=== PATIENT | female | born 1970 | race Caucasian/White ===

== ENCOUNTER 2016-06-21 23:50 | Emergency (ER) | payer OTHER ==
[2016-06-22 00:06] VITALS: O2SAT 100
--- NOTE | 2016-06-22 00:20 | ERPHSYRPT ---
- History of Present Illness Time Seen by Provider: 06/22/16 00:06 Historian: patient Exam Limitations: clinical condition Patient Subjective Stated Complaint: Pt sts abd pain with constipation and nasuea for several days. Sts has seen Dr. Mehta for this of which he ordered a CT scan. Pt sts CT scan showed constipation. Sts has tried prescribed medications for this without success. Pt sts last solid BM last . Sts 1 liquidy BM today. Sts still feels as if she is full. Sts pain is crampy. Denies vomiting. Sts still able to eat. Triage Nursing Assessment: Pt alert, oriented, answers all questions appropriately. Skin p/w/d, resps non-labored. ABD soft, tender diffusely. + bowel sounds. Lung sounds CTA bilat. Physician History: PATIENT WITH HISTORY OF TYPE 2 DIABETES, AND CHRONIC CONSTIPATION FOR 5 YEARS, INTERMITTENT LEFT SIDED ABDOMINAL PAIN FOR 1 WEEK. HAS NO RELIEF AFTER STOOL SOFTNERS AND LAXATIVES. DENIES URINARY SYMPTOMS, NAUSEA, EMESIS OR FEVER OR CHILLS. Timing/Duration: week(s) Activities at Onset: none Quality: cramping Abdominal Pain Onset Location: LUQ, LLQ Pain Radiation: no radiation Severity of Pain-Max: moderate Severity of Pain-Current: moderate Modifying Factors: Improves With: antacids Previous symptoms: same symptoms as today Allergies/Adverse Reactions: diphenhydramine HCl [From Benadryl] Allergy (Verified 06/22/16 00:14) guaifenesin [From CodiCLEAR DH] Allergy (Verified 06/22/16 00:14) hydrocodone bitartrate [From CodiCLEAR DH] Allergy (Verified 06/22/16 00:14) hydromorphone HCl [From Dilaudid] Allergy (Verified 06/22/16 00:14) Penicillins Allergy (Verified 06/22/16 00:14) potassium guaiacolsulfonate [From CodiCLEAR DH] Allergy (Verified 06/22/16 00:14 ) Home Medications: Amitriptyline HCl 150 mg PO HS 06/22/16 [History] Atorvastatin Calcium [Lipitor 40Mg] 40 mg PO DAILY 06/22/16 [History] Glycerin 1 each RC DAILY 06/22/16 [History] Hyoscyamine Sulfate 0.125 mg [Anaspaz 0.125 mg] 0.125 mg PO 06/22/16 [ History] Insulin Glargine,Hum.rec.anlog [Basaglar Kwikpen U-100] 65 unit SQ DAILY [History] Insulin Glulisine [Apidra Solostar] 25 unit SQ TID 06/22/16 [History] Lisinopril/Hydrochlorothiazide [Lisinopril-Hctz 10-12.5 mg Tab] 1 each PO [History] Loratadine 10 mg [Claritin 10 mg] 10 mg PO DAILY 06/22/16 [History] Ropinirole HCl [Requip] 0.25 mg PO TID 06/22/16 [History] Senexon 8.6 - 50 mg PO DAILY 06/22/16 [History] Hx Tetanus, Diphtheria Vaccination/Date Given: Yes Hx Influenza Vaccination/Date Given: Yes Hx Pneumococcal Vaccination/Date Given: (N/A) Immunizations Up to Date: Yes - Review of Systems Constitutional: No Fever, No Chills Eyes: No Symptoms Ears, Nose, & Throat: No Symptoms Respiratory: No Symptoms, No Cough, No Dyspnea Cardiac: No Symptoms, No Chest Pain, No Edema, No Syncope Abdominal/Gastrointestinal: Constipation, No Abdominal Pain, No Nausea, No Vomiting, No Diarrhea Genitourinary Symptoms: No Symptoms, No Dysuria Musculoskeletal: No Symptoms, No Back Pain, No Neck Pain Skin: No Symptoms, No Rash Neurological: No Symptoms, No Dizziness, No Focal Weakness, No Sensory Changes Psychological: No Symptoms Endocrine: No Symptoms All Other Systems: Reviewed and Negative - Past Medical History Pertinent Past Medical History: Yes Neurological History: No Pertinent History ENT History: No Pertinent History Cardiac History: No Pertinent History Respiratory History: Sleep Apnea, Asthma Endocrine Medical History: Diabetes Type II Musculoskeletal History: Other, Osteoarthritis, Degenerative Disk Disease GI Medical History: Irritable Bowel, Other History: No Pertinent History Psycho-Social History: Anxiety Female Reproductive Disorders: No Pertinent History Other Medical History: CHRONIC CONSTIPATION - Past Surgical History Past Surgical History: Yes Gastrointestinal: Exploratory Laparoscopy, Cholecystectomy Other Surgical History: TONSILLECTOMY - Social History Smoking Status: Former smoker Exposure to second hand smoke: No Drug Use: none Patient Lives Alone: No - Female History Hx Last Menstrual Period: post menopausal - Nursing Vital Signs Nursing Vital Signs: Initial Vital Signs Temperature 98.3 F Temperature Source Oral Pulse Rate 92 Respiratory Rate 16 Blood Pressure [Right Arm] 128/62 Pain Intensity 10 - Physical Exam General Appearance: no apparent distress, alert Eye Exam: PERRL/EOMI, eyes nml inspection Ears, Nose, Throat Exam: normal ENT inspection, pharynx normal, moist mucous membranes Neck Exam: normal inspection, non-tender, supple, full range of motion Respiratory Exam: normal breath sounds, lungs clear, No respiratory distress Cardiovascular Exam: regular rate/rhythm, normal heart sounds Gastrointestinal/Abdomen Exam: soft, tenderness (LEFT LATERAL TENDERNESS), No mass Back Exam: normal inspection, normal range of motion, No CVA tenderness, No vertebral tenderness Extremity Exam: normal inspection, normal range of motion, pelvis stable Neurologic Exam: alert, oriented x 3, cooperative, normal mood/affect, nml cerebellar function, sensation nml, No motor deficits Skin Exam: normal color, warm, dry SpO2: 100 Oxygen Delivery: Room Air Ordered Tests: Active Orders 24 hr Category Date Time Status Enema STAT Care 06/22/16 00:15 Active - Progress Progress: improved Progress Note: 06/22/16 01:33- THE ABDOMINAL PELVIC CT W/O CONTRAST C/W MODERATE SCATTERED COLONIC FECAL DEBRIS THROUGHOUT, WITHOUT OBSTRUCTION. PATIENT GIVEN SOAP SUDS ENEMA WITH GOOD RESULTS Counseled pt/family regarding: diagnosis, need for follow-up - Departure Time of Disposition: 01:37 Departure Disposition: Home Clinical Impression: OBSTIPATION Condition: Stable Critical Care Time: No Additional Instructions: CONSULT YOUR PRIMARY CARE PHYSICIAN FOR EVALUATION AND TREATMENT. CONTINUE ALL CURRENT MEDICATIONS.
[2016-06-22 01:28] VITALS: BP 128/62; PULSE 92
== END 2016-06-22 01:53 | disposition home or self-care (01) ==
LOC: ED 23:50
DX: K59.00 Constipation, unspecified (principal); R11.0 Nausea; E11.9 Type 2 diabetes mellitus without complications; R10.32 Left lower quadrant pain; R10.12 Left upper quadrant pain; Z79.4 Long term (current) use of insulin
CPT/HCPCS: 99284

== ENCOUNTER 2016-08-25 00:36 | Observation (INO) | payer OTHER ==
[2016-08-25] MEDS ORDERED: Pepcid 20 MG VIAL IV ONE ×2 (00:54→01:01)
[2016-08-25] MEDS ORDERED: SUBLIMAZE 100 MCG/2 ML IV ONE (00:54)
[2016-08-25] MEDS ORDERED: BABY ASPIRIN 81 MG CHEW PO ONE (00:55)
[2016-08-25] MEDS ORDERED: NITRO-BID 2% UD PACKETS TOP ONE (00:55)
[2016-08-25 00:56] LABS: Lactic Acid 2.3 (0.4-2.0)
[2016-08-25] MEDS ORDERED: NITRO-BID 2% UD PACKETS ONE ×3 (01:01→06:42)
[2016-08-25] MEDS ORDERED: BABY ASPIRIN 81 MG CHEW ONE (01:01)
[2016-08-25] MEDS ORDERED: PROVENTIL 2.5 MG/3 ML NEB IH ONE ×2 (01:02→01:07)
[2016-08-25] MEDS ORDERED: SUBLIMAZE 100 MCG/2 ML ONE (01:02)
--- NOTE | 2016-08-25 01:03 | ERPHSYRPT ---
- History of Present Illness Time Seen by Provider: 08/25/16 00:40 Source: patient Patient Subjective Stated Complaint: sick to stomach, abdominal pain, chest pain Triage Nursing Assessment: patient states has hx of asthma cannot nebulizer machine at home, no cardiac hx , abdominal pain and nausea currently does have cyst on left ovary so it could be that. lung sounds clear diminished , edema lower extremities. Physician History: CC: chest pain Hx: 46 y/o patient of Dr Adhikari with DM and HTN. She has hx of ovary problem. Still has menses. She came to ER tonite with left sided chest pain. Not short of breath. No cough. She uses nebs at home. She has increased chronic abd pain. Last BM 2 hours ago and normal. No fever or chills. Pain moderate but worse than usual. No hx of heart disease. Has not taken ASA. Timing/Duration: today Severity: moderate Allergies/Adverse Reactions: diphenhydramine HCl [From Benadryl] Allergy (Verified 06/22/16 00:14) guaifenesin [From CodiCLEAR DH] Allergy (Verified 06/22/16 00:14) hydrocodone bitartrate [From CodiCLEAR DH] Allergy (Verified 06/22/16 00:14) hydromorphone HCl [From Dilaudid] Allergy (Verified 06/22/16 00:14) Penicillins Allergy (Verified 06/22/16 00:14) potassium guaiacolsulfonate [From CodiCLEAR DH] Allergy (Verified 06/22/16 00:14 ) Home Medications: Atorvastatin Calcium [Lipitor 40Mg] 40 mg PO DAILY 06/22/16 [History] Insulin Glargine,Hum.rec.anlog [Basaglar Kwikpen U-100] 70 unit SQ DAILY [History] Insulin Glulisine [Apidra Solostar] 30 unit SQ TID 06/22/16 [History] Lisinopril/Hydrochlorothiazide [Lisinopril-Hctz 10-12.5 mg Tab] 1 each PO [History] Loratadine 10 mg [Claritin 10 mg] 10 mg PO DAILY 06/22/16 [History] Ropinirole HCl [Requip] 0.25 mg PO TID 06/22/16 [History] Methylphenidate HCl [Ritalin] 10 mg PO BID 08/25/16 [History] PANTOPRAZOLE 40 mg Tablet [Protonix 40MG Tablet] 40 mg PO DAILY 08/25/16 [ History] Topiramate 50 mg PO HS 08/25/16 [History] Hx Tetanus, Diphtheria Vaccination/Date Given: Yes Hx Influenza Vaccination/Date Given: Yes Hx Pneumococcal Vaccination/Date Given: No Immunizations Up to Date: Yes - Review of Systems Constitutional: No Fever, No Chills Eyes: No Symptoms Ears, Nose, & Throat: No Symptoms Respiratory: No Cough Cardiac: Chest Pain, Edema, No Syncope Abdominal/Gastrointestinal: Abdominal Pain, Nausea Genitourinary Symptoms: No Dysuria, No Musculoskeletal: Back Pain Skin: No Rash Neurological: No Headache All Other Systems: Reviewed and Negative - Past Medical History Pertinent Past Medical History: Yes Neurological History: No Pertinent History ENT History: No Pertinent History Cardiac History: No Pertinent History Respiratory History: Sleep Apnea, Asthma Endocrine Medical History: Diabetes Type II Musculoskeletal History: Other, Osteoarthritis, Degenerative Disk Disease GI Medical History: Irritable Bowel, Other History: No Pertinent History Psycho-Social History: Anxiety Female Reproductive Disorders: No Pertinent History Other Medical History: CHRONIC CONSTIPATION - Past Surgical History Past Surgical History: Yes Gastrointestinal: Exploratory Laparoscopy, Cholecystectomy Other Surgical History: TONSILLECTOMY - Social History Smoking Status: Never smoker Exposure to second hand smoke: No Drug Use: none Patient Lives Alone: No - Nursing Vital Signs Nursing Vital Signs: Initial Vital Signs Temperature 97.4 F Temperature Source Oral Pulse Rate 100 Respiratory Rate 18 Blood Pressure [] 110/58 Pain Intensity 10 - Physical Exam General Appearance: alert, obese Eye Exam: PERRL/EOMI Ears, Nose, Throat Exam: normal ENT inspection, moist mucous membranes Neck Exam: normal inspection, non-tender, supple Respiratory Exam: normal breath sounds, diminished breath sounds Cardiovascular Exam: regular rate/rhythm Gastrointestinal/Abdomen Exam: soft, other (protruberant abdomen, with diffuse discomfort) Extremity Exam: normal inspection, normal range of motion Neurologic Exam: alert, oriented x 3, cooperative, sensation nml, No motor deficits Skin Exam: warm, dry SpO2 Interpretation: normal SpO2: 98 Oxygen Delivery: Room Air - Course Nursing assessment & vital signs reviewed: Yes EKG Interpreted by Me: RATE (115), Sinus Tach, NORMAL AXIS, NORMAL INTERVALS ( QTc 422), Non-specific ST Changes - Radiology Exams AAS X-ray Interpretation: Reviewed by me, Negative Ordered Tests: Active Orders 24 hr Category Date Time Status ACCUCHECK [Accucheck] STAT Care 08/25/16 00:56 Active Email Marketing Executive STAT Care 08/25/16 00:55 Active EKG-ER Only STAT Care 08/25/16 00:45 Active IV Insertion STAT Care 08/25/16 00:45 Active Pulse Oximetry (ED) STAT Care 08/25/16 00:55 Active OBSTR/ACUTE ABDOMEN SERIES Stat Exams 08/25/16 00:54 Taken CBC W DIFF Stat Lab 08/25/16 00:54 Completed CMP Stat Lab 08/25/16 00:54 Completed HCG QUALITATIVE,SERUM Stat Lab 08/25/16 01:19 Completed LIPASE Stat Lab 08/25/16 00:54 Completed Lactic Acid Stat Lab 08/25/16 00:45 Results MAGNESIUM Stat Lab 08/25/16 00:54 Completed TROPONIN Stat Lab 08/25/16 00:54 Completed UA W/ MICROSCOPIC Stat Lab 08/25/16 02:01 Completed Respiratory Nebulizer STAT RT 08/25/16 01:03 Completed Medication Summary Generic Name Dose Route Start Last Admin Trade Name Freq PRN Reason Stop Dose Admin Magnesium Sulfate/Dextrose 100 mls @ 100 mls/hr 08/25/16 02:15 Magnesium 1 Gm / 100 Ml D5w IV 08/25/16 04:14 Q1H NIRAV Discontinued Medications Generic Name Dose Route Start Last Admin Trade Name Freq PRN Reason Stop Dose Admin Albuterol Sulfate 2.5 mg 08/25/16 01:02 08/25/16 01:52 Proventil 2.5 Mg/3 Ml Neb IH 08/25/16 01:03 2.5 mg STAT ONE Administration Albuterol Sulfate Confirm 08/25/16 01:07 Proventil 2.5 Mg/3 Ml Neb Administered 08/25/16 01:08 Dose 2.5 mg IH .STK-MED ONE Aspirin 81 mg 08/25/16 00:55 08/25/16 01:05 Baby Aspirin 81 Mg Chew PO 08/25/16 00:56 81 mg STAT ONE Administration Aspirin Confirm 08/25/16 01:01 Baby Aspirin 81 Mg Chew Administered 08/25/16 01:02 Dose 81 mg .ROUTE .STK-MED ONE Famotidine 20 mg 08/25/16 00:54 08/25/16 01:05 Pepcid 20 Mg Vial IV 08/25/16 00:55 20 mg STAT ONE Administration Famotidine Confirm 08/25/16 01:01 Pepcid 20 Mg Vial Administered 08/25/16 01:02 Dose 20 mg IV .STK-MED ONE Fentanyl Citrate 50 mcg 08/25/16 00:54 08/25/16 01:05 Sublimaze 100 Mcg/2 Ml IV 08/25/16 00:55 50 mcg STAT ONE Administration Fentanyl Citrate Confirm 08/25/16 01:02 Sublimaze 100 Mcg/2 Ml Administered 08/25/16 01:03 Dose 100 mcg .ROUTE .STK-MED ONE Nitroglycerin 1 gm 08/25/16 00:55 08/25/16 01:05 Nitro-Bid 2% Ud Packets TOP 08/25/16 00:56 1 gm STAT ONE Administration Nitroglycerin Confirm 08/25/16 01:01 Nitro-Bid 2% Ud Packets Administered 08/25/16 01:02 Dose 1 gm .ROUTE .STK-MED ONE Nitroglycerin Confirm 08/25/16 01:03 Nitro-Bid 2% Ud Packets Administered 08/25/16 01:04 Dose 1 gm .ROUTE .STK-MED ONE Lab/Rad Data: Laboratory Result Diagrams 08/25/16 00:54 08/25/16 00:54 Laboratory Results 08/25/16 08/25/16 08/25/16 Range/Units 02:01 01:19 00:54 WBC (4.0-10.5) K/mm3 RBC (4.1-5.4) M/mm3 Hgb (12.0-16.0) gm/dl Hct (35-47) % MCV (78-100) fl MCH (26-32) pg MCHC (32-36) g/dl RDW (11.5-14.0) % Plt Count (150-450) K/mm3 MPV (6-9.5) fl Gran % (36.0-66.0) % Lymphocytes % (24.0-44.0) % Monocytes % (0.0-12.0) % Eosinophils % (0.00-5.0) % Basophils % (0.0-0.4) % Basophils # (0-0.4) Sodium (136-145) mEq/L Potassium (3.5-5.1) mEq/L Chloride (98-107) mEq/L Carbon Dioxide (21-32) mEq/L Anion Gap (5-15) MEQ/L BUN (9-20) mg/dL Creatinine (0.55-1.30) mg/dl Estimated GFR ML/MIN Glucose (70-110) MG/DL Lactic Acid (0.4-2.0) Calcium (8.5-10.1) mg/dL Magnesium (1.8-2.4) mg/dL Total Bilirubin (0.2-1.0) mg/dL AST (15-37) U/L ALT (12-78) U/L Alkaline Phosphatase (46-116) U/L Troponin I < 0.017 (0.000-0.056) ng/ml Serum Total Protein (6.4-8.2) gm/dL Albumin (3.4-5.0) g/dL Lipase (73-393) U/L Serum , Qual NEGATIVE (Negative) Ur Collection Type CATH Urine Color YELLOW (YELLOW) Urine Appearance CLEAR (CLEAR) Urine pH 6.0 (5-6) Ur Specific [place] 1.015 (1.005-1.025) Urine Protein NEGATIVE (Negative) Urine Glucose (UA) NEGATIVE (NEGATIVE) mg/dL Urine Ketones NEGATIVE (NEGATIVE) Urine Nitrite NEGATIVE (NEGATIVE) Urine Bilirubin NEGATIVE (NEGATIVE) Urine Urobilinogen 0.2 (0-1) mg/dL Urine WBC (Auto) NEGATIVE (NEGATIVE) Urine RBC (Auto) SMALL (0-5) Best/ul Urine Microscopic RBC 0-2 (0-2) /HPF Ur Epithelial Cells FEW (FEW) /HPF Urine Bacteria RARE (NEGATIVE) /HPF Specimen Received 08/25/16 0200 08/25/16 08/25/16 08/25/16 Range/Units 00:54 00:54 00:45 WBC 11.2 H (4.0-10.5) K/mm3 RBC 4.61 (4.1-5.4) M/mm3 Hgb 13.5 (12.0-16.0) gm/dl Hct 42.3 (35-47) % MCV 91.8 (78-100) fl MCH 29.3 (26-32) pg MCHC 31.9 L (32-36) g/dl RDW 13.7 (11.5-14.0) % Plt Count 282 (150-450) K/mm3 MPV 11.3 H (6-9.5) fl Gran % 55.1 (36.0-66.0) % Lymphocytes % 34.2 (24.0-44.0) % Monocytes % 8.7 (0.0-12.0) % Eosinophils % 1.6 (0.00-5.0) % Basophils % 0.4 (0.0-0.4) % Basophils # 0.05 (0-0.4) Sodium 142 (136-145) mEq/L Potassium 3.1 L (3.5-5.1) mEq/L Chloride 103 (98-107) mEq/L Carbon Dioxide 29.2 (21-32) mEq/L Anion Gap 13.1 (5-15) MEQ/L BUN 21 H (9-20) mg/dL Creatinine 0.98 (0.55-1.30) mg/dl Estimated GFR > 60 ML/MIN Glucose 134 H (70-110) MG/DL Lactic Acid 2.3 H (0.4-2.0) Calcium 9.0 (8.5-10.1) mg/dL Magnesium 1.7 L (1.8-2.4) mg/dL Total Bilirubin 0.30 (0.2-1.0) mg/dL AST 15 (15-37) U/L ALT 37 (12-78) U/L Alkaline Phosphatase 139 H (46-116) U/L Troponin I (0.000-0.056) ng/ml Serum Total Protein 7.1 (6.4-8.2) gm/dL Albumin 3.5 (3.4-5.0) g/dL Lipase 133 (73-393) U/L Serum , Qual (Negative) Ur Collection Type Urine Color (YELLOW) Urine Appearance (CLEAR) Urine pH (5-6) Ur Specific [place] (1.005-1.025) Urine Protein (Negative) Urine Glucose (UA) (NEGATIVE) mg/dL Urine Ketones (NEGATIVE) Urine Nitrite (NEGATIVE) Urine Bilirubin (NEGATIVE) Urine Urobilinogen (0-1) mg/dL Urine WBC (Auto) (NEGATIVE) Urine RBC (Auto) (0-5) Best/ul Urine Microscopic RBC (0-2) /HPF Ur Epithelial Cells (FEW) /HPF Urine Bacteria (NEGATIVE) /HPF Specimen Received - Progress Progress Note: 08/25/16 01:[address] abdomen recently which showed normal aorta and constipation. 08/25/16 02:18 Pt was given fentanyl and NTG paste. Some improvement but still has left chest pain. No shortness of breath. Labs reassuring. Pt told [facility] about social problems at home with housekeeping, family. She has cardiac risk factors. Will place in chest pain observation. Counseled pt/family regarding: lab results, diagnosis, need for follow-up, rad results - Departure Time of Disposition: 02:20 Departure Disposition: Observation (Tele) Clinical Impression: Chest pain, rule out acute myocardial infarction, Hypomagnesemia, Type 2 diabetes mellitus Condition: Stable Critical Care Time: No Referrals: NICK ADHIKARI MD [Primary Care Provider] -
[2016-08-25 01:08] LABS: BASOPHIL % 0.4 % (0.0-0.4); Eosinophil % 1.6 % (0.00-5.0); Granulocytes % 55.1 % (36.0-66.0); Lymphocytes % 34.2 % (24.0-44.0); Mean Cell Volume 91.8 fl (78-100); Mean Corpuscular Hemoglobin 29.3 pg (26-32); Mean Platelet Volume 11.3 fl (6-9.5); Monocytes % 8.7 % (0.0-12.0); Platelet Count 282 K/mm3 (150-450); Red Blood Count 4.61 M/mm3 (4.1-5.4); Red Cell Distribution Width 13.7 % (11.5-14.0); White Blood Count 11.2 K/mm3 (4.0-10.5)
[2016-08-25 01:24] LABS: ALBUMIN 3.5 g/dL (3.4-5.0); ALKALINE PHOSPHATASE 139 U/L (46-116); ANION GAP 13.1 MEQ/L (5-15); BLOOD UREA NITROGEN 21 mg/dL (9-20); CHLORIDE 103 mEq/L (98-107); Carbon Dioxide 29.2 mEq/L (21-32); Glucose 134 MG/DL (70-110); LIPASE 133 U/L (73-393); MAGNESIUM 1.7 mg/dL (1.8-2.4); Potassium 3.1 mEq/L (3.5-5.1); SGOT/AST 15 U/L (15-37); SGPT/ALT 37 U/L (12-78); SODIUM 142 mEq/L (136-145); Total Protein 7.1 gm/dL (6.4-8.2)
[2016-08-25 02:13] LABS: ADD URINE CULTURE? NO (NO); Bacteria RARE /HPF (NEGATIVE); COMPLETE URINE MICROSCOPIC? YES; Collection Type CATH; Epithelial Cells FEW /HPF (FEW)
[2016-08-25] MEDS ORDERED: K-LYTE 25 MEQ PO ONE (02:20)
[2016-08-25] MEDS ORDERED: Magnesium 1 Gm / 100 Ml D5W*** 100 ML IV ONE (02:23)
[2016-08-25] MEDS ORDERED: K-LYTE 25 MEQ ONE (02:26)
[2016-08-25] MEDS: Magnesium 1 Gm / 100 Ml D5W*** 100 ML IV SCH ×2 (02:27→06:53)
[2016-08-25] MEDS ORDERED: MILK OF MAGNESIA 30 ML PO PRN (02:47)
[2016-08-25] MEDS ORDERED: Senokot-S Tablet PO PRN (02:47)
[2016-08-25] MEDS ORDERED: MAALOX ES 30 ML UNIT DOSE PO PRN (02:47)
[2016-08-25] MEDS ORDERED: Zofran 4 MG/2 ML VIAL IV PRN (02:47)
[2016-08-25] MEDS ORDERED: Sodium Chloride 0.9% 500 ML 500 ML IV SCH (02:47)
[2016-08-25] MEDS: TYLENOL 325 MG PO PRN ×2 (03:33→09:43)
[2016-08-25] MEDS ORDERED: PROVENTIL COMMON CANISTER IH PRN (04:13)
[2016-08-25] MEDS ORDERED: PROVENTIL 2.5 MG/3 ML NEB IH PRN (04:14)
[2016-08-25] MEDS ORDERED: PROVENTIL COMMON CANISTER IH SCH (07:00)
[2016-08-25] MEDS: NITRO-BID 2% UD PACKETS TOP SCH ×2 (07:00→14:32)
[2016-08-25] MEDS: NovoLOG Insulin SQ PRN ×3 (08:03→16:55)
--- NOTE | 2016-08-25 08:48 | PCM.HP ---
History of Present Illness - Chief Complaint Chief Complaint: Shortness of Breath History of Present Illness: is a 46 year old female who presented with chest pain that began last night at rest. She reports difficulty with her marriage and is calling her names. She also c/o nausea and pain in epigastrium. - Review of Systems Constitutional: No Fever, No Chills Respiratory: No Cough, No Short Of Breath Cardiac: Chest Pain, No Edema, No Syncope Abdominal/Gastrointestinal: Abdominal Pain, Nausea Genitourinary Symptoms: No Dysuria Skin: No Rash All Other Systems: Reviewed and Negative Medications & Allergies Home Medications: Home Medication List Atorvastatin Calcium [Lipitor 40Mg] 40 mg PO HS 06/22/16 [History Confirmed 10/04] Insulin Glargine,Hum.rec.anlog [Basaglar Kwikpen U-100] 70 unit SQ HS 06/22/16 [ History Confirmed 08/25/16] Insulin Glulisine [Apidra Solostar] 30 unit SQ TIDWMEALS 06/22/16 [History Confirmed 08/25/16] Lisinopril/Hydrochlorothiazide [Lisinopril-Hctz 10-12.5 mg Tab] 1 each PO DAILY 06/22/16 [History Confirmed 08/25/16] Loratadine 10 mg [Claritin 10 mg] 10 mg PO HS 06/22/16 [History Confirmed 08/25/16] Ropinirole HCl [Requip] 0.25 mg PO TID 06/22/16 [History Confirmed 08/25/16] Methylphenidate HCl [Ritalin] 10 mg PO BID 08/25/16 [History Confirmed 08/25/16] PANTOPRAZOLE 40 mg Tablet [Protonix 40MG Tablet] 40 mg PO DAILY 08/25/16 [ History Confirmed 08/25/16] Topiramate 50 mg PO HS 08/25/16 [History Confirmed 08/25/16] Allergies/Adverse Reactions: Allergies Allergy/AdvReac Type Severity Reaction Status Date / Time diphenhydramine HCl Allergy Verified 06/22/16 00:14 [From Benadryl] guaifenesin Allergy Verified 06/22/16 00:14 [From Anne[facility] ] hydrocodone bitartrate Allergy Verified 06/22/16 00:14 [From [facility]] hydromorphone HCl Allergy Verified 06/22/16 00:14 [From Dilaudid] Penicillins Allergy Verified 06/22/16 00:14 potassium guaiacolsulfonate Allergy Verified 06/22/16 00:14 [From [facility]] - Past Medical History Past Medical History: Yes Neurological History: No Pertinent History ENT History: No Pertinent History Cardiac History: No Pertinent History Respiratory History: Sleep Apnea, Asthma Endocrine Medical History: Diabetes Type II Musculoskelatal History: Other, Osteoarthritis, Degenerative Disk Disease GI Medical History: Irritable Bowel, Other History: No Pertinent History Pyscho-Social History: Anxiety, Depression Reproductive Disorders: No Pertinent History Comment: CHRONIC CONSTIPATION - Female History Hx Last Menstrual Period: 08/02/16 Are you now?: No - Past Surgical History Past Surgical History: Yes GI Surgical History: Exploratory Laparoscopy, Cholecystectomy Other Surgical History: TONSILLECTOMY - Social History Smoking Status: Former smoker Exposure to second hand smoke: No Alcohol: None Drug Use: none - Physical Exam Vital Signs: Vital Signs - 24 hr Temp Pulse Resp BP Pulse Ox 08/25/16 08:00 97.7 F 104 H 16 109/56 95 08/25/16 07:57 95 08/25/16 06:58 98 H 16 95 08/25/16 03:33 107 H 16 96 08/25/16 02:48 98.5 F 106 H 14 134/67 96 08/25/16 02:20 98 08/25/16 01:56 100 H 18 110/58 100 08/25/16 01:52 106 H 19 97 08/25/16 00:58 96 08/25/16 00:39 97.4 F 110 H 20 170/96 98 General Appearance: no apparent distress, alert, obese Neurologic Exam: alert, oriented x 3, cooperative, normal mood/affect, nml cerebellar function, nml station & gait, sensation nml, No motor deficits Eye Exam: PERRL/EOMI, eyes nml inspection Respiratory Exam: normal breath sounds, lungs clear, No respiratory distress Cardiovascular Exam: regular rate/rhythm, normal heart sounds, normal peripheral pulses Gastrointestinal/Abdomen Exam: soft, normal bowel sounds, No tenderness, No mass Results - Labs Lab/Micro Results: Accuchecks Date 08/25/16 Time 07:30 Accucheck Value: 205 Lab Results-Last 24 Hours 08/25/16 08/25/16 08/25/16 Range/Units 03:45 03:45 07:00 Lactic Acid 2.2 H (0.4-2.0) Magnesium (1.8-2.4) mg/dL Troponin I < 0.017 < 0.017 (0.000-0.056) ng/ml 08/25/16 Range/Units 08:05 Lactic Acid (0.4-2.0) Magnesium 2.2 (1.8-2.4) mg/dL Troponin I (0.000-0.056) ng/ml Accuchecks Date 08/25/16 Time 07:30 Accucheck Value: 205 - Other Procedures and Tests Respiratory Therapy 08/25/16 04:13 Respiratory MDI PRN 08/25/16 04:14 BiPap/CPAP Assessment ROUTINE Respiratory Nebulizer PRN 08/25/16 07:00 Respiratory MDI BID 08/26/16 05:00 EKG DAILY 08/27/16 05:00 EKG DAILY 08/28/16 05:00 EKG DAILY Assessment/Plan (1) Chest pain, rule out acute myocardial infarction Current Visit: Yes Status: Acute Assessment & Plan: will r/o MS, likely related to anxiety/stress reaction. discharge planning will assess home situation and provide resources for support. initial troponin negative x 2, ekg with no acute changes Code(s): R07.9 - CHEST PAIN, UNSPECIFIED (2) Hypomagnesemia Current Visit: Yes Status: Acute Code(s): E83.42 - HYPOMAGNESEMIA (3) Type 2 diabetes mellitus Current Visit: Yes Status: Acute
--- NOTE | 2016-08-25 09:19 | XRAY ---
Indication: Chest pain and short of breath. Left lower quadrant pain and nausea. Comparison: Chest exam May 01, 2015. 2 views of the abdomen nonacute and nonobstructed. There is mild diffuse scattered colonic fecal debris and cholecystectomy clips. Remaining solid organs and osseous structures unremarkable. Single AP chest demonstrates normal heart, lungs, and bony thorax. Impression: 1. Mild fecal stasis without obstruction. 2. Normal 1 view chest.
[2016-08-25] MEDS: Requip 0.5 MG PO SCH ×2 (09:42→14:32)
[2016-08-25] MEDS ORDERED: MEDICATION INTERVENTION MC SCH (09:45)
[2016-08-25] MEDS ORDERED: NON-FORMULARY ITEM (Ropinirole Hcl [Requip] 0.25 MG) PO SCH (10:00)
[2016-08-25] MEDS ORDERED: NON-FORMULARY ITEM (Lisinopril/Hydrochlorothiazide [Lisinopril-Hctz 10-12.5 Mg Tab] 1 EACH PO SCH (10:00)
[2016-08-25] MEDS ORDERED: hydroDIURIL 25 MG PO SCH (10:00)
[2016-08-25] MEDS ORDERED: Pepcid 20 MG PO SCH (10:00)
[2016-08-25] MEDS ORDERED: Ecotrin 325 MG PO SCH (10:00)
[2016-08-25] MEDS ORDERED: Zestril 10 MG PO SCH (10:00)
[2016-08-25] MEDS ORDERED: Protonix 40MG Tablet PO SCH (10:00)
[2016-08-25] MEDS ORDERED: INSULIN GLULISINE SQ SCH (12:00)
[2016-08-25 16:47] VITALS: BP 123/55; PULSE 83; O2SAT 93
--- NOTE | 2016-08-25 17:42 | PCM.DCORD ---
- Discharge Disposition: Home, Self-Care Condition: Stable Prescriptions: No Action Insulin Glargine,Hum.rec.anlog [Basaglar Kwikpen U-100] 70 unit SQ HS Loratadine 10 mg [Claritin 10 mg] 10 mg PO HS Insulin Glulisine [Apidra Solostar] 30 unit SQ TIDWMEALS Ropinirole HCl [Requip] 0.25 mg PO TID Atorvastatin Calcium [Lipitor 40Mg] 40 mg PO HS Lisinopril/Hydrochlorothiazide [Lisinopril-Hctz 10-12.5 mg Tab] 1 each PO DAILY Topiramate 50 mg PO HS Methylphenidate HCl [Ritalin] 10 mg PO BID PANTOPRAZOLE 40 mg Tablet [Protonix 40MG Tablet] 40 mg PO DAILY Follow up with: NICK ADHIKARI MD [Primary Care Provider] - Forms: Patient Portal Information
[2016-08-25] MEDS ORDERED: CLARITIN 10 MG PO SCH (22:00)
[2016-08-25] MEDS ORDERED: Topamax 100 MG PO SCH (22:00)
[2016-08-25] MEDS ORDERED: TOPIRAMATE 50 MG PO SCH (22:00)
[2016-08-25] MEDS ORDERED: ZOCOR 20MG PO SCH (22:00)
[2016-08-25] MEDS ORDERED: INSULIN GLARGINE HUM REC ANLOG 70 UNIT SQ SCH (22:00)
[2016-08-25] MEDS ORDERED: Lantus Insulin SQ SCH (22:00)
[2016-08-25] MEDS ORDERED: LIPITOR 40MG PO SCH (22:00)
[2016-08-26] MEDS ORDERED: PNEUMOVAX 23 IM ONE (10:00)
== END 2016-08-25 18:25 | disposition home or self-care (01) ==
LOC: ED 00:36 → MED SURG 02:41
PROVIDERS: ADMIT Family Medicine; ATTEND Family Medicine
DX: R07.9 Chest pain, unspecified (principal); E83.42 Hypomagnesemia; E11.9 Type 2 diabetes mellitus without complications; Z79.4 Long term (current) use of insulin; Z79.899 Other long term (current) drug therapy; I10 Essential (primary) hypertension; J45.909 Unspecified asthma, uncomplicated
CPT/HCPCS: 36000; 36415; 74022; 80053; 80061; 81000; 82962; 83036; 83605; 83690; 83721; 83735; 84484; 84703; 85025; 90732; 93005; 93041; 94640; 94660; 94760; 96374; 96375; 99285; G0378; J3010; J3475; A9270-GY

== ENCOUNTER 2017-10-06 22:14 | Emergency (ER) | payer OTHER ==
[2017-10-06] MEDS ORDERED: Carafate 1 GM PO ONE ×2 (22:59→23:07)
[2017-10-06] MEDS ORDERED: ZOFRAN ODT 4 MG PO ONE (22:59)
[2017-10-06] MEDS ORDERED: ZOFRAN ODT 4 MG ONE (23:07)
[2017-10-06 23:13] VITALS: O2SAT 98
[2017-10-06 23:50] LABS: BASOPHIL % 0.2 % (0.0-0.4); Basophil (Absolute #) 0.02 (0-0.4); Eosinophil % 0.8 % (0.00-5.0); Eosinophil (Absolute #) 0.08 (0-0.5); Granulocyte Absolute (ANC) 6.26 (1.4-6.9); Granulocytes % 63.1 % (36.0-66.0); Hematocrit 45.7 % (35-47); Hemoglobin 14.4 gm/dl (12.0-16.0); Lymphocyte (Absolute #) 2.74 (1.0-4.6); Lymphocytes % 27.6 % (24.0-44.0); Mean Cell Volume 91.4 fl (78-100); Mean Corpuscular Hemoglobin 28.8 pg (26-32); Mean Corpuscular Hgb Concent. 31.5 g/dl (32-36); Mean Platelet Volume 10.7 fl (6-9.5); Monocyte (Absolute #) 0.82 (0.0-1.3); Monocytes % 8.3 % (0.0-12.0); Platelet Count 257 K/mm3 (150-450); Red Cell Distribution Width 14.2 % (11.5-14.0); White Blood Count 9.9 K/mm3 (4.0-10.5)
[2017-10-07 00:02] LABS: Appearance CLEAR (CLEAR); Bilirubin NEGATIVE (NEGATIVE); Blood TRACE NON-HEM Ery/ul (0-5); Glucose 1000 mg/dL (NEGATIVE); Ketones NEGATIVE (NEGATIVE); Leukocyte Esterase NEGATIVE (NEGATIVE); Nitrite NEGATIVE (NEGATIVE); Protein,Urine Dip NEGATIVE (Negative); Specific Gravity 1.025 (1.005-1.025); Urobilinogen NORMAL mg/dL (0-1)
[2017-10-07 00:03] LABS: Epithelial Cells RARE /HPF (FEW); RBC 0-2 /HPF (0-2)
[2017-10-07 00:12] LABS: ALBUMIN 4.1 g/dL (3.5-5.0); ALKALINE PHOSPHATASE 108 U/L (38-126); AMYLASE 57 U/L (30-110); ANION GAP 12.6 MEQ/L (5-15); BLOOD UREA NITROGEN 15 mg/dL (7-17); CHLORIDE 104 mmol/L (98-107); Carbon Dioxide 29 mmol/L (22-30); Creatinine 1 0.87 mg/dL (0.52-1.04); Glucose 77 mg/dL (74-106); LIPASE 95 U/L (23-300); SGOT/AST 15 U/L (14-36); SGPT/ALT 19 U/L (0-35); SODIUM 142 mmol/L (137-145); Total Protein 6.8 g/dL (6.3-8.2)
--- NOTE | 2017-10-07 00:22 | ERPHSYRPT ---
- History of Present Illness Time Seen by Provider: 10/06/17 22:35 Historian: patient Exam Limitations: no limitations Patient Subjective Stated Complaint: pt is alert and oriented. pt is ambulatory. pt states that she found out she has thyroid cancer on the 06 of September since then she stated that she has been having nausea and vomiting. she states that tonight she "just couldn't take the pain anymore". abd soft and tender to touch in the upper left quadrant. bowel sounds present x4. pt blood sugar is 77. pt states that she took Tylenol, Ibuprofen, and Zofran at 1400. Triage Nursing Assessment: see above Physician History: 47 Y/O MORBIDLY OBESE IDDM WHITE FEMALE PRESENTS WITH A ONE MONTH H/O N/V AND ABD PAIN. PT SAW HER PCP TODAY AND SPOKE TO THE PCP ABOUT HER SX BUT NOTHING DONE FOR IT. PT STATES NAUSEA/VOMITING NOT BEING HELPED WITH ZOFRAN AND PT IS ALLERGIC TO PHENERGAN. Timing/Duration: week(s) (OVER 4 WEEKS), intermittent Activities at Onset: none Quality: pressure Abdominal Pain Onset Location: RUQ, LUQ Pain Radiation: no radiation Severity of Pain-Max: mild Severity of Pain-Current: mild Modifying Factors: Improves With: nothing, vomiting Associated Symptoms: loss of appetite, nausea, vomiting, No back, No chest pain , No diaphoresis, No diarrhea, No shortness of breath Previous symptoms: same symptoms as today Allergies/Adverse Reactions: diphenhydramine HCl [From Benadryl] Allergy (Verified 06/22/16 00:14) guaifenesin [From CodiCLEAR DH] Allergy (Verified 06/22/16 00:14) hydrocodone bitartrate [From CodiCLEAR DH] Allergy (Verified 06/22/16 00:14) hydromorphone HCl [From Dilaudid] Allergy (Verified 06/22/16 00:14) Penicillins Allergy (Verified 06/22/16 00:14) potassium guaiacolsulfonate [From CodiCLEAR DH] Allergy (Verified 06/22/16 00:14 ) Home Medications: Atorvastatin Calcium [Lipitor 40Mg] 40 mg PO HS 06/22/16 [History] Insulin Glargine,Hum.rec.anlog [Narcisoaglnoah Coker U-100] 70 unit SQ HS 06/22/16 [ History] Insulin Glulisine [Apidra Solostar] 30 unit SQ TIDWMEALS 06/22/16 [History] Lisinopril/Hydrochlorothiazide [Lisinopril-Hctz 10-12.5 mg Tab] 1 each PO DAILY 06/22/16 [History] Loratadine 10 mg [Claritin 10 mg] 10 mg PO HS 06/22/16 [History] Ropinirole HCl [Requip] 0.25 mg PO TID 06/22/16 [History] Methylphenidate HCl [Ritalin] 10 mg PO BID 08/25/16 [History] PANTOPRAZOLE 40 mg Tablet [Protonix 40MG Tablet] 40 mg PO DAILY 08/25/16 [ History] Topiramate 50 mg PO HS 08/25/16 [History] Hx Tetanus, Diphtheria Vaccination/Date Given: Yes Hx Influenza Vaccination/Date Given: Yes Hx Pneumococcal Vaccination/Date Given: No Immunizations Up to Date: Yes - Review of Systems Constitutional: No Symptoms Eyes: No Symptoms Ears, Nose, & Throat: No Symptoms Respiratory: No Symptoms Cardiac: No Symptoms Abdominal/Gastrointestinal: Abdominal Pain, Nausea, Vomiting, Appetite Changes, No Diarrhea, No Constipation Genitourinary Symptoms: No Symptoms Musculoskeletal: No Symptoms Skin: No Symptoms Neurological: No Symptoms Psychological: No Symptoms Endocrine: No Symptoms Hematologic/Lymphatic: No Symptoms Immunological/Allergic: No Symptoms All Other Systems: Reviewed and Negative - Past Medical History Pertinent Past Medical History: Yes Neurological History: Migraines, Peripheral Neuropathy ENT History: No Pertinent History Cardiac History: Angina, High Cholesterol, Hypertension Respiratory History: Asthma Endocrine Medical History: Diabetes Type II Musculoskeletal History: Arthritis GI Medical History: Irritable Bowel, Other History: No Pertinent History Psycho-Social History: Anxiety, Depression Female Reproductive Disorders: No Pertinent History Other Medical History: CHRONIC CONSTIPATION - Past Surgical History Past Surgical History: Yes Neuro Surgical History: No Pertinent History Cardiac: No Pertinent History Respiratory: No Pertinent History Gastrointestinal: Exploratory Laparoscopy, Cholecystectomy Other Surgical History: TONSILLECTOMY - Social History Smoking Status: Former smoker Exposure to second hand smoke: No Drug Use: none Patient Lives Alone: No - Female History Hx Now: No - Nursing Vital Signs Nursing Vital Signs: Initial Vital Signs Temperature 98.0 F 10/06/17 22:15 Pulse Rate 88 10/06/17 22:15 Respiratory Rate 16 10/06/17 22:15 Blood Pressure 138/104 10/06/17 22:15 O2 Sat by Pulse Oximetry 97 10/06/17 22:15 Pain Scale Pain Intensity 10 - Physical Exam General Appearance: mild distress, alert, anxiety, obese, No lethargy Eye Exam: PERRL/EOMI, eyes nml inspection, No scleral icterus Ears, Nose, Throat Exam: normal ENT inspection Neck Exam: normal inspection, non-tender, supple, full range of motion Respiratory Exam: normal breath sounds, lungs clear, airway intact, No chest tenderness, No respiratory distress Cardiovascular Exam: regular rate/rhythm, normal heart sounds, normal peripheral pulses Gastrointestinal/Abdomen Exam: soft, tenderness (MILD BILAT UPPER QUADRANTS), No guarding, No rebound Pelvic Exam: not done Rectal Exam: deferred Back Exam: normal inspection Extremity Exam: normal inspection, normal range of motion Neurologic Exam: alert, oriented x 3, cooperative, dental officer II-XII nml as tested, normal mood/affect, nml cerebellar function, nml station & gait Skin Exam: normal color, warm, dry Lymphatic Exam: No adenopathy SpO2 Interpretation: normal SpO2: 98 Oxygen Delivery: Room Air - Course Nursing assessment & vital signs reviewed: Yes Ordered Tests: Active Orders 24 hr Category Date Time Status AMYLASE Stat Lab 10/06/17 23:40 Completed CBC W DIFF Stat Lab 10/06/17 23:40 Completed CMP Stat Lab 10/06/17 23:40 Completed LIPASE Stat Lab 10/06/17 23:40 Completed UA W/ MICROSCOPIC Stat Lab 10/06/17 23:40 Completed Medication Summary Discontinued Medications Generic Name Dose Route Start Last Admin Trade Name Fabby PRN Reason Stop Dose Admin Ondansetron HCl 4 mg 10/06/17 22:59 10/06/17 23:08 Zofran Odt 4 Mg PO 10/06/17 23:00 4 mg STAT ONE Administration Ondansetron HCl Confirm 10/06/17 23:07 Zofran Odt 4 Mg Administered 10/06/17 23:08 Dose 4 mg .ROUTE .STK-MED ONE Sucralfate 1 g 10/06/17 22:59 10/06/17 23:08 Carafate 1 Gm PO 07/19/18 23:00 1 g STAT ONE Administration Sucralfate Confirm 10/06/17 23:07 Carafate 1 Gm Administered 10/06/17 23:08 Dose 1 g PO .STK-MED ONE Lab/Rad Data: Laboratory Result Diagrams 10/06/17 23:40 10/06/17 23:40 Laboratory Results 10/06/17 10/06/17 10/06/17 Range/Units 23:40 23:40 23:40 WBC 9.9 (4.0-10.5) K/mm3 RBC 5.00 (4.1-5.4) M/mm3 Hgb 14.4 (12.0-16.0) gm/dl Hct 45.7 (35-47) % MCV 91.4 (78-100) fl MCH 28.8 (26-32) pg MCHC 31.5 L (32-36) g/dl RDW 14.2 H (11.5-14.0) % Plt Count 257 (150-450) K/mm3 MPV 10.7 H (6-9.5) fl Gran % 63.1 (36.0-66.0) % Eos # (Auto) 0.08 (0-0.5) Absolute Lymphs (auto) 2.74 (1.0-4.6) Absolute Monos (auto) 0.82 (0.0-1.3) Lymphocytes % 27.6 (24.0-44.0) % Monocytes % 8.3 (0.0-12.0) % Eosinophils % 0.8 (0.00-5.0) % Basophils % 0.2 (0.0-0.4) % Absolute Granulocytes 6.26 (1.4-6.9) Basophils # 0.02 (0-0.4) Sodium 142 (137-145) mmol/L Potassium 4.0 (3.5-5.1) mmol/L Chloride 104 (98-107) mmol/L Carbon Dioxide 29 (22-30) mmol/L Anion Gap 12.6 (5-15) MEQ/L BUN 15 (7-17) mg/dL Creatinine 0.87 (0.52-1.04) mg/dL Estimated GFR > 60.0 ML/MIN Glucose 77 (74-106) mg/dL Calcium 9.0 (8.4-10.2) mg/dL Total Bilirubin 0.30 (0.2-1.3) mg/dL AST 15 (14-36) U/L ALT 19 (0-35) U/L Alkaline Phosphatase 108 (38-126) U/L Serum Total Protein 6.8 (6.3-8.2) g/dL Albumin 4.1 (3.5-5.0) g/dL Amylase 57 (30-110) U/L Lipase 95 (23-300) U/L Ur Collection Type VOID Urine Color YELLOW (YELLOW) Urine Appearance CLEAR (CLEAR) Urine pH 5.0 (5-6) Ur Specific [place] 1.025 (1.005-1.025) Urine Protein NEGATIVE (Negative) Urine Ketones NEGATIVE (NEGATIVE) Urine Blood TRACE NON-HEM (0-5) Best/ul Urine Nitrite NEGATIVE (NEGATIVE) Urine Bilirubin NEGATIVE (NEGATIVE) Urine Urobilinogen NORMAL (0-1) mg/dL Ur Leukocyte Esterase NEGATIVE (NEGATIVE) Urine Microscopic RBC 0-2 (0-2) /HPF Ur Epithelial Cells RARE (FEW) /HPF Urine Culture Reflexed NO (NO) Urine Glucose 1000 (NEGATIVE) mg/dL Specimen Received 10/06/17 5379 - Progress Progress: improved Progress Note: 10/07/17 01:25 PT STATES HER PAIN IMPROVED WITH CARAFATE Counseled pt/family regarding: lab results, diagnosis, need for follow-up - Departure Time of Disposition: 01:26 Departure Disposition: Home Clinical Impression: Gastritis, Nausea & vomiting, Abdominal pain Condition: Stable Critical Care Time: No Referrals: NICK ADHIKARI MD [Primary Care Provider] - Additional Instructions: AVOID FATTY, GREASY AND SPICY FOODS. FOLLOW UP WITH PRIMARY DOCTOR TODAY FOR ARRANGEMENT OF FOLLOW UP APPOINTMENT AND POSSIBLE REFERRAL TO [facility] IF INDICATED. MAY INCREASE ZOFRAN TO 8MG ORALLY EVERY 8 HOURS NEEDED TO TREAT NAUSEA AND VOMITING Prescriptions: Sucralfate 1 gm [Carafate 1 GM] 1 g PO ACHS #30 tablet
[2017-10-07 01:42] VITALS: BP 112/79; PULSE 79
== END 2017-10-07 01:39 | disposition home or self-care (01) ==
LOC: ED 22:14
DX: K29.70 Gastritis, unspecified, without bleeding (principal); R10.12 Left upper quadrant pain; R10.11 Right upper quadrant pain; R11.2 Nausea with vomiting, unspecified; E11.9 Type 2 diabetes mellitus without complications; Z79.4 Long term (current) use of insulin; Z79.899 Other long term (current) drug therapy
CPT/HCPCS: 36415; 80053; 81000; 81002; 82150; 83690; 85025; 99284; Q0162; A9270-GY

== ENCOUNTER 2017-10-07 21:13 | Emergency (ER) | payer OTHER ==
[2017-10-07 22:07] VITALS: PULSE 95
[2017-10-07 22:11] VITALS: O2SAT 100
--- NOTE | 2017-10-07 22:12 | ERPHSYRPT ---
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 pt denies vomiting reports nausea present. and BM x4 today. Physician History: 47-year-old female came to the emergency room again with same complaint of abdominal pain. Patient was seen in ER yesterday all the labs were negative. Patient was told that if her pain continues, she can come back to the emergency room. She tried to call her primary care physician office, but she could not get in today. Timing/Duration: day(s) Quality: cramping Abdominal Pain Onset Location: generalized abdomen Pain Radiation: no radiation Allergies/Adverse Reactions: diphenhydramine HCl [From Benadryl] Allergy (Verified 06/22/16 00:14) guaifenesin [From CodiCLEAR DH] Allergy (Verified 06/22/16 00:14) hydrocodone bitartrate [From CodiCLEAR DH] Allergy (Verified 06/22/16 00:14) hydromorphone HCl [From Dilaudid] Allergy (Verified 06/22/16 00:14) Penicillins Allergy (Verified 06/22/16 00:14) potassium guaiacolsulfonate [From CodiCLEAR DH] Allergy (Verified 06/22/16 00:14 ) Home Medications: Atorvastatin Calcium [Lipitor 40Mg] 40 mg PO HS 06/22/16 [History] Insulin Glargine,Hum.rec.anlog [Basaglar Kwikpen U-100] 70 unit SQ HS 06/22/16 [ History] Insulin Glulisine [Apidra Solostar] 30 unit SQ TIDWMEALS 06/22/16 [History] Lisinopril/Hydrochlorothiazide [Lisinopril-Hctz 10-12.5 mg Tab] 1 each PO DAILY 06/22/16 [History] Loratadine 10 mg [Claritin 10 mg] 10 mg PO HS 06/22/16 [History] Ropinirole HCl [Requip] 0.25 mg PO TID 06/22/16 [History] Methylphenidate HCl [Ritalin] 10 mg PO BID 08/25/16 [History] PANTOPRAZOLE 40 mg Tablet [Protonix 40MG Tablet] 40 mg PO DAILY 08/25/16 [ History] Topiramate 50 mg PO HS 08/25/16 [History] Hx Tetanus, Diphtheria Vaccination/Date Given: Yes Hx Influenza Vaccination/Date Given: Yes Hx Pneumococcal Vaccination/Date Given: No - Review of Systems Constitutional: No Fever, No Chills Eyes: No Symptoms Ears, Nose, & Throat: No Symptoms Respiratory: No Cough, No Dyspnea Cardiac: No Chest Pain, No Edema, No Syncope Abdominal/Gastrointestinal: Abdominal Pain, No Nausea, No Vomiting, No Diarrhea Genitourinary Symptoms: No Dysuria Musculoskeletal: No Back Pain, No Neck Pain Skin: No Rash Neurological: No Dizziness, No Focal Weakness, No Sensory Changes Psychological: No Symptoms Endocrine: No Symptoms All Other Systems: Reviewed and Negative - Past Medical History Pertinent Past Medical History: Yes Neurological History: Migraines, Peripheral Neuropathy ENT History: No Pertinent History Cardiac History: Angina, High Cholesterol, Hypertension Respiratory History: Asthma Endocrine Medical History: Diabetes Type II Musculoskeletal History: Arthritis GI Medical History: Irritable Bowel, Other History: No Pertinent History Psycho-Social History: Anxiety, Depression Female Reproductive Disorders: No Pertinent History Other Medical History: CHRONIC CONSTIPATION - Past Surgical History Past Surgical History: Yes Neuro Surgical History: No Pertinent History Cardiac: No Pertinent History Respiratory: No Pertinent History Gastrointestinal: Exploratory Laparoscopy, Cholecystectomy Other Surgical History: TONSILLECTOMY - Social History Smoking Status: Former smoker Exposure to second hand smoke: No Drug Use: none Patient Lives Alone: No - Female History Hx Last Menstrual Period: 10/2016 Hx Now: No - Nursing Vital Signs Nursing Vital Signs: Initial Vital Signs Temperature 98.7 F 10/07/17 21:33 Pulse Rate 105 H 10/07/17 21:33 Respiratory Rate 18 10/07/17 21:33 Blood Pressure 125/97 10/07/17 21:33 O2 Sat by Pulse Oximetry 100 10/07/17 21:33 Pain Scale Pain Intensity 10 - Physical Exam General Appearance: no apparent distress, alert Eye Exam: PERRL/EOMI, eyes nml inspection Ears, Nose, Throat Exam: normal ENT inspection, pharynx normal, moist mucous membranes Neck Exam: normal inspection, non-tender, supple, full range of motion Respiratory Exam: normal breath sounds, lungs clear, No respiratory distress Cardiovascular Exam: regular rate/rhythm, normal heart sounds Gastrointestinal/Abdomen Exam: soft, No tenderness, No mass Back Exam: normal inspection, normal range of motion, No CVA tenderness, No vertebral tenderness Extremity Exam: normal inspection, normal range of motion, pelvis stable Neurologic Exam: alert, oriented x 3, cooperative, normal mood/affect, nml cerebellar function, sensation nml, No motor deficits Skin Exam: normal color, warm, dry SpO2: 100 Oxygen Delivery: Room Air - Course Nursing assessment & vital signs reviewed: Yes Ordered Tests: Medication Summary Discontinued Medications Generic Name Dose Route Start Last Admin Trade Name Freq PRN Reason Stop Dose Admin Al Hydrox/Mg Hydrox/Simethicone Confirm 10/07/17 22:30 Maalox Es 30 Ml Unit Dose Administered 10/07/17 22:31 Dose 30 ml .ROUTE .STK-MED ONE Lidocaine HCl Confirm 10/07/17 22:30 Xylocaine Hcl Viscous * Administered 10/07/17 22:31 Dose 15 ml .ROUTE .STK-MED ONE Magnesium Hydroxide 45 ml 10/07/17 22:22 10/07/17 22:33 Gi Cocktail 45 Ml (Maalox/Lidocaine) PO 10/07/17 22:23 45 ml STAT ONE Administration Prochlorperazine Edisylate 5 mg 10/07/17 22:25 10/07/17 22:36 Compazine 10 Mg/2 Ml IM 10/07/17 22:26 5 mg STAT ONE Administration Prochlorperazine Edisylate Confirm 10/07/17 22:30 Compazine 10 Mg/2 Ml Administered 10/07/17 22:31 Dose 10 mg .ROUTE .STK-MED ONE Promethazine HCl 25 mg 10/07/17 22:22 10/07/17 22:40 Phenergan 25 Mg Inj IM 10/07/17 22:23 Not Given STAT ONE - Progress Progress: improved, pain not gone completely Counseled pt/family regarding: diagnosis, need for follow-up - Departure Time of Disposition: 22:43 Departure Disposition: Home Clinical Impression: Abdominal pain Qualifiers: Abdominal location: generalized Qualified Code(s): R10.84 - Generalized abdominal pain Nausea & vomiting Qualifiers: Vomiting type: unspecified Vomiting Intractability: non-intractable Qualified Code(s): R11.2 - Nausea with vomiting, unspecified Condition: Stable Critical Care Time: No Referrals: NICK ADHIKARI MD [Primary Care Provider] - Instructions: Acute Abdomen (Belly Pain), Adult (DC), Nausea and Vomiting, Adult Additional Instructions: ABDOMINAL PAIN 1. There are several different causes for abdominal pain, some of which may not be able to be identified on initial examination. 2. The important thing to remember is that bodily functions can change in a short period of time. If you notice any of the following symptoms, return to the emergency department or consult your doctor immediately: A. Worsening pain or no improvement in the next 12 hours. B. Increasing, severe abdominal pain C. Blood in stool D. Black stools E. Persistent vomiting F. Fever or chills or other symptoms VOMITING AND DIARRHEA 1. Take only small amounts of clear, cool liquids at frequent intervals as tolerated for the next 24-48 hours. Avoid milk products and orange juice. Clear liquids are those liquids which you can see through. 2. Pedialyte and popsicles are recommended clear liquids. 3. If the condition worsens you should contact your family physician or return to the emergency department for re-evaluation. Follow-up with your primary care doctor on Tuesday. Please follow the instructions given to you. Please take your medication as prescribed if given. If symptoms recur or get worse, come back to the emergency room if you cannot reach your primary care physician, or call your primary care physician for an appointment. Again if your symptoms get worse, come back to the emergency room. Thanks for visiting emergency room, and let us take care of you. MERARI WOOTEN was seen on 10/07/17 n the Emergency Room. At that time you were treated for an emergent condition, during your visit Laboratory, Radiology and/or other procedures may have been ordered. It is very important that you follow-up with your Primary Care Physician NICK ADHIKARI within the next 24-48 hours to review your Emergency Room visit and the final results of testing that was ordered. Some test results such as Urine Cultures, Blood Cultures, and other cultures if ordered will not be finalized for 24-48 hours. If you do not have a Primary Care Provider please call the medical records department at [phone] to obtain a copy of your results or you may sign into our patient portal to obtain these results by visiting us @ [email or web address] and completing the following steps: 1. Click on the Patient Portal link 2. Click the Patient Self Enrollment Link to complete the enrollment form and entering your 3. Once the enrollment form is completed you will receive an email with a temporary ID and password at the email address you provided. 4. Next choose a user name and password. Your user name must be at least 4 characters long and your password must be at least 4 characters long. 5. Choose a security question from the list and provide your answer to the question. If you already have signed into the Health Portal you may access your Health Care Information 11/10 by the following steps: 1. Login to our website @ [email or web address] 2. Enter your original user name and password. FAQS The [facility] Health Portal is an online tool that contains your Lab Results, Radiology Reports, Visit History, Discharge Instructions and Health Summary Lab and Radiology Results will not be available for 72 hours on the portal. The Portal is a secure site, passwords are encryted and URLs are re-written so they cannot be copied and pasted. You and authorized family members are the only ones who can access your Portal. Also there is a timeout feature that protects your information if you leave the Portal page open. If you have technical difficulty please use the Contact Us link on the page this will allow you to submit any questions you have regarding the Portal or you may contact the Medical Record Department at [phone]. Prescriptions: Dicyclomine HCl 20 mg [Bentyl 20 mg] 20 mg PO TID #15 tablet
[2017-10-07] MEDS ORDERED: Phenergan 25 MG INJ IM ONE (22:22)
[2017-10-07] MEDS ORDERED: GI COCKTAIL 45 ML (Maalox/Lidocaine) PO ONE (22:22)
[2017-10-07] MEDS ORDERED: Compazine 10 MG/2 ML IM ONE (22:25)
[2017-10-07] MEDS ORDERED: MAALOX ES 30 ML UNIT DOSE ONE (22:30)
[2017-10-07] MEDS ORDERED: XYLOCAINE HCl Viscous ONE (22:30)
[2017-10-07] MEDS ORDERED: Compazine 10 MG/2 ML ONE (22:30)
[2017-10-07 22:59] VITALS: BP 114/78
== END 2017-10-07 23:05 | disposition home or self-care (01) ==
LOC: ED 21:13
DX: R10.84 Generalized abdominal pain (principal); R11.2 Nausea with vomiting, unspecified; Z79.899 Other long term (current) drug therapy
CPT/HCPCS: 96372; 99283; A9270-GY

== ENCOUNTER 2017-12-01 22:53 | Observation (INO) | payer OTHER ==
[2017-12-01 23:25] LABS: BASOPHIL % 0.1 % (0.0-0.4); Basophil (Absolute #) 0.02 (0-0.4); Eosinophil % 0.1 % (0.00-5.0); Eosinophil (Absolute #) 0.01 (0-0.5); Granulocyte Absolute (ANC) 12.42 (1.4-6.9); Granulocytes % 85.1 % (36.0-66.0); Hematocrit 45.3 % (35-47); Hemoglobin 14.9 gm/dl (12.0-16.0); Mean Cell Volume 87.8 fl (78-100); Mean Corpuscular Hemoglobin 28.9 pg (26-32); Mean Corpuscular Hgb Concent. 32.9 g/dl (32-36); Mean Platelet Volume 11.4 fl (6-9.5); Monocyte (Absolute #) 0.54 (0.0-1.3); Monocytes % 3.7 % (0.0-12.0); Platelet Count 321 K/mm3 (150-450); Red Blood Count 5.16 M/mm3 (4.1-5.4); Red Cell Distribution Width 14.5 % (11.5-14.0); White Blood Count 14.6 K/mm3 (4.0-10.5)
[2017-12-01] MEDS ORDERED: BABY ASPIRIN 81 MG CHEW PO ONE (23:26)
[2017-12-01] MEDS ORDERED: BABY ASPIRIN 81 MG CHEW ONE (23:29)
--- NOTE | 2017-12-01 23:31 | ERPHSYRPT ---
- History of Present Illness Time Seen by Provider: 12/01/17 23:22 Historian: patient Physician History: 47-year-old morbidly obese white female with history of migraines, peripheral neuropathy, angina, hypercholesterolemia, high blood pressure, anxiety, diabetes , arthritis, is irritable bowel, asthma, depression she arrives with complaint of pain in the anterior chest feels like something is heavy in her chest associated with shortness of breath nausea symptoms for one week. Patient states she was supposed to have a cardiac catheterization today but didn 't because of some type of reaction to a medication. Past medical history includes migraines, peripheral neuropathy, angina, hypercholesterolemia, high blood pressure, asthma, diabetes type 2, arthritis, irritable bowel, anxiety, depression, chronic constipation. Patient also states she has a history of thyroid cancer. Past surgical history includes cholecystectomy tonsillectomy and adenoidectomy Timing/Duration: week(s) (one week), constant Activities at Onset: none Quality: pressure Location: substernal Chest Pain Radiation: no radiation Severity of Pain-Max: moderate Severity of Pain-Current: moderate Modifying Factors: Improves With: nothing Associated Symptoms: nausea, shortness of breath, No vomiting, No palpitations, No heartburn, No abdominal pain, No cough, No hurts to breathe, No diaphoresis, No chills, No fever, No fatigue, No weakness, No swelling/lump in chest, No syncope, No rash, No dizziness, No edema, No back pain Prior Chest Pain/Cardiac Workup: recently seen/treated (patient states she was supposed to have a cardiac catheeterization today but didn's secondary to a reaction to unknown drug) Nitro Today/Relief: no nitro taken today Aspirin Treatment Today: 81 mg x 4, provided by ED Allergies/Adverse Reactions: buspirone [From BuSpar] Allergy (Verified 12/01/17 23:15) diphenhydramine HCl [From Benadryl] Allergy (Verified 06/22/16 00:14) guaifenesin [From CodiCLEAR DH] Allergy (Verified 06/22/16 00:14) hydrocodone bitartrate [From CodiCLEAR DH] Allergy (Verified 06/22/16 00:14) hydromorphone HCl [From Dilaudid] Allergy (Verified 06/22/16 00:14) Penicillins Allergy (Verified 06/22/16 00:14) potassium guaiacolsulfonate [From [facility]] Allergy (Verified 06/22/16 00:14 ) prednisone Allergy (Verified 12/01/17 23:15) Home Medications: Insulin Glulisine [Apidra Solostar] 1 unit SQ UD 06/22/16 [History] Ropinirole HCl [Requip] 0.25 mg PO TID 06/22/16 [History] PANTOPRAZOLE 40 mg Tablet [Protonix 40MG Tablet] 40 mg PO DAILY 08/25/16 [ History] Atorvastatin Calcium 20 mg PO QHS 12/01/17 [History] Carvedilol 3.125 mg PO BID 12/01/17 [History] Cetirizine HCl 10 mg PO DAILY 12/01/17 [History] Cholecalciferol (Vitamin D3) [Vitamin D] 2,000 unit PO WEEKLY 12/01/17 [ History] Empagliflozin [Jardiance] 25 mg PO DAILY 12/01/17 [History] Insulin Glulisine [Apidra] 12/01/17 [History] Levothyroxine Sodium [Synthroid] 50 mcg PO DAILY 12/01/17 [History] Lisinopril 5 mg PO DAILY 12/01/17 [History] Methylprednisolone Packet [Medrol Dosepack] 1 mg PO UD 12/01/17 [History] Nitroglycerin 0.4 mg (Ed) [Nitrostat 0.4 MG (ED)] 0.4 mg SL UD 12/01/17 [ History] Pramipexole Di-HCl [Pramipexole Dihydrochloride] 0.5 mg PO QHS 12/01/17 [History ] Hx Tetanus, Diphtheria Vaccination/Date Given: Yes Hx Influenza Vaccination/Date Given: Yes Hx Pneumococcal Vaccination/Date Given: No - Review of Systems Constitutional: No Fever, No Chills Eyes: No Symptoms Ears, Nose, & Throat: No Symptoms Respiratory: Dyspnea, No Cough, No Cyanosis, No Dyspnea on Exertion (MILLER), No Wheezing Cardiac: Chest Pain Abdominal/Gastrointestinal: No Abdominal Pain, No Nausea, No Vomiting, No Diarrhea Genitourinary Symptoms: No Dysuria Musculoskeletal: No Back Pain, No Neck Pain Skin: No Rash Neurological: No Dizziness, No Focal Weakness, No Sensory Changes Psychological: No Symptoms Endocrine: No Symptoms All Other Systems: Reviewed and Negative - Past Medical History Pertinent Past Medical History: Yes Neurological History: Migraines, Peripheral Neuropathy ENT History: No Pertinent History Cardiac History: Angina, High Cholesterol, Hypertension Respiratory History: Asthma Endocrine Medical History: Diabetes Type II Musculoskeletal History: Arthritis GI Medical History: Irritable Bowel, Other History: No Pertinent History Psycho-Social History: Anxiety, Depression Female Reproductive Disorders: No Pertinent History Other Medical History: CHRONIC CONSTIPATION - Past Surgical History Past Surgical History: Yes Neuro Surgical History: No Pertinent History Cardiac: No Pertinent History Respiratory: No Pertinent History Gastrointestinal: Exploratory Laparoscopy, Cholecystectomy Other Surgical History: TONSILLECTOMY - Social History Smoking Status: Former smoker Exposure to second hand smoke: No Drug Use: none Patient Lives Alone: No - Nursing Vital Signs Nursing Vital Signs: Initial Vital Signs Pulse Rate 92 H 12/01/17 22:54 Respiratory Rate 19 12/01/17 22:54 Blood Pressure 129/90 12/01/17 22:54 Pain Scale Pain Intensity 10 - Physical Exam General Appearance: no apparent distress, alert, obese Eye Exam: PERRL/EOMI, eyes nml inspection Ears, Nose, Throat Exam: normal ENT inspection, moist mucous membranes Neck Exam: normal inspection, non-tender, supple, full range of motion Respiratory Exam: normal breath sounds, lungs clear, No respiratory distress Cardiovascular Exam: regular rate/rhythm, normal heart sounds Gastrointestinal/Abdomen Exam: soft, No tenderness, No mass Back Exam: normal inspection, No CVA tenderness, No vertebral tenderness Extremity Exam: normal inspection, normal range of motion Neurologic Exam: alert, oriented x 3, cooperative, 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 nml as tested, normal mood/affect, sensation nml, No motor deficits Skin Exam: normal color, warm, dry SpO2 Interpretation: normal (97%), borderline oxygenation SpO2: 97 Oxygen Delivery: Room Air - Course Nursing assessment & vital signs reviewed: Yes EKG Interpreted by Me: RATE (99 bpm), Sinus Rhythm, NORMAL AXIS, Other (EKG: Sinus rhythm, 99 bpm, normal axis, no acute ST or T wave changes) Ordered Tests: Active Orders 24 hr Category Date Time Status Baby Formula Mixer STAT Care 12/01/17 23:05 Active EKG-ER Only STAT Care 12/01/17 23:04 Active IV Insertion STAT Care 12/01/17 23:04 Active Pulse Oximetry (ED) STAT Care 12/01/17 23:04 Active CHEST 1 VIEW (PORTABLE) Stat Exams 12/01/17 00:01 Taken CBC W DIFF Stat Lab 12/01/17 23:20 Completed CMP Stat Lab 12/01/17 23:20 Completed D-DIMER QUANTITATION Stat Lab 12/01/17 23:20 Completed HCG QUALITATIVE,SERUM Stat Lab 12/01/17 23:20 Completed PROTIME WITH INR Stat Lab 12/01/17 23:20 Completed PTT Stat Lab 12/01/17 23:20 Completed TROPONIN Q3H Lab 12/01/17 23:20 Completed TROPONIN Q3H Lab 12/02/17 02:15 Ordered TROPONIN Q3H Lab 12/02/17 05:15 Ordered TROPONIN Q3H Lab 12/02/17 08:15 Ordered TROPONIN Q3H Lab 12/02/17 11:15 Ordered Medication Summary Discontinued Medications Generic Name Dose Route Start Last Admin Trade Name Freq PRN Reason Stop Dose Admin Aspirin 324 mg 12/01/17 23:26 12/01/17 23:30 Baby Aspirin 81 Mg Chew PO 12/01/17 23:27 324 mg STAT ONE Administration Aspirin Confirm 12/01/17 23:29 Baby Aspirin 81 Mg Chew Administered 12/01/17 23:30 Dose 243 mg .ROUTE .[facility] Lab/Rad Data: Laboratory Result Diagrams 12/01/17 23:20 12/01/17 23:20 Laboratory Results 12/01/17 12/01/17 12/01/17 Range/Units 23:20 23:20 23:20 WBC (4.0-10.5) K/mm3 RBC (4.1-5.4) M/mm3 Hgb (12.0-16.0) gm/dl Hct (35-47) % MCV (78-100) fl MCH (26-32) pg MCHC (32-36) g/dl RDW (11.5-14.0) % Plt Count (150-450) K/mm3 MPV (6-9.5) fl Gran % (36.0-66.0) % Eos # (Auto) (0-0.5) Absolute Lymphs (auto) (1.0-4.6) Absolute Monos (auto) (0.0-1.3) Lymphocytes % (24.0-44.0) % Monocytes % (0.0-12.0) % Eosinophils % (0.00-5.0) % Basophils % (0.0-0.4) % Absolute Granulocytes (1.4-6.9) Basophils # (0-0.4) PT 10.6 (9.95-12.35) SECONDS INR 0.91 (0.8-3.0) APTT 24.2 L (25.3-37.0) SECONDS D-Dimer 274 (215-500) ng/mL Sodium (137-145) mmol/L Potassium (3.5-5.1) mmol/L Chloride (98-107) mmol/L Carbon Dioxide (22-30) mmol/L Anion Gap (5-15) MEQ/L BUN (7-17) mg/dL Creatinine (0.52-1.04) mg/dL Estimated GFR ML/MIN Glucose (74-106) mg/dL Calcium (8.4-10.2) mg/dL Total Bilirubin (0.2-1.3) mg/dL AST (14-36) U/L ALT (0-35) U/L Alkaline Phosphatase (38-126) U/L Troponin I < 0.012 (0.000-0.034) ng/mL Serum Total Protein (6.3-8.2) g/dL Albumin (3.5-5.0) g/dL Serum , Qual NEGATIVE (Negative) 12/01/17 12/01/17 Range/Units 23:20 23:20 WBC 14.6 H (4.0-10.5) K/mm3 RBC 5.16 (4.1-5.4) M/mm3 Hgb 14.9 (12.0-16.0) gm/dl Hct 45.3 (35-47) % MCV 87.8 (78-100) fl MCH 28.9 (26-32) pg MCHC 32.9 (32-36) g/dl RDW 14.5 H (11.5-14.0) % Plt Count 321 (150-450) K/mm3 MPV 11.4 H (6-9.5) fl Gran % 85.1 H (36.0-66.0) % Eos # (Auto) 0.01 (0-0.5) Absolute Lymphs (auto) 1.60 (1.0-4.6) Absolute Monos (auto) 0.54 (0.0-1.3) Lymphocytes % 11.0 L (24.0-44.0) % Monocytes % 3.7 (0.0-12.0) % Eosinophils % 0.1 (0.00-5.0) % Basophils % 0.1 (0.0-0.4) % Absolute Granulocytes 12.42 H (1.4-6.9) Basophils # 0.02 (0-0.4) PT (9.95-12.35) SECONDS INR (0.8-3.0) APTT (25.3-37.0) SECONDS D-Dimer (215-500) ng/mL Sodium 137 (137-145) mmol/L Potassium 4.5 (3.5-5.1) mmol/L Chloride 100 (98-107) mmol/L Carbon Dioxide 27 (22-30) mmol/L Anion Gap 15.1 H (5-15) MEQ/L BUN 30 H (7-17) mg/dL Creatinine 0.81 (0.52-1.04) mg/dL Estimated GFR > 60.0 ML/MIN Glucose 269 H (74-106) mg/dL Calcium 9.0 (8.4-10.2) mg/dL Total Bilirubin 0.20 (0.2-1.3) mg/dL AST 13 L (14-36) U/L ALT 18 (0-35) U/L Alkaline Phosphatase 124 (38-126) U/L Troponin I (0.000-0.034) ng/mL Serum Total Protein 6.5 (6.3-8.2) g/dL Albumin 3.9 (3.5-5.0) g/dL Serum , Qual (Negative) - Progress Progress: improved Air Movement: fair Progress Note: 12/02/17 00:34 47-year-old white female morbidly obese with a history of migraines peripheral neuropathy, angina, hypercholesterolemia, high blood pressure, asthma, diabetes , arthritis, irritable bowel, anxiety, depression. Patient states she has been having anterior chest pain described as a pressure symptoms going on for a week states she's been short of breath states she's been nauseous. Patient tells me that she was scheduled for a cardiac catheterization with Dr. Harris to 4 today however was canceled secondary to some medication that she was on she's not sure which. Patient on physical exam does not appear to be in acute distress vitals are stable, patient is afebrile. Patient has an EKG was remarkable for sinus rhythm 99 bpm normal axis no acute ST or T wave changes are noted patient with a mild elevated white count of 14.6 hemoglobin is 14 9 hematocrit 45.3 platelets 321 d-dimer is within normal limits troponin is within normal limits Chemistry is essentially normal with the exception of that the patient has a mildly increased glucose. Patient does use an insulin pump I've discussed the patient's case with Dr. Santos , who is fire prevention officer for Dr. Reyes he requests that we keep the patient here in the hospital obtain serial enzymes. I've discussed the case with Dr. Mehta patient's primary care physician he is agreeable to this will place patient on observation continue aspirin daily.. Have patient continue her insulin pump. Plan continue troponins as well as telemetry. - Departure Time of Disposition: 00:37 Departure Disposition: Observation Clinical Impression: Chest pain Qualifiers: Chest pain type: unspecified Qualified Code(s): R07.9 - Chest pain, unspecified Condition: Fair Critical Care Time: No Referrals: NICK MEHTA MD [Primary Care Provider] -
[2017-12-01 23:38] LABS: INR 0.91 (0.8-3.0)
[2017-12-01 23:41] LABS: ALBUMIN 3.9 g/dL (3.5-5.0); ALKALINE PHOSPHATASE 124 U/L (38-126); ANION GAP 15.1 MEQ/L (5-15); BLOOD UREA NITROGEN 30 mg/dL (7-17); CHLORIDE 100 mmol/L (98-107); Carbon Dioxide 27 mmol/L (22-30); Creatinine 1 0.81 mg/dL (0.52-1.04); Glucose 269 mg/dL (74-106); PTT 24.2 SECONDS (25.3-37.0); Potassium 4.5 mmol/L (3.5-5.1); SGOT/AST 13 U/L (14-36); SGPT/ALT 18 U/L (0-35); SODIUM 137 mmol/L (137-145); Total Protein 6.5 g/dL (6.3-8.2)
[2017-12-02] MEDS ORDERED: PROVENTIL 2.5 MG/3 ML NEB IH PRN (01:18)
[2017-12-02] MEDS: MORPHINE SULFATE 4 MG INJ IV PRN ×2 (01:42→09:26)
[2017-12-02] MEDS ORDERED: PROVENTIL COMMON CANISTER IH PRN (01:58)
[2017-12-02 05:37] LABS: BASOPHIL % 0.3 % (0.0-0.4); Basophil (Absolute #) 0.04 (0-0.4); Eosinophil % 0.1 % (0.00-5.0); Eosinophil (Absolute #) 0.02 (0-0.5); Granulocyte Absolute (ANC) 10.64 (1.4-6.9); Granulocytes % 74.8 % (36.0-66.0); Hematocrit 43.5 % (35-47); Hemoglobin 14.4 gm/dl (12.0-16.0); Lymphocyte (Absolute #) 2.54 (1.0-4.6); Lymphocytes % 17.9 % (24.0-44.0); Mean Cell Volume 88.1 fl (78-100); Mean Corpuscular Hemoglobin 29.1 pg (26-32); Mean Corpuscular Hgb Concent. 33.1 g/dl (32-36); Mean Platelet Volume 11.4 fl (6-9.5); Monocyte (Absolute #) 0.98 (0.0-1.3); Monocytes % 6.9 % (0.0-12.0); Platelet Count 282 K/mm3 (150-450); Red Blood Count 4.94 M/mm3 (4.1-5.4); Red Cell Distribution Width 14.5 % (11.5-14.0); White Blood Count 14.2 K/mm3 (4.0-10.5)
[2017-12-02 05:48] LABS: ALBUMIN 3.6 g/dL (3.5-5.0); ALKALINE PHOSPHATASE 114 U/L (38-126); ANION GAP 12.8 MEQ/L (5-15); BLOOD UREA NITROGEN 27 mg/dL (7-17); CHLORIDE 101 mmol/L (98-107); Calcium 8.8 mg/dL (8.4-10.2); Carbon Dioxide 27 mmol/L (22-30); Creatinine 1 0.78 mg/dL (0.52-1.04); Glucose 138 mg/dL (74-106); Potassium 4.3 mmol/L (3.5-5.1); SGOT/AST 10 U/L (14-36); SGPT/ALT 16 U/L (0-35); SODIUM 137 mmol/L (137-145); Total Protein 6.1 g/dL (6.3-8.2)
--- NOTE | 2017-12-02 09:04 | XRAY ---
Indication: Chest pain. Comparison: November 24, 2017. Portable chest again demonstrates normal heart and lungs. Bony thorax intact again with mild degenerative changes and left proximal humerus bone island. No new/acute findings.
--- NOTE | 2017-12-02 09:21 | PCM.SSS ---
History of Present Illness - Chief Complaint Chief Complaint: CP History of Present Illness: is a 47 year old female who is scheduled have a cardiac cath next week , came to ER with chest pain. sharp and stabbing, feels short of breath and nauseated with it. radiates with numbness in her left hand. claims peristent , troponins have been negative thus far. - Review of Systems Constitutional: No Symptoms Respiratory: Short Of Breath, No Cough Cardiac: Chest Pain Abdominal/Gastrointestinal: No Abdominal Pain, No Nausea, No Vomiting, No Diarrhea Genitourinary Symptoms: No Dysuria Skin: No Rash Neurological: No Dizziness, No Focal Weakness, No Sensory Changes All Other Systems: Reviewed and Negative Medications & Allergies Home Medications: Home Medication List Insulin Glulisine [Apidra Solostar] 1 unit SQ UD 06/22/16 [History Confirmed ] Ropinirole HCl [Requip] 0.25 mg PO TID 06/22/16 [History Confirmed 12/01/17] PANTOPRAZOLE 40 mg Tablet [Protonix 40MG Tablet] 40 mg PO DAILY 08/25/16 [ History Confirmed 12/01/17] Atorvastatin Calcium 20 mg PO QHS 12/01/17 [History Confirmed 12/01/17] Carvedilol 3.125 mg PO BID 12/01/17 [History Confirmed 12/01/17] Cetirizine HCl 10 mg PO DAILY 12/01/17 [History Confirmed 12/01/17] Cholecalciferol (Vitamin D3) [Vitamin D] 2,000 unit PO WEEKLY 12/01/17 [ History Confirmed 12/01/17] Empagliflozin [Jardiance] 25 mg PO DAILY 12/01/17 [History Confirmed 12/01/17] Insulin Glulisine [Apidra] 200 units UD 12/01/17 [History Confirmed 12/02/17] Levothyroxine Sodium [Synthroid] 50 mcg PO DAILY 12/01/17 [History Confirmed ] Lisinopril 5 mg PO DAILY 12/01/17 [History Confirmed 12/01/17] Methylprednisolone Packet [Medrol Dosepack] 1 mg PO UD 12/01/17 [History Confirmed 12/01/17] Nitroglycerin 0.4 mg (Ed) [Nitrostat 0.4 MG (ED)] 0.4 mg SL UD 12/01/17 [ History Confirmed 12/01/17] Pramipexole Di-HCl [Pramipexole Dihydrochloride] 0.5 mg PO QHS 12/01/17 [ History Confirmed 12/01/17] Allergies/Adverse Reactions: Allergies Allergy/AdvReac Type Severity Reaction Status Date / Time buspirone [From BuSpar] Allergy Verified 12/01/17 23:15 diphenhydramine HCl Allergy Verified 06/22/16 00:14 [From Benadryl] guaifenesin Allergy Verified 06/22/16 00:14 [From CodiCLEAR DH] hydrocodone bitartrate Allergy Verified 06/22/16 00:14 [From CodiCLEAR DH] hydromorphone HCl Allergy Verified 06/22/16 00:14 [From Dilaudid] Penicillins Allergy Verified 06/22/16 00:14 potassium guaiacolsulfonate Allergy Verified 06/22/16 00:14 [From CodiCLEAR ] prednisone Allergy Verified 12/01/17 23:15 - Past Medical History Past Medical History: Yes Neurological History: Migraines, Peripheral Neuropathy ENT History: No Pertinent History Cardiac History: Angina, High Cholesterol, Hypertension Respiratory History: Asthma Endocrine Medical History: Diabetes Type II Musculoskelatal History: Arthritis GI Medical History: Irritable Bowel, Other History: No Pertinent History Pyscho-Social History: Anxiety, Depression Reproductive Disorders: No Pertinent History Comment: CHRONIC CONSTIPATION - Female History Hx Last Menstrual Period: 11/24/17 Are you now?: No - Past Surgical History Past Surgical History: Yes Neuro Surgical History: No Pertinent History Cardiac History: No Pertinent History Respiratory Surgery: No Pertinent History GI Surgical History: Exploratory Laparoscopy, Cholecystectomy Genitourinary Surgical Hx: No Pertinent History Musculskeletal Surgical Hx: No Pertinent History Female Surgical History: No Pertinent History Other Surgical History: TONSILLECTOMY - Social History Smoking Status: Former smoker Exposure to second hand smoke: Yes Alcohol: None Drug Use: none - Physical Exam Vital Signs: Vital Signs - 24 hr Temp Pulse Resp BP Pulse Ox 12/02/17 07:45 98 F 76 18 110/62 96 12/02/17 03:53 98.1 F 75 19 96/55 94 L 09/14/18 01:45 97.8 F 80 18 107/72 99 12/02/17 01:18 79 16 96 12/02/17 00:50 87 16 12/02/17 00:37 97 12/02/17 00:35 97.7 F 12/01/17 23:44 86 20 123/90 98 12/01/17 23:04 97 12/01/17 22:54 92 H 19 129/90 Oxygen-Last 24 hours O2 Percentage 2 Liters = 28% General Appearance: no apparent distress, alert, obese Neurologic Exam: alert, oriented x 3, cooperative, normal mood/affect, nml cerebellar function, nml station & gait, sensation nml, No motor deficits Eye Exam: PERRL/EOMI, eyes nml inspection Neck Exam: normal inspection, non-tender, supple, full range of motion Respiratory Exam: normal breath sounds, lungs clear, No respiratory distress Cardiovascular Exam: regular rate/rhythm, normal heart sounds, normal peripheral pulses Gastrointestinal/Abdomen Exam: soft, normal bowel sounds, No tenderness, No mass Extremity Exam: normal inspection, normal range of motion, pelvis stable Skin Exam: normal color, warm, dry, No rash Results - Labs Lab/Micro Results: Accuchecks Date 12/02/17 Time 07:16 Accucheck Value: 138 Lab Results-Last 24 Hours 12/01/17 12/01/17 12/01/17 Range/Units 23:20 23:20 23:20 WBC 14.6 H (4.0-10.5) K/mm3 RBC 5.16 (4.1-5.4) M/mm3 Hgb 14.9 (12.0-16.0) gm/dl Hct 45.3 (35-47) % MCV 87.8 (78-100) fl MCH 28.9 (26-32) pg MCHC 32.9 (32-36) g/dl RDW 14.5 H (11.5-14.0) % Plt Count 321 (150-450) K/mm3 MPV 11.4 H (6-9.5) fl Gran % 85.1 H (36.0-66.0) % Eos # (Auto) 0.01 (0-0.5) Absolute Lymphs (auto) 1.60 (1.0-4.6) Absolute Monos (auto) 0.54 (0.0-1.3) Lymphocytes % 11.0 L (24.0-44.0) % Monocytes % 3.7 (0.0-12.0) % Eosinophils % 0.1 (0.00-5.0) % Basophils % 0.1 (0.0-0.4) % Absolute Granulocytes 12.42 H (1.4-6.9) Basophils # 0.02 (0-0.4) PT 10.6 (9.95-12.35) SECONDS INR 0.91 (0.8-3.0) APTT 24.2 L (25.3-37.0) SECONDS D-Dimer 274 (215-500) ng/mL Sodium 137 (137-145) mmol/L Potassium 4.5 (3.5-5.1) mmol/L Chloride 100 (98-107) mmol/L Carbon Dioxide 27 (22-30) mmol/L Anion Gap 15.1 H (5-15) MEQ/L BUN 30 H (7-17) mg/dL Creatinine 0.81 (0.52-1.04) mg/dL Estimated GFR > 60.0 ML/MIN Glucose 269 H (74-106) mg/dL Calcium 9.0 (8.4-10.2) mg/dL Total Bilirubin 0.20 (0.2-1.3) mg/dL AST 13 L (14-36) U/L ALT 18 (0-35) U/L Alkaline Phosphatase 124 (38-126) U/L Troponin I (0.000-0.034) ng/mL Serum Total Protein 6.5 (6.3-8.2) g/dL Albumin 3.9 (3.5-5.0) g/dL Serum , Qual (Negative) 12/01/17 12/01/17 12/02/17 Range/Units 23:20 23:20 02:48 WBC (4.0-10.5) K/mm3 RBC (4.1-5.4) M/mm3 Hgb (12.0-16.0) gm/dl Hct (35-47) % MCV (78-100) fl MCH (26-32) pg MCHC (32-36) g/dl RDW (11.5-14.0) % Plt Count (150-450) K/mm3 MPV (6-9.5) fl Gran % (36.0-66.0) % Eos # (Auto) (0-0.5) Absolute Lymphs (auto) (1.0-4.6) Absolute Monos (auto) (0.0-1.3) Lymphocytes % (24.0-44.0) % Monocytes % (0.0-12.0) % Eosinophils % (0.00-5.0) % Basophils % (0.0-0.4) % Absolute Granulocytes (1.4-6.9) Basophils # (0-0.4) PT (9.95-12.35) SECONDS INR (0.8-3.0) APTT (25.3-37.0) SECONDS D-Dimer (215-500) ng/mL Sodium (137-145) mmol/L Potassium (3.5-5.1) mmol/L Chloride (98-107) mmol/L Carbon Dioxide (22-30) mmol/L Anion Gap (5-15) MEQ/L BUN (7-17) mg/dL Creatinine (0.52-1.04) mg/dL Estimated GFR ML/MIN Glucose (74-106) mg/dL Calcium (8.4-10.2) mg/dL Total Bilirubin (0.2-1.3) mg/dL AST (14-36) U/L ALT (0-35) U/L Alkaline Phosphatase (38-126) U/L Troponin I < 0.012 < 0.012 (0.000-0.034) ng/mL Serum Total Protein (6.3-8.2) g/dL Albumin (3.5-5.0) g/dL Serum , Qual NEGATIVE (Negative) 12/02/17 12/02/17 12/02/17 Range/Units 05:12 05:12 05:12 WBC 14.2 H (4.0-10.5) K/mm3 RBC 4.94 (4.1-5.4) M/mm3 Hgb 14.4 (12.0-16.0) gm/dl Hct 43.5 (35-47) % MCV 88.1 (78-100) fl MCH 29.1 (26-32) pg MCHC 33.1 (32-36) g/dl RDW 14.5 H (11.5-14.0) % Plt Count 282 (150-450) K/mm3 MPV 11.4 H (6-9.5) fl Gran % 74.8 H (36.0-66.0) % Eos # (Auto) 0.02 (0-0.5) Absolute Lymphs (auto) 2.54 (1.0-4.6) Absolute Monos (auto) 0.98 (0.0-1.3) Lymphocytes % 17.9 L (24.0-44.0) % Monocytes % 6.9 (0.0-12.0) % Eosinophils % 0.1 (0.00-5.0) % Basophils % 0.3 (0.0-0.4) % Absolute Granulocytes 10.64 H (1.4-6.9) Basophils # 0.04 (0-0.4) PT (9.95-12.35) SECONDS INR (0.8-3.0) APTT (25.3-37.0) SECONDS D-Dimer (215-500) ng/mL Sodium 137 (137-145) mmol/L Potassium 4.3 (3.5-5.1) mmol/L Chloride 101 (98-107) mmol/L Carbon Dioxide 27 (22-30) mmol/L Anion Gap 12.8 (5-15) MEQ/L BUN 27 H (7-17) mg/dL Creatinine 0.78 (0.52-1.04) mg/dL Estimated GFR > 60.0 ML/MIN Glucose 138 H (74-106) mg/dL Calcium 8.8 (8.4-10.2) mg/dL Total Bilirubin 0.20 (0.2-1.3) mg/dL AST 10 L (14-36) U/L ALT 16 (0-35) U/L Alkaline Phosphatase 114 (38-126) U/L Troponin I < 0.012 (0.000-0.034) ng/mL Serum Total Protein 6.1 L (6.3-8.2) g/dL Albumin 3.6 (3.5-5.0) g/dL Serum , Qual (Negative) 12/02/17 Range/Units 08:07 WBC (4.0-10.5) K/mm3 RBC (4.1-5.4) M/mm3 Hgb (12.0-16.0) gm/dl Hct (35-47) % MCV (78-100) fl MCH (26-32) pg MCHC (32-36) g/dl RDW (11.5-14.0) % Plt Count (150-450) K/mm3 MPV (6-9.5) fl Gran % (36.0-66.0) % Eos # (Auto) (0-0.5) Absolute Lymphs (auto) (1.0-4.6) Absolute Monos (auto) (0.0-1.3) Lymphocytes % (24.0-44.0) % Monocytes % (0.0-12.0) % Eosinophils % (0.00-5.0) % Basophils % (0.0-0.4) % Absolute Granulocytes (1.4-6.9) Basophils # (0-0.4) PT (9.95-12.35) SECONDS INR (0.8-3.0) APTT (25.3-37.0) SECONDS D-Dimer (215-500) ng/mL Sodium (137-145) mmol/L Potassium (3.5-5.1) mmol/L Chloride (98-107) mmol/L Carbon Dioxide (22-30) mmol/L Anion Gap (5-15) MEQ/L BUN (7-17) mg/dL Creatinine (0.52-1.04) mg/dL Estimated GFR ML/MIN Glucose (74-106) mg/dL Calcium (8.4-10.2) mg/dL Total Bilirubin (0.2-1.3) mg/dL AST (14-36) U/L ALT (0-35) U/L Alkaline Phosphatase (38-126) U/L Troponin I < 0.012 (0.000-0.034) ng/mL Serum Total Protein (6.3-8.2) g/dL Albumin (3.5-5.0) g/dL Serum , Qual (Negative) Accuchecks Date 12/02/17 Time 07:16 Accucheck Value: 138 - Radiology Impressions Radiology Exams & Impressions: Radiology Procedures Category Date Time Status CHEST 1 VIEW (PORTABLE) Stat Exams 12/01/17 00:01 Completed - Other Procedures and Tests Respiratory Therapy 12/02/17 02:01 Respiratory Therapy Assessment DAILY 12/02/17 02:02 Oxygen NASAL CANNULA 2 lpm Assessment/Plan (1) Chest pain Current Visit: Yes Status: Acute Onset Date: ~12/02/17 Qualifiers: Chest pain type: unspecified Qualified Code(s): R07.9 - Chest pain, unspecified Assessment & Plan: will add d-dimer, needs CTA to r/o PE if elevated. will consult [facility] and consider addition of long acting nitrate if pain persists and workup is negative Code(s): R07.9 - CHEST PAIN, UNSPECIFIED (2) Type 2 diabetes mellitus Current Visit: No Status: Chronic Assessment & Plan: on pump therapy per endocrinology Hospital Summary - Vitals & Intake/Output Vital Signs: Vital Signs Temperature 98 F 12/02/17 07:45 Pulse Rate 76 12/02/17 07:45 Respiratory Rate 18 12/02/17 07:45 Blood Pressure 110/62 12/02/17 07:45 O2 Sat by Pulse Oximetry 96 12/02/17 07:45 Oxygen-Last Documented O2 Percentage 2 Liters = 28% Intake & Output: Intake & Output 11/29/17 11/30/17 12/01/17 12/02/17 11:59 11:59 11:59 11:59 Intake Total 580 Balance 580 Weight 120.6 kg - Lab Result Diagrams: 12/02/17 05:12 12/02/17 05:12 Lab Results-Last 24 Hrs: Accuchecks Date 12/02/17 Time 07:16 Accucheck Value: 138 Lab Results-Last 24 Hours 12/01/17 12/01/17 12/01/17 Range/Units 23:20 23:20 23:20 WBC 14.6 H (4.0-10.5) K/mm3 RBC 5.16 (4.1-5.4) M/mm3 Hgb 14.9 (12.0-16.0) gm/dl Hct 45.3 (35-47) % MCV 87.8 (78-100) fl MCH 28.9 (26-32) pg MCHC 32.9 (32-36) g/dl RDW 14.5 H (11.5-14.0) % Plt Count 321 (150-450) K/mm3 MPV 11.4 H (6-9.5) fl Gran % 85.1 H (36.0-66.0) % Eos # (Auto) 0.01 (0-0.5) Absolute Lymphs (auto) 1.60 (1.0-4.6) Absolute Monos (auto) 0.54 (0.0-1.3) Lymphocytes % 11.0 L (24.0-44.0) % Monocytes % 3.7 (0.0-12.0) % Eosinophils % 0.1 (0.00-5.0) % Basophils % 0.1 (0.0-0.4) % Absolute Granulocytes 12.42 H (1.4-6.9) Basophils # 0.02 (0-0.4) PT 10.6 (9.95-12.35) SECONDS INR 0.91 (0.8-3.0) APTT 24.2 L (25.3-37.0) SECONDS D-Dimer 274 (215-500) ng/mL Sodium 137 (137-145) mmol/L Potassium 4.5 (3.5-5.1) mmol/L Chloride 100 (98-107) mmol/L Carbon Dioxide 27 (22-30) mmol/L Anion Gap 15.1 H (5-15) MEQ/L BUN 30 H (7-17) mg/dL Creatinine 0.81 (0.52-1.04) mg/dL Estimated GFR > 60.0 ML/MIN Glucose 269 H (74-106) mg/dL Calcium 9.0 (8.4-10.2) mg/dL Total Bilirubin 0.20 (0.2-1.3) mg/dL AST 13 L (14-36) U/L ALT 18 (0-35) U/L Alkaline Phosphatase 124 (38-126) U/L Troponin I (0.000-0.034) ng/mL Serum Total Protein 6.5 (6.3-8.2) g/dL Albumin 3.9 (3.5-5.0) g/dL Serum , Qual (Negative) 12/01/17 12/01/17 12/02/17 Range/Units 23:20 23:20 02:48 WBC (4.0-10.5) K/mm3 RBC (4.1-5.4) M/mm3 Hgb (12.0-16.0) gm/dl Hct (35-47) % MCV (78-100) fl MCH (26-32) pg MCHC (32-36) g/dl RDW (11.5-14.0) % Plt Count (150-450) K/mm3 MPV (6-9.5) fl Gran % (36.0-66.0) % Eos # (Auto) (0-0.5) Absolute Lymphs (auto) (1.0-4.6) Absolute Monos (auto) (0.0-1.3) Lymphocytes % (24.0-44.0) % Monocytes % (0.0-12.0) % Eosinophils % (0.00-5.0) % Basophils % (0.0-0.4) % Absolute Granulocytes (1.4-6.9) Basophils # (0-0.4) PT (9.95-12.35) SECONDS INR (0.8-3.0) APTT (25.3-37.0) SECONDS D-Dimer (215-500) ng/mL Sodium (137-145) mmol/L Potassium (3.5-5.1) mmol/L Chloride (98-107) mmol/L Carbon Dioxide (22-30) mmol/L Anion Gap (5-15) MEQ/L BUN (7-17) mg/dL Creatinine (0.52-1.04) mg/dL Estimated GFR ML/MIN Glucose (74-106) mg/dL Calcium (8.4-10.2) mg/dL Total Bilirubin (0.2-1.3) mg/dL AST (14-36) U/L ALT (0-35) U/L Alkaline Phosphatase (38-126) U/L Troponin I < 0.012 < 0.012 (0.000-0.034) ng/mL Serum Total Protein (6.3-8.2) g/dL Albumin (3.5-5.0) g/dL Serum , Qual NEGATIVE (Negative) 12/02/17 12/02/17 12/02/17 Range/Units 05:12 05:12 05:12 WBC 14.2 H (4.0-10.5) K/mm3 RBC 4.94 (4.1-5.4) M/mm3 Hgb 14.4 (12.0-16.0) gm/dl Hct 43.5 (35-47) % MCV 88.1 (78-100) fl MCH 29.1 (26-32) pg MCHC 33.1 (32-36) g/dl RDW 14.5 H (11.5-14.0) % Plt Count 282 (150-450) K/mm3 MPV 11.4 H (6-9.5) fl Gran % 74.8 H (36.0-66.0) % Eos # (Auto) 0.02 (0-0.5) Absolute Lymphs (auto) 2.54 (1.0-4.6) Absolute Monos (auto) 0.98 (0.0-1.3) Lymphocytes % 17.9 L (24.0-44.0) % Monocytes % 6.9 (0.0-12.0) % Eosinophils % 0.1 (0.00-5.0) % Basophils % 0.3 (0.0-0.4) % Absolute Granulocytes 10.64 H (1.4-6.9) Basophils # 0.04 (0-0.4) PT (9.95-12.35) SECONDS INR (0.8-3.0) APTT (25.3-37.0) SECONDS D-Dimer (215-500) ng/mL Sodium 137 (137-145) mmol/L Potassium 4.3 (3.5-5.1) mmol/L Chloride 101 (98-107) mmol/L Carbon Dioxide 27 (22-30) mmol/L Anion Gap 12.8 (5-15) MEQ/L BUN 27 H (7-17) mg/dL Creatinine 0.78 (0.52-1.04) mg/dL Estimated GFR > 60.0 ML/MIN Glucose 138 H (74-106) mg/dL Calcium 8.8 (8.4-10.2) mg/dL Total Bilirubin 0.20 (0.2-1.3) mg/dL AST 10 L (14-36) U/L ALT 16 (0-35) U/L Alkaline Phosphatase 114 (38-126) U/L Troponin I < 0.012 (0.000-0.034) ng/mL Serum Total Protein 6.1 L (6.3-8.2) g/dL Albumin 3.6 (3.5-5.0) g/dL Serum , Qual (Negative) 12/02/17 Range/Units 08:07 WBC (4.0-10.5) K/mm3 RBC (4.1-5.4) M/mm3 Hgb (12.0-16.0) gm/dl Hct (35-47) % MCV (78-100) fl MCH (26-32) pg MCHC (32-36) g/dl RDW (11.5-14.0) % Plt Count (150-450) K/mm3 MPV (6-9.5) fl Gran % (36.0-66.0) % Eos # (Auto) (0-0.5) Absolute Lymphs (auto) (1.0-4.6) Absolute Monos (auto) (0.0-1.3) Lymphocytes % (24.0-44.0) % Monocytes % (0.0-12.0) % Eosinophils % (0.00-5.0) % Basophils % (0.0-0.4) % Absolute Granulocytes (1.4-6.9) Basophils # (0-0.4) PT (9.95-12.35) SECONDS INR (0.8-3.0) APTT (25.3-37.0) SECONDS D-Dimer (215-500) ng/mL Sodium (137-145) mmol/L Potassium (3.5-5.1) mmol/L Chloride (98-107) mmol/L Carbon Dioxide (22-30) mmol/L Anion Gap (5-15) MEQ/L BUN (7-17) mg/dL Creatinine (0.52-1.04) mg/dL Estimated GFR ML/MIN Glucose (74-106) mg/dL Calcium (8.4-10.2) mg/dL Total Bilirubin (0.2-1.3) mg/dL AST (14-36) U/L ALT (0-35) U/L Alkaline Phosphatase (38-126) U/L Troponin I < 0.012 (0.000-0.034) ng/mL Serum Total Protein (6.3-8.2) g/dL Albumin (3.5-5.0) g/dL Serum , Qual (Negative) Micro Results-Entire Visit: Accuchecks Date 12/02/17 Time 07:16 Accucheck Value: 138 - Radiology Exams Ordered Rad Exams-Entire Visit: Radiology Procedures Category Date Time Status CHEST 1 VIEW (PORTABLE) Stat Exams 12/01/17 00:01 Completed - Procedures and Test Procedures and Tests throughout Hospitalization: Therapy Orders & Screens 12/02/17 01:18 Respiratory Therapy Consult ROUTINE Comment: Reason For Exam: 12/02/17 02:01 Respiratory Therapy Assessment DAILY Comment: 12/02/17 02:02 Oxygen NASAL CANNULA 2 lpm Comment: 12/02/17 02:49 RT Screen per Nursing Assess ONCE Comment: Protocol Order Physician Instructions: Greater than 3 points order RT Admission Screen Reason For Exam: Triggered on Admission Diagnosis: CP Diagnosis: CP Pneumonia: No Home O2: No Asthma: Yes CHF: No Home CPAP/BIPAP: No Home Nebs/MDI: Yes Total Points: 9 - Discharge Disposition: Home, Self-Care Condition: Good Prescriptions: No Action Insulin Glulisine [Apidra Solostar] 1 unit SQ UD Ropinirole HCl [Requip] 0.25 mg PO TID PANTOPRAZOLE 40 mg Tablet [Protonix 40MG Tablet] 40 mg PO DAILY Cholecalciferol (Vitamin D3) [Vitamin D] 2,000 unit PO WEEKLY Atorvastatin Calcium 20 mg PO QHS Empagliflozin [Jardiance] 25 mg PO DAILY Lisinopril 5 mg PO DAILY Carvedilol 3.125 mg PO BID Nitroglycerin 0.4 mg (Ed) [Nitrostat 0.4 MG (ED)] 0.4 mg SL UD Cetirizine HCl 10 mg PO DAILY Levothyroxine Sodium [Synthroid] 50 mcg PO DAILY Methylprednisolone Packet [Medrol Dosepack] 1 mg PO UD Pramipexole Di-HCl [Pramipexole Dihydrochloride] 0.5 mg PO QHS Insulin Glulisine [Apidra] 200 units UD Follow up with: NICK ADHIKARI MD [Primary Care Provider] - 1 Week
[2017-12-02] MEDS ORDERED: ENOXAPARIN SODIUM SQ SCH (10:00)
[2017-12-02] MEDS ORDERED: Imdur 30 MG PO SCH (10:00)
[2017-12-02] MEDS ORDERED: FLUZONE QUAD (36mo-64yo) 2018-2019 SYRINGE IM ONE (10:00)
[2017-12-02] MEDS ORDERED: SYNTHROID 50 MCG PO SCH (11:00)
[2017-12-02] MEDS ORDERED: Medrol Dosepack PO SCH (11:00)
[2017-12-02] MEDS ORDERED: INSULIN GLULISINE 1 UNIT SQ SCH (11:00)
[2017-12-02] MEDS ORDERED: Zestril 5 MG PO SCH (11:00)
[2017-12-02] MEDS ORDERED: Coreg 3.125 MG PO SCH (11:00)
[2017-12-02] MEDS ORDERED: Requip 0.5 MG PO SCH (11:00)
[2017-12-02] MEDS ORDERED: INSULIN GLULISINE SQ SCH (11:00)
[2017-12-02] MEDS ORDERED: Nitrostat 0.4 MG (ED) SL SCH (11:00)
[2017-12-02] MEDS ORDERED: Protonix 40MG Tablet PO SCH (11:00)
[2017-12-02] MEDS ORDERED: Nitrostat 0.4 MG Tablet SL PRN (11:01)
[2017-12-02 12:28] VITALS: BP 116/75; PULSE 74; O2SAT 99
[2017-12-02] MEDS ORDERED: NON-FORMULARY ITEM (Ropinirole Hcl [Requip] 0.25 MG) PO SCH (15:00)
[2017-12-02] MEDS ORDERED: Mirapex 0.5 MG Tablet PO SCH (22:00)
[2017-12-02] MEDS ORDERED: ZOCOR 20MG PO SCH (22:00)
[2017-12-02] MEDS ORDERED: Ecotrin 325 MG PO SCH (22:00)
[2017-12-03] MEDS ORDERED: NON-FORMULARY ITEM (Empagliflozin [Jardiance] 25 MG) PO SCH (10:00)
== END 2017-12-02 15:07 | disposition home or self-care (01) ==
LOC: ED 22:53 → MED SURG 12-02 01:05
PROVIDERS: ADMIT Family Medicine; ATTEND Family Medicine
DX: R07.9 Chest pain, unspecified (principal); E11.9 Type 2 diabetes mellitus without complications; Z79.899 Other long term (current) drug therapy; I10 Essential (primary) hypertension; E78.00 Pure hypercholesterolemia, unspecified; G62.9 Polyneuropathy, unspecified; M19.90 Unspecified osteoarthritis, unspecified site; F41.8 Other specified anxiety disorders; K59.09 Other constipation
CPT/HCPCS: 36000; 36415; 71045; 80053; 82962; 84484; 84703; 85025; 85379; 85610; 85730; 90686; 93005; 93041; 93268; 94762; 99285; J1650; J2270; A9270-GY; G0378

== ENCOUNTER 2018-02-01 15:50 | Emergency (ER) | payer OTHER ==
--- NOTE | 2018-02-01 16:09 | ERPHSYRPT ---
- History of Present Illness Source: patient Hx Tetanus, Diphtheria Vaccination/Date Given: Yes Hx Influenza Vaccination/Date Given: Yes Hx Pneumococcal Vaccination/Date Given: No <LOC FORTUNE - Last Filed: 02/01/18 18:39> <CITLALLI COTTRELL - Last Filed: 02/02/18 06:22> - History of Present Illness Time Seen by Provider: 02/01/18 16:05 Physician History: pt hx noncompliance presents for evaluation of low serum calcium today, hx cancer and thyroidectomy, feels mod fatigue and general weakness, no fever, no NV, does not drink alcohol, denies injury, denies spasms, hx dm, pt of [employer] [place] [phone] (LOC FORTUNE) Allergies/Adverse Reactions: buspirone [From BuSpar] Allergy (Verified 02/01/18 16:28) diphenhydramine HCl [From Benadryl] Allergy (Verified 02/01/18 16:28) guaifenesin [From CodiCLEAR DH] Allergy (Verified 02/01/18 16:28) hydrocodone bitartrate [From CodiCLEAR DH] Allergy (Verified 02/01/18 16:28) hydromorphone HCl [From Dilaudid] Allergy (Verified 02/01/18 16:28) Penicillins Allergy (Verified 02/01/18 16:28) potassium guaiacolsulfonate [From CodiCLEAR DH] Allergy (Verified 02/01/18 16:28 ) prednisone Allergy (Verified 02/01/18 16:28) Home Medications: Insulin Glulisine [Apidra Solostar] 1 unit SQ UD 06/22/16 [History] Ropinirole HCl [Requip] 0.25 mg PO TID 06/22/16 [History] PANTOPRAZOLE 40 mg Tablet [Protonix 40MG Tablet] 40 mg PO DAILY 08/25/16 [ History] Atorvastatin Calcium 20 mg PO QHS 12/01/17 [History] Carvedilol 3.125 mg PO BID 12/01/17 [History] Cetirizine HCl 10 mg PO DAILY 12/01/17 [History] Cholecalciferol (Vitamin D3) [Vitamin D] 2,000 unit PO WEEKLY 12/01/17 [ History] Empagliflozin [Jardiance] 25 mg PO DAILY 12/01/17 [History] Insulin Glulisine [Apidra] 200 units UD 12/01/17 [History] Levothyroxine Sodium [Synthroid] 175 mcg PO DAILY 12/01/17 [History] Lisinopril 5 mg PO DAILY 12/01/17 [History] Nitroglycerin 0.4 mg (Ed) [Nitrostat 0.4 MG (ED)] 0.4 mg SL UD 12/01/17 [ History] Pramipexole Di-HCl [Pramipexole Dihydrochloride] 0.5 mg PO QHS 12/01/17 [History ] - Review of Systems Constitutional: Weakness, No Fever Eyes: No Eye Redness Ears, Nose, & Throat: No Nose Congestion Respiratory: No Cough, No Cyanosis Cardiac: No Chest Pain, No Palpitations Abdominal/Gastrointestinal: No Abdominal Pain, No Vomiting Genitourinary Symptoms: No Dysuria Musculoskeletal: No Back Pain, No Neck Pain Skin: No Rash Neurological: No Dizziness, No Focal Weakness, No Headache <LOC FORTUNE - Last Filed: 02/01/18 18:39> - Past Medical History Pertinent Past Medical History: Yes Neurological History: Migraines, Peripheral Neuropathy ENT History: No Pertinent History Cardiac History: Angina, High Cholesterol, Hypertension Respiratory History: Asthma Endocrine Medical History: Diabetes Type II Musculoskeletal History: Arthritis GI Medical History: Irritable Bowel, Other History: No Pertinent History Psycho-Social History: Anxiety, Depression Female Reproductive Disorders: No Pertinent History Other Medical History: CHRONIC CONSTIPATION - Past Surgical History Past Surgical History: Yes Neuro Surgical History: No Pertinent History Cardiac: No Pertinent History Respiratory: No Pertinent History Gastrointestinal: Exploratory Laparoscopy, Cholecystectomy Genitourinary: No Pertinent History Musculoskeletal: No Pertinent History Female Surgical History: No Pertinent History Other Surgical History: TONSILLECTOMY - Social History Smoking Status: Former smoker Exposure to second hand smoke: Yes Drug Use: none Patient Lives Alone: No <LOC FORTUNE - Last Filed: 02/01/18 18:39> - Physical Exam General Appearance: no apparent distress Eye Exam: PERRL/EOMI, eyes nml inspection Ears, Nose, Throat Exam: moist mucous membranes Neck Exam: normal inspection Respiratory Exam: normal breath sounds Cardiovascular Exam: regular rate/rhythm Gastrointestinal/Abdomen Exam: soft, No tenderness Extremity Exam: normal range of motion Neurologic Exam: alert, oriented x 3, cooperative Skin Exam: warm, dry <LOC FORTUNE - Last Filed: 02/01/18 18:39> - Nursing Vital Signs Nursing Vital Signs: Initial Vital Signs Temperature 97.6 F 02/01/18 15:55 Pulse Rate 109 H 02/01/18 15:55 Blood Pressure 127/96 02/01/18 15:55 O2 Sat by Pulse Oximetry 99 02/01/18 15:55 Pain Scale Pain Intensity 0 Ordered Tests: Active Orders 24 hr Category Date Time Status Lead Furnace Operator STAT Care 02/01/18 16:03 Active EKG-ER Only STAT Care 02/01/18 16:02 Active IV Insertion STAT Care 02/01/18 16:02 Active BMP Stat Lab 02/02/18 05:00 Completed CBC W DIFF Stat Lab 02/01/18 16:38 Completed CMP Stat Lab 02/01/18 16:38 Completed Calcium Stat Lab 02/01/18 18:05 Completed Calcium Stat Lab 02/01/18 22:35 Completed HCG QUALITATIVE,SERUM Stat Lab 02/01/18 16:38 Completed MG [MAGNESIUM] Stat Lab 02/01/18 16:38 Completed Medication Summary Discontinued Medications Generic Name Dose Route Start Last Admin Trade Name Freq PRN Reason Stop Dose Admin Calcium Carbonate/Glycine 1,500 mg 02/02/18 02:15 02/02/18 02:29 Tums Ex 750 Mg PO 02/02/18 02:16 1,500 mg ONCE ONE Administration Calcium Gluconate 1,000 mg 02/01/18 17:08 02/01/18 17:28 Calcium Gluconate 10% 1000 Mg IV 02/01/18 17:09 1,000 mg STAT ONE Administration Calcium Gluconate Confirm 02/01/18 17:24 Calcium Gluconate 10% 1000 Mg Administered 02/01/18 17:25 Dose 1,000 mg IV .STK-MED ONE Calcium Gluconate 1,000 mg 02/01/18 18:51 02/01/18 20:24 Calcium Gluconate 10% 1000 Mg IV 02/01/18 18:52 Not Given STAT ONE Calcium Gluconate Confirm 02/01/18 19:05 Calcium Gluconate 10% 1000 Mg Administered 02/01/18 19:06 Dose 1,000 mg IV .STK-MED ONE Calcium Gluconate 3,000 mg 02/01/18 19:31 02/01/18 20:04 Calcium Gluconate 10% 1000 Mg IV 02/01/18 19:32 3,000 mg STAT ONE Administration Calcium Gluconate 4,000 mg 02/02/18 02:01 02/02/18 02:25 Calcium Gluconate 10% 1000 Mg IV 02/02/18 02:02 4,000 mg STAT ONE Administration Sodium Chloride Confirm 02/01/18 19:05 Sodium Chloride 0.9% 100 Ml Ivpb Administered 02/01/18 19:06 Dose 100 mls @ ud IV .STK-MED ONE Sodium Chloride 1,000 mls @ 100 mls/hr 02/01/18 22:15 02/01/18 22:25 Sodium Chloride 0.9% 1000 Ml IV 03/03/18 22:14 Not Given .Q10H NIRAV Sodium Chloride Confirm 02/02/18 02:17 Sodium Chloride 0.9% 100 Ml Ivpb Administered 02/02/18 02:18 Dose 100 mls @ ud IV .STK-MED ONE Morphine Sulfate 2 mg 02/01/18 22:13 02/01/18 22:25 Morphine Sulfate 2 Mg Inj IV 02/01/18 22:14 Not Given STAT ONE Ondansetron HCl 4 mg 02/01/18 22:13 02/01/18 22:25 Zofran 4 Mg/2 Ml Vial IV 02/01/18 22:14 Not Given STAT ONE Potassium Chloride 20 meq 02/02/18 05:53 02/02/18 06:05 Klor Con 10 Meq PO 02/02/18 05:54 20 meq STAT ONE Administration Potassium Chloride Confirm 02/02/18 06:04 Klor Con 10 Meq Administered 02/02/18 06:05 Dose 20 meq PO .STK-MED ONE Lab/Rad Data: Laboratory Result Diagrams 02/01/18 16:38 02/02/18 05:00 Laboratory Results 02/02/18 02/01/18 02/01/18 Range/Units 05:00 22:35 18:05 WBC (4.0-10.5) K/mm3 RBC (4.1-5.4) M/mm3 Hgb (12.0-16.0) gm/dl Hct (35-47) % MCV (78-100) fl MCH (26-32) pg MCHC (32-36) g/dl RDW (11.5-14.0) % Plt Count (150-450) K/mm3 MPV (6-9.5) fl Gran % (36.0-66.0) % Eos # (Auto) (0-0.5) Absolute Lymphs (auto) (1.0-4.6) Absolute Monos (auto) (0.0-1.3) Lymphocytes % (24.0-44.0) % Monocytes % (0.0-12.0) % Eosinophils % (0.00-5.0) % Basophils % (0.0-0.4) % Absolute Granulocytes (1.4-6.9) Basophils # (0-0.4) Sodium 138 (137-145) mmol/L Potassium 3.5 (3.5-5.1) mmol/L Chloride 102 (98-107) mmol/L Carbon Dioxide 27 (22-30) mmol/L Anion Gap 12.2 (5-15) MEQ/L BUN 7 (7-17) mg/dL Creatinine 0.70 (0.52-1.04) mg/dL Estimated GFR > 60.0 ML/MIN Glucose 95 (74-106) mg/dL Calcium 7.7 L 6.8 L 5.9 L* (8.4-10.2) mg/dL Magnesium (1.6-2.3) mg/dL Total Bilirubin (0.2-1.3) mg/dL AST (14-36) U/L ALT (0-35) U/L Alkaline Phosphatase (38-126) U/L Serum Total Protein (6.3-8.2) g/dL Albumin (3.5-5.0) g/dL Serum , Qual (Negative) 02/01/18 02/01/18 02/01/18 Range/Units 16:38 16:38 16:38 WBC 11.4 H (4.0-10.5) K/mm3 RBC 5.11 (4.1-5.4) M/mm3 Hgb 14.4 (12.0-16.0) gm/dl Hct 45.6 (35-47) % MCV 89.2 (78-100) fl MCH 28.2 (26-32) pg MCHC 31.6 L (32-36) g/dl RDW 15.0 H (11.5-14.0) % Plt Count 262 (150-450) K/mm3 MPV 10.7 H (6-9.5) fl Gran % 79.3 H (36.0-66.0) % Eos # (Auto) 0.03 (0-0.5) Absolute Lymphs (auto) 1.65 (1.0-4.6) Absolute Monos (auto) 0.66 (0.0-1.3) Lymphocytes % 14.4 L (24.0-44.0) % Monocytes % 5.8 (0.0-12.0) % Eosinophils % 0.3 (0.00-5.0) % Basophils % 0.2 (0.0-0.4) % Absolute Granulocytes 9.08 H (1.4-6.9) Basophils # 0.02 (0-0.4) Sodium (137-145) mmol/L Potassium (3.5-5.1) mmol/L Chloride (98-107) mmol/L Carbon Dioxide (22-30) mmol/L Anion Gap (5-15) MEQ/L BUN (7-17) mg/dL Creatinine (0.52-1.04) mg/dL Estimated GFR ML/MIN Glucose (74-106) mg/dL Calcium (8.4-10.2) mg/dL Magnesium 1.5 L (1.6-2.3) mg/dL Total Bilirubin (0.2-1.3) mg/dL AST (14-36) U/L ALT (0-35) U/L Alkaline Phosphatase (38-126) U/L Serum Total Protein (6.3-8.2) g/dL Albumin (3.5-5.0) g/dL Serum , Qual NEGATIVE (Negative) 02/01/18 Range/Units 16:38 WBC (4.0-10.5) K/mm3 RBC (4.1-5.4) M/mm3 Hgb (12.0-16.0) gm/dl Hct (35-47) % MCV (78-100) fl MCH (26-32) pg MCHC (32-36) g/dl RDW (11.5-14.0) % Plt Count (150-450) K/mm3 MPV (6-9.5) fl Gran % (36.0-66.0) % Eos # (Auto) (0-0.5) Absolute Lymphs (auto) (1.0-4.6) Absolute Monos (auto) (0.0-1.3) Lymphocytes % (24.0-44.0) % Monocytes % (0.0-12.0) % Eosinophils % (0.00-5.0) % Basophils % (0.0-0.4) % Absolute Granulocytes (1.4-6.9) Basophils # (0-0.4) Sodium 139 (137-145) mmol/L Potassium 4.0 (3.5-5.1) mmol/L Chloride 98 (98-107) mmol/L Carbon Dioxide 28 (22-30) mmol/L Anion Gap 16.7 H (5-15) MEQ/L BUN 9 (7-17) mg/dL Creatinine 0.64 (0.52-1.04) mg/dL Estimated GFR > 60.0 ML/MIN Glucose 101 (74-106) mg/dL Calcium 5.8 L* (8.4-10.2) mg/dL Magnesium (1.6-2.3) mg/dL Total Bilirubin 1.10 (0.2-1.3) mg/dL AST 27 (14-36) U/L ALT 19 (0-35) U/L Alkaline Phosphatase 147 H (38-126) U/L Serum Total Protein 7.5 (6.3-8.2) g/dL Albumin 4.4 (3.5-5.0) g/dL Serum , Qual (Negative) <LOC FORTUNE - Last Filed: 02/01/18 18:39> - Progress Progress: improved <CITLALLI COTTRELL - Last Filed: 02/02/18 06:22> - Progress Progress Note: 02/01/18 18:[address] Cottrell at 19:00 (LOC FORTUNE) 02/01/18 20:33 47-year-old white female with history of thyroid cancer and thyroidectomy who was noted to have a low calcium arrives in the emergency room with complaint of generalized weakness and fatigue Initially seen by Dr. Fortune patient with initial calcium of 5.8 He had contacted patient's nurse practitioner in [place] out of [facility] and was asked to give the patient 4 g of calcium gluconate Patient is receiving this at this time Patient in no acute distress Past medical history includes peripheral neuropathy, migraines, angina, hyperlipidemia, high blood pressure, asthma, diabetes type 2, arthritis, irritable bowel, anxiety, depression, chronic constipation Past surgical history includes exploratory laparoscopy, cholecystectomy, tonsillectomy, thyroidectomy, Physical examination Well-developed obese white female she does not appear to be in acute distress. Head is atraumatic normocephalic. Eyes PERRLA EOMI fundi are unremarkable. Ears TMs lima intact bilaterally. Nose is clear. Throat is clear. Neck is supple. Lungs are clear. Heart regular rate and rhythm without murmur. Abdomen soft nontender nondistended positive bowel sounds. Extremities full range of motion pulse equal symmetrical 2 over 4. Neuro cranial nerves II through XII are intact DTRs symmetrical equal 204 Namita Coma Scale is 15.; Labs EKG sinus rhythm with 1 PVC 96 beats for minute normal axis no acute ST or T wave changes are noted. CBC White blood cell 11.4 hemoglobin 14.4 hematocrit 45.6 platelets 262 chemistry sodium 139 potassium 4.0 chloride 98 bicarbonate 28 BUN 9 creatinine 0.64 glucose 101 hCG is negative initial calcium 5.8 Patient had received 1000 mg of calcium gluconate and had a calcium of 5.9 shortly thereafter. Pharmacy is consult that she is receiving additional 3 g of calcium gluconate. Will recheck calcium after infusion. Note is made of magnesium of 1.5. Patient has received 4 g of calcium gluconate. Repeat calcium was 6.8. Call has been placed to the patient's surgeon/nurse practitioner through [facility] one call. Awaiting call back. Patient appears stable at this time. 02/02/18 00:[address] Luis Enrique Stovall through [facility] one call I relayed to her the patient's calcium level of 6.8. Dr. Stovall requested that patient receive another 4 g of calcium gluconate and 1500 mg of oral calcium. She would like a repeat calcium level one hour after calcium gluconate has infused. She did state the patient needs to crab picker her prescription for oral Calcitrol and calcium and she needs to take this she states her calcium levels will not stay up without this. Orders have been placed for 4 mg of calcium gluconate and 1500 mg of oral calcium. 02/02/18 02:01 Patient's calcium is now 7.7. Patient was noted to have a potassium of 3.5. Patient will be given 20 mEq of potassium. Patient will be discharged. It is emphasized that patient needs to fill her medications for her calcium in her calcitriol and she needs to start this today. She will need to contact her family doctor or her surgeon or her nurse practitioner Jaron. She is advised to do that this morning. She is to return for acute distress or for severe symptoms. Patient is in no distress vitals are stable . 02/02/18 05:56 (CITLALLI COTTRELL) <LOC FORTUNE - Last Filed: 02/01/18 18:39> - Departure Time of Disposition: 06:22 Departure Disposition: Home Critical Care Time: No <CITLALLI COTTRELL - Last Filed: 02/02/18 06:22> - Departure Clinical Impression: Hypocalcemia, history of recent thyroidectomy Condition: Fair Referrals: NICK ADHIKARI MD [Primary Care Provider] - Instructions: Hypocalcemia (DC) Additional Instructions: Return home. Please fill your medications and take them as prescribed by your surgeon/family doctor/nurse practitioner. Return for acute distress or for severe symptoms. Follow-up with your surgeon, family doctor, nurse practitioner.
[2018-02-01 16:41] LABS: BASOPHIL % 0.2 % (0.0-0.4); Basophil (Absolute #) 0.02 (0-0.4); Eosinophil % 0.3 % (0.00-5.0); Eosinophil (Absolute #) 0.03 (0-0.5); Granulocyte Absolute (ANC) 9.08 (1.4-6.9); Granulocytes % 79.3 % (36.0-66.0); Hematocrit 45.6 % (35-47); Hemoglobin 14.4 gm/dl (12.0-16.0); Lymphocyte (Absolute #) 1.65 (1.0-4.6); Lymphocytes % 14.4 % (24.0-44.0); Mean Cell Volume 89.2 fl (78-100); Mean Corpuscular Hemoglobin 28.2 pg (26-32); Mean Corpuscular Hgb Concent. 31.6 g/dl (32-36); Mean Platelet Volume 10.7 fl (6-9.5); Monocyte (Absolute #) 0.66 (0.0-1.3); Monocytes % 5.8 % (0.0-12.0); Platelet Count 262 K/mm3 (150-450); Red Blood Count 5.11 M/mm3 (4.1-5.4); White Blood Count 11.4 K/mm3 (4.0-10.5)
[2018-02-01 16:58] LABS: ALBUMIN 4.4 g/dL (3.5-5.0); ALKALINE PHOSPHATASE 147 U/L (38-126); ANION GAP 16.7 MEQ/L (5-15); BLOOD UREA NITROGEN 9 mg/dL (7-17); CHLORIDE 98 mmol/L (98-107); Carbon Dioxide 28 mmol/L (22-30); Creatinine 1 0.64 mg/dL (0.52-1.04); Glucose 101 mg/dL (74-106); SGOT/AST 27 U/L (14-36); SGPT/ALT 19 U/L (0-35); SODIUM 139 mmol/L (137-145); Total Protein 7.5 g/dL (6.3-8.2)
[2018-02-01 17:08] LABS: Calcium 5.8 mg/dL (8.4-10.2)
[2018-02-01] MEDS ORDERED: Calcium Gluconate 10% 1000 MG IV ONE ×5 (17:08→19:31)
[2018-02-01] MEDS ORDERED: Sodium Chloride 0.9% 100 ML IVPB 100 ML IV ONE (19:05)
[2018-02-01] MEDS ORDERED: MORPHINE SULFATE 2 MG INJ IV ONE (22:13)
[2018-02-01] MEDS ORDERED: Zofran 4 MG/2 ML VIAL IV ONE (22:13)
[2018-02-01] MEDS ORDERED: Sodium Chloride 0.9% 1000 ML 1,000 ML IV SCH (22:15)
[2018-02-02] MEDS ORDERED: Calcium Gluconate 10% 1000 MG IV ONE (02:01)
[2018-02-02] MEDS ORDERED: Tums EX 750 MG PO ONE (02:15)
[2018-02-02] MEDS ORDERED: Sodium Chloride 0.9% 100 ML IVPB 100 ML IV ONE (02:17)
[2018-02-02 03:44] VITALS: O2SAT 97
[2018-02-02 05:50] LABS: ANION GAP 12.2 MEQ/L (5-15); BLOOD UREA NITROGEN 7 mg/dL (7-17); CHLORIDE 102 mmol/L (98-107); Calcium 7.7 mg/dL (8.4-10.2); Carbon Dioxide 27 mmol/L (22-30); Glucose 95 mg/dL (74-106); Potassium 3.5 mmol/L (3.5-5.1); SODIUM 138 mmol/L (137-145)
[2018-02-02] MEDS ORDERED: Klor Con 10 MEQ PO ONE ×2 (05:53→06:04)
[2018-02-02 06:33] VITALS: BP 103/65; PULSE 102
== END 2018-02-02 06:35 | disposition home or self-care (01) ==
LOC: ED 15:50
DX: E83.51 Hypocalcemia (principal); Z79.899 Other long term (current) drug therapy; E11.9 Type 2 diabetes mellitus without complications; Z79.4 Long term (current) use of insulin; Z85.850 Personal history of malignant neoplasm of thyroid
CPT/HCPCS: 36000; 36415; 80048; 80053; 81025; 82310; 82330; 83735; 83970; 85025; 93005; 93041; 96374; 96376; 99285; J0610; A9270-GY

== ENCOUNTER 2018-04-22 13:19 | Emergency (ER) | payer OTHER ==
[2018-04-22] MEDS ORDERED: Nitrostat 0.4 MG (ED) SL ONE ×2 (13:41→14:50)
[2018-04-22] MEDS ORDERED: BABY ASPIRIN 81 MG CHEW PO ONE (13:41)
[2018-04-22] MEDS ORDERED: PROTONIX 40 MG IV IV ONE ×2 (13:56→14:50)
[2018-04-22 15:37] LABS: BASOPHIL % 0.3 % (0.0-0.4); Basophil (Absolute #) 0.02 (0-0.4); Eosinophil (Absolute #) 0.07 (0-0.5); Granulocyte Absolute (ANC) 4.65 (1.4-6.9); Granulocytes % 63.8 % (36.0-66.0); Hematocrit 43.8 % (35-47); Hemoglobin 13.7 gm/dl (12.0-16.0); Lymphocyte (Absolute #) 1.98 (1.0-4.6); Lymphocytes % 27.2 % (24.0-44.0); Mean Cell Volume 86.9 fl (78-100); Mean Corpuscular Hemoglobin 27.2 pg (26-32); Mean Corpuscular Hgb Concent. 31.3 g/dl (32-36); Mean Platelet Volume 11.5 fl (6-9.5); Monocyte (Absolute #) 0.56 (0.0-1.3); Monocytes % 7.7 % (0.0-12.0); Platelet Count 243 K/mm3 (150-450); Red Blood Count 5.04 M/mm3 (4.1-5.4); White Blood Count 7.3 K/mm3 (4.0-10.5)
[2018-04-22 15:49] LABS: ALBUMIN 3.8 g/dL (3.5-5.0); ALKALINE PHOSPHATASE 131 U/L (38-126); ANION GAP 13.5 MEQ/L (5-15); BLOOD UREA NITROGEN 10 mg/dL (7-17); CHLORIDE 106 mmol/L (98-107); Calcium 8.9 mg/dL (8.4-10.2); Carbon Dioxide 27 mmol/L (22-30); Creatinine 1 0.89 mg/dL (0.52-1.04); Glucose 129 mg/dL (74-106); NT PRO BNP 30.2 pg/mL (0-450); Potassium 3.7 mmol/L (3.5-5.1); SGOT/AST 25 U/L (14-36); SGPT/ALT 14 U/L (0-35); SODIUM 143 mmol/L (137-145); Total Protein 6.5 g/dL (6.3-8.2)
--- NOTE | 2018-04-22 15:53 | ERPHSYRPT ---
- History of Present Illness Historian: patient Exam Limitations: no limitations Patient Subjective Stated Complaint: having black tarry stools for three days. brought specimen to lab. also having chest pain for two days. also having abd pain today. Triage Nursing Assessment: ambulated to room per self. skin w/d, color normal, resp nonlabored. holding lower abd. abd soft, tender. Physician History: Pt is a 48 y/o female that presented to the ER complaining of melanotic stools for several days. Pt states, that had chest pain that radiates to her L arm, and having paresthesias. No F/C/S. Pt had no hematochezia or hematemesis. No coffee ground emesis. Timing/Duration: day(s) Activities at Onset: none Quality: pressure, sharpness, tightness Location: substernal Chest Pain Radiation: arm (on L) Severity of Pain-Max: mild Severity of Pain-Current: mild Modifying Factors: Improves With: nothing Associated Symptoms: nausea, vomiting Nitro Today/Relief: 0.4 mg x 2, no relief Aspirin Treatment Today: no aspirin today (Per pt, can't take ASA.) Allergies/Adverse Reactions: buspirone [From BuSpar] Allergy (Verified 04/22/18 13:42) diphenhydramine HCl [From Benadryl] Allergy (Verified 04/22/18 13:42) guaifenesin [From CodiCLEAR DH] Allergy (Verified 04/22/18 13:42) hydrocodone bitartrate [From CodiCLEAR DH] Allergy (Verified 04/22/18 13:42) hydromorphone HCl [From Dilaudid] Allergy (Verified 04/22/18 13:42) Penicillins Allergy (Verified 04/22/18 13:42) potassium guaiacolsulfonate [From CodiCLEAR DH] Allergy (Verified 04/22/18 13:42 ) prednisone Allergy (Verified 04/22/18 13:42) Home Medications: Ropinirole HCl [Requip] 0.25 mg PO TID 06/22/16 [History] PANTOPRAZOLE 40 mg Tablet [Protonix 40MG Tablet] 40 mg PO DAILY 08/25/16 [ History] Atorvastatin Calcium 40 mg PO QHS 12/01/17 [History] Carvedilol 3.125 mg PO BID 12/01/17 [History] Empagliflozin [Jardiance] 25 mg PO DAILY 12/01/17 [History] Levothyroxine Sodium [Synthroid] 175 mcg PO DAILY 12/01/17 [History] Lisinopril 10 mg PO BID 12/01/17 [History] Nitroglycerin 0.4 mg (Ed) [Nitrostat 0.4 MG (ED)] 0.4 mg SL UD 12/01/17 [ History] Insulin Regular, Human [Humulin R] 100 unit IJ UD 04/22/18 [History] Paroxetine HCl 20 mg [Paxil 20 MG] 20 mg PO DAILY 04/22/18 [History] Hx Tetanus, Diphtheria Vaccination/Date Given: No Hx Influenza Vaccination/Date Given: Yes Hx Pneumococcal Vaccination/Date Given: No - Review of Systems Constitutional: No Symptoms Eyes: No Symptoms Ears, Nose, & Throat: No Symptoms Respiratory: No Cough, No Dyspnea Cardiac: Chest Pain Abdominal/Gastrointestinal: Nausea, Vomiting, Melena (Several days) Genitourinary Symptoms: No Dysuria Musculoskeletal: No Back Pain, No Neck Pain Neurological: No Dizziness, No Focal Weakness, No Sensory Changes - Past Medical History Pertinent Past Medical History: Yes Neurological History: Migraines, Peripheral Neuropathy ENT History: No Pertinent History Cardiac History: Angina, High Cholesterol, Hypertension Respiratory History: Asthma Endocrine Medical History: Diabetes Type II Musculoskeletal History: Arthritis GI Medical History: Irritable Bowel, Other History: No Pertinent History Psycho-Social History: Anxiety, Depression Female Reproductive Disorders: No Pertinent History Other Medical History: CHRONIC CONSTIPATION - Past Surgical History Past Surgical History: Yes Neuro Surgical History: No Pertinent History Cardiac: No Pertinent History Respiratory: No Pertinent History Gastrointestinal: Exploratory Laparoscopy, Cholecystectomy Genitourinary: No Pertinent History Musculoskeletal: No Pertinent History Female Surgical History: No Pertinent History Other Surgical History: TONSILLECTOMY - Social History Smoking Status: Never smoker Exposure to second hand smoke: Yes Drug Use: none Patient Lives Alone: No - Female History Hx Last Menstrual Period: two days ago Hx Now: No - Nursing Vital Signs Nursing Vital Signs: Initial Vital Signs Temperature 97.7 F 04/22/18 13:33 Pulse Rate 78 04/22/18 13:33 Respiratory Rate 16 04/22/18 13:33 Blood Pressure 120/93 04/22/18 13:33 O2 Sat by Pulse Oximetry 98 04/22/18 13:33 Pain Scale Pain Intensity 4 - Physical Exam General Appearance: mild distress Eye Exam: PERRL/EOMI, eyes nml inspection Ears, Nose, Throat Exam: normal ENT inspection, moist mucous membranes Respiratory Exam: normal breath sounds, lungs clear, No respiratory distress Cardiovascular Exam: regular rate/rhythm, normal heart sounds Gastrointestinal/Abdomen Exam: soft, tenderness, No mass Neurologic Exam: alert, oriented x 3, cooperative, normal mood/affect, sensation nml, No motor deficits SpO2: 98 - Course Nursing assessment & vital signs reviewed: Yes EKG Interpreted by Me: RATE (71), Sinus Rhythm, Other (low voltage criteria) - Radiology Exams Chest X-ray Interpretation: Interpreted by me (Normal Chest XR), Negative Ordered Tests: Active Orders 24 hr Category Date Time Status EKG-ER Only STAT Care 04/22/18 13:41 Active Oxygen-ED Only Nasal Cannula 2 lpm Care 04/22/18 13:41 Active CHEST 2 VIEWS (PA AND LAT) Stat Exams 04/22/18 13:42 Taken CBC W DIFF Stat Lab 04/22/18 15:10 Completed CMP Stat Lab 04/22/18 15:10 Completed D-DIMER QUANTITATION Stat Lab 04/22/18 15:10 Received HCG,QUALITATIVE URINE Stat Lab 04/22/18 15:37 Ordered LIPASE Stat Lab 04/22/18 15:10 Completed NT PRO BNP Stat Lab 04/22/18 15:10 Completed Occult Blood,Stool Other Stat Lab 04/22/18 14:20 Ordered PROTIME WITH INR Stat Lab 04/22/18 15:10 Received TROPONIN Q3H Lab 04/22/18 15:10 Completed TROPONIN Q3H Lab 04/22/18 16:45 Ordered TROPONIN Q3H Lab 04/22/18 19:45 Ordered TROPONIN Q3H Lab 04/22/18 22:45 Ordered TROPONIN Q3H Lab 04/23/18 01:45 Ordered Urinalysis with Microscopy Stat Lab 04/22/18 15:37 Ordered Medication Summary Discontinued Medications Generic Name Dose Route Start Last Admin Trade Name Freq PRN Reason Stop Dose Admin Aspirin 324 mg 04/22/18 13:41 04/22/18 14:23 Baby Aspirin 81 Mg Chew PO 04/22/18 13:42 Not Given STAT ONE Nitroglycerin 0.4 mg 04/22/18 13:41 04/22/18 15:03 Nitrostat 0.4 Mg (Ed) SL 04/22/18 13:42 0.4 mg STAT ONE Administration Nitroglycerin Confirm 04/22/18 14:50 Nitrostat 0.4 Mg (Ed) Administered 04/22/18 14:51 Dose 0.4 mg SL .STK-MED ONE Pantoprazole Sodium 40 mg 04/22/18 13:56 04/22/18 15:03 Protonix 40 Mg Iv IV 04/22/18 13:57 40 mg STAT ONE Administration Pantoprazole Sodium Confirm 04/22/18 14:50 Protonix 40 Mg Iv Administered 04/22/18 14:51 Dose 40 mg IV .STK-MED ONE Lab/Rad Data: Laboratory Result Diagrams 04/22/18 15:10 04/22/18 15:10 Laboratory Results 04/22/18 04/22/18 04/22/18 Range/Units 15:10 15:10 15:10 WBC (4.0-10.5) K/mm3 RBC (4.1-5.4) M/mm3 Hgb (12.0-16.0) gm/dl Hct (35-47) % MCV (78-100) fl MCH (26-32) pg MCHC (32-36) g/dl RDW (11.5-14.0) % Plt Count (150-450) K/mm3 MPV (6-9.5) fl Gran % (36.0-66.0) % Eos # (Auto) (0-0.5) Absolute Lymphs (auto) (1.0-4.6) Absolute Monos (auto) (0.0-1.3) Lymphocytes % (24.0-44.0) % Monocytes % (0.0-12.0) % Eosinophils % (0.00-5.0) % Basophils % (0.0-0.4) % Absolute Granulocytes (1.4-6.9) Basophils # (0-0.4) Sodium 143 (137-145) mmol/L Potassium 3.7 (3.5-5.1) mmol/L Chloride 106 (98-107) mmol/L Carbon Dioxide 27 (22-30) mmol/L Anion Gap 13.5 (5-15) MEQ/L BUN 10 (7-17) mg/dL Creatinine 0.89 (0.52-1.04) mg/dL Estimated GFR > 60.0 ML/MIN Glucose 129 H (74-106) mg/dL Calcium 8.9 (8.4-10.2) mg/dL Total Bilirubin 0.70 (0.2-1.3) mg/dL AST 25 (14-36) U/L ALT 14 (0-35) U/L Alkaline Phosphatase 131 H (38-126) U/L Troponin I < 0.012 (0.000-0.034) ng/mL NT-Pro-B Natriuret Pep 30.2 (0-450) pg/mL Serum Total Protein 6.5 (6.3-8.2) g/dL Albumin 3.8 (3.5-5.0) g/dL Lipase 48 (23-300) U/L 04/22/18 Range/Units 15:10 WBC 7.3 (4.0-10.5) K/mm3 RBC 5.04 (4.1-5.4) M/mm3 Hgb 13.7 (12.0-16.0) gm/dl Hct 43.8 (35-47) % MCV 86.9 (78-100) fl MCH 27.2 (26-32) pg MCHC 31.3 L (32-36) g/dl RDW 15.0 H (11.5-14.0) % Plt Count 243 (150-450) K/mm3 MPV 11.5 H (6-9.5) fl Gran % 63.8 (36.0-66.0) % Eos # (Auto) 0.07 (0-0.5) Absolute Lymphs (auto) 1.98 (1.0-4.6) Absolute Monos (auto) 0.56 (0.0-1.3) Lymphocytes % 27.2 (24.0-44.0) % Monocytes % 7.7 (0.0-12.0) % Eosinophils % 1.0 (0.00-5.0) % Basophils % 0.3 (0.0-0.4) % Absolute Granulocytes 4.65 (1.4-6.9) Basophils # 0.02 (0-0.4) Sodium (137-145) mmol/L Potassium (3.5-5.1) mmol/L Chloride (98-107) mmol/L Carbon Dioxide (22-30) mmol/L Anion Gap (5-15) MEQ/L BUN (7-17) mg/dL Creatinine (0.52-1.04) mg/dL Estimated GFR ML/MIN Glucose (74-106) mg/dL Calcium (8.4-10.2) mg/dL Total Bilirubin (0.2-1.3) mg/dL AST (14-36) U/L ALT (0-35) U/L Alkaline Phosphatase (38-126) U/L Troponin I (0.000-0.034) ng/mL NT-Pro-B Natriuret Pep (0-450) pg/mL Serum Total Protein (6.3-8.2) g/dL Albumin (3.5-5.0) g/dL Lipase (23-300) U/L - Progress Air Movement: good Progress Note: 04/22/18 16:14 Pt was worked up in the ED. Her labs were normal, including lipase. Her Trop I was normal, and EKG was normal. Three times that her stool was checked for blood recently and today, was negative for blood. XR was normal, with no infiltrate. Pt is safe for d/c to home. Blood Culture(s) Obtained: No Antibiotics given: No Will see patient in: office (Pt should f/u with PCP in office.) Counseled pt/family regarding: need for follow-up - Departure Time of Disposition: 16:16 Departure Disposition: Home Clinical Impression: Chest pain in adult Condition: Stable Critical Care Time: No Referrals: NICK ADHIKARI MD [Primary Care Provider] - Additional Instructions: F/U with PCP in the begining of the week, for referal to GI or any specialist if the physician sees fit.
[2018-04-22 16:10] LABS: INR 0.97 (0.8-3.0); PROTIME 11.3 SECONDS (9.95-12.35)
[2018-04-22 16:40] LABS: Appearance CLEAR (CLEAR); Bilirubin NEGATIVE (NEGATIVE); Blood NEGATIVE Ery/ul (0-5); Glucose >=500 mg/dL (NEGATIVE); Ketones NEGATIVE (NEGATIVE); Leukocyte Esterase NEGATIVE (NEGATIVE); Nitrite NEGATIVE (NEGATIVE); Protein,Urine Dip NEGATIVE (Negative); Specific Gravity 1.012 (1.005-1.025); Urobilinogen NEGATIVE mg/dL (0-1)
[2018-04-22] MEDS ORDERED: ENOXAPARIN SODIUM SQ ONE ×2 (18:28→18:31)
[2018-04-22 19:21] VITALS: BP 127/77
--- NOTE | 2018-04-22 19:22 | XRAY ---
Indication: Chest pain. Comparison: December 01, 2017. PA/lateral chest again demonstrates normal heart and lungs. Bony thorax intact again with mild degenerative changes and proximal left humerus bone island. No new/acute findings.
[2018-04-22 21:36] VITALS: PULSE 68; O2SAT 98
== END 2018-04-22 21:15 | disposition short-term general hospital (02) ==
LOC: ED 13:19
DX: R07.9 Chest pain, unspecified (principal); E78.00 Pure hypercholesterolemia, unspecified; I10 Essential (primary) hypertension; R10.9 Unspecified abdominal pain; E11.9 Type 2 diabetes mellitus without complications; R07.89 Other chest pain; M19.90 Unspecified osteoarthritis, unspecified site; F41.8 Other specified anxiety disorders; G62.9 Polyneuropathy, unspecified; Z79.899 Other long term (current) drug therapy
CPT/HCPCS: 36000; 36415; 71046; 80053; 81001; 83690; 83880; 84484; 84703; 85025; 85379; 85610; 93005; 96372; 96374; 99285; J1650; A9270-GY

== ENCOUNTER 2018-05-20 13:06 | Emergency (ER) | payer OTHER ==
[2018-05-20] MEDS ORDERED: Sodium Chloride 0.9% 1000 ML 1,000 ML IV STA (13:38)
[2018-05-20] MEDS ORDERED: Sodium Chloride 0.9% 1000 ML 1,000 ML ONE (13:46)
[2018-05-20 13:57] LABS: BASOPHIL % 0.1 % (0.0-0.4); Basophil (Absolute #) 0.01 (0-0.4); Eosinophil % 0.4 % (0.00-5.0); Eosinophil (Absolute #) 0.04 (0-0.5); Granulocytes % 88.6 % (36.0-66.0); Hematocrit 47.7 % (35-47); Hemoglobin 15.3 gm/dl (12.0-16.0); Lymphocyte (Absolute #) 0.65 (1.0-4.6); Lymphocytes % 6.8 % (24.0-44.0); Mean Cell Volume 86.1 fl (78-100); Mean Corpuscular Hemoglobin 27.6 pg (26-32); Mean Corpuscular Hgb Concent. 32.1 g/dl (32-36); Mean Platelet Volume 11.5 fl (6-9.5); Monocyte (Absolute #) 0.39 (0.0-1.3); Monocytes % 4.1 % (0.0-12.0); Platelet Count 212 K/mm3 (150-450); Red Blood Count 5.54 M/mm3 (4.1-5.4); Red Cell Distribution Width 15.9 % (11.5-14.0); White Blood Count 9.6 K/mm3 (4.0-10.5)
[2018-05-20 14:05] LABS: ALBUMIN 4.2 g/dL (3.5-5.0); ALKALINE PHOSPHATASE 142 U/L (38-126); AMYLASE 58 U/L (30-110); ANION GAP 15.9 MEQ/L (5-15); BLOOD UREA NITROGEN 15 mg/dL (7-17); CHLORIDE 107 mmol/L (98-107); Calcium 8.8 mg/dL (8.4-10.2); Carbon Dioxide 19 mmol/L (22-30); Creatinine 1 0.79 mg/dL (0.52-1.04); Glucose 178 mg/dL (74-106); LIPASE 39 U/L (23-300); Potassium 4.1 mmol/L (3.5-5.1); SGOT/AST 23 U/L (14-36); SGPT/ALT 24 U/L (0-35); SODIUM 138 mmol/L (137-145)
--- NOTE | 2018-05-20 14:22 | ERPHSYRPT ---
- History of Present Illness Time Seen by Provider: 05/20/18 13:30 Historian: patient Exam Limitations: no limitations Patient Subjective Stated Complaint: pain in LUQ, LLQ, and epigastric area, N&V , diarrhea Triage Nursing Assessment: Pt c/o of pain in the LUQ, LLQ, and epigastric area with N&V and diarrhea, this has been ongoing for over 5 years, scheduled for a capsule endoscopy on 06/27 with [facility], pain with palpatation, bowel sounds heard in 3 quadrants but was unable to hear in the upper quadrant, rates pain Physician History: 48 y/o morbidly obese white female with h/o chronic constipation, htn and DM II , presents with recurrent abd pain and recurrent vomiting x3, after taking stool softener last pm. she was fine prior to this. pt has had the same left upper quad abd pain in past. pt has had a cholecystectomy in the past Timing/Duration: day(s) (1) Activities at Onset: none Quality: sharpness Abdominal Pain Onset Location: LUQ Pain Radiation: no radiation Modifying Factors: Improves With: nothing, vomiting (x3) Associated Symptoms: nausea, vomiting Previous symptoms: same symptoms as today Allergies/Adverse Reactions: buspirone [From BuSpar] Allergy (Verified 05/20/18 13:27) diphenhydramine HCl [From Benadryl] Allergy (Verified 05/20/18 13:27) guaifenesin [From CodiCLEAR DH] Allergy (Verified 05/20/18 13:27) hydrocodone bitartrate [From CodiCLEAR DH] Allergy (Verified 05/20/18 13:27) hydromorphone HCl [From Dilaudid] Allergy (Verified 05/20/18 13:27) Iodinated Contrast- Oral and IV Dye Allergy (Verified 05/20/18 13:27) Penicillins Allergy (Verified 05/20/18 13:27) potassium guaiacolsulfonate [From CodiCLEAR DH] Allergy (Verified 05/20/18 13:27 ) prednisone Allergy (Verified 05/20/18 13:27) Home Medications: Ropinirole HCl [Requip] 0.25 mg PO TID 06/22/16 [History] PANTOPRAZOLE 40 mg Tablet [Protonix 40MG Tablet] 40 mg PO DAILY 08/25/16 [ History] Atorvastatin Calcium 40 mg PO QHS 12/01/17 [History] Carvedilol 3.125 mg PO BID 12/01/17 [History] Empagliflozin [Jardiance] 25 mg PO DAILY 12/01/17 [History] Levothyroxine Sodium [Synthroid] 175 mcg PO DAILY 12/01/17 [History] Lisinopril 10 mg PO BID 12/01/17 [History] Nitroglycerin 0.4 mg (Ed) [Nitrostat 0.4 MG (ED)] 0.4 mg SL UD 12/01/17 [ History] Insulin Regular, Human [Humulin R] 100 unit IJ UD 04/22/18 [History] Paroxetine HCl 20 mg [Paxil 20 MG] 20 mg PO DAILY 04/22/18 [History] Hx Tetanus, Diphtheria Vaccination/Date Given: Yes Hx Influenza Vaccination/Date Given: Yes Hx Pneumococcal Vaccination/Date Given: No - Review of Systems Constitutional: No Symptoms Eyes: No Symptoms Ears, Nose, & Throat: No Symptoms Respiratory: No Symptoms Cardiac: No Symptoms Abdominal/Gastrointestinal: Abdominal Pain (left upper quad), Nausea, Vomiting, No Diarrhea Genitourinary Symptoms: No Symptoms, No Dysuria, No Frequency, No Hematuria Musculoskeletal: No Symptoms, No Back Pain, No Neck Pain, No Deformity Skin: No Symptoms Neurological: No Symptoms Psychological: No Symptoms Endocrine: No Symptoms Hematologic/Lymphatic: No Symptoms Immunological/Allergic: No Symptoms All Other Systems: Reviewed and Negative - Past Medical History Pertinent Past Medical History: Yes Neurological History: Migraines, Peripheral Neuropathy ENT History: No Pertinent History Cardiac History: Angina, High Cholesterol, Hypertension Respiratory History: Asthma Endocrine Medical History: Diabetes Type II Musculoskeletal History: Arthritis GI Medical History: Irritable Bowel, Other History: No Pertinent History Psycho-Social History: Anxiety, Depression Female Reproductive Disorders: No Pertinent History Other Medical History: CHRONIC CONSTIPATION - Past Surgical History Past Surgical History: Yes Neuro Surgical History: No Pertinent History Cardiac: No Pertinent History Respiratory: No Pertinent History Gastrointestinal: Exploratory Laparoscopy, Cholecystectomy Genitourinary: No Pertinent History Musculoskeletal: No Pertinent History Female Surgical History: No Pertinent History Other Surgical History: TONSILLECTOMY - Social History Smoking Status: Former smoker Exposure to second hand smoke: Yes Drug Use: none Patient Lives Alone: No - Female History Hx Now: No (depo) - Nursing Vital Signs Nursing Vital Signs: Initial Vital Signs Temperature 97.9 F 05/20/18 13:12 Pulse Rate 114 H 05/20/18 13:12 Blood Pressure 116/90 05/20/18 13:12 O2 Sat by Pulse Oximetry 94 L 05/20/18 13:12 Pain Scale Pain Intensity 10 - Physical Exam General Appearance: no apparent distress, alert, anxiety Eye Exam: PERRL/EOMI Ears, Nose, Throat Exam: normal ENT inspection, moist mucous membranes Neck Exam: normal inspection, non-tender, supple, full range of motion Respiratory Exam: normal breath sounds, lungs clear, airway intact, No chest tenderness, No respiratory distress Cardiovascular Exam: regular rate/rhythm, normal heart sounds, normal peripheral pulses Gastrointestinal/Abdomen Exam: soft, normal bowel sounds, tenderness (let upper quad), No guarding, No rebound Pelvic Exam: not done Rectal Exam: not done Back Exam: normal inspection, normal range of motion, No CVA tenderness, No vertebral tenderness Extremity Exam: normal inspection, normal range of motion, pelvis stable Neurologic Exam: alert, oriented x 3, cooperative, 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 Skin Exam: normal color, warm, dry Lymphatic Exam: No adenopathy SpO2 Interpretation: borderline oxygenation SpO2: 94 O2 Delivery: Room Air Ordered Tests: Active Orders 24 hr Category Date Time Status IV Insertion STAT Care 05/20/18 13:38 Active AMYLASE Stat Lab 05/20/18 13:35 Completed CBC W DIFF Stat Lab 05/20/18 13:35 Completed CMP Stat Lab 05/20/18 13:35 Completed LIPASE Stat Lab 05/20/18 13:35 Completed Lactic Acid Stat Lab 05/20/18 13:38 Ordered UA W/RFX UR CULTURE Stat Lab 05/20/18 14:40 Completed Medication Summary Generic Name Dose Route Start Last Admin Trade Name Freq PRN Reason Stop Dose Admin Sodium Chloride 500 mls @ 500 mls/hr 05/20/18 15:27 Sodium Chloride 0.9% 500 Ml IV 05/20/18 16:26 .Q1H ONE Discontinued Medications Generic Name Dose Route Start Last Admin Trade Name Freq PRN Reason Stop Dose Admin Sodium Chloride 1,000 mls @ 999 mls/hr 05/20/18 13:38 05/20/18 13:47 Sodium Chloride 0.9% 1000 Ml IV 05/20/18 14:38 999 mls/hr .Q1H1M STA Administration Sodium Chloride Confirm 05/20/18 13:46 Sodium Chloride 0.9% 1000 Ml Administered 05/20/18 13:47 Dose 1,000 mls @ ud .ROUTE .STK-MED ONE Ondansetron HCl 4 mg 05/20/18 14:30 05/20/18 14:46 Zofran 4 Mg/2 Ml Vial IV 05/20/18 14:31 4 mg STAT ONE Administration Ondansetron HCl Confirm 05/20/18 14:45 Zofran 4 Mg/2 Ml Vial Administered 05/20/18 14:46 Dose 4 mg .ROUTE .STK-MED ONE Lab/Rad Data: Laboratory Result Diagrams 05/20/18 13:35 05/20/18 13:35 Laboratory Results 05/20/18 05/20/18 05/20/18 Range/Units 14:40 13:35 13:35 WBC 9.6 (4.0-10.5) K/mm3 RBC 5.54 H (4.1-5.4) M/mm3 Hgb 15.3 (12.0-16.0) gm/dl Hct 47.7 H (35-47) % MCV 86.1 (78-100) fl MCH 27.6 (26-32) pg MCHC 32.1 (32-36) g/dl RDW 15.9 H (11.5-14.0) % Plt Count 212 (150-450) K/mm3 MPV 11.5 H (6-9.5) fl Gran % 88.6 H (36.0-66.0) % Eos # (Auto) 0.04 (0-0.5) Absolute Lymphs (auto) 0.65 L (1.0-4.6) Absolute Monos (auto) 0.39 (0.0-1.3) Lymphocytes % 6.8 L (24.0-44.0) % Monocytes % 4.1 (0.0-12.0) % Eosinophils % 0.4 (0.00-5.0) % Basophils % 0.1 (0.0-0.4) % Absolute Granulocytes 8.50 H (1.4-6.9) Basophils # 0.01 (0-0.4) Sodium 138 (137-145) mmol/L Potassium 4.1 (3.5-5.1) mmol/L Chloride 107 (98-107) mmol/L Carbon Dioxide 19 L (22-30) mmol/L Anion Gap 15.9 H (5-15) MEQ/L BUN 15 (7-17) mg/dL Creatinine 0.79 (0.52-1.04) mg/dL Estimated GFR > 60.0 ML/MIN Glucose 178 H (74-106) mg/dL Calcium 8.8 (8.4-10.2) mg/dL Total Bilirubin 1.10 (0.2-1.3) mg/dL AST 23 (14-36) U/L ALT 24 (0-35) U/L Alkaline Phosphatase 142 H (38-126) U/L Serum Total Protein 7.0 (6.3-8.2) g/dL Albumin 4.2 (3.5-5.0) g/dL Amylase 58 (30-110) U/L Lipase 39 (23-300) U/L Urine Color YELLOW (YELLOW) Urine Appearance SLIGHTLY CLOUDY (CLEAR) Urine pH 5.0 (5-6) Ur Specific [place] 1.039 (1.005-1.025) Urine Protein NEGATIVE (Negative) Urine Ketones SMALL (NEGATIVE) Urine Blood MODERATE (0-5) Best/ul Urine Nitrite NEGATIVE (NEGATIVE) Urine Bilirubin NEGATIVE (NEGATIVE) Urine Urobilinogen NEGATIVE (0-1) mg/dL Ur Leukocyte Esterase NEGATIVE (NEGATIVE) Urine WBC (Auto) 3-5 (0-5) /HPF Urine RBC (Auto) 0-2 (0-2) /HPF U Epithel Cells (Auto) RARE (FEW) /HPF Urine Bacteria (Auto) RARE (NEGATIVE) /HPF Urine Mucus (Auto) SLIGHT (NEGATIVE) /HPF Urine Culture Reflexed NO (NO) Urine Glucose >=500 (NEGATIVE) mg/dL - Progress Progress: improved, pain not gone completely, re-examined Progress Note: 05/20/18 15:45 pt states her nausea is gone. she wants tramadol for pain. i reviewed pts last work ups for abd pain. her lab work is unchanged. Counseled pt/family regarding: lab results, diagnosis, need for follow-up - Departure Time of Disposition: 15:47 Departure Disposition: Home Clinical Impression: Vomiting, Recurrent abdominal pain Condition: Stable Critical Care Time: No Referrals: CARLTON ENRIQUEZ [Primary Care Provider] - Additional Instructions: drink plenty of fluids. follow up with primary doctor on TuesdayMay 22. use your home antinausea meds as prescribed. Prescriptions: Tramadol HCl 50 mg [Ultram 50 mg] 50 mg PO TID PRN #9 tablet PRN Reason: Mild To Moderate Pain
[2018-05-20] MEDS ORDERED: Zofran 4 MG/2 ML VIAL IV ONE (14:30)
[2018-05-20] MEDS ORDERED: Zofran 4 MG/2 ML VIAL ONE (14:45)
[2018-05-20 14:56] LABS: Appearance SLIGHTLY CLOUDY (CLEAR); Bacteria RARE /HPF (NEGATIVE); Bilirubin NEGATIVE (NEGATIVE); Blood MODERATE Ery/ul (0-5); Epithelial Cells RARE /HPF (FEW); Glucose >=500 mg/dL (NEGATIVE); Ketones SMALL (NEGATIVE); Leukocyte Esterase NEGATIVE (NEGATIVE); Mucus SLIGHT /HPF (NEGATIVE); Nitrite NEGATIVE (NEGATIVE); Protein,Urine Dip NEGATIVE (Negative); RBC 0-2 /HPF (0-2); Specific Gravity 1.039 (1.005-1.025); Urobilinogen NEGATIVE mg/dL (0-1)
[2018-05-20] MEDS ORDERED: Sodium Chloride 0.9% 500 ML 500 ML IV ONE ×2 (15:27→15:55)
[2018-05-20] MEDS ORDERED: ULTRAM 50 MG PO ONE (15:55)
[2018-05-20] MEDS ORDERED: ULTRAM 50 MG ONE (17:08)
[2018-05-20 17:14] VITALS: BP 142/85; PULSE 108; O2SAT 99
== END 2018-05-20 17:16 | disposition home or self-care (01) ==
LOC: ED 13:06
DX: R11.2 Nausea with vomiting, unspecified (principal); R10.12 Left upper quadrant pain; R10.32 Left lower quadrant pain; R10.13 Epigastric pain; I10 Essential (primary) hypertension; E11.9 Type 2 diabetes mellitus without complications; E66.01 Morbid (severe) obesity due to excess calories; Z79.899 Other long term (current) drug therapy; G62.9 Polyneuropathy, unspecified; J45.909 Unspecified asthma, uncomplicated; F41.8 Other specified anxiety disorders; K59.09 Other constipation
CPT/HCPCS: 80053; 81001; 82150; 83690; 85025; 96360; 96374; 99284; J2405; A9270-GY

== ENCOUNTER 2019-02-12 21:21 | Emergency (ER) | payer OTHER ==
[2019-02-12] MEDS ORDERED: Sodium Chloride 0.9% 1000 ML 1,000 ML IV STA (21:42)
[2019-02-12] MEDS ORDERED: SUBLIMAZE 100 MCG/2 ML IV ONE (21:44)
[2019-02-12] MEDS ORDERED: Compazine 10 MG/2 ML IV ONE (21:45)
--- NOTE | 2019-02-12 21:46 | ERPHSYRPT ---
- History of Present Illness Time Seen by Provider: 02/12/19 21:32 Source: patient Exam Limitations: no limitations Physician History: [id number] female history of chronic pancreatitis, inflammatory bowel disorder , followed by gastroenterology presenting with abdominal pain no nausea vomiting and constipation. Abdominal pain is fairly diffuse radiating from left to right and about the entire abdomen is daily constant and moderately severe. Nothing seems to make better or worse. She states she has been throwing up all her medicine for the last 3 days with perpetual nonbloody, nonbilious nausea and vomiting.. Home Zofran is not helping. She states she has not had a bowel movement in 3-4 days either which is not uncommon for her. No bloody stools prior to that. No fevers over the last several days. No dysuria or frequency changes. No unexpected vaginal bleeding or discharge or pain or pelvic pain. PMH: IBS, pancreatitis Social: The patient denies alcohol, tobacco, illicits Allergies/Adverse Reactions: buspirone [From BuSpar] Allergy (Verified 02/12/19 21:41) diphenhydramine HCl [From Benadryl] Allergy (Verified 02/12/19 21:41) guaifenesin [From CodiCLEAR DH] Allergy (Verified 02/12/19 21:41) hydrocodone bitartrate [From CodiCLEAR DH] Allergy (Verified 02/12/19 21:41) hydromorphone HCl [From Dilaudid] Allergy (Verified 02/12/19 21:41) Iodinated Contrast Media [Iodinated Contrast- Oral and IV Dye] Allergy ( Verified 02/12/19 21:41) Penicillins Allergy (Verified 02/12/19 21:41) potassium guaiacolsulfonate [From CodiCLEAR DH] Allergy (Verified 02/12/19 21:41 ) prednisone Allergy (Verified 02/12/19 21:41) melatonin Adverse Reaction (Verified 02/12/19 21:42) Home Medications: Ropinirole HCl [Requip] 0.25 mg PO TID 06/22/16 [History] PANTOPRAZOLE 40 mg Tablet [Protonix 40MG Tablet] 40 mg PO DAILY 08/25/16 [ History] Atorvastatin Calcium 40 mg PO QHS 12/01/17 [History] Carvedilol 3.125 mg PO BID 12/01/17 [History] Empagliflozin [Jardiance] 25 mg PO DAILY 12/01/17 [History] Levothyroxine Sodium [Synthroid] 175 mcg PO DAILY 12/01/17 [History] Lisinopril 10 mg PO BID 12/01/17 [History] Nitroglycerin 0.4 mg (Ed) [Nitrostat 0.4 MG (ED)] 0.4 mg SL UD 12/01/17 [ History] Insulin Regular, Human [Humulin R] 100 unit IJ UD 04/22/18 [History] Paroxetine HCl 20 mg [Paxil 20 MG] 20 mg PO DAILY 04/22/18 [History] Hx Tetanus, Diphtheria Vaccination/Date Given: Yes Hx Influenza Vaccination/Date Given: Yes Hx Pneumococcal Vaccination/Date Given: No - Review of Systems Constitutional: No Fever, No Chills Eyes: No Symptoms Ears, Nose, & Throat: No Symptoms Respiratory: No Cough, No Dyspnea Cardiac: No Chest Pain, No Edema, No Syncope Abdominal/Gastrointestinal: Abdominal Pain, Nausea, Vomiting, Constipation, No Diarrhea Genitourinary Symptoms: No Dysuria Musculoskeletal: No Back Pain, No Neck Pain Skin: No Rash Neurological: No Dizziness, No Focal Weakness, No Sensory Changes Psychological: No Symptoms Endocrine: No Symptoms All Other Systems: Reviewed and Negative - Past Medical History Pertinent Past Medical History: Yes Neurological History: Migraines, Peripheral Neuropathy ENT History: No Pertinent History Cardiac History: Angina, High Cholesterol, Hypertension Respiratory History: Asthma Endocrine Medical History: Diabetes Type II Musculoskeletal History: Arthritis GI Medical History: Irritable Bowel, Other History: No Pertinent History Psycho-Social History: Anxiety, Depression Female Reproductive Disorders: No Pertinent History Other Medical History: CHRONIC CONSTIPATION - Past Surgical History Past Surgical History: Yes Neuro Surgical History: No Pertinent History Cardiac: No Pertinent History Respiratory: No Pertinent History Gastrointestinal: Exploratory Laparoscopy, Cholecystectomy Genitourinary: No Pertinent History Musculoskeletal: No Pertinent History Female Surgical History: No Pertinent History Other Surgical History: TONSILLECTOMY - Social History Smoking Status: Former smoker Exposure to second hand smoke: Yes Drug Use: none Patient Lives Alone: No - Nursing Vital Signs Nursing Vital Signs: Initial Vital Signs Temperature 97.8 F 02/12/19 21:26 Pulse Rate 83 02/12/19 21:26 Respiratory Rate 18 02/12/19 21:26 O2 Sat by Pulse Oximetry 97 02/12/19 21:26 Pain Scale Pain Intensity 10 - Physical Exam General Appearance: no apparent distress, alert Eye Exam: PERRL/EOMI, eyes nml inspection Ears, Nose, Throat Exam: normal ENT inspection, TMs normal, pharynx normal, moist mucous membranes Neck Exam: normal inspection, non-tender, supple, full range of motion Respiratory Exam: normal breath sounds, lungs clear, No respiratory distress Cardiovascular Exam: regular rate/rhythm, normal heart sounds, normal peripheral pulses Gastrointestinal/Abdomen Exam: soft, normal bowel sounds, mass, No tenderness, No distention, No guarding, No rebound Back Exam: normal inspection, normal range of motion, No CVA tenderness, No vertebral tenderness Extremity Exam: normal inspection, normal range of motion, pelvis stable Neurologic Exam: alert, oriented x 3, cooperative, normal mood/affect, nml cerebellar function, nml station & gait, sensation nml, No motor deficits Skin Exam: normal color, warm, dry, No rash Lymphatic Exam: No adenopathy SpO2 Interpretation: normal O2 Delivery: Room Air Ordered Tests: Active Orders 24 hr Category Date Time Status BMP Stat Lab 02/12/19 22:00 Completed CBC W DIFF Stat Lab 02/12/19 22:00 Completed HCG,QUALITATIVE URINE Stat Lab 02/12/19 22:20 Completed Hepatic Function Panel Stat Lab 02/12/19 22:00 Completed LIPASE Stat Lab 02/12/19 22:00 Completed UA W/RFX UR CULTURE Stat Lab 02/12/19 22:20 Ordered Medication Summary Generic Name Dose Route Start Last Admin Trade Name Freq PRN Reason Stop Dose Admin Sodium Chloride 1,000 mls @ 999 mls/hr 02/12/19 21:42 02/12/19 22:03 Sodium Chloride 0.9% 1000 Ml IV 02/12/19 22:42 999 mls/hr .Q1H1M STA Administration Discontinued Medications Generic Name Dose Route Start Last Admin Trade Name Freq PRN Reason Stop Dose Admin Fentanyl Citrate 100 mcg 02/12/19 21:44 02/12/19 22:08 Sublimaze 100 Mcg/2 Ml IV 02/12/19 21:45 100 mcg STAT ONE Administration Fentanyl Citrate Confirm 02/12/19 21:55 Sublimaze 100 Mcg/2 Ml Administered 02/12/19 21:56 Dose 100 mcg .ROUTE .STK-MED ONE Sodium Chloride Confirm 02/12/19 21:55 Sodium Chloride 0.9% 1000 Ml Administered 02/12/19 21:56 Dose 1,000 mls @ ud .ROUTE .STK-MED ONE Prochlorperazine Edisylate 10 mg 02/12/19 21:45 02/12/19 22:04 Compazine 10 Mg/2 Ml IV 02/12/19 21:46 10 mg STAT ONE Administration Prochlorperazine Edisylate Confirm 02/12/19 21:55 Compazine 10 Mg/2 Ml Administered 02/12/19 21:56 Dose 10 mg .ROUTE .STK-MED ONE Lab/Rad Data: Laboratory Result Diagrams 02/12/19 22:00 02/12/19 22:00 Laboratory Results 02/12/19 02/12/19 02/12/19 Range/Units 22:20 22:00 22:00 WBC 6.6 (4.0-10.5) K/mm3 RBC 4.67 (4.1-5.4) M/mm3 Hgb 13.7 (12.0-16.0) gm/dl Hct 42.6 (35-47) % MCV 91.2 (78-100) fl MCH 29.3 (26-32) pg MCHC 32.2 (32-36) g/dl RDW 14.5 H (11.5-14.0) % Plt Count 181 (150-450) K/mm3 MPV 10.7 H (6-9.5) fl Gran % 73.4 H (36.0-66.0) % Eos # (Auto) 0 (0-0.5) Absolute Lymphs (auto) 1.33 (1.0-4.6) Absolute Monos (auto) 0.41 (0.0-1.3) Lymphocytes % 20.3 L (24.0-44.0) % Monocytes % 6.3 (0.0-12.0) % Eosinophils % 0.0 (0.00-5.0) % Basophils % 0.0 (0.0-0.4) % Absolute Granulocytes 4.82 (1.4-6.9) Basophils # 0 (0-0.4) Sodium 139 (137-145) mmol/L Potassium 3.6 (3.5-5.1) mmol/L Chloride 103 (98-107) mmol/L Carbon Dioxide 27 (22-30) mmol/L Anion Gap 12.2 (5-15) MEQ/L BUN 9 (7-17) mg/dL Creatinine 1.00 (0.52-1.04) mg/dL Estimated GFR > 60.0 ML/MIN Glucose 84 (74-106) mg/dL Calcium 8.3 L (8.4-10.2) mg/dL Total Bilirubin 0.80 (0.2-1.3) mg/dL Direct Bilirubin 0.1 (0.0-0.4) mg/dL AST 14 (14-36) U/L ALT 11 (0-35) U/L Alkaline Phosphatase 84 (38-126) U/L Serum Total Protein 6.5 (6.3-8.2) g/dL Albumin 3.7 (3.5-5.0) g/dL Lipase 58 (23-300) U/L Urine HCG, Qual NEGATIVE (Negative) - Progress Progress: improved Progress Note: patient is feeling better at this time.. No significant acidosis or electrolyte derangement. Elevation or depression white count consistent with acute inflammatory change. The patient has a very benign abdominal exam and had a doubt an acute inflammatory process especially given that she is afebrile. no evidence of UTI. Negative test narrowing the differential. Likely this is acute or chronic abdominal pain and gastritis. She is to follow up with gastroenterology and advised her to call tomorrow after getting some rest. We will try new antiemetics as her home Zofran does not seem to be helping. Again, based on exam and labs epigastric bacterial infection, inflammatory rises, or surgical pathology the abdomen and the patient is in good condition for discharge at this time. 02/12/19 22:34 02/12/19 22:35 - Departure Departure Disposition: Home Clinical Impression: Hypocalcemia, Recurrent abdominal pain Vomiting Qualifiers: Vomiting type: unspecified Vomiting Intractability: unspecified Nausea presence : with nausea Qualified Code(s): R11.2 - Nausea with vomiting, unspecified Condition: Good Critical Care Time: No Referrals: CARLTON ENRIQUEZ [Primary Care Provider] - Instructions: Nausea -- Adult, Vomiting -- Adult Additional Instructions: Please call your gastroenterology provider and advised them you were in the emergency department. Please return here for new or concerning symptoms. Prescriptions: Prochlorperazine Maleate 10 mg [Compazine 10 mg] 10 mg PO Q8H 10 Days #10 tablet Promethazine HCl 25 mg Supp [Phenergan 25 mg Supp] 25 mg [place] Q8H 10 Days # 10 supp.rect
[2019-02-12] MEDS ORDERED: Compazine 10 MG/2 ML ONE (21:55)
[2019-02-12] MEDS ORDERED: Sodium Chloride 0.9% 1000 ML 1,000 ML ONE (21:55)
[2019-02-12] MEDS ORDERED: SUBLIMAZE 100 MCG/2 ML ONE (21:55)
[2019-02-12 22:06] LABS: Absolute Neutrophil Ct (ANC) 4.82 (1.4-6.9); Basophil (Absolute #) 0 (0-0.4); Eosinophil (Absolute #) 0 (0-0.5); Hematocrit 42.6 % (35-47); Hemoglobin 13.7 gm/dl (12.0-16.0); Lymphocyte (Absolute #) 1.33 (1.0-4.6); Lymphocytes % 20.3 % (24.0-44.0); Mean Cell Volume 91.2 fl (78-100); Mean Corpuscular Hemoglobin 29.3 pg (26-32); Mean Corpuscular Hgb Concent. 32.2 g/dl (32-36); Mean Platelet Volume 10.7 fl (6-9.5); Monocyte (Absolute #) 0.41 (0.0-1.3); Monocytes % 6.3 % (0.0-12.0); Neutrophil % 73.4 % (36.0-66.0); Platelet Count 181 K/mm3 (150-450); Red Blood Count 4.67 M/mm3 (4.1-5.4); Red Cell Distribution Width 14.5 % (11.5-14.0); White Blood Count 6.6 K/mm3 (4.0-10.5)
[2019-02-12 22:16] VITALS: O2SAT 98
[2019-02-12 22:18] LABS: ALBUMIN 3.7 g/dL (3.5-5.0); ALKALINE PHOSPHATASE 84 U/L (38-126); ANION GAP 12.2 MEQ/L (5-15); BLOOD UREA NITROGEN 9 mg/dL (7-17); CHLORIDE 103 mmol/L (98-107); Calcium 8.3 mg/dL (8.4-10.2); Carbon Dioxide 27 mmol/L (22-30); Direct Bilirubin 0.1 mg/dL (0.0-0.4); Glucose 84 mg/dL (74-106); LIPASE 58 U/L (23-300); Potassium 3.6 mmol/L (3.5-5.1); SGOT/AST 14 U/L (14-36); SGPT/ALT 11 U/L (0-35); SODIUM 139 mmol/L (137-145); Total Protein 6.5 g/dL (6.3-8.2)
[2019-02-12 22:53] LABS: Appearance CLOUDY (CLEAR); Bacteria MODERATE /HPF (NEGATIVE); Bilirubin NEGATIVE (NEGATIVE); Blood NEGATIVE Ery/ul (0-5); Epithelial Cells RARE /HPF (FEW); Glucose NEGATIVE (NEGATIVE); Ketones NEGATIVE (NEGATIVE); Leukocyte Esterase LARGE (NEGATIVE); Mucus SLIGHT /HPF (NEGATIVE); Nitrite NEGATIVE (NEGATIVE); Protein,Urine Dip NEGATIVE (Negative); Specific Gravity 1.016 (1.005-1.025); Urobilinogen 4 mg/dL (0-1); WBC >100 /HPF (0-5)
[2019-02-12 23:34] VITALS: BP 96/57; PULSE 68
== END 2019-02-12 23:32 | disposition home or self-care (01) ==
LOC: ED 21:21
DX: R10.9 Unspecified abdominal pain (principal); R11.2 Nausea with vomiting, unspecified
CPT/HCPCS: 36415; 80048; 80076; 81001; 83690; 84703; 85025; 87077; 87086; 87186; 96374; 96375; 99284; J3010

== ENCOUNTER 2019-08-31 20:26 | Emergency (ER) | payer OTHER ==
[2019-08-31] MEDS ORDERED: Sodium Chloride 0.9% 1000 ML 1,000 ML IV STA (20:38)
[2019-08-31] MEDS ORDERED: BABY ASPIRIN 81 MG CHEW PO ONE (20:38)
[2019-08-31] MEDS ORDERED: Inapsine 5 MG/2 ML IV ONE (20:38)
[2019-08-31 20:59] LABS: Absolute Neutrophil Ct (ANC) 10.42 (1.4-6.9); BASOPHIL % 0.1 % (0.0-0.4); Basophil (Absolute #) 0.01 (0-0.4); Eosinophil % 0.1 % (0.00-5.0); Eosinophil (Absolute #) 0.01 (0-0.5); Hematocrit 43.5 % (35-47); Hemoglobin 14.2 gm/dl (12.0-16.0); Lymphocyte (Absolute #) 1.96 (1.0-4.6); Lymphocytes % 14.8 % (24.0-44.0); Mean Cell Volume 89.9 fl (78-100); Mean Corpuscular Hemoglobin 29.3 pg (26-32); Mean Corpuscular Hgb Concent. 32.6 g/dl (32-36); Mean Platelet Volume 10.5 fl (7.5-11.0); Monocyte (Absolute #) 0.82 (0.0-1.3); Monocytes % 6.2 % (0.0-12.0); Neutrophil % 78.8 % (36.0-66.0); Platelet Count 284 K/mm3 (150-450); Red Blood Count 4.84 M/mm3 (4.1-5.4); Red Cell Distribution Width 14.3 % (11.5-14.0); White Blood Count 13.2 K/mm3 (4.0-10.5)
[2019-08-31] MEDS ORDERED: BABY ASPIRIN 81 MG CHEW ONE (21:14)
[2019-08-31] MEDS ORDERED: Sodium Chloride 0.9% 1000 ML 1,000 ML ONE (21:14)
[2019-08-31] MEDS ORDERED: Inapsine 5 MG/2 ML ONE (21:14)
--- NOTE | 2019-08-31 21:14 | ERPHSYRPT ---
- History of Present Illness Time Seen by Provider: 08/31/19 20:27 Source: patient, family Patient Subjective Stated Complaint: pt states that she was outside when she began to have blurred vision, pt states that she went to her apartment to check her blood sugar and blood pressure, pt states that the blood pressure would not read, pt states that she is having severe abdomen pain, pt states that she has history of diverticulitis, pt states that feels like she is having a flare up, pt states she is SOB, pt took tylenol at 1600 Triage Nursing Assessment: pt came into the er via wheelchair, pt is axo x3, pt c/o 9/10 abdomen pain, c/o dizziness, headache, nausea, misha ear clear no drainage present, lung sounds clear, hypoactive bowel sounds in all quads, tenderness to midline abdomen, strong pulses, strengths good, pupils 4 mm and PERRL, vitals wnl Physician History: Patient is here with dizziness and abdominal pain. She states that prior to arrival she felt sudden onset of dizziness. Some nausea. Feels like her typical diverticulitis. Patient is also diabetic. Took her blood sugar. She had no low blood sugars. Currently no headache, signs or symptoms of infection , no signs COVID-19 Timing/Duration: today Activites at Onset: none Quality: aching Onset Location: LLQ Pain Radiation: none Severity of Pain-Max: mild Severity of Pain-Current: mild Modifying Factors: Improves With: nothing Associated Symptoms: nausea Prior abdominal problems: similar symptoms Sexual intercourse history: non-contributory Allergies/Adverse Reactions: buspirone [From BuSpar] Allergy (Verified 08/31/19 20:52) diphenhydramine HCl [From Benadryl] Allergy (Verified 08/31/19 20:52) guaifenesin [From CodiCLEAR DH] Allergy (Verified 08/31/19 20:52) hydrocodone bitartrate [From CodiCLEAR DH] Allergy (Verified 08/31/19 20:52) hydromorphone HCl [From Dilaudid] Allergy (Verified 08/31/19 20:52) Iodinated Contrast Media [Iodinated Contrast- Oral and IV Dye] Allergy ( Verified 08/31/19 20:52) Penicillins Allergy (Verified 08/31/19 20:52) potassium guaiacolsulfonate [From CodiCLEAR ] Allergy (Verified 08/31/19 20:52 ) prednisone Allergy (Verified 08/31/19 20:52) melatonin Adverse Reaction (Verified 08/31/19 20:52) Home Medications: PANTOPRAZOLE 40 mg Tablet [Protonix 40MG Tablet] 40 mg PO DAILY 08/25/16 [ History] Atorvastatin Calcium 40 mg PO QHS 12/01/17 [History] Levothyroxine Sodium [Synthroid] 175 mcg PO DAILY 12/01/17 [History] Nitroglycerin 0.4 mg (Ed) [Nitrostat 0.4 MG (ED)] 0.4 mg SL UD 12/01/17 [ History] carvediloL [Carvedilol] 6.25 mg PO BID 12/01/17 [History] lisinopriL [Lisinopril] 20 mg PO BID 12/01/17 [History] Insulin Regular, Human [Humulin R] 100 unit [facility] 04/22/18 [History] Alprazolam 0.5 mg [xanAX 0.5 MG] 0.5 mg PO BID 08/31/19 [History] Amlodipine Besylate [Norvasc] 2.5 mg PO 08/31/19 [History] Furosemide [Lasix] 40 mg PO 08/31/19 [History] Metronidazole 250 mg PO BID 08/31/19 [History] Mirtazapine [Remeron] 0.5 tab PO HS 08/31/19 [History] Potassium Chloride 10 Meq Tab* [Klor Con 10 MEQ] 10 meq PO 08/31/19 [History] Quetiapine Fumarate [Seroquel] 200 mg PO 08/31/19 [History] Hx Tetanus, Diphtheria Vaccination/Date Given: Yes Hx Influenza Vaccination/Date Given: No Hx Pneumococcal Vaccination/Date Given: No Travel Risk - International Travel Have you traveled outside of the country in past 3 weeks: No - Coronavirus Screening Are you exhibiting any of the following symptoms?: No Close contact with a COVID-19 positive Pt in past 14-21 Days: No - Past Medical History Pertinent Past Medical History: Yes Neurological History: Migraines, Peripheral Neuropathy ENT History: No Pertinent History Cardiac History: Angina, High Cholesterol, Hypertension Respiratory History: Asthma Endocrine Medical History: Diabetes Type II Musculoskeletal History: Arthritis GI Medical History: Diverticulitis, Hernia, Irritable Bowel, Other History: No Pertinent History Psycho-Social History: Anxiety, Depression Female Reproductive Disorders: No Pertinent History Other Medical History: CHRONIC CONSTIPATION - Past Surgical History Past Surgical History: Yes Neuro Surgical History: No Pertinent History Cardiac: No Pertinent History Respiratory: No Pertinent History Gastrointestinal: Exploratory Laparoscopy, Cholecystectomy Genitourinary: No Pertinent History Musculoskeletal: No Pertinent History Female Surgical History: No Pertinent History Other Surgical History: TONSILLECTOMY - Social History Smoking Status: Former smoker Exposure to second hand smoke: No Drug Use: none Patient Lives Alone: Yes - Female History Hx Now: No - Review of Systems Constitutional: No Fever, No Chills Eyes: No Symptoms Ears, Nose, & Throat: No Symptoms Respiratory: No Cough, No Dyspnea Cardiac: No Chest Pain, No Edema, No Syncope Abdominal/Gastrointestinal: Nausea, No Abdominal Pain, No Vomiting, No Diarrhea Genitourinary Symptoms: No Dysuria Musculoskeletal: No Back Pain, No Neck Pain Skin: No Rash Neurological: Dizziness, No Focal Weakness, No Sensory Changes Psychological: No Symptoms Endocrine: No Symptoms All Other Systems: Reviewed and Negative - Nursing Vital Signs Nursing Vital Signs: Initial Vital Signs Temperature 97.8 F 08/31/19 20:36 Pulse Rate 113 H 08/31/19 20:36 Respiratory Rate 18 08/31/19 20:36 Blood Pressure 134/76 08/31/19 20:36 O2 Sat by Pulse Oximetry 96 08/31/19 20:36 Pain Scale Pain Intensity 7 - Physical Exam General Appearance: no apparent distress, alert Eye Exam: PERRL/EOMI Ears, Nose, Throat Exam: pharynx normal, moist mucous membranes Neck Exam: normal inspection, supple Respiratory Exam: normal breath sounds, lungs clear Cardiovascular Exam: regular rate/rhythm, No edema Gastrointestinal/Abdomen Exam: soft, No tenderness Back Exam: normal inspection, No CVA tenderness Extremity Exam: normal inspection, normal range of motion, No pedal edema Neurologic Exam: alert, oriented x 3, cooperative, sensation nml, No motor deficits Skin Exam: normal color, warm, dry, No rash SpO2 Interpretation: normal SpO2: 96 Comments: No trismus, able to fully extend neck, normal range of motion of neck without pain. Uvula is midline, no swelling of the mouth, noraml oropharynx. No exudate, no signs of meningitis, no floor of mouth swelling, no hot potato voice on exam. No buccal swelling, no gum bleeding, no signs of tooth abscess/infection. No obvious deformity, sensation intact, 2+ capillary refill, 2 point tactile discrimination intact. 5 out of 5 strength. Full range of motion without pain. Compartments are soft, nontender. Overlying skin shows no tenting, bruising, ecchymosis. Motor: There is no pronator drift of out-stretched arms. Muscle bulk and tone are normal. Strength is full bilaterally. Reflexes: Reflexes are 2+ and symmetric at the biceps, triceps, knees, and ankles. Plantar responses are flexor. Sensory: Light touch sense are intact in bilateral upper and lower extremities. There is no sign of neglect. Coordination: Rapid alternating movements are intact. There is no dysmetria on [id number] and [id number]. There are no abnormal or extraneous movements. Romberg is absent. Gait/Stance: Posture is normal. Gait is steady with normal steps, base, arm swing, and turning. Heel and toe walking are normal. Tandem gait is normal. Ordered Tests: Active Orders 24 hr Category Date Time Status Yam Curer STAT Care 08/31/19 20:41 Active EKG-ER Only STAT Care 08/31/19 20:38 Active IV Insertion STAT Care 08/31/19 20:38 Active ABDOMEN AND PELVIS W/0 CONTRAS [CT] Stat Exams 08/31/19 21:09 Taken CHEST 2 VIEWS (PA AND LAT) Stat Exams 08/31/19 20:41 Taken CBC W DIFF Stat Lab 08/31/19 20:55 Completed CMP Stat Lab 08/31/19 20:55 Completed NT PRO BNP Stat Lab 08/31/19 20:55 Completed TROPONIN Q3H Lab 08/31/19 20:55 Completed TROPONIN Q3H Lab 08/31/19 23:45 Ordered TROPONIN Q3H Lab 09/01/19 02:45 Ordered TROPONIN Q3H Lab 09/01/19 05:45 Ordered TROPONIN Q3H Lab 09/01/19 08:45 Ordered Medication Summary Discontinued Medications Generic Name Dose Route Start Last Admin Trade Name Freq PRN Reason Stop Dose Admin Aspirin 324 mg 08/31/19 20:38 08/31/19 21:17 Baby Aspirin 81 Mg Chew PO 08/31/19 20:39 324 mg STAT ONE Administration Aspirin Confirm 08/31/19 21:14 Baby Aspirin 81 Mg Chew Administered 08/31/19 21:15 Dose 324 mg .ROUTE .STK-MED ONE Droperidol 1.25 mg 08/31/19 20:38 08/31/19 21:17 Inapsine 5 Mg/2 Ml IV 08/31/19 20:39 1.25 mg STAT ONE Administration Droperidol Confirm 08/31/19 21:14 Inapsine 5 Mg/2 Ml Administered 08/31/19 21:15 Dose 5 mg .ROUTE .STK-MED ONE Sodium Chloride 1,000 mls @ 999 mls/hr 08/31/19 20:38 08/31/19 21:17 Sodium Chloride 0.9% 1000 Ml IV 08/31/19 21:38 999 mls/hr .Q1H1M STA Administration Sodium Chloride Confirm 08/31/19 21:14 Sodium Chloride 0.9% 1000 Ml Administered 08/31/19 21:15 Dose 1,000 mls @ ud .ROUTE .STK-MED ONE Lab/Rad Data: Laboratory Result Diagrams 08/31/19 20:55 08/31/19 20:55 Laboratory Results 08/31/19 08/31/19 08/31/19 Range/Units 20:55 20:55 20:55 WBC 13.2 H (4.0-10.5) K/mm3 RBC 4.84 (4.1-5.4) M/mm3 Hgb 14.2 (12.0-16.0) gm/dl Hct 43.5 (35-47) % MCV 89.9 (78-100) fl MCH 29.3 (26-32) pg MCHC 32.6 (32-36) g/dl RDW 14.3 H (11.5-14.0) % Plt Count 284 (150-450) K/mm3 MPV 10.5 (7.5-11.0) fl Gran % 78.8 H (36.0-66.0) % Eos # (Auto) 0.01 (0-0.5) Absolute Lymphs (auto) 1.96 (1.0-4.6) Absolute Monos (auto) 0.82 (0.0-1.3) Lymphocytes % 14.8 L (24.0-44.0) % Monocytes % 6.2 (0.0-12.0) % Eosinophils % 0.1 (0.00-5.0) % Basophils % 0.1 (0.0-0.4) % Absolute Granulocytes 10.42 H (1.4-6.9) Basophils # 0.01 (0-0.4) Sodium 139 (137-145) mmol/L Potassium 4.0 (3.5-5.1) mmol/L Chloride 101 (98-107) mmol/L Carbon Dioxide 27 (22-30) mmol/L Anion Gap 14.7 (5-15) MEQ/L BUN 19 H (7-17) mg/dL Creatinine 1.24 H (0.52-1.04) mg/dL Estimated GFR 49.1 ML/MIN Glucose 154 H (74-106) mg/dL Calcium 9.4 (8.4-10.2) mg/dL Total Bilirubin 0.60 (0.2-1.3) mg/dL AST 21 (14-36) U/L ALT 23 (0-35) U/L Alkaline Phosphatase 132 H (38-126) U/L Troponin I < 0.012 (0.000-0.034) ng/mL NT-Pro-B Natriuret Pep 47.5 (0-450) pg/mL Serum Total Protein 7.2 (6.3-8.2) g/dL Albumin 4.2 (3.5-5.0) g/dL - Progress Progress: improved Progress Note: 08/31/19 21:15 We'll obtain basic labs, fluids, EKG, troponin, chest x-ray - I feel comfortable with one time negative troponin given symptoms have improved and started greater then 6 hours ago. - EKG shows no ST changes - my read. See full read below. - O2 saturations consistently greater than 95%. - CXR shows no pneumonia, pneumothorax - my read - no other obvious lab abnormalities 08/31/19 22:34 CT Abdomen shows no obvious abnormalities. Improved with fluids and pain medication here. Patient will need close follow-up with PCP. Will return here for any new or changing symptoms. She will need abdominal reexam in 24 to 48 hours Counseled pt/family regarding: lab results, diagnosis, need for follow-up, rad results - Departure Departure Disposition: Home Clinical Impression: Dizziness, Abdominal pain Condition: Stable Critical Care Time: No Referrals: CARLTON ENRIQUEZ [Primary Care Provider] - Instructions: David Mckeon, (DC)
[2019-08-31 21:22] LABS: ALBUMIN 4.2 g/dL (3.5-5.0); ANION GAP 14.7 MEQ/L (5-15); BILIRUBIN,TOTAL 0.6 mg/dL (0.2-1.3); Calcium 9.4 mg/dL (8.4-10.2); Creatinine 1 1.24 mg/dL (0.52-1.04); NT PRO BNP 47.5 pg/mL (0-450); Total Protein 7.2 g/dL (6.3-8.2)
[2019-08-31 22:48] VITALS: BP 99/68; PULSE 105; O2SAT 98
--- NOTE | 2019-09-01 06:22 | XRAY ---
Indication: Upper abdomen pain 5 years. Nausea and vomiting. History of pancreatitis/diverticulitis. Multiple contiguous axial images obtained through the abdomen and pelvis without contrast as ordered. Comparison: June 10, 2016. Lung bases are clear. Heart is not enlarged. Stomach is distended with food/fluid. Noncontrasted stomach and bowel loops appear nonobstructed. Normal appendix. No free fluid/air. Stable fatty liver, right renal scarring with parenchymal microcalcification, cholecystectomy, and 12.8 cm splenomegaly. Remaining liver, pancreas, spleen, adrenal glands, kidneys, ureters, bladder, uterus, and aorta appear unremarkable for noncontrast exam. Osseous structures intact again with mild spinal degenerative changes and stable benign innominate bone sclerotic lesion. Impression: 1. Stable fatty liver, splenomegaly, right renal scarring with parenchymal microcalcification, and benign right innominate bone sclerotic lesion. 2. No new acute intra-abdominal/pelvic abnormalities on this noncontrast exam. Comment: Preliminary interpretation was made by [facility]. No critical discrepancy.
--- NOTE | 2019-09-01 06:24 | XRAY ---
Indication: Chest pressure. Pneumonia. Comparison: June 12, 2018. PA/lateral chest again demonstrates normal heart and lungs. Bony thorax intact again with mild degenerative changes and left proximal humerus bone island. No new/acute findings.
== END 2019-08-31 22:48 | disposition home or self-care (01) ==
LOC: ED 20:26
DX: R42 Dizziness and giddiness (principal); R10.9 Unspecified abdominal pain; Z79.899 Other long term (current) drug therapy; E11.9 Type 2 diabetes mellitus without complications; I10 Essential (primary) hypertension; E78.00 Pure hypercholesterolemia, unspecified; G62.89 Other specified polyneuropathies; F41.9 Anxiety disorder, unspecified; F32.9 Major depressive disorder, single episode, unspecified
CPT/HCPCS: 36000; 36415; 71046; 74176; 80053; 83880; 84484; 85025; 93005; 93041; 96360; 96374; 99284; A9270-GY

== ENCOUNTER 2019-12-19 00:22 | Emergency (ER) | payer OTHER ==
[2019-12-19] MEDS ORDERED: Zofran 4 MG/2 ML VIAL IV ONE (00:54)
[2019-12-19] MEDS ORDERED: Sodium Chloride 0.9% 1000 ML 1,000 ML IV STA (00:54)
--- NOTE | 2019-12-19 00:54 | ERPHSYRPT ---
- History of Present Illness Time Seen by Provider: 12/19/19 00:53 Historian: patient Exam Limitations: no limitations Patient Subjective Stated Complaint: . Triage Nursing Assessment: . Physician History: This is a 49-year-old obese white female with history of hypertension and insulin-dependent diabetes as well as hypothyroidism and a history of Crohn's disease, pancreatitis and constipation. Patient has had intermittent abdominal pain for 5 years. Approximately 4 to 5 days ago she had a right upper quadrant and epigastric abdominal pain. She is had a cholecystectomy in the past. Her pain was worsening and therefore she came in for evaluation. Timing/Duration: day(s) (5) Activities at Onset: none Quality: aching Abdominal Pain Onset Location: RUQ, epigastric Pain Radiation: no radiation Severity of Pain-Max: moderate Severity of Pain-Current: moderate Modifying Factors: Worsens With: vomiting Associated Symptoms: nausea, other (Constipation) Previous symptoms: same symptoms as today Allergies/Adverse Reactions: buspirone [From BuSpar] Allergy (Verified 12/19/19 00:46) diphenhydramine HCl [From Benadryl] Allergy (Verified 12/19/19 00:46) guaifenesin [From CodiCLEAR DH] Allergy (Verified 12/19/19 00:46) hydrocodone bitartrate [From CodiCLEAR DH] Allergy (Verified 12/19/19 00:46) hydromorphone HCl [From Dilaudid] Allergy (Verified 12/19/19 00:46) Iodinated Contrast Media [Iodinated Contrast- Oral and IV Dye] Allergy (Verified 12/19/19 00:46) Penicillins Allergy (Verified 12/19/19 00:46) potassium guaiacolsulfonate [From CodiCLEAR DH] Allergy (Verified 12/19/19 00:46) prednisone Allergy (Verified 12/19/19 00:46) melatonin Adverse Reaction (Verified 12/19/19 00:46) Home Medications: PANTOPRAZOLE 40 mg Tablet [Protonix 40MG Tablet] 40 mg PO DAILY 08/25/16 [History] Nitroglycerin 0.4 mg (Ed) [Nitrostat 0.4 MG (ED)] 0.4 mg SL UD 12/01/17 [History] carvediloL [Carvedilol] 6.25 mg PO BID 12/01/17 [History] lisinopriL [Lisinopril] 20 mg PO BID 12/01/17 [History] Insulin Regular, Human [Humulin R] 150 unit IJ UD 04/22/18 [History] Alprazolam 0.5 mg [xanAX 0.5 MG] 0.5 mg PO Q12H PRN PRN 08/31/19 [History] Amlodipine Besylate [Norvasc] 2.5 mg PO DAILY 08/31/19 [History] Furosemide [Lasix] 40 mg PO DAILY 08/31/19 [History] Dapagliflozin Propanediol [Farxiga] 10 mg PO DAILY 12/19/19 [History] Docusate Sodium 100 mg [Colace 100 MG] 100 mg PO DAILY 12/19/19 [History] Ergocalciferol (Vitamin D2) [Vitamin D2] 1 unit PO 2XW 12/19/19 [History] Furosemide 20 mg [Lasix 20 mg] 20 mg PO DAILY 12/19/19 [History] Levothyroxine Sodium [Unithroid] 175 mcg PO DAILY 12/19/19 [History] OLANZapine [Zyprexa] 5 mg PO HS 12/19/19 [History] hydrOXYzine HCL [Hydroxyzine HCl] 50 mg PO HS 12/19/19 [History] Hx Tetanus, Diphtheria Vaccination/Date Given: Yes Hx Influenza Vaccination/Date Given: No Hx Pneumococcal Vaccination/Date Given: No Immunizations Up to Date: Yes Travel Risk - International Travel Have you traveled outside of the country in past 3 weeks: No - Coronavirus Screening Are you exhibiting any of the following symptoms?: No Close contact with a COVID-19 positive Pt in past 14-21 Days: No - Review of Systems Constitutional: No Symptoms Eyes: No Symptoms Ears, Nose, & Throat: No Symptoms Respiratory: No Symptoms Cardiac: No Symptoms Abdominal/Gastrointestinal: Abdominal Pain, Nausea, Constipation Genitourinary Symptoms: No Symptoms Musculoskeletal: No Symptoms Skin: No Symptoms Neurological: No Symptoms Psychological: No Symptoms Endocrine: No Symptoms Hematologic/Lymphatic: No Symptoms Immunological/Allergic: No Symptoms All Other Systems: Reviewed and Negative - Past Medical History Pertinent Past Medical History: Yes Neurological History: Migraines, Peripheral Neuropathy ENT History: No Pertinent History Cardiac History: Angina, High Cholesterol, Hypertension Respiratory History: Asthma Endocrine Medical History: Diabetes Type II Musculoskeletal History: Arthritis GI Medical History: Diverticulitis, Hernia, Irritable Bowel, Other History: No Pertinent History Psycho-Social History: Anxiety, Depression Female Reproductive Disorders: No Pertinent History Other Medical History: CHRONIC CONSTIPATION, Chrones Disease - Past Surgical History Past Surgical History: Yes Neuro Surgical History: No Pertinent History Cardiac: No Pertinent History Respiratory: No Pertinent History Gastrointestinal: Exploratory Laparoscopy, Cholecystectomy Genitourinary: No Pertinent History Musculoskeletal: No Pertinent History, Other Female Surgical History: No Pertinent History Other Surgical History: back surgery - Social History Smoking Status: Former smoker Exposure to second hand smoke: No Drug Use: none Patient Lives Alone: Yes - Female History Hx Last Menstrual Period: September 2019 Hx Now: No - Nursing Vital Signs Nursing Vital Signs: Initial Vital Signs Temperature 98.7 F 12/19/19 00:30 Pulse Rate 100 H 12/19/19 00:30 Respiratory Rate 18 12/19/19 00:30 Blood Pressure 114/82 12/19/19 00:30 O2 Sat by Pulse Oximetry 97 12/19/19 00:30 Pain Scale Pain Intensity 8 - Physical Exam General Appearance: no apparent distress, alert, anxiety, obese Eye Exam: PERRL/EOMI, eyes nml inspection Ears, Nose, Throat Exam: normal ENT inspection, moist mucous membranes Neck Exam: normal inspection, non-tender, supple, full range of motion Respiratory Exam: normal breath sounds, lungs clear, airway intact, No chest tenderness, No respiratory distress Cardiovascular Exam: regular rate/rhythm, normal heart sounds, normal peripheral pulses Gastrointestinal/Abdomen Exam: soft, normal bowel sounds, tenderness, guarding, No rebound Pelvic Exam: not done Rectal Exam: not done Back Exam: normal inspection, normal range of motion, No CVA tenderness, No vertebral tenderness Extremity Exam: normal inspection, normal range of motion, pelvis stable Neurologic Exam: alert, oriented x 3, cooperative, 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, normal mood/affect, nml cerebellar function, nml station & gait, sensation nml Skin Exam: normal color, warm, dry Lymphatic Exam: No adenopathy SpO2 Interpretation: normal SpO2: 97 O2 Delivery: Room Air - Course Nursing assessment & vital signs reviewed: Yes Ordered Tests: Active Orders 24 hr Category Date Time Status IV Insertion STAT Care 12/19/19 00:54 Active ABDOMEN AND PELVIS W/0 CONTRAS [CT] Stat Exams 12/19/19 00:54 Taken AMYLASE Stat Lab 12/19/19 00:45 Completed CBC W DIFF Stat Lab 12/19/19 00:45 Completed CMP Stat Lab 12/19/19 00:45 Completed CULTURE,URINE Stat Lab 12/19/19 00:45 Received LIPASE Stat Lab 12/19/19 00:45 Completed Lactic Acid Stat Lab 12/19/19 00:58 Completed UA W/RFX UR CULTURE Stat Lab 12/19/19 00:45 Received Medication Summary Generic Name Dose Route Start Last Admin Trade Name Freq PRN Reason Stop Dose Admin Sodium Chloride 1,000 mls @ 999 mls/hr 12/19/19 00:54 12/19/19 01:28 Sodium Chloride 0.9% 1000 Ml IV 12/19/19 01:54 999 mls/hr .Q1H1M STA Administration Discontinued Medications Generic Name Dose Route Start Last Admin Trade Name Freq PRN Reason Stop Dose Admin Sodium Chloride Confirm 12/19/19 01:24 Sodium Chloride 0.9% 1000 Ml Administered 12/19/19 01:25 Dose 1,000 mls @ ud .ROUTE .STK-MED ONE Ketorolac Tromethamine 30 mg 12/19/19 01:41 12/19/19 01:44 Toradol 30 Mg Injection IV 12/19/19 01:42 30 mg STAT ONE Administration Ketorolac Tromethamine Confirm 12/19/19 01:42 Toradol 30 Mg Injection Administered 12/19/19 01:43 Dose 30 mg .ROUTE .STK-MED ONE Ondansetron HCl 4 mg 12/19/19 00:54 12/19/19 01:28 Zofran 4 Mg/2 Ml Vial IV 12/19/19 00:55 4 mg STAT ONE Administration Ondansetron HCl Confirm 12/19/19 01:24 Zofran 4 Mg/2 Ml Vial Administered 12/19/19 01:25 Dose 4 mg .ROUTE .STK-MED ONE Lab/Rad Data: Laboratory Result Diagrams 12/19/19 00:45 12/19/19 00:45 Laboratory Results 12/19/19 12/19/19 12/19/19 Range/Units 00:58 00:45 00:45 WBC (4.0-10.5) K/mm3 RBC (4.1-5.4) M/mm3 Hgb (12.0-16.0) gm/dl Hct (35-47) % MCV (78-100) fl MCH (26-32) pg MCHC (32-36) g/dl RDW (11.5-14.0) % Plt Count (150-450) K/mm3 MPV (7.5-11.0) fl Gran % (36.0-66.0) % Eos # (Auto) (0-0.5) Absolute Lymphs (auto) (1.0-4.6) Absolute Monos (auto) (0.0-1.3) Lymphocytes % (24.0-44.0) % Monocytes % (0.0-12.0) % Eosinophils % (0.00-5.0) % Basophils % (0.0-0.4) % Absolute Granulocytes (1.4-6.9) Basophils # (0-0.4) Sodium 133 L (137-145) mmol/L Potassium 5.0 (3.5-5.1) mmol/L Chloride 98 (98-107) mmol/L Carbon Dioxide 28 (22-30) mmol/L Anion Gap 12.7 (5-15) MEQ/L BUN 30 H (7-17) mg/dL Creatinine 1.66 H (0.52-1.04) mg/dL Estimated GFR 35.0 ML/MIN Glucose 218 H (74-106) mg/dL Lactic Acid 1.8 (0.4-2.0) Calcium 9.0 (8.4-10.2) mg/dL Total Bilirubin 0.50 (0.2-1.3) mg/dL AST 26 (14-36) U/L ALT 25 (0-35) U/L Alkaline Phosphatase 122 (38-126) U/L Serum Total Protein 6.5 (6.3-8.2) g/dL Albumin 4.1 (3.5-5.0) g/dL Amylase 58 (30-110) U/L Lipase 138 (23-300) U/L Urine Color YELLOW (YELLOW) Urine Appearance CLOUDY (CLEAR) Urine pH 5.0 (5-6) Ur Specific [place] 1.018 (1.005-1.025) Urine Protein NEGATIVE (Negative) Urine Ketones NEGATIVE (NEGATIVE) Urine Blood NEGATIVE (0-5) Best/ul Urine Nitrite NEGATIVE (NEGATIVE) Urine Bilirubin NEGATIVE (NEGATIVE) Urine Urobilinogen NEGATIVE (0-1) mg/dL Ur Leukocyte Esterase MODERATE (NEGATIVE) Urine WBC (Auto) 26-50 (0-5) /HPF Urine RBC (Auto) 0-2 (0-2) /HPF U Epithel Cells (Auto) FEW (FEW) /HPF Urine Bacteria (Auto) FEW (NEGATIVE) /HPF Amorphous Crystals FEW (NEGATIVE) /HPF Urine Mucus (Auto) SLIGHT (NEGATIVE) /HPF Urine Culture Reflexed YES (NO) Urine Glucose >=500 (NEGATIVE) mg/dL 12/19/19 Range/Units 00:45 WBC 10.6 H (4.0-10.5) K/mm3 RBC 4.86 (4.1-5.4) M/mm3 Hgb 14.3 (12.0-16.0) gm/dl Hct 45.2 (35-47) % MCV 93.0 (78-100) fl MCH 29.4 (26-32) pg MCHC 31.6 L (32-36) g/dl RDW 14.8 H (11.5-14.0) % Plt Count 296 (150-450) K/mm3 MPV 11.1 H (7.5-11.0) fl Gran % 64.9 (36.0-66.0) % Eos # (Auto) 0.03 (0-0.5) Absolute Lymphs (auto) 2.80 (1.0-4.6) Absolute Monos (auto) 0.87 (0.0-1.3) Lymphocytes % 26.4 (24.0-44.0) % Monocytes % 8.2 (0.0-12.0) % Eosinophils % 0.3 (0.00-5.0) % Basophils % 0.2 (0.0-0.4) % Absolute Granulocytes 6.87 (1.4-6.9) Basophils # 0.02 (0-0.4) Sodium (137-145) mmol/L Potassium (3.5-5.1) mmol/L Chloride (98-107) mmol/L Carbon Dioxide (22-30) mmol/L Anion Gap (5-15) MEQ/L BUN (7-17) mg/dL Creatinine (0.52-1.04) mg/dL Estimated GFR ML/MIN Glucose (74-106) mg/dL Lactic Acid (0.4-2.0) Calcium (8.4-10.2) mg/dL Total Bilirubin (0.2-1.3) mg/dL AST (14-36) U/L ALT (0-35) U/L Alkaline Phosphatase (38-126) U/L Serum Total Protein (6.3-8.2) g/dL Albumin (3.5-5.0) g/dL Amylase (30-110) U/L Lipase (23-300) U/L Urine Color (YELLOW) Urine Appearance (CLEAR) Urine pH (5-6) Ur Specific [place] (1.005-1.025) Urine Protein (Negative) Urine Ketones (NEGATIVE) Urine Blood (0-5) Best/ul Urine Nitrite (NEGATIVE) Urine Bilirubin (NEGATIVE) Urine Urobilinogen (0-1) mg/dL Ur Leukocyte Esterase (NEGATIVE) Urine WBC (Auto) (0-5) /HPF Urine RBC (Auto) (0-2) /HPF U Epithel Cells (Auto) (FEW) /HPF Urine Bacteria (Auto) (NEGATIVE) /HPF Amorphous Crystals (NEGATIVE) /HPF Urine Mucus (Auto) (NEGATIVE) /HPF Urine Culture Reflexed (NO) Urine Glucose (NEGATIVE) mg/dL - Progress Progress: improved, pain not gone completely, re-examined Progress Note: 12/19/19 01:48 CAT scan of the abdomen and pelvis without contrast shows constipation. There is no evidence of any acute inflammatory process in the abdomen or pelvis. Counseled pt/family regarding: lab results, diagnosis, need for follow-up, rad results - Departure Departure Disposition: Home Clinical Impression: Abdominal pain, Constipation, UTI (urinary tract infection) Condition: Stable Critical Care Time: No Referrals: MARILU SAUCEDO [Primary Care Provider] - Additional Instructions: Plenty of fluids. Continue your MiraLAX as prescribed. Use the magnesium citrate and fleets enema products as instructed. Follow-up with your primary care doctor or thermodynamics teacher for further management of your chronic, recurring abdominal issues.
[2019-12-19 01:04] LABS: Absolute Neutrophil Ct (ANC) 6.87 (1.4-6.9); BASOPHIL % 0.2 % (0.0-0.4); Basophil (Absolute #) 0.02 (0-0.4); Eosinophil % 0.3 % (0.00-5.0); Eosinophil (Absolute #) 0.03 (0-0.5); Hematocrit 45.2 % (35-47); Hemoglobin 14.3 gm/dl (12.0-16.0); Lymphocytes % 26.4 % (24.0-44.0); Mean Corpuscular Hemoglobin 29.4 pg (26-32); Mean Corpuscular Hgb Concent. 31.6 g/dl (32-36); Mean Platelet Volume 11.1 fl (7.5-11.0); Monocyte (Absolute #) 0.87 (0.0-1.3); Monocytes % 8.2 % (0.0-12.0); Neutrophil % 64.9 % (36.0-66.0); Platelet Count 296 K/mm3 (150-450); Red Blood Count 4.86 M/mm3 (4.1-5.4); Red Cell Distribution Width 14.8 % (11.5-14.0); White Blood Count 10.6 K/mm3 (4.0-10.5)
[2019-12-19 01:11] LABS: ALBUMIN 4.1 g/dL (3.5-5.0); ANION GAP 12.7 MEQ/L (5-15); BILIRUBIN,TOTAL 0.5 mg/dL (0.2-1.3); Creatinine 1 1.66 mg/dL (0.52-1.04); Total Protein 6.5 g/dL (6.3-8.2)
[2019-12-19] MEDS ORDERED: Zofran 4 MG/2 ML VIAL ONE (01:24)
[2019-12-19] MEDS ORDERED: Sodium Chloride 0.9% 1000 ML 1,000 ML ONE (01:24)
[2019-12-19 01:39] LABS: Amourphous Crystal FEW /HPF (NEGATIVE); Appearance CLOUDY (CLEAR); Bacteria FEW /HPF (NEGATIVE); Bilirubin NEGATIVE (NEGATIVE); Blood NEGATIVE Ery/ul (0-5); Epithelial Cells FEW /HPF (FEW); Glucose >=500 mg/dL (NEGATIVE); Ketones NEGATIVE (NEGATIVE); Leukocyte Esterase MODERATE (NEGATIVE); Mucus SLIGHT /HPF (NEGATIVE); Nitrite NEGATIVE (NEGATIVE); Protein,Urine Dip NEGATIVE (Negative); RBC 0-2 /HPF (0-2); Specific Gravity 1.018 (1.005-1.025); Urobilinogen NEGATIVE mg/dL (0-1); WBC 26-50 /HPF (0-5)
[2019-12-19] MEDS ORDERED: TORAdol 30 mg Injection IV ONE (01:41)
[2019-12-19] MEDS ORDERED: TORAdol 30 mg Injection ONE (01:42)
[2019-12-19] MEDS ORDERED: Levofloxacin 500 MG Tablet PO ONE (01:53)
[2019-12-19] MEDS ORDERED: CITROMA 296 ML PO ONE (01:54)
[2019-12-19] MEDS ORDERED: Levofloxacin 500 MG Tablet ONE (02:01)
[2019-12-19] MEDS ORDERED: CITROMA 296 ML ONE (02:02)
[2019-12-19 02:36] VITALS: BP 107/67; PULSE 76; O2SAT 98
--- NOTE | 2019-12-19 08:49 | XRAY ---
Indication: Abdomen pain. History pancreatitis and Crohn's. Multiple contiguous axial images obtained through the abdomen and pelvis without contrast as ordered. Comparison: August 31, 2019. Lung bases demonstrates stable benign appearing right middle lobe noncalcified micronodule. No infiltrate or effusion. Heart is not enlarged. Stomach is distended with food/fluid. Noncontrasted stomach and bowel loops appear nonobstructed. Normal appendix. There is now mild diffuse scattered colonic fecal debris throughout. Stable fatty liver, right renal scarring with parenchymal microcalcification, and cholecystectomy. No free fluid/air. Remaining liver, pancreas, spleen, adrenal glands, kidneys, ureters, bladder, uterus, and aorta appear unremarkable for noncontrast exam. Osseous structures intact again with minimal/mild degenerative changes throughout the spine and benign right innominate bone sclerotic lesion. Impression: 1. New diffuse fecal stasis without obstruction. 2. Stable fatty liver, right renal scarring with parenchymal microcalcification, and benign right innominate bone sclerotic lesion. Comment: Preliminary interpretation was made by [facility]. No critical discrepancy.
== END 2019-12-19 02:36 | disposition home or self-care (01) ==
LOC: ED 00:22
DX: R10.9 Unspecified abdominal pain (principal); K59.00 Constipation, unspecified; N39.0 Urinary tract infection, site not specified
CPT/HCPCS: 36000; 36415; 74176; 80053; 81001; 82150; 83605; 83690; 85025; 87086; 96360; 96374; 96375; 99284; J1885; J2405; A9270-GY

== ENCOUNTER 2020-01-09 18:34 | Emergency (ER) | payer OTHER ==
[2020-01-09] MEDS ORDERED: BABY ASPIRIN 81 MG CHEW PO ONE (18:39)
[2020-01-09] MEDS ORDERED: BABY ASPIRIN 81 MG CHEW ONE (18:42)
[2020-01-09 19:12] LABS: Absolute Neutrophil Ct (ANC) 4.43 (1.4-6.9); BASOPHIL % 0.3 % (0.0-0.4); Basophil (Absolute #) 0.02 (0-0.4); Eosinophil % 0.1 % (0.00-5.0); Eosinophil (Absolute #) 0.01 (0-0.5); Hematocrit 47.1 % (35-47); Hemoglobin 14.8 gm/dl (12.0-16.0); Lymphocyte (Absolute #) 1.89 (1.0-4.6); Lymphocytes % 27.6 % (24.0-44.0); Mean Cell Volume 93.5 fl (78-100); Mean Corpuscular Hemoglobin 29.4 pg (26-32); Mean Corpuscular Hgb Concent. 31.4 g/dl (32-36); Monocytes % 7.3 % (0.0-12.0); Neutrophil % 64.7 % (36.0-66.0); Platelet Count 247 K/mm3 (150-450); Red Blood Count 5.04 M/mm3 (4.1-5.4); Red Cell Distribution Width 14.5 % (11.5-14.0); White Blood Count 6.9 K/mm3 (4.0-10.5)
[2020-01-09 19:19] LABS: INR 0.96 (0.8-3.0); PROTIME 10.9 SECONDS (9.95-12.35)
[2020-01-09 19:33] LABS: ALBUMIN 4.2 g/dL (3.5-5.0); ALKALINE PHOSPHATASE 142 U/L (38-126); ANION GAP 10.3 MEQ/L (5-15); BLOOD UREA NITROGEN 14 mg/dL (7-17); CHLORIDE 103 mmol/L (98-107); Calcium 9.1 mg/dL (8.4-10.2); Carbon Dioxide 29 mmol/L (22-30); Creatinine 1 0.73 mg/dL (0.52-1.04); EST GLOMERULAR FILTRATION RATE > 60.0 ML/MIN; Glucose 168 mg/dL (74-106); NT PRO BNP 193 pg/mL (0-450); Potassium 4.1 mmol/L (3.5-5.1); SGOT/AST 24 U/L (14-36); SGPT/ALT 26 U/L (0-35); SODIUM 138 mmol/L (137-145); Total Protein 7.5 g/dL (6.3-8.2)
--- NOTE | 2020-01-09 20:16 | ERPHSYRPT ---
- History of Present Illness Time Seen by Provider: 01/09/20 20:50 Historian: patient Patient Subjective Stated Complaint: Pt states that she has had off and on chest pain for the past week, was supposed to see Kary Geiger yesterday but cancelled due to having a panic attack Triage Nursing Assessment: Pt brought to the ER by her boyfriend, escobar bahl, pt states her pain is 10/10 and that it starts on the right chest and moves to the right shoulder and down the arm, pt doesn't appear to be in any distress, skin n/w/d, no edema, pulses normal Physician History: This is a morbidly obese 49-year-old female has a history of chronic angina, sara betes, migraine headaches, peripheral neuropathy, obesity, anxiety and panic attacks, and Crohn's disease. Patient was seen a week ago at [facility] and underwent a cardiac work-up which was negative per her report. She has a appointment to see her primary care provider nurse practitioner Kary Geiger tomorrow. Patient presents with chest pain in her right chest that radiates to her right arm. Patient does see a boiler erector, Dr. Reyes. She was evaluated by him 1 week ago. Patient denies shortness of breath. Patient denies abdominal pain. Timing/Duration: week(s) (2 to 3 weeks) Activities at Onset: none Quality: sharpness Location: other (Right anterior chest) Chest Pain Radiation: arm (Right arm) Severity of Pain-Max: mild Severity of Pain-Current: none Modifying Factors: Improves With: nothing Associated Symptoms: No abdominal pain, No shortness of breath, No cough Prior Chest Pain/Cardiac Workup: cardiac cath, recently seen/treated Nitro Today/Relief: no nitro taken today Aspirin Treatment Today: no aspirin today Allergies/Adverse Reactions: buspirone [From BuSpar] Allergy (Verified 01/09/20 18:50) diphenhydramine HCl [From Benadryl] Allergy (Verified 01/09/20 18:50) guaifenesin [From CodiCLEAR DH] Allergy (Verified 01/09/20 18:50) hydrocodone bitartrate [From CodiCLEAR DH] Allergy (Verified 01/09/20 18:50) hydromorphone HCl [From Dilaudid] Allergy (Verified 01/09/20 18:50) Iodinated Contrast Media [Iodinated Contrast- Oral and IV Dye] Allergy (Verified 01/09/20 18:50) Penicillins Allergy (Verified 01/09/20 18:50) potassium guaiacolsulfonate [From [facility]] Allergy (Verified 01/09/20 18:50) prednisone Allergy (Verified 01/09/20 18:50) melatonin Adverse Reaction (Verified 01/09/20 18:50) Home Medications: PANTOPRAZOLE 40 mg Tablet [Protonix 40MG Tablet] 40 mg PO DAILY 08/25/16 [History] Nitroglycerin 0.4 mg (Ed) [Nitrostat 0.4 MG (ED)] 0.4 mg SL UD 12/01/17 [History] carvediloL [Carvedilol] 6.25 mg PO BID 12/01/17 [History] lisinopriL [Lisinopril] 20 mg PO BID 12/01/17 [History] Insulin Regular, Human [Humulin R] 150 unit IJ UD 04/22/18 [History] Alprazolam 0.5 mg [xanAX 0.5 MG] 0.5 mg PO Q12H PRN PRN 08/31/19 [History] Amlodipine Besylate [Norvasc] 2.5 mg PO DAILY 08/31/19 [History] Furosemide [Lasix] 40 mg PO DAILY 08/31/19 [History] Dapagliflozin Propanediol [Farxiga] 10 mg PO DAILY 12/19/19 [History] Docusate Sodium 100 mg [Colace 100 MG] 100 mg PO DAILY 12/19/19 [History] Ergocalciferol (Vitamin D2) [Vitamin D2] 1 unit PO 2XW 12/19/19 [History] Furosemide 20 mg [Lasix 20 mg] 20 mg PO DAILY 12/19/19 [History] Levothyroxine Sodium [Unithroid] 175 mcg PO DAILY 12/19/19 [History] OLANZapine [Zyprexa] 5 mg PO HS 12/19/19 [History] hydrOXYzine HCL [Hydroxyzine HCl] 50 mg PO HS 12/19/19 [History] Hx Tetanus, Diphtheria Vaccination/Date Given: Yes Hx Influenza Vaccination/Date Given: No Hx Pneumococcal Vaccination/Date Given: No Travel Risk - International Travel Have you traveled outside of the country in past 3 weeks: No - Coronavirus Screening Are you exhibiting any of the following symptoms?: No Close contact with a COVID-19 positive Pt in past 14-21 Days: No - Review of Systems Constitutional: No Symptoms Eyes: No Symptoms Ears, Nose, & Throat: No Symptoms Respiratory: No Symptoms Cardiac: Chest Pain Abdominal/Gastrointestinal: No Symptoms Genitourinary Symptoms: No Symptoms Musculoskeletal: No Symptoms Skin: No Symptoms Neurological: No Symptoms Psychological: No Symptoms Endocrine: No Symptoms Hematologic/Lymphatic: No Symptoms Immunological/Allergic: No Symptoms All Other Systems: Reviewed and Negative - Past Medical History Pertinent Past Medical History: Yes Neurological History: Migraines, Peripheral Neuropathy ENT History: No Pertinent History Cardiac History: Angina, High Cholesterol, Hypertension Respiratory History: Asthma Endocrine Medical History: Diabetes Type II Musculoskeletal History: Arthritis GI Medical History: Diverticulitis, Hernia, Irritable Bowel, Other History: No Pertinent History Psycho-Social History: Anxiety, Depression Female Reproductive Disorders: No Pertinent History Other Medical History: CHRONIC CONSTIPATION, Chrones Disease - Past Surgical History Past Surgical History: Yes Neuro Surgical History: No Pertinent History Cardiac: No Pertinent History Respiratory: No Pertinent History Gastrointestinal: Exploratory Laparoscopy, Cholecystectomy Genitourinary: No Pertinent History Musculoskeletal: No Pertinent History, Other Female Surgical History: No Pertinent History Other Surgical History: back surgery - Social History Smoking Status: Former smoker Exposure to second hand smoke: No Drug Use: none Patient Lives Alone: Yes - Female History Hx Last Menstrual Period: september Hx Now: No - Nursing Vital Signs Nursing Vital Signs: Initial Vital Signs Temperature 98.2 F 01/09/20 18:35 Pulse Rate 99 H 01/09/20 18:35 Respiratory Rate 15 01/09/20 18:35 Blood Pressure 135/91 01/09/20 18:35 O2 Sat by Pulse Oximetry 99 01/09/20 18:35 Pain Scale Pain Intensity 9 - Physical Exam General Appearance: no apparent distress, alert, anxiety, obese Eye Exam: PERRL/EOMI, eyes nml inspection Ears, Nose, Throat Exam: normal ENT inspection, moist mucous membranes Neck Exam: normal inspection, non-tender, supple, full range of motion Respiratory Exam: normal breath sounds, chest tenderness, lungs clear, No respiratory distress, No airway intact Cardiovascular Exam: regular rate/rhythm, normal heart sounds, normal peripheral pulses Gastrointestinal/Abdomen Exam: soft, normal bowel sounds, No tenderness Pelvic Exam: not done Rectal Exam: not done Back Exam: normal inspection, normal range of motion, No CVA tenderness Extremity Exam: normal inspection, normal range of motion, No pelvis stable Neurologic Exam: alert, oriented x 3, cooperative, 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 nml as tested, normal mood/affect, nml cerebellar function, nml station & gait, sensation nml Skin Exam: normal color, warm, dry Lymphatic Exam: No adenopathy SpO2 Interpretation: normal SpO2: 99 O2 Delivery: Room Air - Course Nursing assessment & vital signs reviewed: Yes EKG Interpreted by Me: RATE (97), Sinus Rhythm, NORMAL AXIS, NORMAL INTERVALS, NORMAL QRS, Other (Sinus tachycardia on the comparison EKG dated 08/31/2019 has now resolved) Ordered Tests: Active Orders 24 hr Category Date Time Status Litigation Manager STAT Care 01/09/20 18:40 Active EKG-ER Only STAT Care 01/09/20 18:39 Active IV Insertion STAT Care 01/09/20 18:39 Active Pulse Oximetry (ED) STAT Care 01/09/20 18:39 Active CHEST 1 VIEW (PORTABLE) Stat Exams 01/09/20 18:39 Taken CBC W DIFF Stat Lab 01/09/20 19:05 Completed CMP Stat Lab 01/09/20 19:05 Completed D-DIMER QUANTITATIVE Stat Lab 01/09/20 19:05 Completed NT PRO BNP Stat Lab 01/09/20 19:05 Completed PROTIME WITH INR Stat Lab 01/09/20 19:05 Completed TROPONIN Q3H Lab 01/09/20 19:05 Completed TROPONIN Q3H Lab 01/09/20 21:40 Completed TROPONIN Q3H Lab 01/10/20 00:45 Ordered TROPONIN Q3H Lab 01/10/20 03:45 Ordered TROPONIN Q3H Lab 01/10/20 06:45 Ordered Medication Summary Generic Name Dose Route Start Last Admin Trade Name Freq PRN Reason Stop Dose Admin Meperidine HCl 12.5 mg 01/09/20 22:37 Demerol 25mg Syringe IV 01/09/20 22:38 STAT ONE Promethazine HCl 12.5 mg 01/09/20 22:37 Phenergan 25 Mg Inj IM 01/09/20 22:38 STAT ONE Discontinued Medications Generic Name Dose Route Start Last Admin Trade Name Fabby PRN Reason Stop Dose Admin Acetaminophen 650 mg 01/09/20 21:06 01/09/20 21:20 Tylenol 325 Mg PO 01/09/20 21:07 650 mg STAT STA Administration Acetaminophen Confirm 01/09/20 21:18 Tylenol 325 Mg Administered 01/09/20 21:19 Dose 650 mg .ROUTE .STK-MED ONE Aspirin 324 mg 01/09/20 18:39 01/09/20 18:45 Baby Aspirin 81 Mg Chew PO 01/09/20 18:40 324 mg STAT ONE Administration Aspirin Confirm 01/09/20 18:42 Baby Aspirin 81 Mg Chew Administered 01/09/20 18:43 Dose 324 mg .ROUTE .STK-MED ONE Ketorolac Tromethamine 30 mg 01/09/20 21:28 01/09/20 21:32 Toradol 30 Mg Injection IV 01/09/20 21:29 30 mg STAT ONE Administration Ketorolac Tromethamine 30 mg 01/09/20 21:28 01/09/20 21:31 Toradol 30 Mg Injection IV 01/09/20 21:29 Not Given STAT ONE Ketorolac Tromethamine Confirm 01/09/20 21:31 Toradol 30 Mg Injection Administered 01/09/20 21:32 Dose 30 mg .ROUTE .STK-MED ONE Lab/Rad Data: Laboratory Result Diagrams 01/09/20 19:05 01/09/20 19:05 Laboratory Results 01/09/20 01/09/20 01/09/20 Range/Units 21:40 19:05 19:05 WBC (4.0-10.5) K/mm3 RBC (4.1-5.4) M/mm3 Hgb (12.0-16.0) gm/dl Hct (35-47) % MCV (78-100) fl MCH (26-32) pg MCHC (32-36) g/dl RDW (11.5-14.0) % Plt Count (150-450) K/mm3 MPV (7.5-11.0) fl Gran % (36.0-66.0) % Eos # (Auto) (0-0.5) Absolute Lymphs (auto) (1.0-4.6) Absolute Monos (auto) (0.0-1.3) Lymphocytes % (24.0-44.0) % Monocytes % (0.0-12.0) % Eosinophils % (0.00-5.0) % Basophils % (0.0-0.4) % Absolute Granulocytes (1.4-6.9) Basophils # (0-0.4) PT 10.9 (9.95-12.35) SECONDS INR 0.96 (0.8-3.0) D-Dimer 588 H* (215-500) ng/mL Sodium (137-145) mmol/L Potassium (3.5-5.1) mmol/L Chloride (98-107) mmol/L Carbon Dioxide (22-30) mmol/L Anion Gap (5-15) MEQ/L BUN (7-17) mg/dL Creatinine (0.52-1.04) mg/dL Estimated GFR ML/MIN Glucose (74-106) mg/dL Calcium (8.4-10.2) mg/dL Total Bilirubin (0.2-1.3) mg/dL AST (14-36) U/L ALT (0-35) U/L Alkaline Phosphatase (38-126) U/L Troponin I < 0.012 < 0.012 (0.000-0.034) ng/mL NT-Pro-B Natriuret Pep (0-450) pg/mL Serum Total Protein (6.3-8.2) g/dL Albumin (3.5-5.0) g/dL 01/09/20 01/09/20 Range/Units 19:05 19:05 WBC 6.9 (4.0-10.5) K/mm3 RBC 5.04 (4.1-5.4) M/mm3 Hgb 14.8 (12.0-16.0) gm/dl Hct 47.1 H (35-47) % MCV 93.5 (78-100) fl MCH 29.4 (26-32) pg MCHC 31.4 L (32-36) g/dl RDW 14.5 H (11.5-14.0) % Plt Count 247 (150-450) K/mm3 MPV 11.0 (7.5-11.0) fl Gran % 64.7 (36.0-66.0) % Eos # (Auto) 0.01 (0-0.5) Absolute Lymphs (auto) 1.89 (1.0-4.6) Absolute Monos (auto) 0.50 (0.0-1.3) Lymphocytes % 27.6 (24.0-44.0) % Monocytes % 7.3 (0.0-12.0) % Eosinophils % 0.1 (0.00-5.0) % Basophils % 0.3 (0.0-0.4) % Absolute Granulocytes 4.43 (1.4-6.9) Basophils # 0.02 (0-0.4) PT (9.95-12.35) SECONDS INR (0.8-3.0) D-Dimer (215-500) ng/mL Sodium 138 (137-145) mmol/L Potassium 4.1 (3.5-5.1) mmol/L Chloride 103 (98-107) mmol/L Carbon Dioxide 29 (22-30) mmol/L Anion Gap 10.3 (5-15) MEQ/L BUN 14 (7-17) mg/dL Creatinine 0.73 (0.52-1.04) mg/dL Estimated GFR > 60.0 ML/MIN Glucose 168 H (74-106) mg/dL Calcium 9.1 (8.4-10.2) mg/dL Total Bilirubin 0.40 (0.2-1.3) mg/dL AST 24 (14-36) U/L ALT 26 (0-35) U/L Alkaline Phosphatase 142 H (38-126) U/L Troponin I (0.000-0.034) ng/mL NT-Pro-B Natriuret Pep 193 (0-450) pg/mL Serum Total Protein 7.5 (6.3-8.2) g/dL Albumin 4.2 (3.5-5.0) g/dL - Progress Progress: improved, re-examined Air Movement: good Progress Note: 01/09/20 22:38 Rosenda had a has an allergy to Dilaudid which gives her a rash. She is never had morphine she is never had Demerol. She is not allergic to Phenergan. We will try low-dose Demerol intravenously and low-dose Phenergan intramuscularly to help her resolve her chest pain. Patient also has a slightly elevated D- dimer. In the past she has had more significantly elevated D-dimer and a VQ scan was negative. Patient is not short of breath, and her D-dimer is only slightly elevated. I do not feel this patient has pulmonary emboli present. I will not order a VQ scan on her. Also, she just had a negative cardiac work-up. Patient has an appointment to see aKry Geiger her nurse practitioner tomorrow. We will provide her with the above combination of pain medicine and if this helps we will discharge the patient to home. 01/09/20 22:40 Chest x-ray shows no acute cardiopulmonary process Blood Culture(s) Obtained: No Antibiotics given: No Counseled pt/family regarding: lab results, diagnosis, need for follow-up, rad results - Departure Departure Disposition: Home Clinical Impression: Chronic stable angina Condition: Stable Critical Care Time: No Referrals: MARILU GEIGER [Primary Care Provider] - Additional Instructions: Take your medication as prescribed. Follow-up with your nurse practitioner tomorrow at the scheduled appointment time.
[2020-01-09 20:52] VITALS: O2SAT 99
[2020-01-09] MEDS ORDERED: TYLENOL 325 MG PO STA (21:06)
[2020-01-09] MEDS ORDERED: TYLENOL 325 MG ONE (21:18)
[2020-01-09] MEDS ORDERED: TORAdol 30 mg Injection IV ONE ×2 (21:28)
[2020-01-09] MEDS ORDERED: TORAdol 30 mg Injection ONE (21:31)
[2020-01-09] MEDS ORDERED: Phenergan 25 MG INJ IM ONE (22:37)
[2020-01-09] MEDS ORDERED: DEMEROL 25MG SYRINGE IV ONE (22:37)
[2020-01-09] MEDS ORDERED: DEMEROL 25MG SYRINGE ONE (22:44)
[2020-01-09] MEDS ORDERED: Phenergan 25 MG INJ ONE (22:44)
[2020-01-09 23:04] VITALS: BP 129/84; PULSE 91
--- NOTE | 2020-01-10 08:42 | XRAY ---
Indication: Chest pain. Comparison: August 31, 2019. Portable chest continues to demonstrate normal heart and lungs. Bony thorax intact again with mild degenerative changes. No new/acute findings.
== END 2020-01-09 23:27 | disposition home or self-care (01) ==
LOC: ED 18:34
DX: I20.8 Other forms of angina pectoris (principal); G62.9 Polyneuropathy, unspecified; K50.90 Crohn's disease, unspecified, without complications; I10 Essential (primary) hypertension; E78.00 Pure hypercholesterolemia, unspecified
CPT/HCPCS: 36000; 36415; 71045; 80053; 83880; 84484; 85025; 85379; 85610; 93005; 93041; 94760; 96372; 96374; 96375; 99284; J1885; J2175; J2550; A9270-GY

== ENCOUNTER 2020-09-03 20:47 | Emergency (ER) | payer OTHER ==
--- NOTE | 2020-09-03 20:55 | ERPHSYRPT ---
- History of Present Illness Time Seen by Provider: 09/03/20 20:55 Source: patient, family Exam Limitations: no limitations Physician History: This is a morbidly obese 50-year-old white female who has a history of hypertension, chronic angina, migraine headaches, peripheral neuropathy, anxiety disorder, panic disorder, dizziness, insulin-dependent diabetes and hypothyr oidism and presents with 1 week history of intermittent dizziness. Patient states that she blacked out a week ago but she does not recall hitting her head. Since that time, patient states that she is more forgetful than usual. Today, she had a significant dizzy spell prior to arrival into the emergency department. She did not hit her head. She has not changed her medications, she did not have a seizure. She does not have any chest pain. She is not short of breath. She has no dysuria or hematuria. Patient is a patient of nurse practitioner Kary Geiger. She also is a patient of pulp mill supervisor Dr.. Reyes Timing/Duration: week(s) (1), worse Severity: mild Deficits: no difficulties Baseline/Normal Cognition: alert oriented x 3 Current Cognition: alert oriented x 3 Baseline Gait: walks w/o assistance Associated Symptoms: other (Dizziness) Allergies/Adverse Reactions: buspirone [From BuSpar] Allergy (Verified 09/03/20 20:50) diphenhydramine HCl [From Benadryl] Allergy (Verified 09/03/20 20:50) guaifenesin [From CodiCLEAR DH] Allergy (Verified 09/03/20 20:50) hydrocodone bitartrate [From CodiCLEAR DH] Allergy (Verified 09/03/20 20:50) hydromorphone HCl [From Dilaudid] Allergy (Verified 09/03/20 20:50) Iodinated Contrast Media [Iodinated Contrast- Oral and IV Dye] Allergy (Verified 09/03/20 20:50) Penicillins Allergy (Verified 09/03/20 20:50) potassium guaiacolsulfonate [From CodiCLEAR DH] Allergy (Verified 09/03/20 20:50) prednisone Allergy (Verified 09/03/20 20:50) melatonin Adverse Reaction (Verified 09/03/20 20:50) Home Medications: PANTOPRAZOLE 40 mg Tablet [Protonix 40MG Tablet] 40 mg PO DAILY 08/25/16 [History] Nitroglycerin 0.4 mg (Ed) [Nitrostat 0.4 MG (ED)] 0.4 mg SL UD 12/01/17 [History] lisinopriL [Lisinopril] 2.5 mg PO BID 12/01/17 [History] Insulin Regular, Human [Humulin R] 200 unit IJ UD 04/22/18 [History] ALPRAZolam 0.5 MG [xanAX 0.5 MG] 0.5 mg PO Q12H PRN PRN 08/31/19 [History] Amlodipine Besylate [Norvasc] 5 mg PO BID 08/31/19 [History] Dapagliflozin Propanediol [Farxiga] 10 mg PO DAILY 12/19/19 [History] Docusate Sodium 100 mg [Colace 100 MG] 100 mg PO DAILY 12/19/19 [History] Ergocalciferol (Vitamin D2) [Vitamin D2] 1 unit PO 2XW 12/19/19 [History] Furosemide 20 mg [Lasix 20 mg] 20 mg PO DAILY 12/19/19 [History] Levothyroxine Sodium [Unithroid] 125 mcg PO DAILY 12/19/19 [History] Dicyclomine HCl 20 mg [Bentyl 20 mg] 20 mg PO DAILY 09/03/20 [History] Duloxetine HCl 60 mg PO DAILY 09/03/20 [History] Ezetimibe 10 mg [Zetia 10 MG] 10 mg PO DAILY PRN 09/03/20 [History] Medroxyprogesterone 2.5 mg [Provera 2.5 MG] 5 mg PO DAILY 09/03/20 [His tory] Metoprolol Succinate [Toprol Xl] 50 mg PO DAILY 09/03/20 [History] Potassium Chloride 10 Meq Tab* [Klor Con 10 MEQ] 10 meq PO DAILY 09/03/20 [History] Hx Tetanus, Diphtheria Vaccination/Date Given: Yes Hx Influenza Vaccination/Date Given: No Hx Pneumococcal Vaccination/Date Given: No Travel Risk - International Travel Have you traveled outside of the country in past 3 weeks: No - Coronavirus Screening Are you exhibiting any of the following symptoms?: No Close contact with a COVID-19 positive Pt in past 14-21 Days: No - Review of Systems Constitutional: No Symptoms Eyes: No Symptoms Ears, Nose, & Throat: No Symptoms Respiratory: No Symptoms Cardiac: No Symptoms Abdominal/Gastrointestinal: No Symptoms Genitourinary Symptoms: No Symptoms Musculoskeletal: No Symptoms Skin: No Symptoms Neurological: Dizziness Psychological: No Symptoms Endocrine: No Symptoms Hematologic/Lymphatic: No Symptoms Immunological/Allergic: No Symptoms All Other Systems: Reviewed and Negative - Past Medical History Pertinent Past Medical History: Yes Neurological History: Migraines, Peripheral Neuropathy ENT History: No Pertinent History Cardiac History: Angina, High Cholesterol, Hypertension Respiratory History: Asthma Endocrine Medical History: Diabetes Type II Musculoskeletal History: Arthritis GI Medical History: Diverticulitis, Hernia, Irritable Bowel, Other History: No Pertinent History Psycho-Social History: Anxiety, Depression Female Reproductive Disorders: No Pertinent History Other Medical History: CHRONIC CONSTIPATION, Chrones Disease - Past Surgical History Past Surgical History: Yes Neuro Surgical History: No Pertinent History Cardiac: No Pertinent History Respiratory: No Pertinent History Gastrointestinal: Exploratory Laparoscopy, Cholecystectomy Genitourinary: No Pertinent History Musculoskeletal: No Pertinent History, Other Female Surgical History: No Pertinent History Other Surgical History: back surgery - Social History Smoking Status: Former smoker Exposure to second hand smoke: No Drug Use: none Patient Lives Alone: Yes - Nursing Vital Signs Nursing Vital Signs: Initial Vital Signs Temperature 98.1 F 09/03/20 20:50 Pulse Rate 88 09/03/20 20:50 Blood Pressure 108/82 09/03/20 20:50 O2 Sat by Pulse Oximetry 96 09/03/20 20:50 Pain Scale Pain Intensity 0 - Namita Coma Scale Best Eye Response ([place]): (4) open spontaneously Best Verbal Response ([place]): (5) oriented Best Motor Response ([place]): (6) obeys commands Namita Total: 15 - Physical Exam General Appearance: no apparent distress, alert, anxiety, obese Eye Exam: bilateral eye: normal inspection, PERRL, EOMI Ears, Nose, Throat Exam: normal ENT inspection, TMs normal, moist mucous membranes Neck Exam: normal inspection, non-tender, supple, full range of motion Respiratory: normal breath sounds, lungs clear, airway intact, No chest tenderness, No respiratory distress Cardiovascular: regular rate/rhythm, normal heart sounds, normal peripheral pulses Gastrointestinal: soft, normal bowel sounds, No tenderness Pelvic Exam: not done Rectal Exam: not done Back Exam: normal inspection, normal range of motion, No CVA tenderness, No vertebral tenderness Extremity Exam: normal inspection, normal range of motion, pelvis stable Mental Status: alert, oriented x 3, cooperative skid strapper Exam: normal hearing, normal speech, PERRL, tongue midline Coordination/Gait: normal finger to nose, normal gait, normal cerebellar function Motor/Sensory: no motor deficit, no sensory deficit, no pronator drift Skin Exam: normal color, warm, dry SpO2 Interpretation: normal O2 Delivery: Room Air - Course Nursing assessment & vital signs reviewed: Yes EKG Interpreted by Me: RATE (89), Sinus Rhythm, NORMAL AXIS, NORMAL INTERVALS, NORMAL QRS, NORMAL ST-T, Other (No acute ischemic changes. No change when compared to EKG dated 01/09/2020.) Ordered Tests: Active Orders 24 hr Category Date Time Status EKG-ER Only STAT Care 09/03/20 20:56 Active IV Insertion STAT Care 09/03/20 20:56 Active HEAD WITHOUT CONTRAST [CT] Stat Exams 09/03/20 20:56 Taken CBC W DIFF Stat Lab 09/03/20 21:15 Completed CMP Stat Lab 09/03/20 21:15 Completed TROPONIN Q3H Lab 09/03/20 21:15 Completed TROPONIN Q3H Lab 09/04/20 00:00 Ordered TROPONIN Q3H Lab 09/04/20 03:00 Ordered TROPONIN Q3H Lab 09/04/20 06:00 Ordered TROPONIN Q3H Lab 09/04/20 09:00 Ordered UA W/RFX UR CULTURE Stat Lab 09/03/20 21:05 Completed Medication Summary Generic Name Dose Route Start Last Admin Trade Name Freq PRN Reason Stop Dose Admin Sodium Chloride 1,000 mls @ 100 mls/hr 09/03/20 21:00 09/03/20 21:23 Sodium Chloride 0.9% 1000 Ml IV 10/03/20 20:59 100 mls/hr .Q10H NIRAV Administration Lab/Rad Data: Laboratory Result Diagrams 09/03/20 21:15 09/03/20 21:15 Laboratory Results 09/03/20 09/03/20 09/03/20 Range/Units 21:15 21:15 21:15 WBC 8.1 (4.0-10.5) K/mm3 RBC 5.14 (4.1-5.4) M/mm3 Hgb 14.3 (12.0-16.0) gm/dl Hct 46.6 (35-47) % MCV 90.7 (78-100) fl MCH 27.8 (26-32) pg MCHC 30.7 L (32-36) g/dl RDW 15.1 H (11.5-14.0) % Plt Count 225 (150-450) K/mm3 MPV 10.9 (7.5-11.0) fl Gran % 64.0 (36.0-66.0) % Eos # (Auto) 0.22 (0-0.5) Absolute Lymphs (auto) 2.14 (1.0-4.6) Absolute Monos (auto) 0.55 (0.0-1.3) Lymphocytes % 26.4 (24.0-44.0) % Monocytes % 6.8 (0.0-12.0) % Eosinophils % 2.7 (0.00-5.0) % Basophils % 0.1 (0.0-0.4) % Absolute Granulocytes 5.19 (1.4-6.9) Basophils # 0.01 (0-0.4) Sodium 137 (137-145) mmol/L Potassium 3.8 (3.5-5.1) mmol/L Chloride 103 (98-107) mmol/L Carbon Dioxide 23 (22-30) mmol/L Anion Gap 14.9 (5-15) MEQ/L BUN 16 (7-17) mg/dL Creatinine 1.00 (0.52-1.04) mg/dL Estimated GFR > 60.0 ML/MIN Glucose 125 H (74-106) mg/dL Calcium 8.8 (8.4-10.2) mg/dL Total Bilirubin 0.50 (0.2-1.3) mg/dL AST 21 (14-36) U/L ALT 19 (0-35) U/L Alkaline Phosphatase 128 H (38-126) U/L Troponin I < 0.012 (0.000-0.034) ng/mL Serum Total Protein 7.2 (6.3-8.2) g/dL Albumin 4.3 (3.5-5.0) g/dL Urine Color (YELLOW) Urine Appearance (CLEAR) Urine pH (5-6) Ur Specific [place] (1.005-1.025) Urine Protein (Negative) Urine Ketones (NEGATIVE) Urine Blood (0-5) Best/ul Urine Nitrite (NEGATIVE) Urine Bilirubin (NEGATIVE) Urine Urobilinogen (0-1) mg/dL Ur Leukocyte Esterase (NEGATIVE) Urine WBC (Auto) (0-5) /HPF Urine RBC (Auto) (0-2) /HPF U Epithel Cells (Auto) (FEW) /HPF Urine Bacteria (Auto) (NEGATIVE) /HPF Urine Culture Reflexed (NO) Urine Glucose (NEGATIVE) mg/dL 09/03/20 Range/Units 21:05 WBC (4.0-10.5) K/mm3 RBC (4.1-5.4) M/mm3 Hgb (12.0-16.0) gm/dl Hct (35-47) % MCV (78-100) fl MCH (26-32) pg MCHC (32-36) g/dl RDW (11.5-14.0) % Plt Count (150-450) K/mm3 MPV (7.5-11.0) fl Gran % (36.0-66.0) % Eos # (Auto) (0-0.5) Absolute Lymphs (auto) (1.0-4.6) Absolute Monos (auto) (0.0-1.3) Lymphocytes % (24.0-44.0) % Monocytes % (0.0-12.0) % Eosinophils % (0.00-5.0) % Basophils % (0.0-0.4) % Absolute Granulocytes (1.4-6.9) Basophils # (0-0.4) Sodium (137-145) mmol/L Potassium (3.5-5.1) mmol/L Chloride (98-107) mmol/L Carbon Dioxide (22-30) mmol/L Anion Gap (5-15) MEQ/L BUN (7-17) mg/dL Creatinine (0.52-1.04) mg/dL Estimated GFR ML/MIN Glucose (74-106) mg/dL Calcium (8.4-10.2) mg/dL Total Bilirubin (0.2-1.3) mg/dL AST (14-36) U/L ALT (0-35) U/L Alkaline Phosphatase (38-126) U/L Troponin I (0.000-0.034) ng/mL Serum Total Protein (6.3-8.2) g/dL Albumin (3.5-5.0) g/dL Urine Color STRAW (YELLOW) Urine Appearance CLEAR (CLEAR) Urine pH 5.0 (5-6) Ur Specific [place] 1.012 (1.005-1.025) Urine Protein NEGATIVE (Negative) Urine Ketones NEGATIVE (NEGATIVE) Urine Blood NEGATIVE (0-5) Best/ul Urine Nitrite NEGATIVE (NEGATIVE) Urine Bilirubin NEGATIVE (NEGATIVE) Urine Urobilinogen NEGATIVE (0-1) mg/dL Ur Leukocyte Esterase NEGATIVE (NEGATIVE) Urine WBC (Auto) 0-2 (0-5) /HPF Urine RBC (Auto) NONE (0-2) /HPF U Epithel Cells (Auto) RARE (FEW) /HPF Urine Bacteria (Auto) NONE (NEGATIVE) /HPF Urine Culture Reflexed NO (NO) Urine Glucose >=500 (NEGATIVE) mg/dL - Progress Progress: improved, re-examined Progress Note: 09/03/20 22:29 CAT scan of the head without contrast is negative for any acute intracranial abnormality. Counseled pt/family regarding: lab results, diagnosis, need for follow-up, rad results - Departure Departure Disposition: Home Clinical Impression: Dizziness Condition: Stable Critical Care Time: No Referrals: MARILU GEIGER [Primary Care Provider] - Additional Instructions: Hold any sedating medication such as medication for insomnia or pain medication for 24 hours. Call your primary care doctor tomorrow on 09/04/2020 to make arrangements for follow-up appointment.
[2020-09-03] MEDS ORDERED: Sodium Chloride 0.9% 1000 ML 1,000 ML IV SCH (21:00)
[2020-09-03] MEDS ORDERED: Sodium Chloride 0.9% 1000 ML 1,000 ML ONE (21:20)
[2020-09-03 21:21] LABS: Absolute Neutrophil Ct (ANC) 5.19 (1.4-6.9); BASOPHIL % 0.1 % (0.0-0.4); Basophil (Absolute #) 0.01 (0-0.4); Eosinophil % 2.7 % (0.00-5.0); Eosinophil (Absolute #) 0.22 (0-0.5); Hematocrit 46.6 % (35-47); Hemoglobin 14.3 gm/dl (12.0-16.0); Lymphocyte (Absolute #) 2.14 (1.0-4.6); Lymphocytes % 26.4 % (24.0-44.0); Mean Cell Volume 90.7 fl (78-100); Mean Corpuscular Hemoglobin 27.8 pg (26-32); Mean Corpuscular Hgb Concent. 30.7 g/dl (32-36); Mean Platelet Volume 10.9 fl (7.5-11.0); Monocyte (Absolute #) 0.55 (0.0-1.3); Monocytes % 6.8 % (0.0-12.0); Platelet Count 225 K/mm3 (150-450); Red Blood Count 5.14 M/mm3 (4.1-5.4); Red Cell Distribution Width 15.1 % (11.5-14.0); White Blood Count 8.1 K/mm3 (4.0-10.5)
[2020-09-03 21:31] LABS: ALBUMIN 4.3 g/dL (3.5-5.0); ALKALINE PHOSPHATASE 128 U/L (38-126); ANION GAP 14.9 MEQ/L (5-15); BLOOD UREA NITROGEN 16 mg/dL (7-17); CHLORIDE 103 mmol/L (98-107); Calcium 8.8 mg/dL (8.4-10.2); Carbon Dioxide 23 mmol/L (22-30); EST GLOMERULAR FILTRATION RATE > 60.0 ML/MIN; Glucose 125 mg/dL (74-106); Potassium 3.8 mmol/L (3.5-5.1); SGOT/AST 21 U/L (14-36); SGPT/ALT 19 U/L (0-35); SODIUM 137 mmol/L (137-145); Total Protein 7.2 g/dL (6.3-8.2)
[2020-09-03 22:38] LABS: Appearance CLEAR (CLEAR); Bilirubin NEGATIVE (NEGATIVE); Blood NEGATIVE Ery/ul (0-5); Epithelial Cells RARE /HPF (FEW); Glucose >=500 mg/dL (NEGATIVE); Ketones NEGATIVE (NEGATIVE); Leukocyte Esterase NEGATIVE (NEGATIVE); Nitrite NEGATIVE (NEGATIVE); Protein,Urine Dip NEGATIVE (Negative); Specific Gravity 1.012 (1.005-1.025); Urobilinogen NEGATIVE mg/dL (0-1); WBC 0-2 /HPF (0-5)
[2020-09-03 22:56] VITALS: BP 98/72; PULSE 74; O2SAT 94
[2020-09-04 02:46] LABS: Slide Review 1 YES
--- NOTE | 2020-09-04 08:47 | XRAY ---
Indication: Headache and dizziness following fall one week ago. Multiple contiguous axial images obtained through the head without contrast. Comparison: None Normal appearing brain parenchyma, ventricles, and bony calvarium for patient's age. Visualized paranasal sinuses and mastoid air cells are clear. Impression: Normal CT head without contrast exam.
== END 2020-09-03 23:04 | disposition home or self-care (01) ==
LOC: ED 20:47
DX: R42 Dizziness and giddiness (principal); I10 Essential (primary) hypertension; E11.9 Type 2 diabetes mellitus without complications; K50.90 Crohn's disease, unspecified, without complications
CPT/HCPCS: 36000; 36415; 70450; 80053; 81001; 84484; 85025; 93005; 96360; 99284

== ENCOUNTER 2020-09-05 11:57 | Observation (INO) | payer OTHER ==
--- NOTE | 2020-09-05 12:13 | ERPHSYRPT ---
- History of Present Illness Time Seen by Provider: 09/05/20 12:13 Source: patient Exam Limitations: no limitations Physician History: This is a morbidly obese 50-year-old white female with history of migraine, diabetes, hypertension, peripheral neuropathy, anxiety and depression who presents with intermittent dizziness and now headache following a fall approximately 2 weeks ago where she hit her head. Patient was seen on 09/03/2020 in this emergency department by me. We did extensive work-up including a CAT scan of her head which did not show any acute intracranial abnormality. The laboratory results were also nonemergent at that time. Patient had an appointm ent with her primary care physician on 09/04/2020, yesterday. She was given a prescription for an antibiotic and meclizine to help with dizziness symptoms. Her symptoms are no better per her report. Patient called her primary care physician's office and they told her to come to the emergency department or urgent care clinic. Patient denies chest pain. She denies shortness of breath. Her only new complaint is the headache. Timing/Duration: week(s) (Over a week) Quality: aching Head Pain Location: global Severity of Pain-Max: mild Severity of Pain-Current: mild Recent Head Trauma: no recent headache/trauma Modifying Factors: Improves With: other (None) Associated Symptoms: dizziness, No confusion Previous symptoms: same symptoms as today, recently seen, recently treated Allergies/Adverse Reactions: buspirone [From BuSpar] Allergy (Verified 09/05/20 12:25) diphenhydramine HCl [From Benadryl] Allergy (Verified 09/05/20 12:25) guaifenesin [From CodiCLEAR DH] Allergy (Verified 09/05/20 12:25) hydrocodone bitartrate [From CodiCLEAR DH] Allergy (Verified 09/05/20 12:25) hydromorphone HCl [From Dilaudid] Allergy (Verified 09/05/20 12:25) Iodinated Contrast Media [Iodinated Contrast- Oral and IV Dye] Allergy (Verified 09/05/20 12:25) Penicillins Allergy (Verified 09/05/20 12:25) potassium guaiacolsulfonate [From CodiCLEAR DH] Allergy (Verified 09/05/20 12:25) prednisone Allergy (Verified 09/05/20 12:25) melatonin Adverse Reaction (Verified 09/05/20 12:25) Home Medications: PANTOPRAZOLE 40 mg Tablet [Protonix 40MG Tablet] 40 mg PO DAILY 08/25/16 [History] Nitroglycerin 0.4 mg (Ed) [Nitrostat 0.4 MG (ED)] 0.4 mg SL UD 12/01/17 [History] lisinopriL [Lisinopril] 2.5 mg PO BID 12/01/17 [History] Insulin Regular, Human [Humulin R] 200 unit IJ UD 04/22/18 [History] ALPRAZolam 0.5 MG [xanAX 0.5 MG] 0.5 mg PO Q12H PRN PRN 08/31/19 [History] Amlodipine Besylate [Norvasc] 5 mg PO BID 08/31/19 [History] Dapagliflozin Propanediol [Farxiga] 10 mg PO DAILY 12/19/19 [History] Docusate Sodium 100 mg [Colace 100 MG] 100 mg PO DAILY 12/19/19 [History] Ergocalciferol (Vitamin D2) [Vitamin D2] 1 unit PO 2XW 12/19/19 [History] Furosemide 20 mg [Lasix 20 mg] 20 mg PO DAILY 12/19/19 [History] Levothyroxine Sodium [Unithroid] 125 mcg PO DAILY 12/19/19 [History] Dicyclomine HCl 20 mg [Bentyl 20 mg] 20 mg PO DAILY 09/03/20 [History] Duloxetine HCl 60 mg PO DAILY 09/03/20 [History] Ezetimibe 10 mg [Zetia 10 MG] 10 mg PO DAILY PRN 09/03/20 [History] Medroxyprogesterone 2.5 mg [Provera 2.5 MG] 5 mg PO DAILY 09/03/20 [History] Metoprolol Succinate [Toprol Xl] 50 mg PO DAILY 09/03/20 [History] Potassium Chloride 10 Meq Tab* [Klor Con 10 MEQ] 10 meq PO DAILY 09/03/20 [History] Meclizine HCl 25 mg [Antivert 25 mg] 25 mg PO DAILY 09/05/20 [History] Nitrofurantoin Macrocrystal [Nitrofurantoin] 50 mg PO DAILY 09/05/20 [History] Hx Tetanus, Diphtheria Vaccination/Date Given: Yes Hx Influenza Vaccination/Date Given: No Hx Pneumococcal Vaccination/Date Given: No Travel Risk - International Travel Have you traveled outside of the country in past 3 weeks: No - Coronavirus Screening Are you exhibiting any of the following symptoms?: No Close contact with a COVID-19 positive Pt in past 14-21 Days: No - Vaccine Status Have you recieved a Covid-19 vaccination: Yes State Auditor: Moderna - Vaccination Dates Date of 2cond Vaccination (if applicable): 08/02/20 - Review of Systems Constitutional: No Symptoms Eyes: No Symptoms Ears, Nose, & Throat: No Symptoms Respiratory: No Symptoms Cardiac: No Symptoms Abdominal/Gastrointestinal: No Symptoms Genitourinary Symptoms: No Symptoms Musculoskeletal: No Symptoms Skin: No Symptoms Neurological: Dizziness, Headache Psychological: No Symptoms Endocrine: No Symptoms Hematologic/Lymphatic: No Symptoms Immunological/Allergic: No Symptoms All Other Systems: Reviewed and Negative - Past Medical History Pertinent Past Medical History: Yes Neurological History: Migraines, Peripheral Neuropathy ENT History: No Pertinent History Cardiac History: Angina, High Cholesterol, Hypertension Respiratory History: Asthma Endocrine Medical History: Diabetes Type II Musculoskeletal History: Arthritis GI Medical History: Diverticulitis, Hernia, Irritable Bowel, Other History: No Pertinent History Psycho-Social History: Anxiety, Depression Female Reproductive Disorders: No Pertinent History Other Medical History: CHRONIC CONSTIPATION, Chrones Disease - Past Surgical History Past Surgical History: Yes Neuro Surgical History: No Pertinent History Cardiac: No Pertinent History Respiratory: No Pertinent History Gastrointestinal: Exploratory Laparoscopy, Cholecystectomy Genitourinary: No Pertinent History Musculoskeletal: No Pertinent History, Other Female Surgical History: No Pertinent History Other Surgical History: back surgery - Social History Smoking Status: Former smoker Exposure to second hand smoke: No Drug Use: none Patient Lives Alone: Yes - Nursing Vital Signs Nursing Vital Signs: Initial Vital Signs Temperature 98.4 F 09/05/20 12:08 Pulse Rate 86 09/05/20 12:08 Respiratory Rate 20 09/05/20 12:08 Blood Pressure 144/84 09/05/20 12:08 O2 Sat by Pulse Oximetry 96 09/05/20 12:08 Pain Scale Pain Intensity 8 - Physical Exam General Appearance: no apparent distress, alert, anxiety, obese Eye Exam: PERRL/EOMI, eyes nml inspection Ears, Nose, Throat Exam: normal ENT inspection, moist mucous membranes Neck Exam: normal inspection, non-tender, supple, full range of motion Respiratory Exam: normal breath sounds, lungs clear, airway intact, No chest tenderness, No respiratory distress Cardiovascular Exam: regular rate/rhythm, normal heart sounds, normal peripheral pulses Gastrointestinal/Abdominal Exam: soft, normal bowel sounds, No tenderness Back Exam: normal inspection, normal range of motion, No CVA tenderness, No vertebral tenderness Extremity Exam: normal inspection, normal range of motion, pelvis stable Mental Status Exam: alert, oriented x 3, cooperative crossing tender Exam: normal hearing, normal speech, PERRL Coordination/Gait Exam: normal gait, normal cerebellar function Motor/Sensory Exam: no motor deficit, no sensory deficit, no pronator drift Skin Exam: normal color, warm, dry Lymphatic Exam: No adenopathy SpO2 Interpretation: normal O2 Delivery: Room Air - Course Nursing assessment & vital signs reviewed: Yes EKG Interpreted by Me: RATE (84), Sinus Rhythm, NORMAL AXIS, NORMAL INTERVALS, NORMAL QRS, NORMAL ST-T, Other (No acute ischemic changes on today's EKG. No changes when compared to EKG dated 09/03/2020) Ordered Tests: Active Orders 24 hr Category Date Time Status EKG-ER Only STAT Care 09/05/20 12:42 Active IV Insertion STAT Care 09/05/20 12:47 Active HEAD WITHOUT CONTRAST [CT] Stat Exams 09/05/20 12:23 Completed BMP Stat Lab 09/05/20 13:00 Completed CBC W DIFF Stat Lab 09/05/20 13:00 Completed POCT GLUCOSE Stat Lab 09/05/20 12:18 Completed UA W/RFX UR CULTURE Stat Lab 09/05/20 12:26 Completed Transfer Order Routine Transfer 09/05/20 Ordered Lab/Rad Data: Laboratory Result Diagrams 09/05/20 13:00 09/05/20 13:00 Laboratory Results 09/05/20 09/05/20 09/05/20 Range/Units 13:00 13:00 12:26 WBC 7.3 (4.0-10.5) K/mm3 RBC 5.27 (4.1-5.4) M/mm3 Hgb 14.8 (12.0-16.0) gm/dl Hct 47.6 H (35-47) % MCV 90.3 (78-100) fl MCH 28.1 (26-32) pg MCHC 31.1 L (32-36) g/dl RDW 15.1 H (11.5-14.0) % Plt Count 273 (150-450) K/mm3 MPV 10.3 (7.5-11.0) fl Gran % 67.3 H (36.0-66.0) % Eos # (Auto) 0.07 (0-0.5) Absolute Lymphs (auto) 1.82 (1.0-4.6) Absolute Monos (auto) 0.50 (0.0-1.3) Lymphocytes % 24.8 (24.0-44.0) % Monocytes % 6.8 (0.0-12.0) % Eosinophils % 1.0 (0.00-5.0) % Basophils % 0.1 (0.0-0.4) % Absolute Granulocytes 4.94 (1.4-6.9) Basophils # 0.01 (0-0.4) Sodium 140 (137-145) mmol/L Potassium 4.1 (3.5-5.1) mmol/L Chloride 101 (98-107) mmol/L Carbon Dioxide 30 (22-30) mmol/L Anion Gap 13.6 (5-15) MEQ/L BUN 12 (7-17) mg/dL Creatinine 0.88 (0.52-1.04) mg/dL Estimated GFR > 60.0 ML/MIN Glucose 131 H (74-106) mg/dL POC Glucometer (74 to 106) mg/dL Calcium 9.1 (8.4-10.2) mg/dL Urine Color YELLOW (YELLOW) Urine Appearance SLIGHTLY CLOUDY (CLEAR) Urine pH 5.0 (5-6) Ur Specific [place] 1.029 (1.005-1.025) Urine Protein NEGATIVE (Negative) Urine Ketones NEGATIVE (NEGATIVE) Urine Blood NEGATIVE (0-5) Best/ul Urine Nitrite NEGATIVE (NEGATIVE) Urine Bilirubin NEGATIVE (NEGATIVE) Urine Urobilinogen NEGATIVE (0-1) mg/dL Ur Leukocyte Esterase NEGATIVE (NEGATIVE) Urine WBC (Auto) 0-2 (0-5) /HPF Urine RBC (Auto) NONE (0-2) /HPF U Epithel Cells (Auto) RARE (FEW) /HPF Urine Bacteria (Auto) NONE (NEGATIVE) /HPF Urine Mucus (Auto) SLIGHT (NEGATIVE) /HPF Urine Culture Reflexed NO (NO) Urine Glucose >=500 (NEGATIVE) mg/dL 09/05/20 Range/Units 12:18 WBC (4.0-10.5) K/mm3 RBC (4.1-5.4) M/mm3 Hgb (12.0-16.0) gm/dl Hct (35-47) % MCV (78-100) fl MCH (26-32) pg MCHC (32-36) g/dl RDW (11.5-14.0) % Plt Count (150-450) K/mm3 MPV (7.5-11.0) fl Gran % (36.0-66.0) % Eos # (Auto) (0-0.5) Absolute Lymphs (auto) (1.0-4.6) Absolute Monos (auto) (0.0-1.3) Lymphocytes % (24.0-44.0) % Monocytes % (0.0-12.0) % Eosinophils % (0.00-5.0) % Basophils % (0.0-0.4) % Absolute Granulocytes (1.4-6.9) Basophils # (0-0.4) Sodium (137-145) mmol/L Potassium (3.5-5.1) mmol/L Chloride (98-107) mmol/L Carbon Dioxide (22-30) mmol/L Anion Gap (5-15) MEQ/L BUN (7-17) mg/dL Creatinine (0.52-1.04) mg/dL Estimated GFR ML/MIN Glucose (74-106) mg/dL POC Glucometer 153 H (74 to 106) mg/dL Calcium (8.4-10.2) mg/dL Urine Color (YELLOW) Urine Appearance (CLEAR) Urine pH (5-6) Ur Specific [place] (1.005-1.025) Urine Protein (Negative) Urine Ketones (NEGATIVE) Urine Blood (0-5) Best/ul Urine Nitrite (NEGATIVE) Urine Bilirubin (NEGATIVE) Urine Urobilinogen (0-1) mg/dL Ur Leukocyte Esterase (NEGATIVE) Urine WBC (Auto) (0-5) /HPF Urine RBC (Auto) (0-2) /HPF U Epithel Cells (Auto) (FEW) /HPF Urine Bacteria (Auto) (NEGATIVE) /HPF Urine Mucus (Auto) (NEGATIVE) /HPF Urine Culture Reflexed (NO) Urine Glucose (NEGATIVE) mg/dL - Progress Progress: improved, re-examined Progress Note: 09/05/20 13:34 CAT scan of the head without contrast shows no acute intracranial abnormality. 09/05/20 15:33 Medical decision making: This patient has had 2 work-ups in the emergency department which did not yield an emergent cause of her dizziness and headaches. However, the patient did have an episode of near syncope when ambulating to the restroom. I contacted Dr. Soheila Jackman and reviewed the patient history, work-up results from the last 2 visits here in the emergency department and her physical findings as well as the near syncopal episode today. We have decided to place the patient in observation on a monitored bed with fall precautions, low rate intravenous fluid and repeat EKG and basic labs in the morning. Blood Culture(s) Obtained: No Antibiotics given: No Discussed with : Becca Counseled pt/family regarding: lab results, diagnosis, need for follow-up, rad results - Departure Departure Disposition: Observation Clinical Impression: Headache, Dizziness, Near syncope Condition: Stable Critical Care Time: No Referrals: MARILU SAUCEDO [Primary Care Provider] -
--- NOTE | 2020-09-05 12:57 | XRAY ---
Indication: Headache. Multiple contiguous axial images obtained through the head without contrast. Comparison: September 03, 2020. Normal appearing brain parenchyma, ventricles, and bony calvarium for patient's age. Visualized paranasal sinuses and mastoid air cells are clear. Impression: Continued normal CT head without contrast exam.
[2020-09-05 13:23] LABS: Absolute Neutrophil Ct (ANC) 4.94 (1.4-6.9); BASOPHIL % 0.1 % (0.0-0.4); Basophil (Absolute #) 0.01 (0-0.4); Eosinophil (Absolute #) 0.07 (0-0.5); Hematocrit 47.6 % (35-47); Hemoglobin 14.8 gm/dl (12.0-16.0); Lymphocyte (Absolute #) 1.82 (1.0-4.6); Lymphocytes % 24.8 % (24.0-44.0); Mean Cell Volume 90.3 fl (78-100); Mean Corpuscular Hemoglobin 28.1 pg (26-32); Mean Corpuscular Hgb Concent. 31.1 g/dl (32-36); Mean Platelet Volume 10.3 fl (7.5-11.0); Monocytes % 6.8 % (0.0-12.0); Neutrophil % 67.3 % (36.0-66.0); Platelet Count 273 K/mm3 (150-450); Red Blood Count 5.27 M/mm3 (4.1-5.4); Red Cell Distribution Width 15.1 % (11.5-14.0); White Blood Count 7.3 K/mm3 (4.0-10.5)
[2020-09-05 13:25] LABS: Appearance SLIGHTLY CLOUDY (CLEAR); Bilirubin NEGATIVE (NEGATIVE); Blood NEGATIVE Ery/ul (0-5); Epithelial Cells RARE /HPF (FEW); Glucose >=500 mg/dL (NEGATIVE); Ketones NEGATIVE (NEGATIVE); Leukocyte Esterase NEGATIVE (NEGATIVE); Mucus SLIGHT /HPF (NEGATIVE); Nitrite NEGATIVE (NEGATIVE); Protein,Urine Dip NEGATIVE (Negative); Specific Gravity 1.029 (1.005-1.025); Urobilinogen NEGATIVE mg/dL (0-1); WBC 0-2 /HPF (0-5)
[2020-09-05 14:13] LABS: ANION GAP 13.6 MEQ/L (5-15); BLOOD UREA NITROGEN 12 mg/dL (7-17); CHLORIDE 101 mmol/L (98-107); Calcium 9.1 mg/dL (8.4-10.2); Carbon Dioxide 30 mmol/L (22-30); Creatinine 1 0.88 mg/dL (0.52-1.04); EST GLOMERULAR FILTRATION RATE > 60.0 ML/MIN; Glucose 131 mg/dL (74-106); Potassium 4.1 mmol/L (3.5-5.1); SODIUM 140 mmol/L (137-145)
[2020-09-05] MEDS ORDERED: Zofran 4 MG/2 ML VIAL IV ONE (16:46)
[2020-09-05] MEDS ORDERED: MORPHINE SULFATE 4 MG INJ IV ONE (16:46)
[2020-09-05] MEDS ORDERED: Zofran 4 MG/2 ML VIAL ONE (16:49)
[2020-09-05] MEDS ORDERED: MORPHINE SULFATE 4 MG INJ ONE (16:49)
[2020-09-05] MEDS ORDERED: ATARAX 25 MG ONE (17:16)
[2020-09-05] MEDS ORDERED: TORAdol 30 mg Injection ONE (17:16)
[2020-09-05] MEDS ORDERED: TORAdol 30 mg Injection IV ONE (17:17)
[2020-09-05] MEDS ORDERED: ATARAX 25 MG PO ONE (17:17)
[2020-09-05] MEDS ORDERED: Sodium Chloride 0.9% 1000 ML 1,000 ML IV SCH (17:51)
[2020-09-05] MEDS ORDERED: Nitrostat 0.4 MG Tablet SL PRN (19:48)
[2020-09-05] MEDS: TYLENOL 325 MG PO PRN (20:33)
[2020-09-05] MEDS: BENTYL 20 MG PO SCH (22:17)
[2020-09-05] MEDS: NORVASC 5 MG PO SCH (22:18)
[2020-09-05] MEDS: DOXEPIN HCL PO SCH (22:27)
[2020-09-06] MEDS: TYLENOL 325 MG PO PRN ×3 (00:48→21:25)
[2020-09-06] MEDS: TORAdol 30 mg Injection IV PRN ×2 (01:23→21:26)
[2020-09-06] MEDS: Zofran 4 MG/2 ML VIAL IV PRN (02:03)
[2020-09-06] MEDS ORDERED: TYLENOL 325 MG ONE (06:56)
[2020-09-06 06:59] LABS: Absolute Neutrophil Ct (ANC) 3.19 (1.4-6.9); BASOPHIL % 0.2 % (0.0-0.4); Basophil (Absolute #) 0.01 (0-0.4); Eosinophil % 1.5 % (0.00-5.0); Eosinophil (Absolute #) 0.09 (0-0.5); Hematocrit 43.6 % (35-47); Hemoglobin 13.3 gm/dl (12.0-16.0); Lymphocyte (Absolute #) 2.36 (1.0-4.6); Lymphocytes % 38.3 % (24.0-44.0); Mean Corpuscular Hemoglobin 28.1 pg (26-32); Mean Corpuscular Hgb Concent. 30.5 g/dl (32-36); Mean Platelet Volume 10.8 fl (7.5-11.0); Monocyte (Absolute #) 0.51 (0.0-1.3); Monocytes % 8.3 % (0.0-12.0); Neutrophil % 51.7 % (36.0-66.0); Platelet Count 231 K/mm3 (150-450); Red Blood Count 4.74 M/mm3 (4.1-5.4); Red Cell Distribution Width 15.1 % (11.5-14.0); White Blood Count 6.2 K/mm3 (4.0-10.5)
[2020-09-06 07:14] LABS: ALBUMIN 3.5 g/dL (3.5-5.0); ANION GAP 10.6 MEQ/L (5-15); BILIRUBIN,TOTAL 0.5 mg/dL (0.2-1.3); Calcium 7.8 mg/dL (8.4-10.2); Creatinine 1 1.12 mg/dL (0.52-1.04); Potassium 3.6 mmol/L (3.5-5.1); Total Protein 5.9 g/dL (6.3-8.2)
[2020-09-06 07:39] LABS: Slide Review 1 YES
--- NOTE | 2020-09-06 07:45 | XRAY ---
Indication: Short of breath. Pain between shoulder shoulders. Comparison: January 09, 2020. Portable chest again demonstrates normal heart and lungs. Bony thorax intact again with mild degenerative changes. No new/acute findings. Comment: Preliminary interpretation was made by [facility]. No critical discrepancy.
[2020-09-06] MEDS: BENTYL 20 MG PO SCH ×4 (08:19→21:25)
[2020-09-06] MEDS: NORVASC 5 MG PO SCH ×2 (12:38→21:27)
[2020-09-06] MEDS ORDERED: Nitrostat 0.4 MG (ED) SL SCH (13:15)
[2020-09-06] MEDS ORDERED: MEDICATION INTERVENTION MC SCH ×4 (13:45)
[2020-09-06] MEDS ORDERED: Toprol Xl 50 MG PO SCH (14:00)
[2020-09-06] MEDS: Colace 100 MG PO SCH (14:33)
[2020-09-06] MEDS: ANTIVERT 25 MG PO SCH (14:33)
[2020-09-06] MEDS: Klor Con 10 MEQ PO SCH (14:33)
[2020-09-06] MEDS: Zetia 10 MG PO SCH (14:33)
[2020-09-06] MEDS: ESTRACE 1 MG PO SCH (14:34)
[2020-09-06] MEDS: Cymbalta 30 MG Capsule PO SCH (14:34)
[2020-09-06] MEDS: Protonix 40MG Tablet PO SCH (14:34)
[2020-09-06] MEDS: SYNTHROID PO SCH ×2 (14:35)
[2020-09-06] MEDS: HUMULIN R SQ PRN ×3 (14:35→21:25)
--- NOTE | 2020-09-06 15:13 | PCM.HP ---
History of Present Illness - Chief Complaint Chief Complaint: DIZZINESS History of Present Illness: is a 50 year old female pt of Dr. Dawna Cox with morbid obesity, migraine, DM, HTN, peripheral neuropathy, anxiety, and depression who was admitted through the ER with dizziness and weakness. Pt is a somewhat poor historian, but she c/o intermittent dizziness and BOWDEN after a fall 2 weeks ago. She actually was sitting in a chair, choked on tea, and had a syncopal episode and woke up on the floor. Ever since, she has been falling; can't do housework because of it. Falls in the elevator when she takes it to her [address]th floor apartment. Her legs get weak and go out from under her. In ER her CT head was nonacute. Last night she was complaining of pain "between my armpits" so we did a cxr and troponin, both of which were nonacute. - Review of Systems Ears, Nose, & Throat: Hearing Changes (hearing "closes up" and can't hear x 15- 20 min, about QID.) Cardiac: Chest Pain (substernal, pressure, constant, 9/10, since cath 2 yrs ago. 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.), Edema (chronic, LE) Abdominal/Gastrointestinal: Other (intermitt bloating, on a med that helps her bowels.) Genitourinary Symptoms: Dysuria Psychological: Anxiety, Depression, Suicidal Ideations (would take pills; won't do it because of her daughter), No Homicidal Ideations All Other Systems: Reviewed and Negative Medications & Allergies Home Medications: Home Medication List PANTOPRAZOLE 40 mg Tablet [Protonix 40MG Tablet] 40 mg PO DAILY 08/25/16 [History Confirmed 09/05/20] Nitroglycerin 0.4 mg (Ed) [Nitrostat 0.4 MG (ED)] 0.4 mg SL UD 12/01/17 [History Confirmed 09/05/20] Insulin Regular, Human [Humulin R] 200 unit IJ UD 04/22/18 [History Confirmed 09/05/20] Amlodipine Besylate [Norvasc] 5 mg PO BID 08/31/19 [History Confirmed 09/05/20] Docusate Sodium 100 mg [Colace 100 MG] 100 mg PO DAILY 12/19/19 [History Confirmed 09/05/20] Furosemide 20 mg [Lasix 20 mg] 20 mg PO BID 12/19/19 [History Confirmed 09/05/20] Levothyroxine Sodium [Unithroid] 137 mcg PO DAILY 12/19/19 [History Confirmed 09/05/20] Dicyclomine HCl 20 mg [Bentyl 20 mg] 10 mg PO ACHS 09/03/20 [History Confirmed 09/05/20] Duloxetine HCl 60 mg PO DAILY 09/03/20 [History Confirmed 09/05/20] Ezetimibe 10 mg [Zetia 10 MG] 10 mg PO DAILY 09/03/20 [History Confirmed 09/05/20] Metoprolol Succinate [Toprol Xl] 50 mg PO DAILY 09/03/20 [History Confirmed 09/05/20] Potassium Chloride 10 Meq Tab* [Klor Con 10 MEQ] 10 meq PO DAILY 09/03/20 [History Confirmed 09/05/20] Albuterol Sulfate [Albuterol Sulfate Hfa] 8.5 gm IH Q4H PRN PRN 09/05/20 [History Confirmed 09/05/20] Alprazolam [Alprazolam ER] 1 mg PO DAILY 09/05/20 [History Confirmed 09/05/20] Alprazolam [Xanax Xr] 0.5 mg PO DAILY 09/05/20 [History Confirmed 09/05/20] Atorvastatin Calcium [Lipitor 40Mg] 40 mg PO HS 09/05/20 [History Confirmed 09/05/20] Dapagliflozin Propanediol [Farxiga] 10 mg PO DAILY 09/05/20 [History Confirmed 09/05/20] Doxepin HCl 50 mg PO HS 09/05/20 [History Confirmed 09/05/20] Duloxetine HCl [Cymbalta] 60 mg PO DAILY 09/05/20 [History Confirmed 09/05/20] Estradiol [Estrace] 0.5 mg PO DAILY 09/05/20 [History Confirmed 09/05/20] Meclizine HCl 25 mg [Antivert 25 mg] 25 mg PO DAILY 09/05/20 [History Co nfirmed 09/05/20] Nitrofurantoin Macrocrystal [Nitrofurantoin] 50 mg PO DAILY 09/05/20 [History Confirmed 09/05/20] Allergies/Adverse Reactions: Allergies Allergy/AdvReac Type Severity Reaction Status Date / Time buspirone [From BuSpar] Allergy Verified 09/05/20 18:35 diphenhydramine HCl Allergy Verified 09/05/20 18:35 [From Benadryl] guaifenesin Allergy Verified 09/05/20 18:[facility] hydrocodone bitartrate Allergy Verified 09/05/20 18:35 [From [facility]] hydromorphone HCl Allergy Verified 09/05/20 18:35 [From Dilaudid] Iodinated Contrast Media Allergy Verified 09/05/20 18:35 [Iodinated Contrast- Oral and IV Dye] Penicillins Allergy Verified 09/05/20 18:35 potassium guaiacolsulfonate Allergy Verified 09/05/20 18:35 [From [facility]] prednisone Allergy Verified 09/05/20 18:35 melatonin AdvReac Verified 09/05/20 18:35 - Past Medical History Past Medical History: Yes Neurological History: Migraines, Peripheral Neuropathy ENT History: No Pertinent History Cardiac History: Angina, High Cholesterol, Hypertension Respiratory History: Asthma Endocrine Medical History: Diabetes Type II Musculoskelatal History: Arthritis GI Medical History: Diverticulitis, Hernia, Irritable Bowel, Other History: No Pertinent History Pyscho-Social History: Anxiety, Depression Reproductive Disorders: No Pertinent History Comment: CHRONIC CONSTIPATION, Chrones Disease - Female History Hx Last Menstrual Period: August 25, 2020 Are you now?: No - Past Surgical History Past Surgical History: Yes Neuro Surgical History: No Pertinent History Cardiac History: No Pertinent History Respiratory Surgery: No Pertinent History GI Surgical History: Exploratory Laparoscopy, Cholecystectomy Genitourinary Surgical Hx: No Pertinent History Musculskeletal Surgical Hx: No Pertinent History, Other Female Surgical History: No Pertinent History Other Surgical History: back surgery, thyroid removed - Social History Smoking Status: Former smoker Exposure to second hand smoke: No Alcohol: None Drug Use: none - Physical Exam Vital Signs: Vital Signs - 24 hr Temp Pulse Resp BP Pulse Ox 09/06/20 11:50 96.9 F 78 18 98/60 96 09/06/20 07:31 97.2 F 72 18 121/66 94 L 09/06/20 04:30 98.3 F 67 20 86/50 97 09/06/20 00:00 98.2 F 76 20 90/50 97 09/05/20 18:02 97.4 F 72 18 112/64 97 09/05/20 17:18 86 16 115/74 96 09/05/20 16:28 77 18 97 General Appearance: no apparent distress, obese Neurologic Exam: alert, cooperative, finish remover II-XII nml as tested, normal mood/affect, abnormal finish remover II-XII (CN II not tested. CN VIII mildly deficient bilat.), other (pat refl negligible bilat) Eye Exam: eyes nml inspection Ears, Nose, Throat Exam: moist mucous membranes Neck Exam: normal inspection, non-tender, No lymphadenopathy Respiratory Exam: normal breath sounds, lungs clear, No crackles/rales, No rhonchi, No wheezing Cardiovascular Exam: regular rate/rhythm, normal heart sounds, No murmur Gastrointestinal/Abdomen Exam: soft, normal bowel sounds, No tenderness, No distention, No mass, No guarding, No rebound Back Exam: normal inspection, No rash Extremity Exam: normal inspection, No pedal edema, No swelling Skin Exam: normal color, warm, dry, No rash Results - Labs Lab/Micro Results: Lab Results-Last 24 Hours 09/05/20 09/06/20 09/06/20 Range/Units 16:19 01:45 05:33 WBC 6.2 (4.0-10.5) K/mm3 RBC 4.74 (4.1-5.4) M/mm3 Hgb 13.3 (12.0-16.0) gm/dl Hct 43.6 (35-47) % MCV 92.0 (78-100) fl MCH 28.1 (26-32) pg MCHC 30.5 L (32-36) g/dl RDW 15.1 H (11.5-14.0) % Plt Count 231 (150-450) K/mm3 MPV 10.8 (7.5-11.0) fl Gran % 51.7 (36.0-66.0) % Eos # (Auto) 0.09 (0-0.5) Absolute Lymphs (auto) 2.36 (1.0-4.6) Absolute Monos (auto) 0.51 (0.0-1.3) Lymphocytes % 38.3 (24.0-44.0) % Monocytes % 8.3 (0.0-12.0) % Eosinophils % 1.5 (0.00-5.0) % Basophils % 0.2 (0.0-0.4) % Absolute Granulocytes 3.19 (1.4-6.9) Basophils # 0.01 (0-0.4) Sodium (137-145) mmol/L Potassium (3.5-5.1) mmol/L Chloride (98-107) mmol/L Carbon Dioxide (22-30) mmol/L Anion Gap (5-15) MEQ/L BUN (7-17) mg/dL Creatinine (0.52-1.04) mg/dL Estimated GFR ML/MIN Glucose (74-106) mg/dL Calcium (8.4-10.2) mg/dL Total Bilirubin (0.2-1.3) mg/dL AST (14-36) U/L ALT (0-35) U/L Alkaline Phosphatase (38-126) U/L Troponin I < 0.012 (0.000-0.034) ng/mL Serum Total Protein (6.3-8.2) g/dL Albumin (3.5-5.0) g/dL SARS-CoV-2 (PCR) NEGATIVE (NEGATIVE) Slides for Path Review YES 09/06/20 Range/Units 05:33 WBC (4.0-10.5) K/mm3 RBC (4.1-5.4) M/mm3 Hgb (12.0-16.0) gm/dl Hct (35-47) % MCV (78-100) fl MCH (26-32) pg MCHC (32-36) g/dl RDW (11.5-14.0) % Plt Count (150-450) K/mm3 MPV (7.5-11.0) fl Gran % (36.0-66.0) % Eos # (Auto) (0-0.5) Absolute Lymphs (auto) (1.0-4.6) Absolute Monos (auto) (0.0-1.3) Lymphocytes % (24.0-44.0) % Monocytes % (0.0-12.0) % Eosinophils % (0.00-5.0) % Basophils % (0.0-0.4) % Absolute Granulocytes (1.4-6.9) Basophils # (0-0.4) Sodium 134 L (137-145) mmol/L Potassium 3.6 (3.5-5.1) mmol/L Chloride 99 (98-107) mmol/L Carbon Dioxide 28 (22-30) mmol/L Anion Gap 10.6 (5-15) MEQ/L BUN 14 (7-17) mg/dL Creatinine 1.12 H (0.52-1.04) mg/dL Estimated GFR 55.0 ML/MIN Glucose 153 H (74-106) mg/dL Calcium 7.8 L (8.4-10.2) mg/dL Total Bilirubin 0.50 (0.2-1.3) mg/dL AST 22 (14-36) U/L ALT 15 (0-35) U/L Alkaline Phosphatase 99 (38-126) U/L Troponin I (0.000-0.034) ng/mL Serum Total Protein 5.9 L (6.3-8.2) g/dL Albumin 3.5 (3.5-5.0) g/dL SARS-CoV-2 (PCR) (NEGATIVE) Slides for Path Review Accuchecks Date 09/06/20 Date 09/06/20 - Radiology Impressions Radiology Exams & Impressions: Radiology Procedures Category Date Time Status CHEST 1 VIEW (PORTABLE) Stat Exams 09/06/20 01:22 Completed HEAD WITHOUT CONTRAST [CT] Stat Exams 09/05/20 12:23 Completed - Other Procedures and Tests Respiratory Therapy 09/05/20 20:23 BiPap/CPAP ROUTINE Assessment/Plan (1) Syncope Current Visit: Yes Status: Acute Qualifiers: Syncope type: unspecified Qualified Code(s): R55 - Syncope and collapse Assessment & Plan: Would like her to have MRI brain and echo - not avail until Mon. 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
[2020-09-06] MEDS: DOXEPIN HCL PO SCH (21:28)
[2020-09-07] MEDS: BENTYL 20 MG PO SCH ×4 (08:59→20:19)
[2020-09-07] MEDS: HUMULIN R SQ SCH ×3 (08:59→18:23)
[2020-09-07] MEDS ORDERED: NON-FORMULARY ITEM (Dapagliflozin Propanediol [Farxiga] 10 MG) PO SCH (10:00)
[2020-09-07] MEDS ORDERED: NITROFURANTOIN MACROCRYSTAL 50 MG PO SCH (10:00)
[2020-09-07] MEDS ORDERED: NON-FORMULARY ITEM (Estradiol [Estrace] 0.5 MG) PO SCH (10:00)
[2020-09-07] MEDS ORDERED: ALPRAZOLAM 0.5 MG PO SCH (10:00)
[2020-09-07] MEDS ORDERED: NON-FORMULARY ITEM (Duloxetine Hcl [Cymbalta] 60 MG) PO SCH (10:00)
[2020-09-07] MEDS ORDERED: ALPRAZOLAM 1 MG PO SCH (10:00)
[2020-09-07] MEDS: Zetia 10 MG PO SCH (10:25)
[2020-09-07] MEDS: Colace 100 MG PO SCH (10:25)
[2020-09-07] MEDS: Cymbalta 30 MG Capsule PO SCH (10:25)
[2020-09-07] MEDS: Protonix 40MG Tablet PO SCH (10:26)
[2020-09-07] MEDS: ANTIVERT 25 MG PO SCH (10:26)
[2020-09-07] MEDS: TYLENOL 325 MG PO PRN ×3 (10:26→23:52)
[2020-09-07] MEDS: Klor Con 10 MEQ PO SCH (10:26)
[2020-09-07] MEDS: ESTRACE 1 MG PO SCH (10:27)
[2020-09-07] MEDS: Miralax Powder 17GM PACKET PO SCH (10:35)
[2020-09-07] MEDS: SYNTHROID PO SCH ×2 (10:36)
[2020-09-07] MEDS: Toprol-Xl 25MG Tablets PO SCH (12:34)
--- NOTE | 2020-09-07 15:38 | PCM.NOTE ---
Date and Time: 09/07/20 1531 Subjective Assessment: Pt has had BS decreasing in the afternoons - so insulin has been held. Has been taking 17 units at breakfast and lunch and 35 units at dinner. Also, BP have been low, under 100 at times. Last 3 doses of her antihypertensives have been held. Pt tells me she walked to the bathroom last night without any dizziness. Has had no BM since getting here. Still feeling bloated. Still c/o BOWDEN. - Review of Systems Constitutional: No Fever Abdominal/Gastrointestinal: Constipation Objective Exam General Appearance: no apparent distress, obese Neurologic Exam: alert, oriented x 3, cooperative, normal mood/affect Skin Exam: normal color, warm, dry, No rash Eye Exam: eyes nml inspection Ears, Nose, Throat Exam: moist mucous membranes Neck Exam: normal inspection Respiratory Exam: lungs clear, diminished breath sounds (decreased air exchange (fair)) Cardiovascular Exam: regular rate/rhythm, normal heart sounds, No murmur Gastrointestinal/Abdomen Exam: soft, normal bowel sounds, tenderness (generalize d) Extremity Exam: normal inspection, No pedal edema, No swelling Back Exam: normal inspection, No rash OBJECTIVE DATA Vital Signs: Vital Signs - 24 hr Temp Pulse Resp BP Pulse Ox 09/07/20 12:00 96.1 F 73 16 99/50 95 09/07/20 08:00 98.3 F 68 18 105/55 93 L 09/07/20 04:00 97.9 F 65 18 83/52 98 09/07/20 00:00 18 09/06/20 23:39 97.8 F 71 18 109/58 97 09/06/20 20:00 98.4 F 70 20 88/53 95 09/06/20 16:00 98.2 F 82 18 100/67 95 Pain Assessment - Last Documented Pain Intensity 6 Pain Scale Used 0-10 Pain Scale Intake and Output: Intake & Output 09/05/20 09/06/20 09/07/20 09/08/20 11:59 11:59 11:59 11:59 Intake Total 4246 3685 Output Total 1300 1100 1000 Balance 2946 2585 -1000 Weight 124.4 kg 131.7 kg Lab Results: Lab Results-Last 24 Hours 09/06/20 09/07/20 09/07/20 Range/Units 06:51 06:53 11:37 POC Glucometer 199 H 286 H (74 to 106) mg/dL Hemoglobin A1c 7.87 H (4.5-6.0) % Radiology Exams: Radiology Procedures Category Date Time Status CHEST 1 VIEW (PORTABLE) Stat Exams 09/06/20 01:22 Completed Assessment/Plan (1) Syncope Current Visit: Yes Status: Acute Qualifiers: Syncope type: unspecified Qualified Code(s): R55 - Syncope and collapse Assessment & Plan: Could have been a vagal response with subsequent collapse and near-syncope due to low BS and low BP. Ordering echo and MRI brain for tomorrow. Code(s): R55 - SYNCOPE AND COLLAPSE (2) Dizziness Current Visit: Yes Status: Acute Code(s): R42 - DIZZINESS AND GIDDINESS (3) Muscle weakness Current Visit: Yes Status: Acute Assessment & Plan: I have decreased her insulin to 10 units at breakfast and luncha nd 20 units at dinner. Also stopped the norvasc 5mg po BID and decreased her toprol from 50mg po daily to 25mg po daily. 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
[2020-09-07] MEDS: TORAdol 30 mg Injection IV PRN (18:22)
[2020-09-07] MEDS: Zofran 4 MG/2 ML VIAL IV PRN (18:23)
[2020-09-07] MEDS: DOXEPIN HCL PO SCH (20:20)
[2020-09-08] MEDS: HUMULIN R SQ SCH ×3 (08:34→16:31)
[2020-09-08] MEDS: BENTYL 20 MG PO SCH ×4 (08:36→21:55)
[2020-09-08] MEDS: Toprol-Xl 25MG Tablets PO SCH (08:38)
[2020-09-08] MEDS: ANTIVERT 25 MG PO SCH (08:40)
[2020-09-08] MEDS: Colace 100 MG PO SCH (08:42)
[2020-09-08] MEDS: Cymbalta 30 MG Capsule PO SCH (08:43)
[2020-09-08] MEDS: ESTRACE 1 MG PO SCH (08:46)
[2020-09-08] MEDS: Klor Con 10 MEQ PO SCH (08:47)
[2020-09-08] MEDS: Miralax Powder 17GM PACKET PO SCH (08:47)
[2020-09-08] MEDS: Protonix 40MG Tablet PO SCH (08:50)
[2020-09-08] MEDS: Zetia 10 MG PO SCH (08:51)
[2020-09-08] MEDS: SYNTHROID PO SCH ×2 (08:52)
[2020-09-08] MEDS: NORCO 5/325 MG PO PRN ×2 (13:37→22:07)
[2020-09-08] MEDS: DOXEPIN HCL PO SCH (21:55)
[2020-09-09] MEDS: BENTYL 20 MG PO SCH ×2 (08:04→12:59)
[2020-09-09] MEDS: HUMULIN R SQ SCH ×2 (08:06→13:00)
[2020-09-09] MEDS ORDERED: Cymbalta 30 MG Capsule PO SCH (09:33)
[2020-09-09 11:42] VITALS: O2SAT 97
[2020-09-09] MEDS ORDERED: DELTASONE 20 MG PO ONE (11:50)
[2020-09-09] MEDS: Protonix 40MG Tablet PO SCH (12:03)
[2020-09-09] MEDS: ANTIVERT 25 MG PO SCH (12:03)
[2020-09-09] MEDS: Zetia 10 MG PO SCH (12:04)
[2020-09-09] MEDS: ESTRACE 1 MG PO SCH (12:05)
[2020-09-09] MEDS: Klor Con 10 MEQ PO SCH (12:05)
[2020-09-09] MEDS: Colace 100 MG PO SCH (12:07)
[2020-09-09 12:43] LABS: ALBUMIN 3.7 g/dL (3.5-5.0); ALKALINE PHOSPHATASE 101 U/L (38-126); BLOOD UREA NITROGEN 11 mg/dL (7-17); CHLORIDE 100 mmol/L (98-107); Calcium 8.4 mg/dL (8.4-10.2); Carbon Dioxide 30 mmol/L (22-30); EST GLOMERULAR FILTRATION RATE > 60.0 ML/MIN; Glucose 210 mg/dL (74-106); SGOT/AST 26 U/L (14-36); SGPT/ALT 19 U/L (0-35); SODIUM 137 mmol/L (137-145); Total Protein 6.3 g/dL (6.3-8.2)
[2020-09-09] MEDS ORDERED: BENADRYL 25 MG CAPSULE PO ONE (12:45)
[2020-09-09] MEDS: SYNTHROID PO SCH ×2 (12:59)
[2020-09-09] MEDS: Miralax Powder 17GM PACKET PO SCH (12:59)
--- NOTE | 2020-09-09 15:38 | XRAY ---
Indication: Dizziness. Conventional contrast-enhanced CTA head performed using 80 cc Isovue 370 contrast. Two-dimensional sagittal and coronal reformatted images obtained. Additional 3-dimensional reformatted images obtained using a separate workstation. Comparison: None Distal internal carotid arteries are bilaterally symmetric with minimal scattered arteriosclerotic calcifications involving the parasellar segments without critical stenosis/obstruction. Normal carotid terminus with normal branching A1 and M1 segments. More distal anterior cerebral and middle cerebral arteries are normal in CTA appearance bilaterally. Distal vertebral arteries are bilaterally symmetric. Basilar artery is normal in course and caliber. Normal branching posterior cerebral and superior cerebellar arteries appearing normal in CTA appearance bilaterally. Venous sinuses and systems are unremarkable. Whole brain images are negative for abnormal enhancing intra-or extra-axial mass. Impression: Minimal bilateral internal carotid artery calcifications. Remaining CTA head with contrast exam is negative.
[2020-09-09 16:18] VITALS: BP 134/79; PULSE 75
[2020-09-09] MEDS: NORCO 5/325 MG PO PRN (17:49)
== END 2020-09-09 18:25 ==
LOC: ED 11:57 → MED SURG 17:50
PROVIDERS: ADMIT Family Medicine; ATTEND Family Medicine
DX: R55 Syncope and collapse (principal); R42 Dizziness and giddiness; E11.9 Type 2 diabetes mellitus without complications; I10 Essential (primary) hypertension; R51.9 Headache, unspecified; Z79.899 Other long term (current) drug therapy; E78.00 Pure hypercholesterolemia, unspecified; M62.81 Muscle weakness (generalized); Z20.828 Contact with and (suspected) exposure to other viral communicable diseases; G62.9 Polyneuropathy, unspecified
CPT/HCPCS: 36000; 36415; 70450; 70496; 71045; 80048; 80053; 81001; 82947; 83036; 84484; 85025; 93005; 93268; 93306; 96374; 96375; 97161; 99285; G0378; U0003; J1815; J1885; J2270; J2405; Q3014; A9270-GY

== ENCOUNTER 2020-09-13 00:47 | Emergency (ER) | payer OTHER ==
[2020-09-13 01:24] VITALS: O2SAT 98
[2020-09-13 01:27] LABS: Absolute Neutrophil Ct (ANC) 6.23 (1.4-6.9); BASOPHIL % 0.2 % (0.0-0.4); Basophil (Absolute #) 0.02 (0-0.4); Eosinophil % 0.5 % (0.00-5.0); Eosinophil (Absolute #) 0.05 (0-0.5); Hemoglobin 14.8 gm/dl (12.0-16.0); Lymphocyte (Absolute #) 2.77 (1.0-4.6); Lymphocytes % 28.1 % (24.0-44.0); Mean Cell Volume 89.7 fl (78-100); Mean Corpuscular Hemoglobin 27.7 pg (26-32); Mean Corpuscular Hgb Concent. 30.8 g/dl (32-36); Mean Platelet Volume 10.5 fl (7.5-11.0); Monocyte (Absolute #) 0.79 (0.0-1.3); Neutrophil % 63.2 % (36.0-66.0); Platelet Count 252 K/mm3 (150-450); Red Blood Count 5.35 M/mm3 (4.1-5.4); Red Cell Distribution Width 15.5 % (11.5-14.0); White Blood Count 9.9 K/mm3 (4.0-10.5)
[2020-09-13] MEDS ORDERED: Sodium Chloride 0.9% 1000 ML 1,000 ML IV SCH (01:30)
[2020-09-13] MEDS ORDERED: D50W 50 ml Abboject IV ONE ×2 (01:32→01:33)
[2020-09-13] MEDS ORDERED: Sodium Chloride 0.9% 1000 ML 1,000 ML ONE (01:33)
[2020-09-13 01:40] LABS: ALBUMIN 4.5 g/dL (3.5-5.0); ALKALINE PHOSPHATASE 111 U/L (38-126); BLOOD UREA NITROGEN 11 mg/dL (7-17); CHLORIDE 101 mmol/L (98-107); Calcium 9.1 mg/dL (8.4-10.2); Carbon Dioxide 28 mmol/L (22-30); Creatinine 1 0.78 mg/dL (0.52-1.04); EST GLOMERULAR FILTRATION RATE > 60.0 ML/MIN; Glucose 59 mg/dL (74-106); Potassium 4.3 mmol/L (3.5-5.1); SGOT/AST 32 U/L (14-36); SGPT/ALT 20 U/L (0-35); SODIUM 138 mmol/L (137-145); Total Protein 7.6 g/dL (6.3-8.2)
--- NOTE | 2020-09-13 02:19 | ERPHSYRPT ---
- History of Present Illness Time Seen by Provider: 09/13/20 00:55 Source: patient Exam Limitations: no limitations Patient Subjective Stated Complaint: "I keep having these spells where my body shuts down." Triage Nursing Assessment: patient reported being admitted to the hospital on 09/05/20 for syncopal episodes, dizziness, and "mini-strokes." She reports having spells at home where "my body just shuts down." she describes blacking out and being unresponsive despite peole trying to stimulate her. reported having a frontal headache that radiates to the occiput and described as a throbbing pressure. Associated symptoms of nausea without vomiting, dizziness (history of vertigo), and difficulty walking. Denied chest pain or shortness of breath. pupils 3mm bilateral with brisk direct and consenual reaction to light. symmetrical facial expressions. No noted focal neurological deficits. No noted pronator drift. Heart tones S1/S2 tachycardic with regular rhythm. lungs vesicular throughout all lung danielle A/P with adequate airflow. Abdomen obese non-distended. Peripheral pulses +3 bilateral. No noted dependent edema. Physician History: Patient has been seen and admitted for what are believed to be syncopal e pisodes. She has had an extensive work-up including CT of the head with and without contrast she was told by home health that she might be having mini strokes. She presents tonight with weakness in the legs and further episodes of shutting down. Witnessed: by family Prior Episodes: multiple episodes today Timing/Duration: intermittent Precipitating Factors: none Loss of Consciousness: brief (seconds) Charcter of event(s): collapsed, became unresponsive, felt faint Allergies/Adverse Reactions: buspirone [From BuSpar] Allergy (Verified 09/13/20 00:54) guaifenesin [From ImagryiCLEAR DH] Allergy (Verified 09/13/20 00:54) hydrocodone bitartrate [From eLamaAR ] Allergy (Verified 09/13/20 00:54) hydromorphone HCl [From Dilaudid] Allergy (Verified 09/13/20 00:54) Iodinated Contrast Media [Iodinated Contrast- Oral and IV Dye] Allergy (Verified 09/13/20 00:54) Penicillins Allergy (Verified 09/13/20 00:54) potassium guaiacolsulfonate [From Jessy ] Allergy (Verified 09/13/20 00:54) melatonin Adverse Reaction (Verified 09/13/20 00:54) Home Medications: PANTOPRAZOLE 40 mg Tablet [Protonix 40MG Tablet] 40 mg PO DAILY 08/25/16 [History] Nitroglycerin 0.4 mg (Ed) [Nitrostat 0.4 MG (ED)] 0.4 mg SL UD 12/01/17 [History] Docusate Sodium 100 mg [Colace 100 MG] 100 mg PO DAILY 12/19/19 [History] Furosemide 20 mg [Lasix 20 mg] 20 mg PO BID 12/19/19 [History] Levothyroxine Sodium [Unithroid] 137 mcg PO DAILY 12/19/19 [History] Dicyclomine HCl 20 mg [Bentyl 20 mg] 10 mg PO ACHS 09/03/20 [History] Ezetimibe 10 mg [Zetia 10 MG] 10 mg PO DAILY 09/03/20 [History] Potassium Chloride 10 Meq Tab* [Klor Con 10 MEQ] 10 meq PO DAILY 09/03/20 [History] Albuterol Sulfate [Albuterol Sulfate Hfa] 8.5 gm IH Q4H PRN PRN 09/05/20 [History] Alprazolam [Alprazolam ER] 1 mg PO DAILY 09/05/20 [History] Alprazolam [Xanax Xr] 0.5 mg PO DAILY 09/05/20 [History] Atorvastatin Calcium [Lipitor 40Mg] 40 mg PO HS 09/05/20 [History] Dapagliflozin Propanediol [Farxiga] 10 mg PO DAILY 09/05/20 [History] Doxepin HCl 50 mg PO HS 09/05/20 [History] Estradiol [Estrace] 0.5 mg PO DAILY 09/05/20 [History] Meclizine HCl 25 mg [Antivert 25 mg] 25 mg PO DAILY 09/05/20 [History] Nitrofurantoin Macrocrystal [Nitrofurantoin] 50 mg PO DAILY 09/05/20 [History] Insulin Lispro [Humalog] 0 unit SQ UD 09/06/20 [History] Hx Tetanus, Diphtheria Vaccination/Date Given: Yes Hx Influenza Vaccination/Date Given: No Hx Pneumococcal Vaccination/Date Given: No Travel Risk - International Travel Have you traveled outside of the country in past 3 weeks: No If Yes, where;: N - Coronavirus Screening Are you exhibiting any of the following symptoms?: No Close contact with a COVID-19 positive Pt in past 14-21 Days: No - Vaccine Status Have you recieved a Covid-19 vaccination: Yes Collections Professional: Moderna - Vaccination Dates Date of 2cond Vaccination (if applicable): na - Past Medical History Pertinent Past Medical History: Yes Neurological History: Migraines, Peripheral Neuropathy ENT History: No Pertinent History Cardiac History: Angina, High Cholesterol, Hypertension Respiratory History: Asthma Endocrine Medical History: Diabetes Type II Musculoskeletal History: Arthritis GI Medical History: Diverticulitis, Hernia, Irritable Bowel, Other History: No Pertinent History Psycho-Social History: Anxiety, Depression Female Reproductive Disorders: No Pertinent History Other Medical History: CHRONIC CONSTIPATION, Chrones Disease - Past Surgical History Past Surgical History: Yes Neuro Surgical History: No Pertinent History Cardiac: No Pertinent History Respiratory: No Pertinent History Gastrointestinal: Exploratory Laparoscopy, Cholecystectomy Genitourinary: No Pertinent History Musculoskeletal: No Pertinent History, Other Female Surgical History: No Pertinent History Other Surgical History: back surgery, thyroid removed - Social History Smoking Status: Former smoker Exposure to second hand smoke: No Drug Use: none Patient Lives Alone: No - Female History Hx Now: No - Review of Systems Constitutional: No Fever, No Chills Eyes: No Symptoms Ears, Nose, & Throat: No Symptoms Respiratory: No Cough, No Dyspnea Cardiac: Syncope, No Chest Pain, No Edema Abdominal/Gastrointestinal: No Abdominal Pain, No Nausea, No Vomiting, No Diarrhea Genitourinary Symptoms: No Dysuria Musculoskeletal: No Back Pain, No Neck Pain Skin: No Rash Neurological: Vertigo, No Dizziness, No Focal Weakness, No Sensory Changes Psychological: No Symptoms Endocrine: No Symptoms All Other Systems: Reviewed and Negative Physical Exam - Nursing Vital Signs Nursing Vital Signs: Initial Vital Signs Temperature 98.2 F 09/13/20 00:48 Pulse Rate 109 H 09/13/20 00:48 Respiratory Rate 18 09/13/20 00:48 Blood Pressure 139/91 09/13/20 00:48 O2 Sat by Pulse Oximetry 98 09/13/20 00:48 Pain Scale Pain Intensity 8 - [place] Coma Scale Best Eye Response ([place]): (4) open spontaneously Best Verbal Response ([place]): (5) oriented Best Motor Response ([place]): (6) obeys commands [place] Total: 15 - Physical Exam General Appearance: no apparent distress, alert Eye Exam: bilateral eye: PERRL, EOMI Ears, Nose, Throat Exam: normal ENT inspection, pharynx normal, moist mucous membranes Neck Exam: normal inspection, non-tender, supple, full range of motion Respiratory: normal breath sounds, lungs clear, No chest tenderness, No respiratory distress Cardiovascular: regular rate/rhythm, capillary refill <2 sec, No murmur, No pulse deficit Gastrointestinal: soft, No tenderness, No distention, No mass Back Exam: normal inspection, normal range of motion, No CVA tenderness, No vertebral tenderness Extremity Exam: normal inspection, normal range of motion, pelvis stable, other (Lower legs question effort), No tenderness Mental Status: alert, oriented x 3, 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 Exam: normal speech, PERRL, No facial droop Coordination/Gait: normal finger to nose Motor/Sensory: no motor deficit, no sensory deficit, no pronator drift Skin Exam: normal color, warm, dry, No rash SpO2: 98 - Course Nursing assessment & vital signs reviewed: Yes EKG Interpreted by Me: RATE (102), Sinus Tach, NORMAL AXIS, Non-specific ST Changes, Other (pvc's) Ordered Tests: Active Orders 24 hr Category Date Time Status EKG-ER Only STAT Care 09/13/20 01:17 Active IV Insertion STAT Care 09/13/20 01:17 Active NPO (ED) STAT Care 09/13/20 01:17 Active CBC W DIFF Stat Lab 09/13/20 01:24 Completed CMP Stat Lab 09/13/20 01:24 Completed Lactic Acid Stat Lab 09/13/20 01:35 Completed POCT GLUCOSE Stat Lab 09/13/20 00:53 Completed POCT GLUCOSE Stat Lab 09/13/20 02:18 Received TROPONIN Q3H Lab 09/13/20 01:28 Completed TROPONIN Q3H Lab 09/13/20 04:30 Ordered TROPONIN Q3H Lab 09/13/20 07:30 Ordered TROPONIN Q3H Lab 09/13/20 10:30 Ordered TROPONIN Q3H Lab 09/13/20 13:30 Ordered UA W/RFX UR CULTURE Stat Lab 09/13/20 01:17 Ordered Medication Summary Generic Name Dose Route Start Last Admin Trade Name Fabby PRN Reason Stop Dose Admin Sodium Chloride 1,000 mls @ 100 mls/hr 09/13/20 01:30 09/13/20 01:34 Sodium Chloride 0.9% 1000 Ml IV 10/13/20 01:29 100 mls/hr .Q10H NIRAV Administration Discontinued Medications Generic Name Dose Route Start Last Admin Trade Name Fabby PRN Reason Stop Dose Admin Dextrose 50 ml 09/13/20 01:32 09/13/20 01:35 D50w 50 Ml Abboject IV 09/13/20 01:33 50 ml STAT ONE Administration Dextrose Confirm 09/13/20 01:33 D50w 50 Ml Abboject Administered 09/13/20 01:34 Dose 50 ml IV .STK-MED ONE Lab/Rad Data: Laboratory Result Diagrams 09/13/20 01:24 09/13/20 01:24 Laboratory Results 09/13/20 09/13/20 09/13/20 Range/Units 01:35 01:28 01:24 WBC (4.0-10.5) K/mm3 RBC (4.1-5.4) M/mm3 Hgb (12.0-16.0) gm/dl Hct (35-47) % MCV (78-100) fl MCH (26-32) pg MCHC (32-36) g/dl RDW (11.5-14.0) % Plt Count (150-450) K/mm3 MPV (7.5-11.0) fl Gran % (36.0-66.0) % Eos # (Auto) (0-0.5) Absolute Lymphs (auto) (1.0-4.6) Absolute Monos (auto) (0.0-1.3) Lymphocytes % (24.0-44.0) % Monocytes % (0.0-12.0) % Eosinophils % (0.00-5.0) % Basophils % (0.0-0.4) % Absolute Granulocytes (1.4-6.9) Basophils # (0-0.4) Sodium 138 (137-145) mmol/L Potassium 4.3 (3.5-5.1) mmol/L Chloride 101 (98-107) mmol/L Carbon Dioxide 28 (22-30) mmol/L Anion Gap 13.0 (5-15) MEQ/L BUN 11 (7-17) mg/dL Creatinine 0.78 (0.52-1.04) mg/dL Estimated GFR > 60.0 ML/MIN Glucose 59 L (74-106) mg/dL POC Glucometer (74 to 106) mg/dL Lactic Acid 1.8 (0.4-2.0) Calcium 9.1 (8.4-10.2) mg/dL Total Bilirubin 0.80 (0.2-1.3) mg/dL AST 32 (14-36) U/L ALT 20 (0-35) U/L Alkaline Phosphatase 111 (38-126) U/L Troponin I < 0.012 (0.000-0.034) ng/mL Serum Total Protein 7.6 (6.3-8.2) g/dL Albumin 4.5 (3.5-5.0) g/dL 09/13/20 09/13/20 Range/Units 01:24 00:53 WBC 9.9 (4.0-10.5) K/mm3 RBC 5.35 (4.1-5.4) M/mm3 Hgb 14.8 (12.0-16.0) gm/dl Hct 48.0 H (35-47) % MCV 89.7 (78-100) fl MCH 27.7 (26-32) pg MCHC 30.8 L (32-36) g/dl RDW 15.5 H (11.5-14.0) % Plt Count 252 (150-450) K/mm3 MPV 10.5 (7.5-11.0) fl Gran % 63.2 (36.0-66.0) % Eos # (Auto) 0.05 (0-0.5) Absolute Lymphs (auto) 2.77 (1.0-4.6) Absolute Monos (auto) 0.79 (0.0-1.3) Lymphocytes % 28.1 (24.0-44.0) % Monocytes % 8.0 (0.0-12.0) % Eosinophils % 0.5 (0.00-5.0) % Basophils % 0.2 (0.0-0.4) % Absolute Granulocytes 6.23 (1.4-6.9) Basophils # 0.02 (0-0.4) Sodium (137-145) mmol/L Potassium (3.5-5.1) mmol/L Chloride (98-107) mmol/L Carbon Dioxide (22-30) mmol/L Anion Gap (5-15) MEQ/L BUN (7-17) mg/dL Creatinine (0.52-1.04) mg/dL Estimated GFR ML/MIN Glucose (74-106) mg/dL POC Glucometer 58 L (74 to 106) mg/dL Lactic Acid (0.4-2.0) Calcium (8.4-10.2) mg/dL Total Bilirubin (0.2-1.3) mg/dL AST (14-36) U/L ALT (0-35) U/L Alkaline Phosphatase (38-126) U/L Troponin I (0.000-0.034) ng/mL Serum Total Protein (6.3-8.2) g/dL Albumin (3.5-5.0) g/dL - Progress Progress: improved - Departure Departure Disposition: Home Clinical Impression: Syncope Condition: Stable Critical Care Time: No Referrals: MARILU SAUCEDO [Primary Care Provider] - Instructions: Syncope (Fainting) (DC)
[2020-09-13 02:52] VITALS: BP 130/76; PULSE 80
== END 2020-09-13 02:45 | disposition home or self-care (01) ==
LOC: ED 00:47
DX: R55 Syncope and collapse (principal); Z79.899 Other long term (current) drug therapy; E78.00 Pure hypercholesterolemia, unspecified; I10 Essential (primary) hypertension; E11.9 Type 2 diabetes mellitus without complications
CPT/HCPCS: 36000; 36415; 80053; 82947; 83605; 84484; 85025; 93005; 96374; 99284

== ENCOUNTER 2020-09-24 22:55 | Emergency (ER) | payer OTHER ==
[2020-09-25] MEDS ORDERED: Sodium Chloride 0.9% 1000 ML 1,000 ML IV STA (00:53)
[2020-09-25 01:31] LABS: Absolute Neutrophil Ct (ANC) 6.87 (1.4-6.9); BASOPHIL % 0.1 % (0.0-0.4); Basophil (Absolute #) 0.01 (0-0.4); Eosinophil % 0.9 % (0.00-5.0); Eosinophil (Absolute #) 0.09 (0-0.5); Hematocrit 46.2 % (35-47); Hemoglobin 13.9 gm/dl (12.0-16.0); Lymphocyte (Absolute #) 2.28 (1.0-4.6); Mean Cell Volume 92.2 fl (78-100); Mean Corpuscular Hemoglobin 27.7 pg (26-32); Mean Corpuscular Hgb Concent. 30.1 g/dl (32-36); Mean Platelet Volume 11.4 fl (7.5-11.0); Monocyte (Absolute #) 0.68 (0.0-1.3); Monocytes % 6.8 % (0.0-12.0); Neutrophil % 69.2 % (36.0-66.0); Platelet Count 210 K/mm3 (150-450); Red Blood Count 5.01 M/mm3 (4.1-5.4); Red Cell Distribution Width 15.5 % (11.5-14.0); White Blood Count 9.9 K/mm3 (4.0-10.5)
[2020-09-25 01:45] LABS: ALBUMIN 3.8 g/dL (3.5-5.0); ALKALINE PHOSPHATASE 125 U/L (38-126); ANION GAP 16.4 MEQ/L (5-15); BLOOD UREA NITROGEN 12 mg/dL (7-17); CHLORIDE 101 mmol/L (98-107); Calcium 8.7 mg/dL (8.4-10.2); Carbon Dioxide 24 mmol/L (22-30); Creatinine 1 1.01 mg/dL (0.52-1.04); EST GLOMERULAR FILTRATION RATE > 60.0 ML/MIN; Glucose 301 mg/dL (74-106); LIPASE 105 U/L (23-300); SGOT/AST 26 U/L (14-36); SGPT/ALT 17 U/L (0-35); SODIUM 138 mmol/L (137-145); Total Protein 6.4 g/dL (6.3-8.2)
--- NOTE | 2020-09-25 02:46 | ERPHSYRPT ---
- History of Present Illness Time Seen by Provider: 09/24/20 23:40 Exam Limitations: no limitations Patient Subjective Stated Complaint: The patient states that she constantly has abdominal pain and saw Kary Geiger yesterday and her meds (the patient is unsure which) was adjusted. The patient states that her pain is worse and is becoming unbearable. The pain is across the top of the abdomen and radiates to the right flank. Triage Nursing Assessment: The patient is alert and oriented, ambulatory. The patient's abdomen is obese, firm and distended. Bowel sounds are present and slightly hypoactive. The patient also reports diarrhea stools and brought in a partially dissolved tablet that she recovered from the toilet. Physician History: Patient is a 50-year-old female presents to our ED with complaints of constant epigastric abdominal pain. Pain has been ongoing for the past couple days. Patient saw Kary Geiger today for the pain. Patient states repair got worse. Pain is primarily in the epigastrium radiates to her right flank. Pain is associated with diarrhea. Patient states that she ingested her normal pain medications and today she had a stool and observed her potassium pill in her stool. No trauma. No fever. No nausea or vomiting. Symptoms are mild to moderate in intensity. No specific worsening improving factors. Patient voices no other complaints or concerns at this time. Timing/Duration: day(s) Activities at Onset: none Quality: aching Abdominal Pain Onset Location: epigastric, flank Pain Radiation: no radiation Severity of Pain-Max: moderate Severity of Pain-Current: mild Modifying Factors: Improves With: nothing Associated Symptoms: diarrhea Previous symptoms: no prior history Allergies/Adverse Reactions: buspirone [From [employer]] Allergy (Verified 09/13/20 00:54) guaifenesin [From [employer]] Allergy (Verified 09/13/20 00:54) hydrocodone bitartrate [From [employer]] Allergy (Verified 09/13/20 00:54) hydromorphone HCl [From Dilaudid] Allergy (Verified 09/13/20 00:54) Iodinated Contrast Media [Iodinated Contrast- Oral and IV Dye] Allergy (Verified 09/13/20 00:54) Penicillins Allergy (Verified 09/13/20 00:54) potassium guaiacolsulfonate [From [employer]] Allergy (Verified 09/13/20 00:54) morphine Adverse Reaction (Unknown, Verified 09/24/20 23:37) Rash melatonin Adverse Reaction (Verified 09/13/20 00:54) Home Medications: PANTOPRAZOLE 40 mg Tablet [Protonix 40MG Tablet] 40 mg PO DAILY 08/25/16 [History] Nitroglycerin 0.4 mg (Ed) [Nitrostat 0.4 MG (ED)] 0.4 mg SL UD 12/01/17 [History] Docusate Sodium 100 mg [Colace 100 MG] 100 mg PO DAILY 12/19/19 [History] Furosemide 20 mg [Lasix 20 mg] 40 mg PO BID 12/19/19 [History] Levothyroxine Sodium [Unithroid] 125 mcg PO DAILY 12/19/19 [History] Dicyclomine HCl 20 mg [Bentyl 20 mg] 10 mg PO ACHS 09/03/20 [History] Ezetimibe 10 mg [Zetia 10 MG] 10 mg PO DAILY 09/03/20 [History] Potassium Chloride 10 Meq Tab* [Klor Con 10 MEQ] 10 meq PO DAILY 09/03/20 [History] Albuterol Sulfate [Albuterol Sulfate Hfa] 8.5 gm IH Q4H PRN PRN 09/05/20 [History] Alprazolam [Alprazolam ER] 1 mg PO DAILY 09/05/20 [History] Alprazolam [Xanax Xr] 0.5 mg PO DAILY 09/05/20 [History] Atorvastatin Calcium [Lipitor 40Mg] 40 mg PO HS 09/05/20 [History] Dapagliflozin Propanediol [Farxiga] 10 mg PO DAILY 09/05/20 [History] Doxepin HCl 25 mg PO HS 09/05/20 [History] Estradiol [Estrace] 0.5 mg PO DAILY 09/05/20 [History] Meclizine HCl 25 mg [Antivert 25 mg] 25 mg PO DAILY 09/05/20 [History] Nitrofurantoin Macrocrystal [Nitrofurantoin] 50 mg PO DAILY 09/05/20 [History] Insulin Lispro [Humalog] 0 unit SQ UD 09/06/20 [History] Hydrocodone/Acetaminophen [Hydrocodone-Acetamin 5-325 mg] 5 mg PO Q6HPRN PRN MDD 4 09/24/20 [History] Hx Tetanus, Diphtheria Vaccination/Date Given: Yes Hx Influenza Vaccination/Date Given: Yes (fall 2019) Hx Pneumococcal Vaccination/Date Given: Yes (about 3 years ago) Immunizations Up to Date: Yes Travel Risk - International Travel Have you traveled outside of the country in past 3 weeks: No - Coronavirus Screening Are you exhibiting any of the following symptoms?: No Close contact with a COVID-19 positive Pt in past 14-21 Days: No - Vaccine Status Have you recieved a Covid-19 vaccination: Yes [employer]: [email or web address] - Vaccination Dates Date of 2cond Vaccination (if applicable): 08/02/20 - Review of Systems Constitutional: No Symptoms, No Fever, No Chills Eyes: No Symptoms Ears, Nose, & Throat: No Symptoms Respiratory: No Symptoms, No Cough, No Dyspnea Cardiac: No Symptoms, No Chest Pain, No Edema, No Syncope Abdominal/Gastrointestinal: Other (Hypoactive bowel sounds.), No Abdominal Pain, No Nausea, No Vomiting, No Diarrhea Genitourinary Symptoms: No Dysuria Musculoskeletal: No Back Pain, No Neck Pain Skin: No Rash Neurological: No Dizziness, No Focal Weakness, No Sensory Changes Psychological: No Symptoms Endocrine: No Symptoms Hematologic/Lymphatic: No Symptoms Immunological/Allergic: No Symptoms All Other Systems: Reviewed and Negative - Past Medical History Pertinent Past Medical History: Yes Neurological History: Migraines, Peripheral Neuropathy ENT History: No Pertinent History Cardiac History: Angina, High Cholesterol Respiratory History: Asthma Endocrine Medical History: Diabetes Type II Musculoskeletal History: Arthritis GI Medical History: Diverticulitis, Hernia, Irritable Bowel, Other History: No Pertinent History Psycho-Social History: Anxiety, Depression Female Reproductive Disorders: No Pertinent History Other Medical History: CHRONIC CONSTIPATION, Crohn's Disease - Past Surgical History Past Surgical History: Yes Neuro Surgical History: No Pertinent History Cardiac: No Pertinent History Respiratory: No Pertinent History Gastrointestinal: Exploratory Laparoscopy, Cholecystectomy Genitourinary: No Pertinent History Musculoskeletal: No Pertinent History, Other Female Surgical History: No Pertinent History Other Surgical History: back surgery, thyroidectomy - Social History Smoking Status: Former smoker Exposure to second hand smoke: No Drug Use: none Patient Lives Alone: No - Female History Hx Now: No - Nursing Vital Signs Nursing Vital Signs: Initial Vital Signs Temperature 96.9 F 09/24/20 23:19 Pulse Rate 104 H 09/24/20 23:19 Respiratory Rate 22 09/24/20 23:19 Blood Pressure 126/92 09/24/20 23:19 O2 Sat by Pulse Oximetry 95 09/24/20 23:19 Pain Scale Pain Intensity 6 - Physical Exam General Appearance: no apparent distress, alert Eye Exam: PERRL/EOMI, eyes nml inspection Ears, Nose, Throat Exam: normal ENT inspection, pharynx normal, moist mucous membranes Neck Exam: normal inspection, non-tender, supple, full range of motion Respiratory Exam: normal breath sounds, lungs clear, No respiratory distress Cardiovascular Exam: regular rate/rhythm, normal heart sounds Gastrointestinal/Abdomen Exam: soft, other (obese distended abdomen with hypoactive bowel sounds.), No tenderness, No mass Back Exam: normal inspection, normal range of motion, No CVA tenderness, No vertebral tenderness Extremity Exam: normal inspection, normal range of motion, pelvis stable Neurologic Exam: alert, oriented x 3, cooperative, normal mood/affect, nml cerebellar function, sensation nml, No motor deficits Skin Exam: normal color, warm, dry SpO2 Interpretation: normal SpO2: 95 O2 Delivery: Room Air - Course Nursing assessment & vital signs reviewed: Yes Ordered Tests: Active Orders 24 hr Category Date Time Status IV Insertion STAT Care 09/25/20 00:53 Active ABDOMEN AND PELVIS W/0 CONTRAS [CT] Stat Exams 09/25/20 00:54 Taken CBC W DIFF Stat Lab 09/25/20 01:20 Completed CMP Stat Lab 09/25/20 01:20 Completed LIPASE Stat Lab 09/25/20 01:20 Completed TROPONIN Q3H Lab 09/25/20 01:20 Completed TROPONIN Q3H Lab 09/25/20 04:00 Completed TROPONIN Q3H Lab 09/25/20 07:00 Ordered TROPONIN Q3H Lab 09/25/20 10:00 Ordered TROPONIN Q3H Lab 09/25/20 13:00 Ordered UA W/RFX UR CULTURE Stat Lab 09/25/20 04:03 Completed Medication Summary Discontinued Medications Generic Name Dose Route Start Last Admin Trade Name Freq PRN Reason Stop Dose Admin Sodium Chloride 1,000 mls @ 999 mls/hr 09/25/20 00:53 09/25/20 04:56 Sodium Chloride 0.9% 1000 Ml IV 09/25/20 01:53 Infused .Q1H1M STA Infusion Sodium Chloride Confirm 09/25/20 03:29 Sodium Chloride 0.9% 1000 Ml Administered 09/25/20 03:30 Dose 1,000 mls @ .ROUTE .K-MED ONE Lab/Rad Data: Laboratory Result Diagrams 09/25/20 01:20 09/25/20 01:20 Laboratory Results 09/25/20 09/25/20 09/25/20 Range/Units 04:03 04:00 01:20 WBC (4.0-10.5) K/mm3 RBC (4.1-5.4) M/mm3 Hgb (12.0-16.0) gm/dl Hct (35-47) % MCV (78-100) fl MCH (26-32) pg MCHC (32-36) g/dl RDW (11.5-14.0) % Plt Count (150-450) K/mm3 MPV (7.5-11.0) fl Gran % (36.0-66.0) % Eos # (Auto) (0-0.5) Absolute Lymphs (auto) (1.0-4.6) Absolute Monos (auto) (0.0-1.3) Lymphocytes % (24.0-44.0) % Monocytes % (0.0-12.0) % Eosinophils % (0.00-5.0) % Basophils % (0.0-0.4) % Absolute Granulocytes (1.4-6.9) Basophils # (0-0.4) Sodium (137-145) mmol/L Potassium (3.5-5.1) mmol/L Chloride (98-107) mmol/L Carbon Dioxide (22-30) mmol/L Anion Gap (5-15) MEQ/L BUN (7-17) mg/dL Creatinine (0.52-1.04) mg/dL Estimated GFR ML/MIN Glucose (74-106) mg/dL Calcium (8.4-10.2) mg/dL Total Bilirubin (0.2-1.3) mg/dL AST (14-36) U/L ALT (0-35) U/L Alkaline Phosphatase (38-126) U/L Troponin I < 0.012 < 0.012 (0.000-0.034) ng/mL Serum Total Protein (6.3-8.2) g/dL Albumin (3.5-5.0) g/dL Lipase (23-300) U/L Urine Color STRAW (YELLOW) Urine Appearance SLIGHTLY CLOUDY (CLEAR) Urine pH 6.0 (5-6) Ur Specific Center 1.028 (1.005-1.025) Urine Protein NEGATIVE (Negative) Urine Ketones NEGATIVE (NEGATIVE) Urine Blood NEGATIVE (0-5) Best/ul Urine Nitrite NEGATIVE (NEGATIVE) Urine Bilirubin NEGATIVE (NEGATIVE) Urine Urobilinogen NEGATIVE (0-1) mg/dL Ur Leukocyte Esterase TRACE (NEGATIVE) Urine WBC (Auto) 11-15 (0-5) /HPF Urine RBC (Auto) NONE (0-2) /HPF U Epithel Cells (Auto) RARE (FEW) /HPF Urine Bacteria (Auto) RARE (NEGATIVE) /HPF Urine Mucus (Auto) SLIGHT (NEGATIVE) /HPF Urine Culture Reflexed NO (NO) Urine Glucose >=500 (NEGATIVE) mg/dL 09/25/20 09/25/20 Range/Units 01:20 01:20 WBC 9.9 (4.0-10.5) K/mm3 RBC 5.01 (4.1-5.4) M/mm3 Hgb 13.9 (12.0-16.0) gm/dl Hct 46.2 (35-47) % MCV 92.2 (78-100) fl MCH 27.7 (26-32) pg MCHC 30.1 L (32-36) g/dl RDW 15.5 H (11.5-14.0) % Plt Count 210 (150-450) K/mm3 MPV 11.4 H (7.5-11.0) fl Gran % 69.2 H (36.0-66.0) % Eos # (Auto) 0.09 (0-0.5) Absolute Lymphs (auto) 2.28 (1.0-4.6) Absolute Monos (auto) 0.68 (0.0-1.3) Lymphocytes % 23.0 L (24.0-44.0) % Monocytes % 6.8 (0.0-12.0) % Eosinophils % 0.9 (0.00-5.0) % Basophils % 0.1 (0.0-0.4) % Absolute Granulocytes 6.87 (1.4-6.9) Basophils # 0.01 (0-0.4) Sodium 138 (137-145) mmol/L Potassium 4.0 (3.5-5.1) mmol/L Chloride 101 (98-107) mmol/L Carbon Dioxide 24 (22-30) mmol/L Anion Gap 16.4 H (5-15) MEQ/L BUN 12 (7-17) mg/dL Creatinine 1.01 (0.52-1.04) mg/dL Estimated GFR > 60.0 ML/MIN Glucose 301 H (74-106) mg/dL Calcium 8.7 (8.4-10.2) mg/dL Total Bilirubin 0.20 (0.2-1.3) mg/dL AST 26 (14-36) U/L ALT 17 (0-35) U/L Alkaline Phosphatase 125 (38-126) U/L Troponin I (0.000-0.034) ng/mL Serum Total Protein 6.4 (6.3-8.2) g/dL Albumin 3.8 (3.5-5.0) g/dL Lipase 105 (23-300) U/L Urine Color (YELLOW) Urine Appearance (CLEAR) Urine pH (5-6) Ur Specific Center (1.005-1.025) Urine Protein (Negative) Urine Ketones (NEGATIVE) Urine Blood (0-5) Best/ul Urine Nitrite (NEGATIVE) Urine Bilirubin (NEGATIVE) Urine Urobilinogen (0-1) mg/dL Ur Leukocyte Esterase (NEGATIVE) Urine WBC (Auto) (0-5) /HPF Urine RBC (Auto) (0-2) /HPF U Epithel Cells (Auto) (FEW) /HPF Urine Bacteria (Auto) (NEGATIVE) /HPF Urine Mucus (Auto) (NEGATIVE) /HPF Urine Culture Reflexed (NO) Urine Glucose (NEGATIVE) mg/dL - Progress Progress: improved Progress Note: Patient reassessed. She feels well. No active pain. CT negative for acute intra-abdominal pathology. UA negative for UTI. Laboratory work-up essentially nonremarkable. Hyperglycemia. Patient is a diabetic. No DKA. No ketones observed in the urine. Slight anion gap. Will discharge patient home. States that she is ready for discharge. Patient will follow up with her primary care doctor within 48 hours for reevaluation. Patient advised ER physician that she has been experiencing the same symptoms for 5 years and expressed frustration that no one can figure out exactly why she has been experiencing these intermittent bouts of abdominal pain. 09/25/20 05:22 09/25/20 05:23 Counseled pt/family regarding: lab results, diagnosis, rad results - Departure Departure Disposition: Home Clinical Impression: Hyperglycemia, Abdominal pain Condition: Stable Critical Care Time: No Referrals: MARILU GEIGER [Primary Care Provider] - Additional Instructions: Discharge/Care Plan MERARI WOOTEN was seen on 09/25/20 in the Emergency Room. The patient was counseled regarding Diagnosis,Lab results, Imaging studies, need for follow up and when to return to the Emergency Room. Prescriptions given: Discharge Note I have spoken with the patient and/or caregivers. I have explained the patient's condition, diagnosis and treatment plan based on the information available to me at this time. I have answered the patient's and/or caregiver's questions and addressed any concerns. The patient and/or caregivers have as good understanding of the patient's diagnosis, condition and treatment plan as can be expected at this point. The vital signs have been stable. The patient's condition is stable and appropriate for discharge from the emergency department. The patient will pursue further outpatient evaluation with the primary care physician or other designated or consulting physician as outlined in the discharge instructions. The patient and/or caregivers are agreeable to this plan of care and follow-up instructions have been explained in detail. The patient and/or caregivers have received these instruction. The patient/and or caregivers are aware that any significant change in condition or worsening of symptoms should prompt an immediate return to this or the closest emergency department or call 911.
[2020-09-25] MEDS ORDERED: Sodium Chloride 0.9% 1000 ML 1,000 ML ONE (03:29)
[2020-09-25 04:50] VITALS: O2SAT 95
[2020-09-25 04:54] LABS: Appearance SLIGHTLY CLOUDY (CLEAR); Bilirubin NEGATIVE (NEGATIVE); Blood NEGATIVE Ery/ul (0-5); Epithelial Cells RARE /HPF (FEW); Glucose >=500 mg/dL (NEGATIVE); Ketones NEGATIVE (NEGATIVE); Leukocyte Esterase TRACE (NEGATIVE); Mucus SLIGHT /HPF (NEGATIVE); Nitrite NEGATIVE (NEGATIVE); Protein,Urine Dip NEGATIVE (Negative); Specific Gravity 1.028 (1.005-1.025); Urobilinogen NEGATIVE mg/dL (0-1)
[2020-09-25 04:56] LABS: Bacteria RARE /HPF (NEGATIVE)
[2020-09-25 05:52] VITALS: BP 116/82
[2020-09-25 06:16] VITALS: PULSE 82
--- NOTE | 2020-09-25 09:02 | XRAY ---
Indication: Upper abdomen pain radiating right back 5 years. Multiple contiguous axial images obtained through the abdomen and pelvis without contrast. Comparison: December 19, 2019. Lung bases demonstrate stable benign-appearing right middle lobe noncalcified micronodule. No infiltrate or effusion. Heart not enlarged. Stomach is moderately distended with food/fluid. Noncontrasted stomach and bowel loops nonobstructed again with normal appendix. No free fluid/air. Spleen is now enlarged measuring 13 cm. Stable fatty liver, right renal scarring with parenchymal microcalcification, and cholecystectomy. Remaining liver, pancreas, spleen, adrenal glands, kidneys, ureters, bladder, uterus, and aorta unremarkable for noncontrast exam. Osseous structures intact again with minimal/mild degenerative changes throughout the thoracolumbar spine and benign right innominate bones sclerotic lesion. Impression: 1. New splenomegaly. 2. Stable benign right middle lobe noncalcified micronodule, fatty liver, right renal scarring with parenchymal microcalcification, and chronic bony findings. 3. Remaining CT abdomen/pelvis without contrast exam is again negative. Comment: Preliminary interpretation was made by [facility]. No critical discrepancy.
== END 2020-09-25 06:10 | disposition home or self-care (01) ==
LOC: ED 22:55
DX: R73.9 Hyperglycemia, unspecified (principal); R10.13 Epigastric pain; R19.7 Diarrhea, unspecified; E78.00 Pure hypercholesterolemia, unspecified; Z79.899 Other long term (current) drug therapy; Z79.891 Long term (current) use of opiate analgesic
CPT/HCPCS: 36000; 36415; 74176; 80053; 81001; 83690; 84484; 85025; 96360; 99284

== ENCOUNTER 2021-04-11 13:50 | Emergency (ER) | payer MEDICAID ==
--- NOTE | 2021-04-11 14:06 | ERPHSYRPT ---
- History of Present Illness Time Seen by Provider: 04/11/21 14:06 Source: patient Exam Limitations: no limitations Patient Subjective Stated Complaint: pt here for kwabena blood pressure today,she also states she has pain in legs. Triage Nursing Assessment: pt alert resp easy, face mask in place, skin w/d/p.no edema noted Physician History: This is a morbidly obese white female patient of nurse practitioner Kary Geiger who has a history of insulin-dependent diabetes, hypertension, chronic angina, migraine headaches, peripheral neuropathy, panic disorder, chronic intermittent dizziness and hypothyroidism. Patient became concerned when she took her blood pressure several times and the most recent blood pressure reading per her report and blood pressure unit read 129/92. It also stated that it was high. Patient states she just does not feel well has some achiness in both of her legs. She has no complaints of dizziness. She denies chest pain. She denies shortness of breath. She also stated that her blood sugar was 175 which is high for her. She has had no nausea vomiting or diarrhea symptoms. Timing/Duration: today Severity: mild Modifying Factors: Improves With: nothing Associated Symptoms: denies symptoms Allergies/Adverse Reactions: buspirone [From BuSpar] Allergy (Verified 04/11/21 14:05) guaifenesin [From CodiCLEAR DH] Allergy (Verified 04/11/21 14:05) hydrocodone bitartrate [From CodiCLEAR DH] Allergy (Verified 04/11/21 14:05) hydromorphone HCl [From Dilaudid] Allergy (Verified 04/11/21 14:05) Iodinated Contrast Media [Iodinated Contrast- Oral and IV Dye] Allergy (Verified 04/11/21 14:05) Penicillins Allergy (Verified 04/11/21 14:05) potassium guaiacolsulfonate [From CodiCLEAR DH] Allergy (Verified 04/11/21 14:05) morphine Adverse Reaction (Unknown, Verified 04/11/21 14:05) Rash melatonin Adverse Reaction (Verified 04/11/21 14:05) Home Medications: PANTOPRAZOLE 40 mg Tablet [Protonix 40MG Tablet] 40 mg PO DAILY 08/25/16 [History] Nitroglycerin 0.4 mg (Ed) [Nitrostat 0.4 MG (ED)] 0.4 mg SL UD 12/01/17 [History] Docusate Sodium 100 mg [Colace 100 MG] 100 mg PO DAILY 12/19/19 [History] Furosemide 20 mg [Lasix 20 mg] 40 mg PO BID 12/19/19 [History] Levothyroxine Sodium [Unithroid] 125 mcg PO DAILY 12/19/19 [History] Dicyclomine HCl 20 mg [Bentyl 20 mg] 10 mg PO ACHS 09/03/20 [History] Ezetimibe 10 mg [Zetia 10 MG] 10 mg PO DAILY 09/03/20 [History] Potassium Chloride 10 Meq Tab* [Klor Con 10 MEQ] 10 meq PO DAILY 09/03/20 [History] ALPRAZolam [Alprazolam ER] 1 mg PO DAILY 09/05/20 [History] Albuterol Sulfate [Albuterol Sulfate Hfa] 8.5 gm IH Q4H PRN PRN 09/05/20 [History] Alprazolam [Xanax Xr] 0.5 mg PO DAILY 09/05/20 [History] Atorvastatin Calcium [Lipitor 40Mg] 40 mg PO HS 09/05/20 [History] Dapagliflozin Propanediol [Farxiga] 10 mg PO DAILY 09/05/20 [History] Doxepin HCl 25 mg PO HS 09/05/20 [History] Estradiol [Estrace] 0.5 mg PO DAILY 09/05/20 [History] Insulin Lispro [Humalog] 0 unit SQ UD 09/06/20 [History] Hydrocodone/Acetaminophen [Hydrocodone-Acetamin 5-325 mg] 5 mg PO Q6HPRN PRN MDD 4 09/24/20 [History] Hx Tetanus, Diphtheria Vaccination/Date Given: Yes Hx Influenza Vaccination/Date Given: Yes (fall 2020) Hx Pneumococcal Vaccination/Date Given: Yes (about 3 years ago) Immunizations Up to Date: Yes Travel Risk - International Travel Have you traveled outside of the country in past 3 weeks: No - Coronavirus Screening Are you exhibiting any of the following symptoms?: No Close contact with a COVID-19 positive Pt in past 14-21 Days: No - Vaccine Status Have you recieved a Covid-19 vaccination: Yes [employer]: [employer] - Vaccination Dates Date of 2cond Vaccination (if applicable): 2020 - Review of Systems Constitutional: No Symptoms Eyes: No Symptoms Ears, Nose, & Throat: No Symptoms Respiratory: No Symptoms Cardiac: No Symptoms Abdominal/Gastrointestinal: No Symptoms Genitourinary Symptoms: No Symptoms Musculoskeletal: Myalgias (Lateral legs) Skin: No Symptoms Neurological: No Symptoms Psychological: No Symptoms Endocrine: No Symptoms Hematologic/Lymphatic: No Symptoms Immunological/Allergic: No Symptoms All Other Systems: Reviewed and Negative - Past Medical History Pertinent Past Medical History: Yes Neurological History: Migraines, Peripheral Neuropathy ENT History: No Pertinent History Cardiac History: Angina, High Cholesterol Respiratory History: Asthma Endocrine Medical History: Diabetes Type II Musculoskeletal History: Arthritis GI Medical History: Diverticulitis, Hernia, Irritable Bowel, Other History: No Pertinent History Psycho-Social History: Anxiety, Depression Female Reproductive Disorders: No Pertinent History Other Medical History: CHRONIC CONSTIPATION, Crohn's Disease - Past Surgical History Past Surgical History: Yes Neuro Surgical History: No Pertinent History Cardiac: No Pertinent History Respiratory: No Pertinent History Gastrointestinal: Exploratory Laparoscopy, Cholecystectomy Genitourinary: No Pertinent History Musculoskeletal: No Pertinent History, Other Female Surgical History: No Pertinent History Other Surgical History: back surgery, thyroidectomy - Social History Smoking Status: Former smoker Exposure to second hand smoke: No Drug Use: none Patient Lives Alone: Yes (afraid to live without help) - Female History Hx Last Menstrual Period: post Hx Now: No - Nursing Vital Signs Nursing Vital Signs: Initial Vital Signs Temperature 97.8 F 04/11/21 14:55 Pulse Rate 75 04/11/21 14:55 Respiratory Rate 20 04/11/21 14:55 Blood Pressure 125/84 04/11/21 14:55 O2 Sat by Pulse Oximetry 97 04/11/21 14:55 Pain Scale Pain Intensity 5 - Physical Exam General Appearance: no apparent distress, alert, anxiety, obese Eye Exam: PERRL/EOMI, eyes nml inspection Ears, Nose, Throat Exam: normal ENT inspection, moist mucous membranes Neck Exam: normal inspection, non-tender, supple, full range of motion Respiratory Exam: normal breath sounds, lungs clear, airway intact, No chest tenderness, No respiratory distress Cardiovascular Exam: regular rate/rhythm, normal heart sounds, normal peripheral pulses Gastrointestinal/Abdomen Exam: soft, normal bowel sounds, No tenderness Pelvic Exam: not done Rectal Exam: not done Back Exam: normal inspection, normal range of motion, No CVA tenderness, No vertebral tenderness Extremity Exam: normal inspection, normal range of motion, pelvis stable Neurologic Exam: alert, oriented x 3, cooperative, diamond die driller II-XII nml as tested, no rmal mood/affect, nml cerebellar function, nml station & gait, sensation nml Skin Exam: normal color, warm, dry Lymphatic Exam: No adenopathy SpO2 Interpretation: normal O2 Delivery: Room Air - Course Nursing assessment & vital signs reviewed: Yes EKG Interpreted by Me: RATE (78), Sinus Rhythm, NORMAL AXIS, NORMAL INTERVALS, NORMAL QRS, NORMAL ST-T, Other (No acute ischemic changes on today's EKG. No comparison EKG.) Ordered Tests: Active Orders 24 hr Category Date Time Status CBC W DIFF Stat Lab 04/11/21 14:30 Completed CMP Stat Lab 04/11/21 14:30 Completed D-DIMER QUANTITATIVE Stat Lab 04/11/21 14:30 Completed Lactic Acid Stat Lab 04/11/21 14:48 Completed MAGNESIUM Stat Lab 04/11/21 14:30 Completed NT PRO BNP Stat Lab 04/11/21 14:30 Completed T4 (Thyroxine) Stat Lab 04/11/21 14:30 Completed TROPONIN Q3H Lab 04/11/21 14:30 Completed TROPONIN Q3H Lab 04/11/21 17:30 Ordered TROPONIN Q3H Lab 04/11/21 20:30 Ordered TROPONIN Q3H Lab 04/11/21 23:30 Ordered TROPONIN Q3H Lab 04/12/21 02:30 Ordered TSH, 3RD Generation Stat Lab 04/11/21 14:30 Completed UA W/RFX UR CULTURE Stat Lab 04/11/21 14:22 Completed Lab/Rad Data: Laboratory Result Diagrams 04/11/21 14:30 04/11/21 14:30 Laboratory Results 04/11/21 04/11/21 04/11/21 Range/Units 14:48 14:30 14:30 WBC (4.0-10.5) K/mm3 RBC (4.1-5.4) M/mm3 Hgb (12.0-16.0) gm/dl Hct (35-47) % MCV (78-100) fl MCH (26-32) pg MCHC (32-36) g/dl RDW (11.5-14.0) % Plt Count (150-450) K/mm3 MPV (7.5-11.0) fl Gran % (36.0-66.0) % Eos # (Auto) (0-0.5) Absolute Lymphs (auto) (1.0-4.6) Absolute Monos (auto) (0.0-1.3) Lymphocytes % (24.0-44.0) % Monocytes % (0.0-12.0) % Eosinophils % (0.00-5.0) % Basophils % (0.0-0.4) % Absolute Granulocytes (1.4-6.9) Basophils # (0-0.4) D-Dimer 385 (215-500) ng/mL Sodium (137-145) mmol/L Potassium (3.5-5.1) mmol/L Chloride (98-107) mmol/L Carbon Dioxide (22-30) mmol/L Anion Gap (5-15) MEQ/L BUN (7-17) mg/dL Creatinine (0.52-1.04) mg/dL Estimated GFR ML/MIN Glucose (74-106) mg/dL Lactic Acid 1.7 (0.4-2.0) Calcium (8.4-10.2) mg/dL Magnesium (1.6-2.3) mg/dL Total Bilirubin (0.2-1.3) mg/dL AST (14-36) U/L ALT (0-35) U/L Alkaline Phosphatase (38-126) U/L Troponin I < 0.012 (0.000-0.034) ng/mL NT-Pro-B Natriuret Pep (0-900) pg/mL Serum Total Protein (6.3-8.2) g/dL Albumin (3.5-5.0) g/dL Thyroxine (T4) (5.53-10.96) ug/dL TSH 3rd Generation (0.47-4.68) mIU/L Urine Color (YELLOW) Urine Appearance (CLEAR) Urine pH (5-6) Ur Specific [place] (1.005-1.025) Urine Protein (Negative) Urine Ketones (NEGATIVE) Urine Blood (0-5) Best/ul Urine Nitrite (NEGATIVE) Urine Bilirubin (NEGATIVE) Urine Urobilinogen (0-1) mg/dL Ur Leukocyte Esterase (NEGATIVE) Urine WBC (Auto) (0-5) /HPF Urine RBC (Auto) (0-2) /HPF U Epithel Cells (Auto) (FEW) /HPF Urine Bacteria (Auto) (NEGATIVE) /HPF Urine Culture Reflexed (NO) Urine Glucose (NEGATIVE) mg/dL 04/11/21 04/11/21 04/11/21 Range/Units 14:30 14:30 14:22 WBC 6.3 (4.0-10.5) K/mm3 RBC 4.77 (4.1-5.4) M/mm3 Hgb 13.6 (12.0-16.0) gm/dl Hct 43.7 (35-47) % MCV 91.6 (78-100) fl MCH 28.5 (26-32) pg MCHC 31.1 L (32-36) g/dl RDW 15.0 H (11.5-14.0) % Plt Count 255 (150-450) K/mm3 MPV 10.6 (7.5-11.0) fl Gran % 61.8 (36.0-66.0) % Eos # (Auto) 0.05 (0-0.5) Absolute Lymphs (auto) 1.82 (1.0-4.6) Absolute Monos (auto) 0.49 (0.0-1.3) Lymphocytes % 29.1 (24.0-44.0) % Monocytes % 7.8 (0.0-12.0) % Eosinophils % 0.8 (0.00-5.0) % Basophils % 0.5 (0.0-0.4) % Absolute Granulocytes 3.86 (1.4-6.9) Basophils # 0.03 (0-0.4) D-Dimer (215-500) ng/mL Sodium 141 (137-145) mmol/L Potassium 4.4 (3.5-5.1) mmol/L Chloride 106 (98-107) mmol/L Carbon Dioxide 28 (22-30) mmol/L Anion Gap 12.1 (5-15) MEQ/L BUN 10 (7-17) mg/dL Creatinine 0.73 (0.52-1.04) mg/dL Estimated GFR > 60.0 ML/MIN Glucose 144 H (74-106) mg/dL Lactic Acid (0.4-2.0) Calcium 8.8 (8.4-10.2) mg/dL Magnesium 2.0 (1.6-2.3) mg/dL Total Bilirubin 0.60 (0.2-1.3) mg/dL AST 18 (14-36) U/L ALT 18 (0-35) U/L Alkaline Phosphatase 118 (38-126) U/L Troponin I (0.000-0.034) ng/mL NT-Pro-B Natriuret Pep 161 (0-900) pg/mL Serum Total Protein 6.0 L (6.3-8.2) g/dL Albumin 3.6 (3.5-5.0) g/dL Thyroxine (T4) 11.7 H (5.53-10.96) ug/dL TSH 3rd Generation 0.266 L (0.47-4.68) mIU/L Urine Color STRAW (YELLOW) Urine Appearance SLIGHTLY CLOUDY (CLEAR) Urine pH 6.0 (5-6) Ur Specific [place] 1.020 (1.005-1.025) Urine Protein NEGATIVE (Negative) Urine Ketones NEGATIVE (NEGATIVE) Urine Blood NEGATIVE (0-5) Best/ul Urine Nitrite NEGATIVE (NEGATIVE) Urine Bilirubin NEGATIVE (NEGATIVE) Urine Urobilinogen NEGATIVE (0-1) mg/dL Ur Leukocyte Esterase NEGATIVE (NEGATIVE) Urine WBC (Auto) NONE (0-5) /HPF Urine RBC (Auto) NONE (0-2) /HPF U Epithel Cells (Auto) NONE (FEW) /HPF Urine Bacteria (Auto) NONE (NEGATIVE) /HPF Urine Culture Reflexed NO (NO) Urine Glucose >=500 (NEGATIVE) mg/dL - Progress Progress: unchanged Counseled pt/family regarding: diagnosis, need for follow-up, rad results - Departure Departure Disposition: Home Clinical Impression: Anxiety, Normotensive Condition: Stable Critical Care Time: No Referrals: MARILU GEIGER NP [Primary Care Provider] - Follow up/PCP as directed Additional Instructions: Follow-up with your primary care physician on 04/13/2021 by phone to make arrangements for follow-up appointment to discuss your concerns about your blood pressure and for them to reevaluate your thyroid medication.
[2021-04-11 14:41] LABS: Absolute Neutrophil Ct (ANC) 3.86 (1.4-6.9); Basophil (Absolute #) 0.03 (0-0.4); Eosinophil % 0.8 % (0.00-5.0); Eosinophil (Absolute #) 0.05 (0-0.5); Hematocrit 43.7 % (35-47); Hemoglobin 13.6 gm/dl (12.0-16.0); Lymphocyte (Absolute #) 1.82 (1.0-4.6); Lymphocytes % 29.1 % (24.0-44.0); Mean Cell Volume 91.6 fl (78-100); Mean Corpuscular Hemoglobin 28.5 pg (26-32); Mean Corpuscular Hgb Concent. 31.1 g/dl (32-36); Mean Platelet Volume 10.6 fl (7.5-11.0); Monocyte (Absolute #) 0.49 (0.0-1.3); Monocytes % 7.8 % (0.0-12.0); Neutrophil % 61.8 % (36.0-66.0); Platelet Count 255 K/mm3 (150-450); Red Blood Count 4.77 M/mm3 (4.1-5.4); White Blood Count 6.3 K/mm3 (4.0-10.5)
[2021-04-11 14:44] LABS: Appearance SLIGHTLY CLOUDY (CLEAR); Bilirubin NEGATIVE (NEGATIVE); Blood NEGATIVE Ery/ul (0-5); Glucose >=500 mg/dL (NEGATIVE); Ketones NEGATIVE (NEGATIVE); Leukocyte Esterase NEGATIVE (NEGATIVE); Nitrite NEGATIVE (NEGATIVE); Protein,Urine Dip NEGATIVE (Negative); Urobilinogen NEGATIVE mg/dL (0-1)
[2021-04-11 15:22] VITALS: BP 111/77; PULSE 80; O2SAT 98
[2021-04-11 15:22] LABS: ALBUMIN 3.6 g/dL (3.5-5.0); ALKALINE PHOSPHATASE 118 U/L (38-126); ANION GAP 12.1 MEQ/L (5-15); BLOOD UREA NITROGEN 10 mg/dL (7-17); CHLORIDE 106 mmol/L (98-107); Calcium 8.8 mg/dL (8.4-10.2); Carbon Dioxide 28 mmol/L (22-30); Creatinine 1 0.73 mg/dL (0.52-1.04); EST GLOMERULAR FILTRATION RATE > 60.0 ML/MIN; Glucose 144 mg/dL (74-106); NT PRO BNP 161 pg/mL (0-900); Potassium 4.4 mmol/L (3.5-5.1); SGOT/AST 18 U/L (14-36); SGPT/ALT 18 U/L (0-35); SODIUM 141 mmol/L (137-145); T4 (Thyroxine) 11.7 ug/dL (5.53-10.96); TSH, 3RD Generation 0.266 mIU/L (0.47-4.68)
== END 2021-04-11 16:05 | disposition home or self-care (01) ==
LOC: ED 13:50
DX: F41.9 Anxiety disorder, unspecified (principal); I10 Essential (primary) hypertension; I20.9 Angina pectoris, unspecified; E78.5 Hyperlipidemia, unspecified; E11.42 Type 2 diabetes mellitus with diabetic polyneuropathy; Z79.4 Long term (current) use of insulin; E03.9 Hypothyroidism, unspecified
CPT/HCPCS: 36415; 80053; 81001; 83605; 83735; 83880; 84436; 84443; 84484; 85025; 85379; 99283

== ENCOUNTER 2021-07-09 19:15 | Emergency (ER) | payer MEDICAID ==
[2021-07-09] MEDS ORDERED: MORPHINE SULFATE 4 MG INJ IV ONE (19:40)
[2021-07-09] MEDS ORDERED: Zofran 4 MG/2 ML VIAL IV ONE (19:40)
[2021-07-09] MEDS ORDERED: Sodium Chloride 0.9% 1000 ML 1,000 ML IV STA ×2 (19:40→21:18)
[2021-07-09] MEDS ORDERED: MORPHINE SULFATE 4 MG INJ ONE (19:44)
[2021-07-09] MEDS ORDERED: Sodium Chloride 0.9% 1000 ML 1,000 ML ONE ×3 (19:44→21:39)
[2021-07-09] MEDS ORDERED: Zofran 4 MG/2 ML VIAL ONE (19:44)
[2021-07-09 19:49] LABS: Appearance SLIGHTLY CLOUDY (CLEAR); Bilirubin NEGATIVE (NEGATIVE); Dipstick done @ ? MAIN LAB; Glucose 500 mg/dL (NEGATIVE); Ketones NEGATIVE (NEGATIVE); Nitrite NEGATIVE (NEGATIVE); Ph 5.5 (5-6); Protein,Urine Dip NEGATIVE (Negative); RBC NEGATIVE Ery/ul (0-5); Urobilinogen 0.2 mg/dL (0-1)
[2021-07-09 19:52] LABS: Epithelial Cells FEW /HPF (FEW); Mucus SLIGHT /HPF (NEGATIVE); RBC 0-2 /HPF (0-2); WBC 0-2 /HPF (0-5)
[2021-07-09 19:53] LABS: Urine Cultured Indicated? NO
[2021-07-09 19:53] LABS: Absolute Neutrophil Ct (ANC) 16.12 (1.4-6.9); Basophil (Absolute #) 0.01 (0-0.4); Eosinophil % 0.1 % (0.00-5.0); Eosinophil (Absolute #) 0.01 (0-0.5); Hematocrit 52.2 % (35-47); Hemoglobin 17.2 gm/dl (12.0-16.0); Lymphocyte (Absolute #) 0.64 (1.0-4.6); Lymphocytes % 3.7 % (24.0-44.0); Mean Cell Volume 88.6 fl (78-100); Mean Corpuscular Hemoglobin 29.2 pg (26-32); Mean Platelet Volume 10.6 fl (7.5-11.0); Monocyte (Absolute #) 0.43 (0.0-1.3); Monocytes % 2.5 % (0.0-12.0); Neutrophil % 93.6 % (36.0-66.0); Platelet Count 378 K/mm3 (150-450); Red Blood Count 5.89 M/mm3 (4.1-5.4); Red Cell Distribution Width 15.3 % (11.5-14.0); White Blood Count 17.2 K/mm3 (4.0-10.5)
--- NOTE | 2021-07-09 20:05 | ERPHSYRPT ---
- History of Present Illness Time Seen by Provider: 07/09/21 19:18 Historian: patient Exam Limitations: no limitations Patient Subjective Stated Complaint: vomiting today Triage Nursing Assessment: pt has been vomiting x4 since 0900, c/o lt upper abd pain. Pt states, "I have hx of crohns disease". Pt has been out of her stomach meds x2 months and when she called the Dr. today they said it would be 48 hours before it was at the pharmacy. BS was 202 at home at 6pm. Pt has had some diarrhea today. Abd soft, obese with tenderness to LUQ. Physician History: 51 years old female with history of Crohn's disease with chronic diarrhea, GERD, hypertension, hyperlipidemia, diabetes mellitus presented to the ER with chief complaint of 4 episodes of nonprojectile, nonbilious vomiting since 9 AM today without hematemesis. Complaining of pain in the left abdomen, nonradiating, more with vomiting. Patient reports having similar pain in the past but because of repeated vomiting she is not able to hold much down and worried about dehydration Timing/Duration: week(s), intermittent, worse Activities at Onset: rest Quality: dullness, sharpness Abdominal Pain Onset Location: LUQ, LLQ Pain Radiation: no radiation Severity of Pain-Max: moderate Severity of Pain-Current: moderate Modifying Factors: Worsens With: vomiting Associated Symptoms: fatigue, nausea, vomiting Previous symptoms: same symptoms as today Allergies/Adverse Reactions: buspirone [From [facility]par] Allergy (Verified 07/09/21 19:36) guaifenesin [From [employer] ] Allergy (Verified 07/09/21 19:36) hydrocodone bitartrate [From [employer] ] Allergy (Verified 07/09/21 19:36) hydromorphone HCl [From Dilaudid] Allergy (Verified 07/09/21 19:36) Iodinated Contrast Media [Iodinated Contrast- Oral and IV Dye] Allergy (Verified 07/09/21 19:36) Penicillins Allergy (Verified 07/09/21 19:36) potassium guaiacolsulfonate [From [facility] ] Allergy (Verified 07/09/21 19: 36) melatonin Adverse Reaction (Verified 07/09/21 19:36) Home Medications: PANTOPRAZOLE 40 mg Tablet [Protonix 40MG Tablet] 40 mg PO DAILY 08/25/16 [History] Nitroglycerin 0.4 mg (Ed) [Nitrostat 0.4 MG (ED)] 0.4 mg SL UD 12/01/17 [History] Docusate Sodium 100 mg [Docusate Sodium 100 MG] 100 mg PO DAILY 12/19/19 [History] Furosemide 20 mg [Lasix 20 mg] 40 mg PO BID 12/19/19 [History] Levothyroxine Sodium [Unithroid] 125 mcg PO DAILY 12/19/19 [History] Dicyclomine HCl 20 mg [Bentyl 20 mg] 10 mg PO ACHS 09/03/20 [History] Ezetimibe 10 mg [Zetia 10 MG] 10 mg PO DAILY 09/03/20 [History] Potassium Chloride 10 Meq Tab* [Klor Con 10 MEQ] 10 meq PO DAILY 09/03/20 [History] ALPRAZolam [Alprazolam ER] 1 mg PO DAILY 09/05/20 [History] Albuterol Sulfate [Albuterol Sulfate Hfa] 8.5 gm IH Q4H PRN PRN 09/05/20 [History] Alprazolam [Xanax Xr] 0.5 mg PO DAILY 09/05/20 [History] Atorvastatin Calcium [Lipitor 40Mg] 40 mg PO HS 09/05/20 [History] Dapagliflozin Propanediol [Farxiga] 10 mg PO DAILY 09/05/20 [History] Doxepin HCl 25 mg PO HS 09/05/20 [History] Estradiol [Estrace] 0.5 mg PO DAILY 09/05/20 [History] Insulin Lispro [Humalog] 0 unit SQ UD 09/06/20 [History] Hydrocodone/Acetaminophen [Hydrocodone-Acetamin 5-325 mg] 5 mg PO Q6HPRN PRN MDD 4 09/24/20 [History] Hx Tetanus, Diphtheria Vaccination/Date Given: Yes Hx Influenza Vaccination/Date Given: Yes Hx Pneumococcal Vaccination/Date Given: No Immunizations Up to Date: Yes Travel Risk - International Travel Have you traveled outside of the country in past 3 weeks: No - Coronavirus Screening Are you exhibiting any of the following symptoms?: Yes Symptoms: Vomiting/Diarrhea Close contact with a COVID-19 positive Pt in past 14-21 Days: No - Vaccine Status Have you recieved a Covid-19 vaccination: Yes Am[employer]: Moderna - Vaccination Dates Date of 2cond Vaccination (if applicable): . Dates if Unknown: . - Review of Systems Constitutional: Fatigue, Weakness Eyes: No Symptoms Ears, Nose, & Throat: No Symptoms Respiratory: No Symptoms Cardiac: No Symptoms Abdominal/Gastrointestinal: Abdominal Pain, Nausea, Vomiting, Diarrhea Genitourinary Symptoms: No Symptoms Musculoskeletal: No Symptoms Skin: No Symptoms Neurological: No Symptoms Psychological: No Symptoms Endocrine: No Symptoms Hematologic/Lymphatic: No Symptoms Immunological/Allergic: No Symptoms - Past Medical History Pertinent Past Medical History: Yes Neurological History: Migraines, Peripheral Neuropathy ENT History: No Pertinent History Cardiac History: Angina, High Cholesterol, Hypertension Respiratory History: Asthma Endocrine Medical History: Diabetes Type II Musculoskeletal History: Arthritis GI Medical History: Crohns Disease, Diverticulitis, Hernia, Irritable Bowel, Other History: No Pertinent History Psycho-Social History: Anxiety, Depression Female Reproductive Disorders: No Pertinent History Other Medical History: CHRONIC CONSTIPATION - Past Surgical History Past Surgical History: Yes Neuro Surgical History: No Pertinent History Cardiac: No Pertinent History Respiratory: No Pertinent History Gastrointestinal: Exploratory Laparoscopy, Cholecystectomy Genitourinary: No Pertinent History Musculoskeletal: No Pertinent History, Other Female Surgical History: No Pertinent History Other Surgical History: back surgery, thyroidectomy - Social History Smoking Status: Never smoker Exposure to second hand smoke: Yes Drug Use: none Patient Lives Alone: Yes - Nursing Vital Signs Nursing Vital Signs: Initial Vital Signs Temperature 97.9 F 07/09/21 19:19 Pulse Rate 137 H 07/09/21 19:19 Respiratory Rate 20 07/09/21 19:19 Blood Pressure 128/96 07/09/21 19:19 O2 Sat by Pulse Oximetry 97 07/09/21 19:19 Pain Scale Pain Intensity 2 - Physical Exam General Appearance: no apparent distress, alert Eye Exam: PERRL/EOMI Neck Exam: normal inspection, non-tender, supple, full range of motion Respiratory Exam: normal breath sounds, lungs clear Cardiovascular Exam: normal heart sounds, tachycardia Gastrointestinal/Abdomen Exam: soft, normal bowel sounds, tenderness (generalized but more on left), No guarding Back Exam: normal inspection, normal range of motion Extremity Exam: normal inspection, normal range of motion Neurologic Exam: alert, oriented x 3, cooperative Skin Exam: normal color SpO2 Interpretation: normal SpO2: 97 O2 Delivery: Room Air Ordered Tests: Medication Summary Discontinued Medications Generic Name Dose Route Start Last Admin Trade Name Fabby PRN Reason Stop Dose Admin Acetaminophen 1,000 mg 07/09/21 22:52 07/09/21 22:54 Acetaminophen 500 Mg Tablet PO 07/09/21 22:53 1,000 mg STAT STA Administration Acetaminophen Confirm 07/09/21 22:51 Acetaminophen 500 Mg Tablet Administered 07/09/21 22:52 Dose 1,000 mg .ROUTE .STK-MED ONE Sodium Chloride 1,000 mls @ 999 mls/hr 07/09/21 19:40 07/09/21 21:05 Sodium Chloride 0.9% 1000 Ml IV 07/09/21 20:40 Infused .Q1H1M STA Infusion Sodium Chloride Confirm 07/09/21 19:44 Sodium Chloride 0.9% 1000 Ml Administered 07/09/21 19:45 Dose 1,000 mls @ ud .ROUTE .STK-MED ONE Sodium Chloride 1,000 mls @ 999 mls/hr 07/09/21 21:18 07/09/21 22:28 Sodium Chloride 0.9% 1000 Ml IV 07/09/21 22:18 Infused .Q1H1M STA Infusion Sodium Chloride Confirm 07/09/21 21:24 Sodium Chloride 0.9% 1000 Ml Administered 07/09/21 21:25 Dose 1,000 mls @ ud .ROUTE .STK-MED ONE Sodium Chloride Confirm 07/09/21 21:39 Sodium Chloride 0.9% 1000 Ml Administered 07/09/21 21:40 Dose 1,000 mls @ ud .ROUTE .STK-MED ONE Ceftriaxone Sodium/Dextrose Confirm 07/09/21 22:48 Rocephin 2 Gm-D5w 50ml Bag Administered 07/09/21 22:49 Dose 2 g in 50 mls @ ud IV .STK-MED ONE Morphine Sulfate 4 mg 07/09/21 19:40 07/09/21 19:46 Morphine Sulfate 4 Mg/Ml Injection IV 07/09/21 19:41 4 mg STAT ONE Administration Morphine Sulfate Confirm 07/09/21 19:44 Morphine Sulfate 4 Mg/Ml Injection Administered 07/09/21 19:45 Dose 4 mg .ROUTE .STK-MED ONE Ondansetron HCl 4 mg 07/09/21 19:40 07/09/21 19:45 Ondansetron Hcl 4 Mg/2 Ml Vial IV 07/09/21 19:41 4 mg STAT ONE Administration Ondansetron HCl Confirm 07/09/21 19:44 Ondansetron Hcl 4 Mg/2 Ml Vial Administered 07/09/21 19:45 Dose 4 mg .ROUTE .[facility] ONE Lab/Rad Data: Laboratory Result Diagrams 07/09/21 19:40 07/09/21 19:40 Laboratory Results 07/09/21 07/09/21 07/09/21 Range/Units 21:52 19:42 19:40 WBC (4.0-10.5) K/mm3 RBC (4.1-5.4) M/mm3 Hgb (12.0-16.0) gm/dl Hct (35-47) % MCV (78-100) fl MCH (26-32) pg MCHC (32-36) g/dl RDW (11.5-14.0) % Plt Count (150-450) K/mm3 MPV (7.5-11.0) fl Gran % (36.0-66.0) % Eos # (Auto) (0-0.5) Absolute Lymphs (auto) (1.0-4.6) Absolute Monos (auto) (0.0-1.3) Lymphocytes % (24.0-44.0) % Monocytes % (0.0-12.0) % Eosinophils % (0.00-5.0) % Basophils % (0.0-0.4) % Absolute Granulocytes (1.4-6.9) Basophils # (0-0.4) Sodium 137 (137-145) mmol/L Potassium 3.8 (3.5-5.1) mmol/L Chloride 102 (98-107) mmol/L Carbon Dioxide 19 L (22-30) mmol/L Anion Gap 19.4 H (5-15) MEQ/L BUN 19 H (7-17) mg/dL Creatinine 0.99 (0.52-1.04) mg/dL Estimated GFR > 60.0 ML/MIN Glucose 183 H (74-106) mg/dL Lactic Acid 2.8 H (0.4-2.0) Calcium 9.0 (8.4-10.2) mg/dL Total Bilirubin 0.80 (0.2-1.3) mg/dL AST 24 (14-36) U/L ALT 26 (0-35) U/L Alkaline Phosphatase 142 H (38-126) U/L Serum Total Protein 7.0 (6.3-8.2) g/dL Albumin 4.2 (3.5-5.0) g/dL Lipase 65 (23-300) U/L Urinalys Dipstick Clnc MAIN LAB Urine Color YELLOW (YELLOW) Urine Appearance SLIGHTLY CLOUDY (CLEAR) Urine pH 5.5 (5-6) Ur Specific [place] 1.020 (1.005-1.025) POC Urine Protein Conf NEGATIVE (Negative) Urine Ketones NEGATIVE (NEGATIVE) Urine Nitrite NEGATIVE (NEGATIVE) Urine Bilirubin NEGATIVE (NEGATIVE) Urine Urobilinogen 0.2 (0-1) mg/dL Urine Leukocytes NEGATIVE (NEGATIVE) Urine WBC (Auto) 0-2 (0-5) /HPF Urine RBC (Auto) 0-2 (0-2) /HPF U Epithel Cells (Auto) FEW (FEW) /HPF Urine Bacteria (Auto) NONE (NEGATIVE) /HPF Urine RBC NEGATIVE (0-5) Best/ul Urine Mucus (Auto) SLIGHT (NEGATIVE) /HPF Ur Culture Indicated? NO Urine Glucose 500 (NEGATIVE) mg/dL 07/09/21 07/09/21 Range/Units 19:40 19:40 WBC 17.2 H (4.0-10.5) K/mm3 RBC 5.89 H (4.1-5.4) M/mm3 Hgb 17.2 H (12.0-16.0) gm/dl Hct 52.2 H (35-47) % MCV 88.6 (78-100) fl MCH 29.2 (26-32) pg MCHC 33.0 (32-36) g/dl RDW 15.3 H (11.5-14.0) % Plt Count 378 (150-450) K/mm3 MPV 10.6 (7.5-11.0) fl Gran % 93.6 H (36.0-66.0) % Eos # (Auto) 0.01 (0-0.5) Absolute Lymphs (auto) 0.64 L (1.0-4.6) Absolute Monos (auto) 0.43 (0.0-1.3) Lymphocytes % 3.7 L (24.0-44.0) % Monocytes % 2.5 (0.0-12.0) % Eosinophils % 0.1 (0.00-5.0) % Basophils % 0.1 (0.0-0.4) % Absolute Granulocytes 16.12 H (1.4-6.9) Basophils # 0.01 (0-0.4) Sodium (137-145) mmol/L Potassium (3.5-5.1) mmol/L Chloride (98-107) mmol/L Carbon Dioxide (22-30) mmol/L Anion Gap (5-15) MEQ/L BUN (7-17) mg/dL Creatinine (0.52-1.04) mg/dL Estimated GFR ML/MIN Glucose (74-106) mg/dL Lactic Acid 4.9 H (0.4-2.0) Calcium (8.4-10.2) mg/dL Total Bilirubin (0.2-1.3) mg/dL AST (14-36) U/L ALT (0-35) U/L Alkaline Phosphatase (38-126) U/L Serum Total Protein (6.3-8.2) g/dL Albumin (3.5-5.0) g/dL Lipase (23-300) U/L Urinalys Dipstick Clnc Urine Color (YELLOW) Urine Appearance (CLEAR) Urine pH (5-6) Ur Specific [place] (1.005-1.025) POC Urine Protein Conf (Negative) Urine Ketones (NEGATIVE) Urine Nitrite (NEGATIVE) Urine Bilirubin (NEGATIVE) Urine Urobilinogen (0-1) mg/dL Urine Leukocytes (NEGATIVE) Urine WBC (Auto) (0-5) /HPF Urine RBC (Auto) (0-2) /HPF U Epithel Cells (Auto) (FEW) /HPF Urine Bacteria (Auto) (NEGATIVE) /HPF Urine RBC (0-5) Best/ul Urine Mucus (Auto) (NEGATIVE) /HPF Ur Culture Indicated? Urine Glucose (NEGATIVE) mg/dL - Progress Progress: improved, re-examined Progress Note: 07/09/21 22:51 51 years old is evaluated for abdominal pain with vomiting. Patient is given fluid boluses x2, work-up showed white count of 17, lactate of 4.9 which i mproved to 2.8. Believe she is dehydrated with elevated magnesium and hemoglobin. I have obtained CT abdomen pelvis which is negative for any acute findings per preliminary report. Patient is feeling better on reevaluation. I believe elevated lactate is secondary to dehydration and no obvious focus of infection. We will give her Zofran to go home and outpatient follow-up recommended. Discussed signs symptoms of worsening needing return to ER which she seems understanding. Stable for discharge. Counseled pt/family regarding: lab results, diagnosis, need for follow-up, rad results - Departure Departure Disposition: Home Clinical Impression: Vomiting Qualifiers: Vomiting type: unspecified Nausea presence: with nausea Qualified Code(s): R11.2 - Nausea with vomiting, unspecified Abdominal pain Qualifiers: Abdominal location: generalized Qualified Code(s): R10.84 - Generalized abdominal pain Condition: Stable Critical Care Time: No Referrals: MARILU SAUCEDO [employer] [Primary Care Provider] - Follow up/PCP as directed (tomorrow for re evaluation) Instructions: Acute Abdomen (Belly Pain), Adult (DC), Nausea and Vomiting, Adult (DC) Additional Instructions: take Tylenol/Zofran as needed. Drink plenty of fluids. Follow-up with primary care for reevaluation. Return to ER for increasing pain, intractable vomiting. Prescriptions: Ondansetron ODT 4 MG [Zofran Odt 4 mg] 1 ea PO QIDPRN PRN #6 tablet PRN Reason: n/v
[2021-07-09 20:40] LABS: ALBUMIN 4.2 g/dL (3.5-5.0); ALKALINE PHOSPHATASE 142 U/L (38-126); ANION GAP 19.4 MEQ/L (5-15); BLOOD UREA NITROGEN 19 mg/dL (7-17); CHLORIDE 102 mmol/L (98-107); Carbon Dioxide 19 mmol/L (22-30); Creatinine 1 0.99 mg/dL (0.52-1.04); EST GLOMERULAR FILTRATION RATE > 60.0 ML/MIN; Glucose 183 mg/dL (74-106); LIPASE 65 U/L (23-300); Potassium 3.8 mmol/L (3.5-5.1); SGOT/AST 24 U/L (14-36); SODIUM 137 mmol/L (137-145)
[2021-07-09 20:46] LABS: SGPT/ALT 26 U/L (0-35)
[2021-07-09] MEDS ORDERED: ROCEPHIN 2 Gm-D5w 50ML BAG** 0 G/0 ML IVPB IV ONE (22:48)
[2021-07-09] MEDS ORDERED: TYLENOL EXTRA STRENGTH 500 MG ONE (22:51)
[2021-07-09] MEDS ORDERED: TYLENOL EXTRA STRENGTH 500 MG PO STA (22:52)
[2021-07-09 23:12] VITALS: BP 102/65; PULSE 106
--- NOTE | 2021-07-10 08:43 | XRAY ---
Indication: Left upper quadrant pain. Nausea and vomiting. Multiple contiguous axial images obtained through the abdomen and pelvis without contrast. Comparison: September 25, 2020. Lung bases clear. Heart not enlarged. Mild fluid distended stomach. Noncontrasted stomach and bowel loops nonobstructed again with normal appendix. Again mild fatty liver and cholecystectomy. No free fluid/air. Right kidney again demonstrates cortical thinning/scarring with punctate calcification. Remaining liver, pancreas, spleen, adrenal glands, kidneys, ureters, bladder, uterus, and aorta are unremarkable for noncontrast exam. Osseous structures intact again with mild degenerative changes throughout the thoracolumbar spine. No ventral or inguinal hernias. Impression: 1. Stable fatty liver, right renal cortical scarring/thinning with parenchymal microcalcification, and degenerative spondylosis. 2. Remaining CT abdomen/pelvis without contrast exam is negative.
[2021-07-11 22:21] VITALS: O2SAT 97
== END 2021-07-09 23:49 | disposition home or self-care (01) ==
LOC: ED 19:15
DX: R11.2 Nausea with vomiting, unspecified (principal); R10.84 Generalized abdominal pain; R53.83 Other fatigue; E86.0 Dehydration; K50.90 Crohn's disease, unspecified, without complications; E78.5 Hyperlipidemia, unspecified; I10 Essential (primary) hypertension; E11.42 Type 2 diabetes mellitus with diabetic polyneuropathy; K21.9 Gastro-esophageal reflux disease without esophagitis; Z79.4 Long term (current) use of insulin; Z79.891 Long term (current) use of opiate analgesic; Z79.899 Other long term (current) drug therapy
CPT/HCPCS: 36000; 36415; 74176; 80053; 81015; 83605; 83690; 85025; 96374; 96375; 99284; J0696; J2270; J2405; A9270-GY

== ENCOUNTER 2021-07-19 15:34 | Emergency (ER) | payer MEDICAID ==
[2021-07-19] MEDS ORDERED: DUONEB 0.5-3 MG/3 ml Neb IH ONE ×4 (16:09→18:54)
[2021-07-19 16:23] LABS: Absolute Neutrophil Ct (ANC) 5.39 (1.4-6.9); Basophil (Absolute #) 0.03 (0-0.4); Eosinophil % 0.8 % (0.00-5.0); Eosinophil (Absolute #) 0.07 (0-0.5); Hematocrit 49.1 % (35-47); Hemoglobin 15.9 gm/dl (12.0-16.0); Lymphocyte (Absolute #) 2.91 (1.0-4.6); Lymphocytes % 31.8 % (24.0-44.0); Mean Cell Volume 88.8 fl (78-100); Mean Corpuscular Hemoglobin 28.8 pg (26-32); Mean Corpuscular Hgb Concent. 32.4 g/dl (32-36); Mean Platelet Volume 10.6 fl (7.5-11.0); Monocyte (Absolute #) 0.74 (0.0-1.3); Monocytes % 8.1 % (0.0-12.0); Platelet Count 341 K/mm3 (150-450); Red Blood Count 5.53 M/mm3 (4.1-5.4); Red Cell Distribution Width 14.9 % (11.5-14.0); White Blood Count 9.1 K/mm3 (4.0-10.5)
[2021-07-19 16:29] LABS: INR 0.97 (0.8-3.0); PROTIME 11.5 SECONDS (9.4-12.5)
--- NOTE | 2021-07-19 16:31 | ERPHSYRPT ---
- History of Present Illness Source: patient Exam Limitations: no limitations Patient Subjective Stated Complaint: PT CO INCREASE SOB FOR ABOUT 4 DAYS NOW, PT HAS CRX AND HAD MEDICATION CHANGE THIS WEEK Triage Nursing Assessment: PT ALERT, RESP EASY, SKIN W/D/P,FACE MASK IN PLACE, RESP LABORED WITH EXCERTION, LUNGS SOUNDS WITH CRACKLES TO BASES Physician History: 51 yo caucasion female w cough/wheezing/dyspnea/coryza since last tuesday. 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 Pt has mild CP w deep inspiration. fever is denied. Timing/Duration: other (Since 07/13/21) Cough Quality/Degree: dry cough Possible Cause: occasional episodes Modifying Factors: Improves With: coughing, deep breath Associated Symptoms: chest pain/soreness, cough, lightheadedness, nasal congestion, nasal drainage, shortness of breath, sore throat, wheezing, No fever , No chills, No dizziness, No earache, No facial pain, No headache, No muscle aches, No sinus infection Allergies/Adverse Reactions: buspirone [From BuSpar] Allergy (Verified 07/19/21 15:43) guaifenesin [From CodiCLEAR DH] Allergy (Verified 07/19/21 15:43) hydrocodone bitartrate [From CodiCLEAR DH] Allergy (Verified 07/19/21 15:43) hydromorphone HCl [From Dilaudid] Allergy (Verified 07/19/21 15:43) Iodinated Contrast Media [Iodinated Contrast- Oral and IV Dye] Allergy (Verified 07/19/21 15:43) Penicillins Allergy (Verified 07/19/21 15:43) potassium guaiacolsulfonate [From CodiCLEAR DH] Allergy (Verified 07/19/21 15:43) melatonin Adverse Reaction (Verified 07/19/21 15:43) Home Medications: PANTOPRAZOLE 40 mg Tablet [Protonix 40MG Tablet] 40 mg PO DAILY 08/25/16 [History] Nitroglycerin 0.4 mg (Ed) [Nitrostat 0.4 MG (ED)] 0.4 mg SL UD 12/01/17 [History] Docusate Sodium 100 mg [Docusate Sodium 100 MG] 100 mg PO DAILY 12/19/19 [History] Furosemide 20 mg [Lasix 20 mg] 60 mg PO BID 12/19/19 [History] Levothyroxine Sodium [Unithroid] 125 mcg PO DAILY 12/19/19 [History] Dicyclomine HCl 20 mg [Bentyl 20 mg] 10 mg PO ACHS 09/03/20 [History] Ezetimibe 10 mg [Zetia 10 MG] 10 mg PO DAILY 09/03/20 [History] Potassium Chloride 10 Meq Tab* [Klor Con 10 MEQ] 10 meq PO DAILY 09/03/20 [History] Albuterol Sulfate [Albuterol Sulfate Hfa] 8.5 gm IH Q4H PRN PRN 09/05/20 [History] Alprazolam [Xanax Xr] 1.5 mg PO DAILY 09/05/20 [History] Atorvastatin Calcium [Lipitor 40Mg] 40 mg PO HS 09/05/20 [History] Dapagliflozin Propanediol [Farxiga] 10 mg PO DAILY 09/05/20 [History] Doxepin HCl 25 mg PO HS 09/05/20 [History] Estradiol [Estrace] 0.5 mg PO DAILY 09/05/20 [History] Insulin Lispro [Humalog] 0 unit SQ UD 09/06/20 [History] Loratadine 10 mg [Claritin 10 mg] 1 ea DAILY 07/19/21 [History] Hx Tetanus, Diphtheria Vaccination/Date Given: Yes Hx Influenza Vaccination/Date Given: Yes Hx Pneumococcal Vaccination/Date Given: No Immunizations Up to Date: Yes Travel Risk - International Travel Have you traveled outside of the country in past 3 weeks: No - Coronavirus Screening Are you exhibiting any of the following symptoms?: No - Vaccine Status Have you recieved a Covid-19 vaccination: Yes 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 - Review of Systems Constitutional: No Symptoms Eyes: No Symptoms Ears, Nose, & Throat: No Symptoms, Nose Congestion, Nose Discharge, Throat Pain Respiratory: Cough Cardiac: No Symptoms, Chest Pain (w deep inspiration) Abdominal/Gastrointestinal: No Symptoms Genitourinary Symptoms: No Symptoms Musculoskeletal: No Symptoms Skin: No Symptoms Neurological: No Symptoms Psychological: No Symptoms Endocrine: No Symptoms Hematologic/Lymphatic: No Symptoms Immunological/Allergic: No Symptoms - Past Medical History Pertinent Past Medical History: Yes Neurological History: Migraines, Peripheral Neuropathy ENT History: No Pertinent History Cardiac History: Angina, High Cholesterol, Hypertension Respiratory History: Asthma Endocrine Medical History: Diabetes Type II Musculoskeletal History: Arthritis GI Medical History: Crohns Disease, Diverticulitis, Hernia, Irritable Bowel, Other History: No Pertinent History Psycho-Social History: Anxiety, Depression Female Reproductive Disorders: No Pertinent History Other Medical History: CHRONIC CONSTIPATION - Past Surgical History Past Surgical History: Yes Neuro Surgical History: No Pertinent History Cardiac: No Pertinent History Respiratory: No Pertinent History Gastrointestinal: Exploratory Laparoscopy, Cholecystectomy Genitourinary: No Pertinent History Musculoskeletal: No Pertinent History, Other Female Surgical History: No Pertinent History Other Surgical History: back surgery, thyroidectomy - Social History Smoking Status: Former smoker Exposure to second hand smoke: Yes Drug Use: none Patient Lives Alone: Yes Significant Family History: no pertinent family hx - Nursing Vital Signs Nursing Vital Signs: Initial Vital Signs Temperature 97.0 F 07/19/21 15:35 Pulse Rate 128 H 07/19/21 15:35 Respiratory Rate 30 H 07/19/21 15:35 Blood Pressure 123/98 07/19/21 15:35 O2 Sat by Pulse Oximetry 96 07/19/21 15:35 Pain Scale Pain Intensity 5 Tachy/Tachypneic - Physical Exam General Appearance: no apparent distress Eye Exam: PERRL/EOMI, eyes nml inspection Ears, Nose, Throat Exam: normal ENT inspection, TMs normal, pharynx normal, moist mucous membranes Neck Exam: normal inspection, non-tender, supple, full range of motion, No meningismus, No mass, No Brudzinski, No Kernig's, No carotid bruit Respiratory Exam: prolonged expirations, wheezing (Moderate all danielle) Cardiovascular Exam: normal peripheral pulses, tachycardia, capillary refill <2 sec Gastrointestinal/Abdomen Exam: soft, normal bowel sounds Back Exam: normal inspection, normal range of motion, No CVA tenderness, No vertebral tenderness Extremity Exam: normal inspection, normal range of motion Neurologic Exam: alert, oriented x 3, cooperative, 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, normal mood/affect, nml cerebellar function, nml station & gait, sensation nml Skin Exam: normal color Lymphatic Exam: No adenopathy SpO2 Interpretation: normal SpO2: 94 O2 Delivery: Room Air - Course Nursing assessment & vital signs reviewed: Yes EKG Interpreted by Me: RATE (Sinus tach/Normal QT-QTc/Poor baseline/No acute ST- Twave changes) - CT Exams Chest CT Interpretation: Tele-radiologist Report (No PE/patchy ground-glass opacities) Ordered Tests: Active Orders 24 hr Category Date Time Status EKG-ER Only STAT Care 07/19/21 16:07 Completed CHEST WITH CONTRAST [CT] Stat Exams 07/19/21 17:58 Taken CBC W DIFF Stat Lab 07/19/21 16:20 Completed CMP Stat Lab 07/19/21 16:20 Completed D-DIMER QUANTITATIVE Stat Lab 07/19/21 16:20 Completed Lactic Acid Stat Lab 07/19/21 19:09 Completed NT PRO BNP Stat Lab 07/19/21 16:20 Completed PROTIME WITH INR Stat Lab 07/19/21 16:20 Completed PTT Stat Lab 07/19/21 16:20 Completed TROPONIN Q3H Lab 07/19/21 16:20 Completed TROPONIN Q3H Lab 07/19/21 19:15 Completed UA W/RFX CULTURE Stat Lab 07/19/21 17:12 Completed Respiratory Therapy Assessment DAILY RT 07/19/21 16:21 Completed Medication Summary Discontinued Medications Generic Name Dose Route Start Last Admin Trade Name Freq PRN Reason Stop Dose Admin Albuterol/Ipratropium 3 ml 07/19/21 16:09 07/19/21 16:19 Ipratropium/Albuterol Sulfate 3 Ml Ampul.Neb 07/19/21 16:10 3 ml STAT ONE Administration Albuterol/Ipratropium Confirm 07/19/21 16:14 Ipratropium/Albuterol Sulfate 3 Ml Ampul.Neb Administered 07/19/21 16:15 Dose 3 ml IH .STK-MED ONE Albuterol/Ipratropium 3 ml 07/19/21 18:51 07/19/21 18:59 Ipratropium/Albuterol Sulfate 3 Ml Ampul.Neb 07/19/21 18:52 3 ml STAT ONE Administration Albuterol/Ipratropium Confirm 07/19/21 18:54 Ipratropium/Albuterol Sulfate 3 Ml Ampul.Neb Administered 07/19/21 18:55 Dose 3 ml IH .STK-MED ONE Dexamethasone Sodium Phosphate 10 mg 07/19/21 17:03 07/19/21 17:24 Dexamethasone Sod Phosphate 10 Mg/Ml IV 07/19/21 17:04 10 mg STAT ONE Administration Dexamethasone Sodium Phosphate Confirm 07/19/21 17:21 Dexamethasone Sod Phosphate 10 Mg/Ml Administered 07/19/21 17:22 Dose 10 mg .ROUTE .STK-MED ONE Diphenhydramine HCl 25 mg 07/19/21 17:03 07/19/21 17:24 Diphenhydramine Hcl 50 Mg/Ml Vial IV 07/19/21 17:04 25 mg STAT ONE Administration Diphenhydramine HCl Confirm 07/19/21 17:22 Diphenhydramine Hcl 50 Mg/Ml Vial Administered 07/19/21 17:23 Dose 50 mg .ROUTE .STK-MED ONE Levofloxacin/Dextrose 750 mg in 150 mls @ 100 mls/hr 07/19/21 18:49 07/19/21 20:30 Levofloxacin 750mg/150ml D5w IV 07/19/21 20:18 Infused STAT STA Infusion Sodium Chloride 1,000 mls @ 999 mls/hr 07/19/21 18:50 07/19/21 20:17 Sodium Chloride 0.9% 1000 Ml IV 07/19/21 19:50 Infused .Q1H1M STA Infusion Sodium Chloride Confirm 07/19/21 18:53 Sodium Chloride 0.9% 1000 Ml Administered 07/19/21 18:54 Dose 1,000 mls @ ud .ROUTE .STK-MED ONE Levofloxacin/Dextrose Confirm 07/19/21 18:53 Levofloxacin 750mg/150ml D5w Administered 07/19/21 18:54 Dose 750 mg in 150 mls @ ud IV .STK-MED ONE Lab/Rad Data: Laboratory Result Diagrams 07/19/21 16:20 07/19/21 16:20 Laboratory Results 07/19/21 07/19/21 07/19/21 Range/Units 19:15 19:09 17:12 WBC (4.0-10.5) K/mm3 RBC (4.1-5.4) M/mm3 Hgb (12.0-16.0) gm/dl Hct (35-47) % MCV (78-100) fl MCH (26-32) pg MCHC (32-36) g/dl RDW (11.5-14.0) % Plt Count (150-450) K/mm3 MPV (7.5-11.0) fl Gran % (36.0-66.0) % Eos # (Auto) (0-0.5) Absolute Lymphs (auto) (1.0-4.6) Absolute Monos (auto) (0.0-1.3) Lymphocytes % (24.0-44.0) % Monocytes % (0.0-12.0) % Eosinophils % (0.00-5.0) % Basophils % (0.0-0.4) % Absolute Granulocytes (1.4-6.9) Basophils # (0-0.4) PT (9.4-12.5) SECONDS INR (0.8-3.0) APTT (25.1-36.5) SECONDS D-Dimer (215-500) ng/mL Sodium (137-145) mmol/L Potassium (3.5-5.1) mmol/L Chloride (98-107) mmol/L Carbon Dioxide (22-30) mmol/L Anion Gap (5-15) MEQ/L BUN (7-17) mg/dL Creatinine (0.52-1.04) mg/dL Estimated GFR ML/MIN Glucose (74-106) mg/dL Lactic Acid 1.5 (0.4-2.0) Calcium (8.4-10.2) mg/dL Total Bilirubin (0.2-1.3) mg/dL AST (14-36) U/L ALT (0-35) U/L Alkaline Phosphatase (38-126) U/L Troponin I < 0.012 (0.000-0.034) ng/mL NT-Pro-B Natriuret Pep (0-900) pg/mL Serum Total Protein (6.3-8.2) g/dL Albumin (3.5-5.0) g/dL Urinalys Dipstick Clnc MAIN LAB Urine Color YELLOW (YELLOW) Urine Appearance CLEAR (CLEAR) Urine pH 5.0 (5-6) Ur Specific [place] 1.015 (1.005-1.025) POC Urine Protein Conf NEGATIVE (Negative) Urine Ketones NEGATIVE (NEGATIVE) Urine Nitrite NEGATIVE (NEGATIVE) Urine Bilirubin NEGATIVE (NEGATIVE) Urine Urobilinogen 0.2 (0-1) mg/dL Urine Leukocytes NEGATIVE (NEGATIVE) Urine WBC (Auto) 6-10 (0-5) /HPF Urine RBC (Auto) 0-2 (0-2) /HPF U Hyaline Cast (Auto) 3-5 (0-2) /LPF U Epithel Cells (Auto) RARE (FEW) /HPF Urine Bacteria (Auto) NONE SEEN (NEGATIVE) /HPF Urine RBC TRACE-INTACT (0-5) Best/ul Ur Culture Indicated? NO Urine Glucose 500 (NEGATIVE) mg/dL Influenza Type A Ag (NEGATIVE) Influenza Type B Ag (NEGATIVE) RSV (PCR) (Negative) SARS-CoV-2 (PCR) (NEGATIVE) 07/19/21 07/19/21 07/19/21 Range/Units 16:20 16:20 16:20 WBC (4.0-10.5) K/mm3 RBC (4.1-5.4) M/mm3 Hgb (12.0-16.0) gm/dl Hct (35-47) % MCV (78-100) fl MCH (26-32) pg MCHC (32-36) g/dl RDW (11.5-14.0) % Plt Count (150-450) K/mm3 MPV (7.5-11.0) fl Gran % (36.0-66.0) % Eos # (Auto) (0-0.5) Absolute Lymphs (auto) (1.0-4.6) Absolute Monos (auto) (0.0-1.3) Lymphocytes % (24.0-44.0) % Monocytes % (0.0-12.0) % Eosinophils % (0.00-5.0) % Basophils % (0.0-0.4) % Absolute Granulocytes (1.4-6.9) Basophils # (0-0.4) PT 11.5 (9.4-12.5) SECONDS INR 0.97 (0.8-3.0) APTT 26.4 (25.1-36.5) SECONDS D-Dimer 747 H* (215-500) ng/mL Sodium (137-145) mmol/L Potassium (3.5-5.1) mmol/L Chloride (98-107) mmol/L Carbon Dioxide (22-30) mmol/L Anion Gap (5-15) MEQ/L BUN (7-17) mg/dL Creatinine (0.52-1.04) mg/dL Estimated GFR ML/MIN Glucose (74-106) mg/dL Lactic Acid (0.4-2.0) Calcium (8.4-10.2) mg/dL Total Bilirubin (0.2-1.3) mg/dL AST (14-36) U/L ALT (0-35) U/L Alkaline Phosphatase (38-126) U/L Troponin I < 0.012 (0.000-0.034) ng/mL NT-Pro-B Natriuret Pep (0-900) pg/mL Serum Total Protein (6.3-8.2) g/dL Albumin (3.5-5.0) g/dL Urinalys Dipstick Clnc Urine Color (YELLOW) Urine Appearance (CLEAR) Urine pH (5-6) Ur Specific [place] (1.005-1.025) POC Urine Protein Conf (Negative) Urine Ketones (NEGATIVE) Urine Nitrite (NEGATIVE) Urine Bilirubin (NEGATIVE) Urine Urobilinogen (0-1) mg/dL Urine Leukocytes (NEGATIVE) Urine WBC (Auto) (0-5) /HPF Urine RBC (Auto) (0-2) /HPF U Hyaline Cast (Auto) (0-2) /LPF U Epithel Cells (Auto) (FEW) /HPF Urine Bacteria (Auto) (NEGATIVE) /HPF Urine RBC (0-5) Best/ul Ur Culture Indicated? Urine Glucose (NEGATIVE) mg/dL Influenza Type A Ag NEGATIVE (NEGATIVE) Influenza Type B Ag NEGATIVE (NEGATIVE) RSV (PCR) NEGATIVE (Negative) SARS-CoV-2 (PCR) NEGATIVE (NEGATIVE) 07/19/21 07/19/21 Range/Units 16:20 16:20 WBC 9.1 (4.0-10.5) K/mm3 RBC 5.53 H (4.1-5.4) M/mm3 Hgb 15.9 (12.0-16.0) gm/dl Hct 49.1 H (35-47) % MCV 88.8 (78-100) fl MCH 28.8 (26-32) pg MCHC 32.4 (32-36) g/dl RDW 14.9 H (11.5-14.0) % Plt Count 341 (150-450) K/mm3 MPV 10.6 (7.5-11.0) fl Gran % 59.0 (36.0-66.0) % Eos # (Auto) 0.07 (0-0.5) Absolute Lymphs (auto) 2.91 (1.0-4.6) Absolute Monos (auto) 0.74 (0.0-1.3) Lymphocytes % 31.8 (24.0-44.0) % Monocytes % 8.1 (0.0-12.0) % Eosinophils % 0.8 (0.00-5.0) % Basophils % 0.3 (0.0-0.4) % Absolute Granulocytes 5.39 (1.4-6.9) Basophils # 0.03 (0-0.4) PT (9.4-12.5) SECONDS INR (0.8-3.0) APTT (25.1-36.5) SECONDS D-Dimer (215-500) ng/mL Sodium 139 (137-145) mmol/L Potassium 3.9 (3.5-5.1) mmol/L Chloride 102 (98-107) mmol/L Carbon Dioxide 23 (22-30) mmol/L Anion Gap 18.8 H (5-15) MEQ/L BUN 19 H (7-17) mg/dL Creatinine 0.83 (0.52-1.04) mg/dL Estimated GFR > 60.0 ML/MIN Glucose 224 H (74-106) mg/dL Lactic Acid (0.4-2.0) Calcium 8.7 (8.4-10.2) mg/dL Total Bilirubin 0.80 (0.2-1.3) mg/dL AST 26 (14-36) U/L ALT 25 (0-35) U/L Alkaline Phosphatase 133 H (38-126) U/L Troponin I (0.000-0.034) ng/mL NT-Pro-B Natriuret Pep 56.5 (0-900) pg/mL Serum Total Protein 7.4 (6.3-8.2) g/dL Albumin 4.2 (3.5-5.0) g/dL Urinalys Dipstick Clnc Urine Color (YELLOW) Urine Appearance (CLEAR) Urine pH (5-6) Ur Specific [place] (1.005-1.025) POC Urine Protein Conf (Negative) Urine Ketones (NEGATIVE) Urine Nitrite (NEGATIVE) Urine Bilirubin (NEGATIVE) Urine Urobilinogen (0-1) mg/dL Urine Leukocytes (NEGATIVE) Urine WBC (Auto) (0-5) /HPF Urine RBC (Auto) (0-2) /HPF U Hyaline Cast (Auto) (0-2) /LPF U Epithel Cells (Auto) (FEW) /HPF Urine Bacteria (Auto) (NEGATIVE) /HPF Urine RBC (0-5) Best/ul Ur Culture Indicated? Urine Glucose (NEGATIVE) mg/dL Influenza Type A Ag (NEGATIVE) Influenza Type B Ag (NEGATIVE) RSV (PCR) (Negative) SARS-CoV-2 (PCR) (NEGATIVE) - Progress Progress: improved Air Movement: good Progress Note: 07/19/21 21:04 Duoneb x 2 w improvement 10mg IV Decadron/25mg IV Benadryl before CT due to h/o Hives w IV contrast CT chest wo evidence of allergic Rx 1L NS bolus 750mg IV Levaquin Antibiotics given: Yes Counseled pt/family regarding: lab results, diagnosis, need for follow-up, rad results - Departure Departure Disposition: Home Clinical Impression: Pneumonia, Reactive airway disease with acute exacerbation Condition: Stable Critical Care Time: No Referrals: MARILU SAUCEDO NP [Primary Care Provider] - Follow up/PCP as directed Instructions: Asthma, Adult (DC), Pneumonia, Adult (DC), Shortness of Breath (Dyspnea) (DC) Additional Instructions: Continue Levaquin once a day Decadron 4mg daily for 5 days Continue w Albuterol and pulmicort nebulizer treatments Follow up with your family MD in 2-3 days Return to ER for increasing shortness of breath or temperature greater than 100.5 Prescriptions: Dexamethasone 4 mg [Decadron 4 MG] 4 mg PO DAILY 5 Days #5 tablet
[2021-07-19 16:32] LABS: PTT 26.4 SECONDS (25.1-36.5)
[2021-07-19 16:42] LABS: ALBUMIN 4.2 g/dL (3.5-5.0); ALKALINE PHOSPHATASE 133 U/L (38-126); ANION GAP 18.8 MEQ/L (5-15); BLOOD UREA NITROGEN 19 mg/dL (7-17); CHLORIDE 102 mmol/L (98-107); Calcium 8.7 mg/dL (8.4-10.2); Carbon Dioxide 23 mmol/L (22-30); Creatinine 1 0.83 mg/dL (0.52-1.04); EST GLOMERULAR FILTRATION RATE > 60.0 ML/MIN; Glucose 224 mg/dL (74-106); NT PRO BNP 56.5 pg/mL (0-900); Potassium 3.9 mmol/L (3.5-5.1); SGOT/AST 26 U/L (14-36); SGPT/ALT 25 U/L (0-35); SODIUM 139 mmol/L (137-145); Total Protein 7.4 g/dL (6.3-8.2)
[2021-07-19 16:56] LABS: INFLUENZA A NEGATIVE (NEGATIVE); INFLUENZA B NEGATIVE (NEGATIVE); RESPIRATORY SYNCTIAL VIRUS NEGATIVE (Negative); SARS-CoV-2 Xpert Express NEGATIVE (NEGATIVE)
[2021-07-19] MEDS ORDERED: DECADRON 10MG INJ. IV ONE (17:03)
[2021-07-19] MEDS ORDERED: BENADRYL 50 MG/ML IV ONE (17:03)
[2021-07-19 17:16] LABS: Appearance CLEAR (CLEAR); Glucose 500 mg/dL (NEGATIVE)
[2021-07-19 17:17] LABS: Bilirubin NEGATIVE (NEGATIVE); Dipstick done @ ? MAIN LAB; Ketones NEGATIVE (NEGATIVE); Nitrite NEGATIVE (NEGATIVE); Protein,Urine Dip NEGATIVE (Negative); RBC TRACE-INTACT Ery/ul (0-5); Specific Gravity 1.015 (1.005-1.025); Urobilinogen 0.2 mg/dL (0-1)
[2021-07-19] MEDS ORDERED: DECADRON 10MG INJ. ONE (17:21)
[2021-07-19] MEDS ORDERED: BENADRYL 50 MG/ML ONE (17:22)
[2021-07-19 17:37] LABS: Bacteria NONE SEEN /HPF (NEGATIVE); Epithelial Cells RARE /HPF (FEW); RBC 0-2 /HPF (0-2); Urine Cultured Indicated? NO
[2021-07-19] MEDS ORDERED: LEVOFLOXACIN 750MG/150ML D5W 750 MG/150 ML BAG IV STA (18:49)
[2021-07-19] MEDS ORDERED: Sodium Chloride 0.9% 1000 ML 1,000 ML IV STA (18:50)
[2021-07-19] MEDS ORDERED: Sodium Chloride 0.9% 1000 ML 1,000 ML ONE (18:53)
[2021-07-19] MEDS ORDERED: LEVOFLOXACIN 750MG/150ML D5W 750 MG/150 ML BAG IV ONE (18:53)
[2021-07-19 21:10] VITALS: O2SAT 94
[2021-07-19 21:25] VITALS: PULSE 84
[2021-07-19 21:31] VITALS: BP 144/71
--- NOTE | 2021-07-20 08:37 | XRAY ---
Indication: Chest pressure, cough, and elevated d-dimer. Multiple contiguous axial images obtained through the chest using 100 cc Isovue 370 contrast and PE protocol. Comparison: January 01, 2021. There is good opacification of the pulmonary arteries to include the lobar and segmental branches. No pulmonary embolus. Heart is not enlarged. Aorta is normal in course and caliber. No pathologic mediastinal/hilar lymphadenopathy. Lungs demonstrates new minimal bilateral mid to lower lung hazy interstitial alveolar opacities. No consolidation or effusion. Bony thorax intact again with mild degenerative changes throughout the spine. Limited upper abdomen again demonstrates fatty liver and cholecystectomy clips. Impression: 1. Negative pulmonary embolus. 2. New minimal bilateral mid to lower lung hazy interstitial opacities favoring pneumonitis. 3. Again fatty liver. Comment: Preliminary interpretation made by C. No critical discrepancy.
== END 2021-07-19 21:37 | disposition home or self-care (01) ==
LOC: ED 15:34
DX: J18.9 Pneumonia, unspecified organism (principal); J45.901 Unspecified asthma with (acute) exacerbation; R05.9 Cough, unspecified; R06.00 Dyspnea, unspecified; R09.81 Nasal congestion; R07.9 Chest pain, unspecified; R42 Dizziness and giddiness; J02.9 Acute pharyngitis, unspecified; E78.5 Hyperlipidemia, unspecified; I10 Essential (primary) hypertension; E11.42 Type 2 diabetes mellitus with diabetic polyneuropathy; Z79.4 Long term (current) use of insulin; Z79.899 Other long term (current) drug therapy; Z79.52 Long term (current) use of systemic steroids
CPT/HCPCS: 0241U; 36000; 36415; 71260; 80053; 81015; 83605; 83880; 84484; 85025; 85379; 85610; 85730; 93005; 94640; 96360; 96365; 96374; 96375; 99285; J1100; J1200; J1956; A9270-GY

== ENCOUNTER 2021-09-04 19:50 | Emergency (ER) | payer MEDICAID ==
[2021-09-04] MEDS ORDERED: MORPHINE SULFATE 4 MG INJ IV ONE (20:23)
[2021-09-04] MEDS ORDERED: Sodium Chloride 0.9% 1000 ML 1,000 ML IV STA (20:23)
[2021-09-04] MEDS ORDERED: Zofran 4 MG/2 ML VIAL IV ONE (20:23)
[2021-09-04] MEDS ORDERED: Sodium Chloride 0.9% 1000 ML 1,000 ML ONE (20:29)
[2021-09-04] MEDS ORDERED: Zofran 4 MG/2 ML VIAL ONE (20:29)
[2021-09-04] MEDS ORDERED: MORPHINE SULFATE 4 MG INJ ONE (20:29)
[2021-09-04 20:37] LABS: Absolute Neutrophil Ct (ANC) 7.46 x10^3/uL (1.4-6.9); Basophil (Absolute #) 0.02 x10^3/uL (0-0.4); Eosinophil (Absolute #) 0 x10^3/uL (0-0.5); Hematocrit 40.9 % (35-47); Hemoglobin 13.2 g/dL (12.0-16.0); Lymphocyte (Absolute #) 2.02 x10^3/uL (1.0-4.6); Lymphocytes % 19.7 % (24.0-44.0); Mean Cell Volume 90.5 fL (78-100); Mean Corpuscular Hemoglobin 29.2 pg (26-32); Mean Corpuscular Hgb Concent. 32.3 g/dL (32-36); Mean Platelet Volume 10.4 fL (7.5-11.0); Monocyte (Absolute #) 0.72 x10^3/uL (0.0-1.3); Neutrophil % 72.7 % (36.0-66.0); Platelet Count 234 x10^3/uL (150-450); Red Blood Count 4.52 x10^6/uL (4.1-5.4); Red Cell Distribution Width 14.6 % (11.5-14.0); White Blood Count 10.3 x10^3/uL (4.0-10.5)
[2021-09-04 20:48] LABS: ALBUMIN 3.4 g/dL (3.5-5.0); ALKALINE PHOSPHATASE 114 U/L (38-126); BLOOD UREA NITROGEN 17 mg/dL (7-17); CHLORIDE 106 mmol/L (98-107); Calcium 8.4 mg/dL (8.4-10.2); Carbon Dioxide 25 mmol/L (22-30); EST GLOMERULAR FILTRATION RATE > 60.0 ML/MIN; Glucose 124 mg/dL (74-106); LIPASE 76 U/L (23-300); Potassium 3.3 mmol/L (3.5-5.1); SGOT/AST 16 U/L (14-36); SGPT/ALT 16 U/L (0-35); SODIUM 138 mmol/L (137-145); Total Protein 6.2 g/dL (6.3-8.2)
--- NOTE | 2021-09-04 20:55 | ERPHSYRPT ---
- History of Present Illness Time Seen by Provider: 09/04/21 19:56 Historian: patient Exam Limitations: no limitations Patient Subjective Stated Complaint: pt states she has had back pain for months that has gotten worse today in lower back, rates pain as 10/10 in low back. Triage Nursing Assessment: pt is alert and oriented and ccoperative. vitals within normal limits, states pain in low back at 10/10 Physician History: 51 years old female presented in the ER with chief complaint of right lower back pain for last 2 months with gradual worsening. Pain radiates to right shoulder area and also having pain right lower quadrant. 10/10 intensity sharp, aggravated with palpation, associated nausea without vomiting. Denies any fever or chills. For the last 2 to 3 days pain is getting worse with more in the right lower quadrant. Reports having some difficulty urination. No fever or chills reported. Timing/Duration: week(s), gradual onset, worse Activities at Onset: rest Quality: sharpness Abdominal Pain Onset Location: RLQ Pain Radiation: flank, back Severity of Pain-Max: severe Severity of Pain-Current: severe Modifying Factors: Worsens With: movement, palpation Associated Symptoms: denies symptoms Previous symptoms: no prior history Allergies/Adverse Reactions: buspirone [From BuSpar] Allergy (Verified 09/04/21 20:06) guaifenesin [From [employer] ] Allergy (Verified 09/04/21 20:06) hydrocodone bitartrate [From [employer] ] Allergy (Verified 09/04/21 20:06) hydromorphone HCl [From Dilaudid] Allergy (Verified 09/04/21 20:06) Iodinated Contrast Media [Iodinated Contrast- Oral and IV Dye] Allergy (Verified 09/04/21 20:06) Penicillins Allergy (Verified 09/04/21 20:06) potassium guaiacolsulfonate [From [employer] ] Allergy (Verified 09/04/21 20:06) melatonin Adverse Reaction (Verified 09/04/21 20:06) Home Medications: PANTOPRAZOLE 40 mg Tablet [Protonix 40MG Tablet] 40 mg PO DAILY 08/25/16 [History] Nitroglycerin 0.4 mg (Ed) [Nitrostat 0.4 MG (ED)] 0.4 mg SL UD 12/01/17 [History] Docusate Sodium 100 mg [Docusate Sodium 100 MG] 100 mg PO DAILY 12/19/19 [History] Furosemide 20 mg [Lasix 20 mg] 60 mg PO BID 12/19/19 [History] Levothyroxine Sodium [Unithroid] 125 mcg PO DAILY 12/19/19 [History] Dicyclomine HCl 20 mg [Bentyl 20 mg] 10 mg PO ACHS 09/03/20 [History] Ezetimibe 10 mg [Zetia 10 MG] 10 mg PO DAILY 09/03/20 [History] Potassium Chloride Tab* [Klor Con] 10 meq PO DAILY 09/03/20 [History] Albuterol Sulfate [Albuterol Sulfate Hfa] 8.5 gm IH Q4H PRN PRN 09/05/20 [History] Alprazolam [Xanax Xr] 1.5 mg PO DAILY 09/05/20 [History] Atorvastatin Calcium [Lipitor 40Mg] 40 mg PO HS 09/05/20 [History] Dapagliflozin Propanediol [Farxiga] 10 mg PO DAILY 09/05/20 [History] Doxepin HCl 25 mg PO HS 09/05/20 [History] Estradiol [Estrace] 0.5 mg PO DAILY 09/05/20 [History] Insulin Lispro [Humalog] 0 unit SQ UD 09/06/20 [History] Loratadine 10 mg [Claritin 10 mg] 1 ea DAILY 07/19/21 [History] Hx Tetanus, Diphtheria Vaccination/Date Given: Yes Hx Influenza Vaccination/Date Given: No Hx Pneumococcal Vaccination/Date Given: No Travel Risk - International Travel Have you traveled outside of the country in past 3 weeks: No - Coronavirus Screening Are you exhibiting any of the following symptoms?: No Close contact with a COVID-19 positive Pt in past 14-21 Days: No - Vaccine Status Have you recieved a Covid-19 vaccination: Yes Lcsw: Moderna - Vaccination Dates Date of 2cond Vaccination (if applicable): none - Review of Systems Constitutional: No Symptoms Eyes: No Symptoms Ears, Nose, & Throat: No Symptoms Respiratory: No Symptoms Cardiac: No Symptoms Abdominal/Gastrointestinal: Abdominal Pain, Nausea Genitourinary Symptoms: No Symptoms Musculoskeletal: Arthralgias, Back Pain Skin: No Symptoms Neurological: No Symptoms Hematologic/Lymphatic: No Symptoms Immunological/Allergic: No Symptoms - Past Medical History Pertinent Past Medical History: Yes Neurological History: Migraines, Peripheral Neuropathy ENT History: No Pertinent History Cardiac History: Angina, High Cholesterol, Hypertension Respiratory History: Asthma Endocrine Medical History: Diabetes Type II Musculoskeletal History: Arthritis GI Medical History: Crohns Disease, Diverticulitis, Hernia, Irritable Bowel, Other History: No Pertinent History Psycho-Social History: Anxiety, Depression Female Reproductive Disorders: No Pertinent History Other Medical History: CHRONIC CONSTIPATION - Past Surgical History Past Surgical History: Yes Neuro Surgical History: No Pertinent History Cardiac: No Pertinent History Respiratory: No Pertinent History Gastrointestinal: Exploratory Laparoscopy, Cholecystectomy Genitourinary: No Pertinent History Musculoskeletal: No Pertinent History, Other Female Surgical History: No Pertinent History Other Surgical History: back surgery, thyroidectomy - Social History Smoking Status: Former smoker Exposure to second hand smoke: Yes Drug Use: none Patient Lives Alone: Yes Significant Family History: no pertinent family hx - Nursing Vital Signs Nursing Vital Signs: Initial Vital Signs Temperature 97.6 F 09/04/21 19:55 Pulse Rate 110 H 09/04/21 19:55 Respiratory Rate 18 09/04/21 19:55 O2 Sat by Pulse Oximetry 96 09/04/21 19:55 Pain Scale Pain Intensity 2 - Physical Exam General Appearance: no apparent distress, alert Eye Exam: PERRL/EOMI Ears, Nose, Throat Exam: normal ENT inspection, pharynx normal Neck Exam: normal inspection, non-tender, supple, carotid bruit Respiratory Exam: normal breath sounds, lungs clear Cardiovascular Exam: regular rate/rhythm, normal heart sounds Gastrointestinal/Abdomen Exam: soft, normal bowel sounds, tenderness (Right lower quadrant with some guarding without rebound tenderness) Back Exam: normal inspection, normal range of motion Extremity Exam: normal inspection, normal range of motion Neurologic Exam: alert, oriented x 3, cooperative Skin Exam: normal color SpO2 Interpretation: normal SpO2: 96 O2 Delivery: Room Air Ordered Tests: Medication Summary Discontinued Medications Generic Name Dose Route Start Last Admin Trade Name Freq PRN Reason Stop Dose Admin Sodium Chloride 1,000 mls @ 999 mls/hr 09/04/21 20:23 09/04/21 21:40 Sodium Chloride 0.9% 1000 Ml IV 09/04/21 21:23 Infused .Q1H1M STA Infusion Sodium Chloride Confirm 09/04/21 20:29 Sodium Chloride 0.9% 1000 Ml Administered 09/04/21 20:30 Dose 1,000 mls @ ud .ROUTE .STK-MED ONE Morphine Sulfate 4 mg 09/04/21 20:23 09/04/21 20:36 Morphine Sulfate 4 Mg/Ml Injection IV 09/04/21 20:24 4 mg STAT ONE Administration Morphine Sulfate Confirm 09/04/21 20:29 Morphine Sulfate 4 Mg/Ml Injection Administered 09/04/21 20:30 Dose 4 mg .ROUTE .STK-MED ONE Ondansetron HCl 4 mg 09/04/21 20:23 09/04/21 20:37 Ondansetron Hcl 4 Mg/2 Ml Vial IV 09/04/21 20:24 4 mg STAT ONE Administration Ondansetron HCl Confirm 09/04/21 20:29 Ondansetron Hcl 4 Mg/2 Ml Vial Administered 09/04/21 20:30 Dose 4 mg .ROUTE .STK-MED ONE Lab/Rad Data: Laboratory Result Diagrams 09/04/21 20:30 09/04/21 20:30 Laboratory Results 09/04/21 09/04/21 09/04/21 Range/Units 21:11 20:30 20:30 WBC 10.3 (4.0-10.5) x10^3/uL RBC 4.52 (4.1-5.4) x10^6/uL Hgb 13.2 (12.0-16.0) g/dL Hct 40.9 (35-47) % MCV 90.5 (78-100) fL MCH 29.2 (26-32) pg MCHC 32.3 (32-36) g/dL RDW 14.6 H (11.5-14.0) % Plt Count 234 (150-450) x10^3/uL MPV 10.4 (7.5-11.0) fL Gran % 72.7 H (36.0-66.0) % Immature Gran % (Auto) 0.4 (0.00-0.4) % Nucleat RBC Rel Count 0.0 (0.00-0.1) % Eos # (Auto) 0 (0-0.5) x10^3/uL Immature Gran # (Auto) 0.04 H (0.00-0.03) x10^3u/L Absolute Lymphs (auto) 2.02 (1.0-4.6) x10^3/uL Absolute Monos (auto) 0.72 (0.0-1.3) x10^3/uL Absolute Nucleated RBC 0.00 (0.00-0.01) x10^3u/L Lymphocytes % 19.7 L (24.0-44.0) % Monocytes % 7.0 (0.0-12.0) % Eosinophils % 0.0 (0.00-5.0) % Basophils % 0.2 (0.0-0.4) % Absolute Granulocytes 7.46 H (1.4-6.9) x10^3/uL Basophils # 0.02 (0-0.4) x10^3/uL Sodium 138 (137-145) mmol/L Potassium 3.3 L (3.5-5.1) mmol/L Chloride 106 (98-107) mmol/L Carbon Dioxide 25 (22-30) mmol/L Anion Gap 10.0 (5-15) MEQ/L BUN 17 (7-17) mg/dL Creatinine 0.80 (0.52-1.04) mg/dL Estimated GFR > 60.0 ML/MIN Glucose 124 H (74-106) mg/dL Calcium 8.4 (8.4-10.2) mg/dL Total Bilirubin 0.40 (0.2-1.3) mg/dL AST 16 (14-36) U/L ALT 16 (0-35) U/L Alkaline Phosphatase 114 (38-126) U/L Serum Total Protein 6.2 L (6.3-8.2) g/dL Albumin 3.4 L (3.5-5.0) g/dL Lipase 76 (23-300) U/L Urinalys Dipstick Clnc MAIN LAB Urine Color YELLOW (YELLOW) Urine Appearance CLEAR (CLEAR) Urine pH 5.0 (5-6) Ur Specific [place] 1.015 (1.005-1.025) POC Urine Protein Conf NEGATIVE (Negative) Urine Ketones NEGATIVE (NEGATIVE) Urine Nitrite NEGATIVE (NEGATIVE) Urine Bilirubin NEGATIVE (NEGATIVE) Urine Urobilinogen 0.2 (0-1) mg/dL Urine Leukocytes NEGATIVE (NEGATIVE) Urine WBC (Auto) 0-2 (0-5) /HPF Urine RBC (Auto) NONE (0-2) /HPF U Epithel Cells (Auto) RARE (FEW) /HPF Urine Bacteria (Auto) NONE (NEGATIVE) /HPF Urine RBC NEGATIVE (0-5) Best/ul Urine Mucus (Auto) SLIGHT (NEGATIVE) /HPF Ur Culture Indicated? NO Urine Glucose 500 (NEGATIVE) mg/dL - Progress Progress: improved, pain not gone completely, re-examined Progress Note: 09/04/21 22:36 51 years old is evaluated for right flank/right lower quadrant/low back pain. Given symptomatic treatment, feeling better on reevaluation. Grossly unremarkable work-up for acute findings. CT also negative for ureteric calculus or any other acute findings. Do not know the exact cause of her pain but could be musculoskeletal, recommended Tylenol ibuprofen and outpatient primary care/pain management follow-up. Discussed signs symptoms of worsening needing return to ER which she seems understanding. Stable for discharge. Counseled pt/family regarding: lab results, diagnosis, need for follow-up, rad results - Departure Departure Disposition: Home Clinical Impression: Right sided abdominal pain, Low back pain Condition: Stable Critical Care Time: No Referrals: MARILU SAUCEDO NP [Primary Care Provider] - Follow Up with PCP/3 days Instructions: Severe Abdominal Pain, Adult (DC) Additional Instructions: Take Tylenol/ibuprofen as needed for pain. Follow-up with primary care/pain management for reevaluation. Return to ER for worsening. Prescriptions: Ibuprofen 600 mg PO Q6HPRN PRN 10 Days #20 tablet PRN Reason: Pain
[2021-09-04 21:41] LABS: Epithelial Cells RARE /HPF (FEW); Mucus SLIGHT /HPF (NEGATIVE); WBC 0-2 /HPF (0-5)
[2021-09-04 21:42] LABS: Appearance CLEAR (CLEAR); Bilirubin NEGATIVE (NEGATIVE); Glucose 500 mg/dL (NEGATIVE); Ketones NEGATIVE (NEGATIVE); RBC NEGATIVE Ery/ul (0-5); Specific Gravity 1.015 (1.005-1.025)
[2021-09-04 21:43] LABS: Dipstick done @ ? MAIN LAB; Nitrite NEGATIVE (NEGATIVE); Protein,Urine Dip NEGATIVE (Negative); Urobilinogen 0.2 mg/dL (0-1)
[2021-09-04 21:45] LABS: Urine Cultured Indicated? NO
[2021-09-04 22:11] VITALS: BP 106/69; PULSE 85
[2021-09-04 22:31] VITALS: O2SAT 96
--- NOTE | 2021-09-05 07:32 | XRAY ---
Indication: Left lower quadrant and low back pain. Multiple contiguous axial images obtained through the abdomen and pelvis without contrast. Comparison: July 09, 2021. Lung bases demonstrates minimal dependent atelectasis. No infiltrate or effusion. Heart not enlarged. Noncontrasted stomach and bowel loops appear nonobstructed with normal appendix. Mild/moderate diffuse scattered colonic fecal debris throughout. Again fatty liver, right renal cortical thinning/scarring with punctate calcifications, and cholecystectomy. No free fluid/air. Remaining liver, pancreas, spleen, adrenal glands, kidneys, ureters, bladder, uterus, and aorta are unremarkable for noncontrast exam. Osseous structures intact again with mild degenerative changes throughout the thoracolumbar spine. Impression: 1. Diffuse fecal stasis. 2. Stable fatty liver, right renal cortical scarring/thinning with parenchymal microcalcifications, and degenerative spondylosis. 3. Remaining CT abdomen/pelvis without contrast exam is negative. Common: Preliminary interpretation may by [facility]. No critical discrepancy.
== END 2021-09-04 22:43 | disposition home or self-care (01) ==
LOC: ED 19:50
DX: M54.50 Low back pain, unspecified (principal); R10.31 Right lower quadrant pain; M25.511 Pain in right shoulder; R11.0 Nausea; E78.5 Hyperlipidemia, unspecified; I10 Essential (primary) hypertension; E11.42 Type 2 diabetes mellitus with diabetic polyneuropathy; Z79.84 Long term (current) use of oral hypoglycemic drugs; Z79.4 Long term (current) use of insulin; Z79.899 Other long term (current) drug therapy
CPT/HCPCS: 36000; 36415; 74176; 80053; 81015; 83690; 85025; 96374; 96375; 99284; J2270; J2405

== ENCOUNTER 2021-10-14 00:33 | Emergency (ER) | payer MEDICAID ==
[2021-10-14 01:51] VITALS: O2SAT 98
--- NOTE | 2021-10-14 03:02 | ERPHSYRPT ---
- History of Present Illness Time Seen by Provider: 10/14/21 00:55 Historian: patient Exam Limitations: no limitations Patient Subjective Stated Complaint: pt states "I have been constipated for a while and abd pain with nausea." Triage Nursing Assessment: Pt ambulatory to bed with personal walker, pt alert and oriented x3, pt c/o diffuse abd pain x1 week with constipation and nausea, pt has hx of chronic constipation, last BM was 10/12/2021, pt has her gallbladder removed, pt is afebrile and slightly tachycardiac Physician History: Patient is a 51-year-old female presents to our ED with diffuse abdominal pain. Patient states she has chronic intermittent constipation. Patient states that last bowel movement was 2 days ago. Patient attributes her pain to constipation. She is mildly nauseous. No vomiting no diarrhea. No rash. No chest pain or shortness of breath. No diaphoresis. Patient has been taking MiraLAX at home but states it is not as helpful as it once was. Patient denies vaginal discharge no pelvic pain. Patient voices no other complaints or concerns at this time. Portions of this note were created with voice recognition technology. There may be grammatical, spelling, punctuation or sound alike errors Timing/Duration: today Activities at Onset: none Quality: aching Abdominal Pain Onset Location: generalized abdomen Pain Radiation: no radiation Severity of Pain-Max: moderate Severity of Pain-Current: mild Modifying Factors: Improves With: nothing Associated Symptoms: denies symptoms Previous symptoms: same symptoms as today Allergies/Adverse Reactions: buspirone [From BuSpar] Allergy (Verified 10/14/21 00:46) guaifenesin [From [email or web address] ] Allergy (Verified 10/14/21 00:46) hydrocodone bitartrate [From [email or web address] ] Allergy (Verified 10/14/21 00:46) hydromorphone HCl [From Dilaudid] Allergy (Verified 10/14/21 00:46) Iodinated Contrast Media [Iodinated Contrast- Oral and IV Dye] Allergy (Verified 10/14/21 00:46) Penicillins Allergy (Verified 10/14/21 00:46) potassium guaiacolsulfonate [From [employer] ] Allergy (Verified 10/14/21 00:46) melatonin Adverse Reaction (Verified 10/14/21 00:46) Home Medications: PANTOPRAZOLE 40 mg Tablet [Protonix 40MG Tablet] 40 mg PO DAILY 08/25/16 [History] Nitroglycerin 0.4 mg (Ed) [Nitrostat 0.4 MG (ED)] 0.4 mg SL UD 12/01/17 [History] Docusate Sodium 100 mg [Docusate Sodium 100 MG] 100 mg PO DAILY 12/19/19 [History] Furosemide 20 mg [Lasix 20 mg] 60 mg PO BID 12/19/19 [History] Levothyroxine Sodium [Unithroid] 125 mcg PO DAILY 12/19/19 [History] Dicyclomine HCl 20 mg [Bentyl 20 mg] 10 mg PO ACHS 09/03/20 [History] Ezetimibe 10 mg [Zetia 10 MG] 10 mg PO DAILY 09/03/20 [History] Potassium Chloride Tab* [Klor Con] 10 meq PO DAILY 09/03/20 [History] Albuterol Sulfate [Albuterol Sulfate Hfa] 8.5 gm IH Q4H PRN PRN 09/05/20 [History] Alprazolam [Xanax Xr] 1.5 mg PO DAILY 09/05/20 [History] Atorvastatin Calcium [Lipitor 40Mg] 40 mg PO HS 09/05/20 [History] Dapagliflozin Propanediol [Farxiga] 10 mg PO DAILY 09/05/20 [History] Doxepin HCl 25 mg PO HS 09/05/20 [History] Estradiol [Estrace] 0.5 mg PO DAILY 09/05/20 [History] Insulin Lispro [Humalog] 0 unit SQ UD 09/06/20 [History] Loratadine 10 mg [Claritin 10 mg] 1 ea DAILY 07/19/21 [History] Hx Tetanus, Diphtheria Vaccination/Date Given: Yes Hx Influenza Vaccination/Date Given: No Hx Pneumococcal Vaccination/Date Given: No Immunizations Up to Date: Yes Travel Risk - International Travel Have you traveled outside of the country in past 3 weeks: No - Coronavirus Screening Are you exhibiting any of the following symptoms?: No Close contact with a COVID-19 positive Pt in past 14-21 Days: No - Vaccine Status Have you recieved a Covid-19 vaccination: Yes 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 - Vaccination Dates Date of 2cond Vaccination (if applicable): 2020 - Review of Systems Constitutional: No Symptoms, No Fever, No Chills Eyes: No Symptoms Ears, Nose, & Throat: No Symptoms Respiratory: No Symptoms, No Cough, No Dyspnea Cardiac: No Symptoms, No Chest Pain, No Edema, No Syncope Abdominal/Gastrointestinal: No Symptoms, No Abdominal Pain, No Nausea, No Vomiting, No Diarrhea Genitourinary Symptoms: No Symptoms, No Dysuria Musculoskeletal: No Symptoms, No Back Pain, No Neck Pain Skin: No Symptoms, No Rash Neurological: No Symptoms, No Dizziness, No Focal Weakness, No Sensory Changes Psychological: No Symptoms Endocrine: No Symptoms Hematologic/Lymphatic: No Symptoms Immunological/Allergic: No Symptoms All Other Systems: Reviewed and Negative - Past Medical History Pertinent Past Medical History: Yes Neurological History: Migraines, Peripheral Neuropathy ENT History: No Pertinent History Cardiac History: Angina, High Cholesterol, Hypertension Respiratory History: Asthma Endocrine Medical History: Diabetes Type II Musculoskeletal History: Arthritis GI Medical History: Crohns Disease, Diverticulitis, Hernia, Irritable Bowel, Other History: No Pertinent History Psycho-Social History: Anxiety, Depression Female Reproductive Disorders: No Pertinent History Other Medical History: CHRONIC CONSTIPATION - Past Surgical History Past Surgical History: Yes Neuro Surgical History: No Pertinent History Cardiac: No Pertinent History Respiratory: No Pertinent History Gastrointestinal: Exploratory Laparoscopy, Cholecystectomy Genitourinary: No Pertinent History Musculoskeletal: No Pertinent History, Other Female Surgical History: No Pertinent History Other Surgical History: back surgery, thyroidectomy - Social History Smoking Status: Former smoker Exposure to second hand smoke: Yes Drug Use: none Patient Lives Alone: Yes Significant Family History: no pertinent family hx - Nursing Vital Signs Nursing Vital Signs: Initial Vital Signs Temperature 97.9 F 10/14/21 00:47 Pulse Rate 107 H 10/14/21 00:47 Respiratory Rate 21 10/14/21 00:47 Blood Pressure 113/80 10/14/21 00:47 O2 Sat by Pulse Oximetry 96 10/14/21 00:47 Pain Scale Pain Intensity 10 - Physical Exam General Appearance: no apparent distress, alert Eye Exam: PERRL/EOMI, eyes nml inspection Ears, Nose, Throat Exam: normal ENT inspection, pharynx normal, moist mucous membranes Neck Exam: normal inspection, non-tender, supple, full range of motion Respiratory Exam: normal breath sounds, lungs clear, airway intact, No respiratory distress Cardiovascular Exam: regular rate/rhythm, normal heart sounds, normal peripheral pulses Gastrointestinal/Abdomen Exam: soft, normal bowel sounds, other (Mild diffuse abdominal tenderness. Overlying soft tissue intact. No signs of trauma.), No tenderness, No mass Back Exam: normal inspection, normal range of motion, No CVA tenderness, No vertebral tenderness Extremity Exam: normal inspection, normal range of motion, pelvis stable Neurologic Exam: alert, oriented x 3, cooperative, normal mood/affect, nml cerebellar function, sensation nml, No motor deficits Skin Exam: normal color, warm, dry SpO2 Interpretation: normal SpO2: 98 O2 Delivery: Room Air - Course Nursing assessment & vital signs reviewed: Yes - CT Exams Abdomen/Pelvis CT Interpretation: Tele-radiologist Report (Chronic right renal scarring and tiny punctate nonobstructing renal calculi. No hydronephrosis hydroureter or distal ureteric calculus. Large amount of ingested contents within the stomach. Moderate amount of stool within the colon. No evidence of diverticulitis. Multilevel and lower lumbar d) Ordered Tests: Active Orders 24 hr Category Date Time Status ABDOMEN AND PELVIS W/0 CONTRAS [CT] Stat Exams 10/14/21 00:54 Taken UA W/RFX CULTURE Stat Lab 10/14/21 02:45 Completed Medication Summary Discontinued Medications Generic Name Dose Route Start Last Admin Trade Name Freq PRN Reason Stop Dose Admin Dicyclomine HCl 20 mg 10/14/21 03:34 Dicyclomine Hcl 20 Mg Tablet PO 10/14/21 03:35 DAILY STA Magnesium Citrate 296 ml 10/14/21 03:34 Magnesium Citrate 296 Ml Solution PO 10/14/21 03:35 STAT ONE Ondansetron HCl 4 mg 10/14/21 03:02 10/14/21 03:10 Zofran 4 Mg/Udtablet Orally Disintegrating PO 10/14/21 03:03 4 mg STAT ONE Administration Ondansetron HCl Confirm 10/14/21 03:09 Zofran 4 Mg/Udtablet Orally Disintegrating Administered 10/14/21 03:10 Dose 4 mg .ROUTE .[employer]ino [employer]-Napartner ONE Lab/Rad Data: Laboratory Results 10/14/21 Range/Units 02:45 Urinalys Dipstick Clnc MAIN LAB Urine Color YELLOW (YELLOW) Urine Appearance CLEAR (CLEAR) Urine pH 6.0 (5-6) Ur Specific [place] 1.015 (1.005-1.025) POC Urine Protein Conf NEGATIVE (Negative) Urine Ketones NEGATIVE (NEGATIVE) Urine Nitrite NEGATIVE (NEGATIVE) Urine Bilirubin NEGATIVE (NEGATIVE) Urine Urobilinogen 1 (0-1) mg/dL Urine Leukocytes NEGATIVE (NEGATIVE) Urine WBC (Auto) 0-2 (0-5) /HPF Urine RBC (Auto) 0-2 (0-2) /HPF U Epithel Cells (Auto) RARE (FEW) /HPF Urine Bacteria (Auto) NONE (NEGATIVE) /HPF Urine RBC NEGATIVE (0-5) Best/ul Ur Culture Indicated? NO Urine Glucose >=1000 (NEGATIVE) mg/dL - Progress Progress: improved Progress Note: Patient reassessed. Nausea resolved. Work-up reveals constipation as patient suspected. No acute intra-abdominal pathology observed. Patient given a bottle of magnesium citrate for home. Patient given a pill of Bentyl for pain contro l. Patient feels well at this time. She is ready for discharge. She agrees to follow-up with primary care doctor within 48 hours for evaluation. Portions of this note were created with voice recognition technology. There may be grammatical, spelling, punctuation or sound alike errors 10/14/21 03:35 Glucosuria observed. However Accu-Chek is 128. 10/14/21 03:40 Counseled pt/family regarding: lab results, diagnosis, need for follow-up, rad results - Departure Departure Disposition: Home Clinical Impression: Constipation, Chronic right renal scarring, Spondylosis, Arthritis, lumbar spine, Glucosuria Condition: Stable Critical Care Time: No Referrals: MARILU SAUCEDO NP [Primary Care Provider] - Follow up/PCP as directed Additional Instructions: Discharge/Care Plan MERARI WOOTEN was seen on 10/14/21 in the Emergency Room. The patient was counseled regarding Diagnosis,Lab results, Imaging studies, need for follow up and when to return to the Emergency Room. Prescriptions given: Discharge Note I have spoken with the patient and/or caregivers. I have explained the patient's condition, diagnosis and treatment plan based on the information available to me at this time. I have answered the patient's and/or caregiver's questions and addressed any concerns. The patient and/or caregivers have as good understanding of the patient's diagnosis, condition and treatment plan as can be expected at this point. The vital signs have been stable. The patient's condition is stable and appropriate for discharge from the emergency department. The patient will pursue further outpatient evaluation with the primary care physician or other designated or consulting physician as outlined in the discharge instructions. The patient and/or caregivers are agreeable to this plan of care and follow-up instructions have been explained in detail. The patient and/or caregivers have received these instruction. The patient/and or caregivers are aware that any significant change in condition or worsening of symptoms should prompt an immediate return to this or the closest emergency department or call 911.
[2021-10-14] MEDS ORDERED: ZOFRAN ODT 4 MG ONE (03:09)
[2021-10-14] MEDS: ZOFRAN ODT 4 MG PO ONE (03:10)
[2021-10-14 03:15] LABS: Epithelial Cells RARE /HPF (FEW); RBC 0-2 /HPF (0-2); WBC 0-2 /HPF (0-5)
[2021-10-14 03:16] LABS: Appearance CLEAR (CLEAR); Bilirubin NEGATIVE (NEGATIVE); Dipstick done @ ? MAIN LAB; Glucose >=1000 mg/dL (NEGATIVE); Ketones NEGATIVE (NEGATIVE); Nitrite NEGATIVE (NEGATIVE); Protein,Urine Dip NEGATIVE (Negative); RBC NEGATIVE Ery/ul (0-5); Specific Gravity 1.015 (1.005-1.025); Urobilinogen 1 mg/dL (0-1)
[2021-10-14 03:17] LABS: Urine Cultured Indicated? NO
[2021-10-14 03:40] VITALS: BP 116/88; PULSE 90
[2021-10-14] MEDS ORDERED: CITROMA 296 ML ONE (03:41)
[2021-10-14] MEDS ORDERED: BENTYL 20 MG ONE (03:41)
[2021-10-14] MEDS: BENTYL 20 MG PO STA (03:44)
[2021-10-14] MEDS: CITROMA 296 ML PO ONE (03:44)
--- NOTE | 2021-10-14 08:52 | XRAY ---
Indication: Right abdomen/flank pain. Nausea and constipation. Multiple contiguous axial images obtained through the abdomen and pelvis without contrast. Comparison: September 04, 2021 Lung bases clear again with incidental benign right base noncalcified micronodule. Heart not enlarged. Stomach is now distended with food. Noncontrasted stomach and bowel loops remain nonobstructed with normal appendix. Again moderate diffuse scattered colonic fecal debris throughout unchanged. Again fatty liver, right renal cortical thinning/scarring with punctate calcification, and cholecystectomy. No free fluid/air. Remaining liver, pancreas, spleen, adrenal glands, kidneys, ureters, bladder, uterus, and aorta are unremarkable for noncontrast exam. Impression: Stable CT abdomen/pelvis without contrast exam again demonstrating diffuse fecal stasis, fatty liver, right renal cortical scarring/thinning with parenchymal microcalcification, and benign right lung base noncalcified micronodule. No new/acute findings. Comment: Preliminary interpretation made by C. No critical discrepancy.
== END 2021-10-14 03:51 | disposition home or self-care (01) ==
LOC: ED 00:33
DX: K59.00 Constipation, unspecified (principal); M47.816 Spondylosis without myelopathy or radiculopathy, lumbar region; N28.89 Other specified disorders of kidney and ureter; R81 Glycosuria; R10.84 Generalized abdominal pain; R11.0 Nausea; E78.5 Hyperlipidemia, unspecified; I10 Essential (primary) hypertension; E11.42 Type 2 diabetes mellitus with diabetic polyneuropathy
CPT/HCPCS: 74176; 81015; 82947; 99283; Q0162; A9270-GY

== ENCOUNTER 2022-01-30 18:23 | Emergency (ER) | payer MEDICAID ==
[2022-01-30] MEDS ORDERED: Sodium Chloride 0.9% 1000 ML 1,000 ML IV STA (18:35)
[2022-01-30] MEDS ORDERED: Zofran 4 MG/2 ML VIAL IV ONE (18:35)
[2022-01-30] MEDS ORDERED: MORPHINE SULFATE 4 MG INJ IV ONE (18:35)
[2022-01-30] MEDS ORDERED: PROTONIX 40 MG IV IV ONE ×2 (18:36→18:55)
[2022-01-30] MEDS ORDERED: Sodium Chloride 0.9% 1000 ML 1,000 ML ONE (18:55)
[2022-01-30] MEDS ORDERED: MORPHINE SULFATE 4 MG INJ ONE (18:55)
[2022-01-30] MEDS ORDERED: Zofran 4 MG/2 ML VIAL ONE (18:55)
[2022-01-30 19:04] LABS: Absolute Neutrophil Ct (ANC) 6.02 x10^3/uL (1.4-6.9); Basophil (Absolute #) 0.03 x10^3/uL (0-0.4); Eosinophil % 0.1 % (0.00-5.0); Eosinophil (Absolute #) 0.01 x10^3/uL (0-0.5); Hematocrit 44.3 % (35-47); Hemoglobin 13.9 g/dL (12.0-16.0); Lymphocyte (Absolute #) 2.13 x10^3/uL (1.0-4.6); Lymphocytes % 24.3 % (24.0-44.0); Mean Cell Volume 88.8 fL (78-100); Mean Corpuscular Hemoglobin 27.9 pg (26-32); Mean Corpuscular Hgb Concent. 31.4 g/dL (32-36); Mean Platelet Volume 10.3 fL (7.5-11.0); Monocyte (Absolute #) 0.55 x10^3/uL (0.0-1.3); Monocytes % 6.3 % (0.0-12.0); Neutrophil % 68.8 % (36.0-66.0); Platelet Count 308 x10^3/uL (150-450); Red Blood Count 4.99 x10^6/uL (4.1-5.4); Red Cell Distribution Width 15.2 % (11.5-14.0); White Blood Count 8.8 x10^3/uL (4.0-10.5)
[2022-01-30 19:19] LABS: ALBUMIN 4.1 g/dL (3.5-5.0); ALKALINE PHOSPHATASE 112 U/L (38-126); ANION GAP 12.1 MEQ/L (5-15); BLOOD UREA NITROGEN 8 mg/dL (7-17); CHLORIDE 110 mmol/L (98-107); Calcium 9.1 mg/dL (8.4-10.2); Carbon Dioxide 22 mmol/L (22-30); Creatinine 1 0.65 mg/dL (0.52-1.04); EST GLOMERULAR FILTRATION RATE > 60.0 ML/MIN; Glucose 71 mg/dL (74-106); LIPASE 68 U/L (23-300); Potassium 3.3 mmol/L (3.5-5.1); SGOT/AST 29 U/L (14-36); SGPT/ALT 16 U/L (0-35); SODIUM 140 mmol/L (137-145); Total Protein 7.3 g/dL (6.3-8.2)
[2022-01-30 20:42] LABS: Appearance CLEAR (CLEAR); Epithelial Cells RARE /HPF (FEW); Glucose >=1000 mg/dL (NEGATIVE); Hyaline Casts 0-2 /LPF (0-2); Mucus SLIGHT /HPF (NEGATIVE); RBC 0-2 /HPF (0-2); WBC 0-2 /HPF (0-5)
[2022-01-30 20:43] LABS: Bilirubin NEGATIVE (NEGATIVE); Dipstick done @ ? MAIN LAB; Ketones NEGATIVE (NEGATIVE); Nitrite NEGATIVE (NEGATIVE); Ph 5.5 (5-6); Protein,Urine Dip NEGATIVE (Negative); RBC TRACE-INTACT Ery/ul (0-5); Specific Gravity 1.025 (1.005-1.025); Urine Cultured Indicated? NO; Urobilinogen 0.2 mg/dL (0-1)
--- NOTE | 2022-01-30 20:47 | XRAY ---
Indication: Abdomen pain following appendectomy one month ago. Multiple contiguous axial images obtained through the abdomen and pelvis without contrast. Comparison: October 14, 2021 Lung bases now demonstrates minimal dependent atelectasis. Stable tiny benign right middle lobe noncalcified nodule. No infiltrate or effusion. Heart not enlarged. Stomach is again distended with food/fluid. Noncontrasted stomach and bowel loops nonobstructed. Terminal ileum and ileocecal junction now demonstrates mild wall thickening and stranding as seen with Crohn's disease. Interval appendectomy with stable cholecystectomy. No free fluid/air. Again incidental fatty liver and right renal cortical thinning/scarring with punctate calcification. Remaining liver, pancreas, spleen, adrenal glands, kidneys, ureters, bladder, uterus, and aorta are unremarkable for noncontrast exam. Osseous structures intact again with mild degenerative changes throughout the spine. Impression: 1. New terminal ileum and ileocecal junction bowel wall thickening/stranding favoring Crohn's disease. 2. Stable fatty liver, right renal cortical scarring/thinning with punctate calcification, benign right middle lobe noncalcified micronodule, and degenerative spondylosis. Comment: Preliminary interpretation made by [facility]. No critical discrepancy.
--- NOTE | 2022-01-30 21:19 | ERPHSYRPT ---
- History of Present Illness Time Seen by Provider: 01/30/22 18:25 Historian: patient, EMS Exam Limitations: no limitations Patient Subjective Stated Complaint: abd pain upper epigastric region Triage Nursing Assessment: pt to ED by EMS c/o abd pain 12/28, NV daily x 1 month. pt had appendectomy Dec [address] Joaquin Telles at [facility]. pt lynneo wed up with him end of Dec and made him aware of this pain, which he stated if constipation continued CT may be needed per pt. second f/u appt scheduled for yesterday but pt missed that appt. pt reports LBM yesterday and BMs daily as of late. Physician History: 51 years old female with a history of hypertension, hyperlipidemia, GERD, hypothyroidism presented in the ER with chief complaint of upper abdominal pain for 1 month off-and-on with progressive worsening with associated nausea and almost daily basis episode of vomiting x1 nonprojectile, nonbilious. Patient pollack s appendectomy done almost a month ago at [facility] and since then has done follow-up with his primary general surgeon x1. Patient has some pain in the right lower quadrant but she is more concerned about upper abdominal pain. No fever or chills reported. No difficulty breathing. Timing/Duration: week(s), intermittent, worse Activities at Onset: rest Quality: sharpness Abdominal Pain Onset Location: RUQ, LUQ, epigastric Pain Radiation: no radiation Severity of Pain-Max: severe Severity of Pain-Current: severe Modifying Factors: Improves With: nothing Associated Symptoms: nausea, vomiting Previous symptoms: same symptoms as today Allergies/Adverse Reactions: buspirone [From BuSpar] Allergy (Verified 01/30/22 18:27) guaifenesin [From CodiCLEAR DH] Allergy (Verified 01/30/22 18:27) hydrocodone bitartrate [From CodiCLEAR DH] Allergy (Verified 01/30/22 18:27) hydromorphone HCl [From Dilaudid] Allergy (Verified 01/30/22 18:27) Iodinated Contrast Media [Iodinated Contrast- Oral and IV Dye] Allergy (Verified 01/30/22 18:27) Penicillins Allergy (Verified 01/30/22 18:27) potassium guaiacolsulfonate [From CodiCLEAR DH] Allergy (Verified 01/30/22 18:27) melatonin Adverse Reaction (Verified 01/30/22 18:27) Home Medications: PANTOPRAZOLE 40 mg Tablet [Protonix 40MG Tablet] 40 mg PO DAILY 08/25/16 [History] Nitroglycerin 0.4 mg (Ed) [Nitrostat 0.4 MG (ED)] 0.4 mg SL UD 12/01/17 [History] Docusate Sodium 100 mg [Docusate Sodium 100 MG] 100 mg PO DAILY 12/19/19 [History] Furosemide 20 mg [Lasix 20 mg] 60 mg PO BID 12/19/19 [History] Levothyroxine Sodium [Unithroid] 125 mcg PO DAILY 12/19/19 [History] Dicyclomine HCl 20 mg [Bentyl 20 mg] 10 mg PO ACHS 09/03/20 [History] Ezetimibe 10 mg [Zetia 10 MG] 10 mg PO DAILY 09/03/20 [History] Potassium Chloride Tab* [Klor Con] 10 meq PO DAILY 09/03/20 [History] Albuterol Sulfate [Albuterol Sulfate Hfa] 8.5 gm IH Q4H PRN PRN 09/05/20 [History] Alprazolam [Xanax Xr] 1.5 mg PO DAILY 09/05/20 [History] Atorvastatin Calcium [Lipitor 40Mg] 40 mg PO HS 09/05/20 [History] Dapagliflozin Propanediol [Farxiga] 10 mg PO DAILY 09/05/20 [History] Doxepin HCl 25 mg PO HS 09/05/20 [History] Estradiol [Estrace] 0.5 mg PO DAILY 09/05/20 [History] Insulin Lispro [Humalog] 0 unit SQ UD 09/06/20 [History] Loratadine 10 mg [Claritin 10 mg] 1 ea DAILY 07/19/21 [History] Hx Tetanus, Diphtheria Vaccination/Date Given: Yes Hx Influenza Vaccination/Date Given: Yes Hx Pneumococcal Vaccination/Date Given: No Immunizations Up to Date: Yes Travel Risk - International Travel Have you traveled outside of the country in past 3 weeks: No - Coronavirus Screening Are you exhibiting any of the following symptoms?: Yes Symptoms: Vomiting/Diarrhea Close contact with a COVID-19 positive Pt in past 14-21 Days: No - Vaccine Status Have you recieved a Covid-19 vaccination: Yes 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 - Vaccination Dates Date of 2cond Vaccination (if applicable): 2020 - Review of Systems Constitutional: No Symptoms Eyes: No Symptoms Ears, Nose, & Throat: No Symptoms Respiratory: No Symptoms Cardiac: No Symptoms Abdominal/Gastrointestinal: Abdominal Pain, Nausea, Vomiting Genitourinary Symptoms: No Symptoms Musculoskeletal: No Symptoms Neurological: No Symptoms Endocrine: No Symptoms Hematologic/Lymphatic: No Symptoms Immunological/Allergic: No Symptoms - Past Medical History Pertinent Past Medical History: Yes Neurological History: Migraines, Peripheral Neuropathy ENT History: No Pertinent History Cardiac History: Angina, High Cholesterol, Hypertension Respiratory History: Asthma Endocrine Medical History: Diabetes Type II Musculoskeletal History: Arthritis GI Medical History: Crohns Disease, Diverticulitis, Hernia, Irritable Bowel, Other History: No Pertinent History Psycho-Social History: Anxiety, Depression Female Reproductive Disorders: No Pertinent History Other Medical History: CHRONIC CONSTIPATION - Past Surgical History Past Surgical History: Yes Neuro Surgical History: No Pertinent History Cardiac: No Pertinent History Respiratory: No Pertinent History Gastrointestinal: Appendectomy, Cholecystectomy, Exploratory Laparoscopy Genitourinary: No Pertinent History Musculoskeletal: No Pertinent History, Other Female Surgical History: No Pertinent History Other Surgical History: back surgery, thyroidectomy - Social History Smoking Status: Former smoker Exposure to second hand smoke: Yes Drug Use: none Patient Lives Alone: Yes Significant Family History: no pertinent family hx - Nursing Vital Signs Nursing Vital Signs: Initial Vital Signs Temperature 97.7 F 01/30/22 18:29 Pulse Rate 115 H 01/30/22 18:29 Respiratory Rate 20 01/30/22 18:29 Blood Pressure 152/102 01/30/22 18:29 O2 Sat by Pulse Oximetry 98 01/30/22 18:29 Pain Scale Pain Intensity 8 - Physical Exam General Appearance: no apparent distress, alert Eye Exam: PERRL/EOMI Ears, Nose, Throat Exam: normal ENT inspection, pharynx normal Neck Exam: normal inspection, full range of motion Respiratory Exam: normal breath sounds, lungs clear Cardiovascular Exam: normal heart sounds, tachycardia Gastrointestinal/Abdomen Exam: soft, normal bowel sounds, tenderness (Upper abdomen with no guarding or rebound tenderness.) Back Exam: normal inspection, normal range of motion Extremity Exam: normal inspection, normal range of motion Neurologic Exam: alert, oriented x 3, cooperative Skin Exam: normal color SpO2 Interpretation: normal SpO2: 97 O2 Delivery: Room Air Ordered Tests: Active Orders 24 hr Category Date Time Status IV Insertion STAT Care 01/30/22 18:35 Active NPO (ED) STAT Care 01/30/22 18:35 Active ABDOMEN AND PELVIS W/0 CONTRAS [CT] Stat Exams 01/30/22 18:35 Completed CBC W DIFF Stat Lab 01/30/22 19:00 Completed CMP Stat Lab 01/30/22 19:00 Completed LIPASE Stat Lab 01/30/22 19:00 Completed Lactic Acid Stat Lab 01/30/22 18:55 Completed POCT GLUCOSE Stat Lab 01/30/22 19:24 Completed TROPONIN Q4H Lab 01/30/22 19:00 Completed TROPONIN Q4H Lab 01/30/22 22:45 Ordered TROPONIN Q4H Lab 01/31/22 02:45 Ordered UA W/RFX CULTURE Stat Lab 01/30/22 20:29 Completed Medication Summary Discontinued Medications Generic Name Dose Route Start Last Admin Trade Name Fabby PRN Reason Stop Dose Admin Sodium Chloride 1,000 mls @ 999 mls/hr 01/30/22 18:35 01/30/22 20:03 Sodium Chloride 0.9% 1000 Ml IV 01/30/22 19:35 Infused .Q1H1M STA Infusion Sodium Chloride Confirm 01/30/22 18:55 Sodium Chloride 0.9% 1000 Ml Administered 01/30/22 18:56 Dose 1,000 mls @ ud .ROUTE .STK-MED ONE Morphine Sulfate 4 mg 01/30/22 18:35 01/30/22 19:30 Morphine Sulfate 4 Mg/Ml Injection IV 01/30/22 18:36 4 mg STAT ONE Administration Morphine Sulfate Confirm 01/30/22 18:55 Morphine Sulfate 4 Mg/Ml Injection Administered 01/30/22 18:56 Dose 4 mg .ROUTE .STK-MED ONE Ondansetron HCl 4 mg 01/30/22 18:35 01/30/22 19:00 Ondansetron Hcl 4 Mg/2 Ml Vial IV 01/30/22 18:36 4 mg STAT ONE Administration Ondansetron HCl Confirm 01/30/22 18:55 Ondansetron Hcl 4 Mg/2 Ml Vial Administered 01/30/22 18:56 Dose 4 mg .ROUTE .STK-MED ONE Pantoprazole Sodium 40 mg 01/30/22 18:36 01/30/22 18:59 Pantoprazole 40 Mg Vial IV 01/30/22 18:37 40 mg STAT ONE Administration Pantoprazole Sodium Confirm 01/30/22 18:55 Pantoprazole 40 Mg Vial Administered 01/30/22 18:56 Dose 40 mg IV .STK-MED ONE Lab/Rad Data: Laboratory Result Diagrams 01/30/22 19:00 01/30/22 19:00 Laboratory Results 01/30/22 01/30/22 01/30/22 Range/Units 20:29 19:24 19:00 WBC (4.0-10.5) x10^3/uL RBC (4.1-5.4) x10^6/uL Hgb (12.0-16.0) g/dL Hct (35-47) % MCV (78-100) fL MCH (26-32) pg MCHC (32-36) g/dL RDW (11.5-14.0) % Plt Count (150-450) x10^3/uL MPV (7.5-11.0) fL Gran % (36.0-66.0) % Immature Gran % (Auto) (0.00-0.4) % Nucleat RBC Rel Count (0.00-0.1) % Eos # (Auto) (0-0.5) x10^3/uL Immature Gran # (Auto) (0.00-0.03) x10^3u/L Absolute Lymphs (auto) (1.0-4.6) x10^3/uL Absolute Monos (auto) (0.0-1.3) x10^3/uL Absolute Nucleated RBC (0.00-0.01) x10^3u/L Lymphocytes % (24.0-44.0) % Monocytes % (0.0-12.0) % Eosinophils % (0.00-5.0) % Basophils % (0.0-0.4) % Absolute Granulocytes (1.4-6.9) x10^3/uL Basophils # (0-0.4) x10^3/uL Sodium (137-145) mmol/L Potassium (3.5-5.1) mmol/L Chloride (98-107) mmol/L Carbon Dioxide (22-30) mmol/L Anion Gap (5-15) MEQ/L BUN (7-17) mg/dL Creatinine (0.52-1.04) mg/dL Estimated GFR ML/MIN Glucose (74-106) mg/dL POC Glucometer 62 L (74 to 106) mg/dL Lactic Acid (0.4-2.0) Calcium (8.4-10.2) mg/dL Total Bilirubin (0.2-1.3) mg/dL AST (14-36) U/L ALT (0-35) U/L Alkaline Phosphatase (38-126) U/L Troponin I < 0.012 (0.000-0.034) ng/mL Serum Total Protein (6.3-8.2) g/dL Albumin (3.5-5.0) g/dL Lipase (23-300) U/L Urinalys Dipstick Clnc MAIN LAB Urine Color YELLOW (YELLOW) Urine Appearance CLEAR (CLEAR) Urine pH 5.5 (5-6) Ur Specific [place] 1.025 (1.005-1.025) POC Urine Protein Conf NEGATIVE (Negative) Urine Ketones NEGATIVE (NEGATIVE) Urine Nitrite NEGATIVE (NEGATIVE) Urine Bilirubin NEGATIVE (NEGATIVE) Urine Urobilinogen 0.2 (0-1) mg/dL Urine Leukocytes NEGATIVE (NEGATIVE) Urine WBC (Auto) 0-2 (0-5) /HPF Urine RBC (Auto) 0-2 (0-2) /HPF U Hyaline Cast (Auto) 0-2 (0-2) /LPF U Epithel Cells (Auto) RARE (FEW) /HPF Urine Bacteria (Auto) NONE (NEGATIVE) /HPF Urine RBC TRACE-INTACT A (0-5) Best/ul Urine Mucus (Auto) SLIGHT A (NEGATIVE) /HPF Ur Culture Indicated? NO Urine Glucose >=1000 A (NEGATIVE) mg/dL 01/30/22 01/30/22 01/30/22 Range/Units 19:00 19:00 18:55 WBC 8.8 (4.0-10.5) x10^3/uL RBC 4.99 (4.1-5.4) x10^6/uL Hgb 13.9 (12.0-16.0) g/dL Hct 44.3 (35-47) % MCV 88.8 (78-100) fL MCH 27.9 (26-32) pg MCHC 31.4 L (32-36) g/dL RDW 15.2 H (11.5-14.0) % Plt Count 308 (150-450) x10^3/uL MPV 10.3 (7.5-11.0) fL Gran % 68.8 H (36.0-66.0) % Immature Gran % (Auto) 0.2 (0.00-0.4) % Nucleat RBC Rel Count 0.0 (0.00-0.1) % Eos # (Auto) 0.01 (0-0.5) x10^3/uL Immature Gran # (Auto) 0.02 (0.00-0.03) x10^3u/L Absolute Lymphs (auto) 2.13 (1.0-4.6) x10^3/uL Absolute Monos (auto) 0.55 (0.0-1.3) x10^3/uL Absolute Nucleated RBC 0.00 (0.00-0.01) x10^3u/L Lymphocytes % 24.3 (24.0-44.0) % Monocytes % 6.3 (0.0-12.0) % Eosinophils % 0.1 (0.00-5.0) % Basophils % 0.3 (0.0-0.4) % Absolute Granulocytes 6.02 (1.4-6.9) x10^3/uL Basophils # 0.03 (0-0.4) x10^3/uL Sodium 140 (137-145) mmol/L Potassium 3.3 L (3.5-5.1) mmol/L Chloride 110 H (98-107) mmol/L Carbon Dioxide 22 (22-30) mmol/L Anion Gap 12.1 (5-15) MEQ/L BUN 8 (7-17) mg/dL Creatinine 0.65 (0.52-1.04) mg/dL Estimated GFR > 60.0 ML/MIN Glucose 71 L (74-106) mg/dL POC Glucometer (74 to 106) mg/dL Lactic Acid 1.6 (0.4-2.0) Calcium 9.1 (8.4-10.2) mg/dL Total Bilirubin 0.30 (0.2-1.3) mg/dL AST 29 (14-36) U/L ALT 16 (0-35) U/L Alkaline Phosphatase 112 (38-126) U/L Troponin I (0.000-0.034) ng/mL Serum Total Protein 7.3 (6.3-8.2) g/dL Albumin 4.1 (3.5-5.0) g/dL Lipase 68 (23-300) U/L Urinalys Dipstick Clnc Urine Color (YELLOW) Urine Appearance (CLEAR) Urine pH (5-6) Ur Specific [place] (1.005-1.025) POC Urine Protein Conf (Negative) Urine Ketones (NEGATIVE) Urine Nitrite (NEGATIVE) Urine Bilirubin (NEGATIVE) Urine Urobilinogen (0-1) mg/dL Urine Leukocytes (NEGATIVE) Urine WBC (Auto) (0-5) /HPF Urine RBC (Auto) (0-2) /HPF U Hyaline Cast (Auto) (0-2) /LPF U Epithel Cells (Auto) (FEW) /HPF Urine Bacteria (Auto) (NEGATIVE) /HPF Urine RBC (0-5) Best/ul Urine Mucus (Auto) (NEGATIVE) /HPF Ur Culture Indicated? Urine Glucose (NEGATIVE) mg/dL - Progress Progress: improved, pain not gone completely Progress Note: 01/30/22 21:17 She is given symptomatic treatment for pain with morphine and fluids, feeling better on reevaluation. Work-up showed normal white count, grossly unremarkable chemistries. No UTI. Patient does have a history of diabetes mellitus and not very well controlled. Her symptoms could be secondary to early onset gastroparesis versus acid peptic disease and will give her Protonix. CT abdomen pelvis showed some Infiltration/congestion in the right lower quadrant which is probably related to recent surgical intervention but she does not have rem arkable tenderness or rebound tenderness and right lower quadrant. No acute findings in the upper abdomen. Recommended continue with tramadol and Protonix and will give her Carafate. Recommended outpatient primary care/general surgery follow-up. Discussed signs symptoms of worsening needing return to ER which she seems understanding. Counseled pt/family regarding: lab results, diagnosis, need for follow-up, rad results - Departure Departure Disposition: Home Clinical Impression: Abdominal pain Qualifiers: Abdominal location: upper abdomen, unspecified Qualified Code(s): R10.10 - Upper abdominal pain, unspecified Condition: Stable Critical Care Time: No Referrals: SHERICE KNOWLES PA [Primary Care Provider] - Follow up/PCP as directed (In 2 days for reevaluation) LINA TELLES [ACTIVE STAFF] - Follow up/PCP as directed (In 2 days for reevaluation) Instructions: Severe Abdominal Pain, Adult (DC) Additional Instructions: Take Tylenol/tramadol as recommended. Follow-up with primary care and general surgeon for reevaluation. Return to ER for intractable pain/vomiting. Prescriptions: Sucralfate 1 gm [Carafate 1 GM] 1 g PO ACHS #20 tablet
[2022-01-30 21:55] VITALS: BP 132/90
[2022-01-30 21:57] VITALS: PULSE 87; O2SAT 98
== END 2022-01-30 22:10 | disposition home or self-care (01) ==
LOC: ED 18:23
DX: R10.10 Upper abdominal pain, unspecified (principal); R11.2 Nausea with vomiting, unspecified; I10 Essential (primary) hypertension; E78.5 Hyperlipidemia, unspecified; E11.42 Type 2 diabetes mellitus with diabetic polyneuropathy; Z79.4 Long term (current) use of insulin; Z79.84 Long term (current) use of oral hypoglycemic drugs; Z79.899 Other long term (current) drug therapy
CPT/HCPCS: 36000; 36415; 74176; 80053; 81015; 82947; 83605; 83690; 84484; 85025; 96360; 96374; 96375; 99284; J2270; J2405

== ENCOUNTER 2022-12-28 21:35 | Emergency (ER) | payer MEDICAID ==
[2022-12-28 21:52] VITALS: TEMP 96.8
--- NOTE | 2022-12-28 22:04 | ERPHSYRPT ---
- History of Present Illness Time Seen by Provider: 12/28/22 22:02 Source: patient Patient Subjective Stated Complaint: "My stomach has been hurting for the past couple of weeks. The pain has been worse today. I've been in bed all day because of the pain." Triage Nursing Assessment: Pt presents to ER with left sided abdominal pains x 2 weeks, states pain has been worse today so decided to come to ER. Pt rates pain 10/10 scale. Pt is tender upon exam. States feels bloated. Pt abdomen is round and soft. Bowel sounds present. Complains of constipation. Pt had BM today and yesterday. States pain radiates to back, denies difficulty urinating. Pt is alert and oriented x 3. Skin is pink, warm, and dry. Respirations are easy and unlabored. Complains of nausea but denies vomiting. Physician History: Patient a 52-year-old female presents to our ED for evaluation of abdominal pain that has been ongoing for 2 weeks however worse today.. Pain is associated with bloated sensation. Pain tends to radiate to her back. No trauma. No fever. No chest pain or shortness of breath. No nausea vomiting or diaphoresis. Normal bowel function. Symptoms are progressive. Symptoms are moderate in intensity. No specific worsening improving factors. Patient voices no other complaints or concerns at this time. Portions of this note were created with voice recognition technology. There may be grammatical, spelling, punctuation or sound alike errors Timing/Duration: week(s) (2 weeks) Severity: moderate Modifying Factors: Improves With: nothing Associated Symptoms: other (Patient feels bloated) Allergies/Adverse Reactions: buspirone [From BuSpar] Allergy (Verified 12/28/22 21:53) guaifenesin [From [employer]] Allergy (Verified 12/28/22 21:53) hydrocodone bitartrate [From [employer]] Allergy (Verified 12/28/22 21:53) hydromorphone HCl [From Dilaudid] Allergy (Verified 12/28/22 21:53) Iodinated Contrast Media [Iodinated Contrast- Oral and IV Dye] Allergy (Verified 12/28/22 21:53) Penicillins Allergy (Verified 12/28/22 21:53) potassium guaiacolsulfonate [From [employer]] Allergy (Verified 12/28/22 21:53) melatonin Adverse Reaction (Verified 12/28/22 21:53) Home Medications: PANTOPRAZOLE 40 mg Tablet [Protonix 40MG Tablet] 40 mg PO DAILY 08/25/16 [History] Nitroglycerin 0.4 mg (Ed) [Nitrostat 0.4 MG (ED)] 0.4 mg SL UD PRN 12/01/17 [History] Furosemide 20 mg [Lasix 20 mg] 40 mg PO DAILY 12/19/19 [History] Levothyroxine Sodium [Unithroid] 125 mcg PO DAILY 12/19/19 [History] Dicyclomine HCl 20 mg [Bentyl 20 mg] 20 mg PO QID 09/03/20 [History] Ezetimibe 10 mg [Zetia 10 MG] 10 mg PO DAILY 09/03/20 [History] Potassium Chloride Tab* [Klor Con] 10 meq PO DAILY 09/03/20 [History] Albuterol Sulfate [Albuterol Sulfate Hfa] 8.5 gm IH Q4H PRN PRN 09/05/20 [History] Atorvastatin Calcium [Lipitor 40Mg] 40 mg PO HS 09/05/20 [History] Doxepin HCl 50 mg PO HS 09/05/20 [History] Estradiol [Estrace] 0.5 mg PO DAILY 09/05/20 [History] Insulin Lispro [Humalog] 0 unit SQ UD 09/06/20 [History] Cyanocobalamin/Cobamamide [Sv B-12 5,000 Mcg Microlozenge] 2,500 mcg SL DAILY 12/28/22 [History] Diclofenac Submicronized [Diclofenac] 75 mg PO BID 12/28/22 [History] Ergocalciferol (Vitamin D2) [Vitamin D2] 1 cap PO WEEKLY 12/28/22 [History] Insulin Aspart [NovoLOG Insulin] 5 unit SQ PC 12/28/22 [History] Lurasidone HCl 20 mg PO HS 12/28/22 [History] Lurasidone HCl 80 mg PO DAILY 12/28/22 [History] Magnesium Oxide 400 mg [Mag-Ox 400] 400 mg PO DAILY 12/28/22 [History] Medroxyprogesterone 2.5 mg [Provera 2.5 MG] 5 mg PO DAILY 12/28/22 [History] OXcarbazepine [Trileptal] 150 mg PO BID 12/28/22 [History] Ondansetron ODT 4 MG [Zofran Odt 4 mg] 1 ea PO BIDPRN PRN 12/28/22 [History] Topiramate 100 mg [Topamax 100 MG] 1 tab PO BID 12/28/22 [History] Hx Tetanus, Diphtheria Vaccination/Date Given: Yes Hx Influenza Vaccination/Date Given: No Hx Pneumococcal Vaccination/Date Given: No Immunizations Up to Date: No Travel Risk - International Travel Have you traveled outside of the country in past 3 weeks: No - Coronavirus Screening Are you exhibiting any of the following symptoms?: No Close contact with a COVID-19 positive Pt in past 14-21 Days: No - Vaccine Status Have you recieved a Covid-19 vaccination: No Software [employer]st: Moderna - Vaccination Dates Date of 2cond Vaccination (if applicable): 2020 - Review of Systems Constitutional: No Symptoms, No Fever, No Chills Eyes: No Symptoms Ears, Nose, & Throat: No Symptoms Respiratory: No Symptoms, No Cough, No Dyspnea Cardiac: No Symptoms, No Chest Pain, No Edema, No Syncope Abdominal/Gastrointestinal: No Symptoms, No Abdominal Pain, No Nausea, No Vomiting, No Diarrhea Genitourinary Symptoms: No Symptoms, No Dysuria Musculoskeletal: No Symptoms, No Back Pain, No Neck Pain Skin: No Symptoms, No Rash Neurological: No Symptoms, No Dizziness, No Focal Weakness, No Sensory Changes Psychological: No Symptoms Endocrine: No Symptoms Hematologic/Lymphatic: No Symptoms Immunological/Allergic: No Symptoms All Other Systems: Reviewed and Negative - Past Medical History Pertinent Past Medical History: Yes Neurological History: Migraines, Peripheral Neuropathy ENT History: No Pertinent History Cardiac History: Angina, High Cholesterol, Hypertension Respiratory History: Asthma Endocrine Medical History: Diabetes Type II Musculoskeletal History: Arthritis GI Medical History: Crohns Disease, Diverticulitis, Hernia, Irritable Bowel, Other History: No Pertinent History Psycho-Social History: Anxiety, Depression Female Reproductive Disorders: No Pertinent History Other Medical History: CHRONIC CONSTIPATION - Past Surgical History Past Surgical History: Yes Neuro Surgical History: No Pertinent History Cardiac: No Pertinent History Respiratory: No Pertinent History Gastrointestinal: Appendectomy, Cholecystectomy, Exploratory Laparoscopy Genitourinary: No Pertinent History Musculoskeletal: No Pertinent History, Other Female Surgical History: No Pertinent History Other Surgical History: back surgery, thyroidectomy - Social History Smoking Status: Never smoker Exposure to second hand smoke: No Drug Use: none Patient Lives Alone: Yes Significant Family History: no pertinent family hx - Nursing Vital Signs Nursing Vital Signs: Initial Vital Signs Temperature 96.8 F 12/28/22 21:46 Pulse Rate 111 H 12/28/22 21:46 Respiratory Rate 18 12/28/22 21:46 Blood Pressure 168/106 12/28/22 21:46 O2 Sat by Pulse Oximetry 97 12/28/22 21:46 Pain Scale Pain Intensity 6 - Physical Exam General Appearance: no apparent distress, alert Eye Exam: PERRL/EOMI, eyes nml inspection Ears, Nose, Throat Exam: normal ENT inspection, TMs normal, pharynx normal, moist mucous membranes Neck Exam: normal inspection, non-tender, supple, full range of motion Respiratory Exam: normal breath sounds, lungs clear, airway intact, No respiratory distress Cardiovascular Exam: regular rate/rhythm, normal heart sounds, normal peripheral pulses Gastrointestinal/Abdomen Exam: soft, normal bowel sounds, No tenderness, No mass Back Exam: normal inspection, normal range of motion, No CVA tenderness, No vertebral tenderness Extremity Exam: normal inspection, normal range of motion, pelvis stable Neurologic Exam: alert, oriented x 3, cooperative, normal mood/affect, nml cerebellar function, nml station & gait, sensation nml, No motor deficits Skin Exam: normal color, warm, dry, No rash Lymphatic Exam: No adenopathy SpO2 Interpretation: normal SpO2: 97 O2 Delivery: Room Air - Course Nursing assessment & vital signs reviewed: Yes - CT Exams Abdomen/Pelvis CT Interpretation: Tele-radiologist Report (Enlarged liver, spinal arthritis, right renal scarring right renal calcified nodule) Ordered Tests: Active Orders 24 hr Category Date Time Status IV Insertion STAT Care 12/28/22 21:56 Active ABDOMEN AND PELVIS W/0 CONTRAS [CT] Stat Exams 12/28/22 21:57 Completed CBC W DIFF Stat Lab 12/28/22 22:03 Completed CMP Stat Lab 12/28/22 22:03 Completed LIPASE Stat Lab 12/28/22 22:03 Completed Lactic Acid Stat Lab 12/28/22 22:09 Completed TROPONIN Q4H Lab 12/28/22 22:03 Completed TROPONIN Q4H Lab 12/29/22 02:00 Ordered TROPONIN Q4H Lab 12/29/22 06:00 Ordered UA W/RFX UR CULTURE Stat Lab 12/28/22 22:03 Completed Medication Summary Discontinued Medications Generic Name Dose Route Start Last Admin Trade Name Fabby PRN Reason Stop Dose Admin Sodium Chloride 1,000 mls @ 999 mls/hr 12/28/22 21:56 12/28/22 22:13 Sodium Chloride 0.9% 1000 Ml IV 12/28/22 22:56 999 mls/hr .Q1H1M STA Administration Sodium Chloride Confirm 12/28/22 22:05 Sodium Chloride 0.9% 1000 Ml Administered 12/28/22 22:06 Dose 1,000 mls @ ud .ROUTE .STK-MED ONE Ketorolac Tromethamine 30 mg 12/28/22 22:01 12/28/22 22:16 Ketorolac Tromethamine 30 Mg/Ml Inj IV 12/28/22 22:02 30 mg STAT ONE Administration Ketorolac Tromethamine Confirm 12/28/22 22:05 Ketorolac Tromethamine 30 Mg/Ml Inj Administered 12/28/22 22:06 Dose 30 mg .ROUTE .STK-MED ONE Magnesium Hydroxide 45 ml 12/28/22 23:43 Mag Hydrx/Alum Hyd/Simeth/Lido 45 Ml Bottle PO 12/28/22 23:44 STAT ONE Ondansetron HCl 4 mg 12/28/22 21:58 12/28/22 22:15 Ondansetron Hcl 4 Mg/2 Ml Vial IV 12/28/22 21:59 4 mg STAT ONE Administration Ondansetron HCl Confirm 12/28/22 22:05 Ondansetron Hcl 4 Mg/2 Ml Vial Administered 12/28/22 22:06 Dose 4 mg .ROUTE .STK-MED ONE Pantoprazole Sodium 40 mg 12/28/22 23:43 Pantoprazole 40 Mg Vial IV 12/28/22 23:44 STAT ONE Lab/Rad Data: Laboratory Result Diagrams 12/28/22 22:03 12/28/22 22:03 Laboratory Results 12/28/22 12/28/22 12/28/22 Range/Units 22:09 22:03 22:03 WBC (4.0-10.5) x10^3/uL RBC (4.1-5.4) x10^6/uL Hgb (12.0-16.0) g/dL Hct (35-47) % MCV (78-100) fL MCH (26-32) pg MCHC (32-36) g/dL RDW (11.5-14.0) % Plt Count (150-450) x10^3/uL MPV (7.5-11.0) fL Gran % (36.0-66.0) % Immature Gran % (Auto) (0.00-0.4) % Nucleat RBC Rel Count (0.00-0.1) % Eos # (Auto) (0-0.5) x10^3/uL Immature Gran # (Auto) (0.00-0.03) x10^3u/L Absolute Lymphs (auto) (1.0-4.6) x10^3/uL Absolute Monos (auto) (0.0-1.3) x10^3/uL Absolute Nucleated RBC (0.00-0.01) x10^3u/L Lymphocytes % (24.0-44.0) % Monocytes % (0.0-12.0) % Eosinophils % (0.00-5.0) % Basophils % (0.0-0.4) % Absolute Granulocytes (1.4-6.9) x10^3/uL Basophils # (0-0.4) x10^3/uL Sodium (137-145) mmol/L Potassium (3.5-5.1) mmol/L Chloride (98-107) mmol/L Carbon Dioxide (22-30) mmol/L Anion Gap (5-15) MEQ/L BUN (7-17) mg/dL Creatinine (0.52-1.04) mg/dL Estimated GFR ML/MIN Glucose (74-106) mg/dL Lactic Acid 2.0 (0.4-2.0) Calcium (8.4-10.2) mg/dL Total Bilirubin (0.2-1.3) mg/dL AST (14-36) U/L ALT (0-35) U/L Alkaline Phosphatase (38-126) U/L Troponin I < 0.012 (0.000-0.034) ng/mL Serum Total Protein (6.3-8.2) g/dL Albumin (3.5-5.0) g/dL Lipase (23-300) U/L Urine Color Yellow (Yellow) Urine Appearance Clear (Clear) Urine pH 6.0 (4.6-8.0) Ur Specific [place] 1.010 (1.005-1.030) Urine Protein Negative (Negative) Urine Glucose (UA) 100 A (Negative) mg/dL Urine Ketones Negative (Negative) Urine Blood Negative (Negative) Urine Nitrite Negative (Negative) Urine Bilirubin Negative (Negative) Urine Urobilinogen 0.2 (0.2) mg/dL Ur Leukocyte Esterase Negative (Negative) U Hyaline Cast (Auto) NONE SEEN (0-2) /LPF Urine Microscopic RBC 0-2 (0-5) /HPF Urine Microscopic WBC 0-2 (0-5) /HPF Ur Epithelial Cells Few (None Seen) /HPF Urine Bacteria Rare A (None Seen) /HPF Urine Culture Reflexed NO (NO) 12/28/22 12/28/22 Range/Units 22:03 22:03 WBC 8.0 (4.0-10.5) x10^3/uL RBC 4.42 (4.1-5.4) x10^6/uL Hgb 12.8 (12.0-16.0) g/dL Hct 41.7 (35-47) % MCV 94.3 (78-100) fL MCH 29.0 (26-32) pg MCHC 30.7 L (32-36) g/dL RDW 13.2 (11.5-14.0) % Plt Count 238 (150-450) x10^3/uL MPV 10.3 (7.5-11.0) fL Gran % 61.0 (36.0-66.0) % Immature Gran % (Auto) 0.4 (0.00-0.4) % Nucleat RBC Rel Count 0.0 (0.00-0.1) % Eos # (Auto) 0.07 (0-0.5) x10^3/uL Immature Gran # (Auto) 0.03 (0.00-0.03) x10^3u/L Absolute Lymphs (auto) 2.37 (1.0-4.6) x10^3/uL Absolute Monos (auto) 0.61 (0.0-1.3) x10^3/uL Absolute Nucleated RBC 0.00 (0.00-0.01) x10^3u/L Lymphocytes % 29.6 (24.0-44.0) % Monocytes % 7.6 (0.0-12.0) % Eosinophils % 0.9 (0.00-5.0) % Basophils % 0.5 (0.0-0.4) % Absolute Granulocytes 4.90 (1.4-6.9) x10^3/uL Basophils # 0.04 (0-0.4) x10^3/uL Sodium 144 (137-145) mmol/L Potassium 4.8 (3.5-5.1) mmol/L Chloride 108 H (98-107) mmol/L Carbon Dioxide 29 (22-30) mmol/L Anion Gap 10.9 (5-15) MEQ/L BUN 17 (7-17) mg/dL Creatinine 0.87 (0.52-1.04) mg/dL Estimated GFR > 60.0 ML/MIN Glucose 221 H (74-106) mg/dL Lactic Acid (0.4-2.0) Calcium 8.4 (8.4-10.2) mg/dL Total Bilirubin 0.30 (0.2-1.3) mg/dL AST 26 (14-36) U/L ALT 21 (0-35) U/L Alkaline Phosphatase 97 (38-126) U/L Troponin I (0.000-0.034) ng/mL Serum Total Protein 6.2 L (6.3-8.2) g/dL Albumin 3.6 (3.5-5.0) g/dL Lipase 127 (23-300) U/L Urine Color (Yellow) Urine Appearance (Clear) Urine pH (4.6-8.0) Ur Specific [place] (1.005-1.030) Urine Protein (Negative) Urine Glucose (UA) (Negative) mg/dL Urine Ketones (Negative) Urine Blood (Negative) Urine Nitrite (Negative) Urine Bilirubin (Negative) Urine Urobilinogen (0.2) mg/dL Ur Leukocyte Esterase (Negative) U Hyaline Cast (Auto) (0-2) /LPF Urine Microscopic RBC (0-5) /HPF Urine Microscopic WBC (0-5) /HPF Ur Epithelial Cells (None Seen) /HPF Urine Bacteria (None Seen) /HPF Urine Culture Reflexed (NO) - Progress Progress: improved Progress Note: Patient is a 52-year-old female presents to our ED for evaluation of abdominal pain mostly epigastric pain. Patient has been experiencing symptoms for approximately 2 weeks. Patient states pain worse today. No trauma no fever. No nausea vomiting or diaphoresis. CT abdomen pelvis shows mild hepatomegaly. Renal scarring. No acute intra-abdominal pathology. CBC CMP and unremarkable. Lipase negative. Lactic acid negative. Troponin negative. Urinalysis negative. Patient has mild hyperglycemia of 221. No anion gap acidosis. Mild glucosuria. Patient received GI cocktail pantoprazole Toradol and Zofran. A bolus of normal saline administered. Patient reassessed. Pain improved. Pain not completely resolved however. Patient states she is ready for discharge. Patient currently has an EGD scheduled for January 25. Patient will contact her physician to attempt to obtain her EGD sooner. Based on patient's history and physical examination. It appears patient may be experiencing gastritis or possible early gastric or peptic ulcer formation. Portions of this note were created with voice recognition technology. There may be grammatical, spelling, punctuation or sound alike errors Complexity of problems addressed is moderate acute complicated No critical care time Complex of data reviewed and analyzed is moderate. Test ordered test reviewed. Laboratory testing and imaging studies analyzed. Clinical correlation made between the findings and history and physical examination. Risk of complication and or risk morbidity/mortality of patient management is moderate. We will discharge home. Vital stable. Patient agrees to follow-up with her primary care doctor within 48 hours for reevaluation. Plan of care established for shared decision making. No social determinants of health present impede follow-up. Portions of this note were created with voice recognition technology. There may be grammatical, spelling, punctuation or sound alike errors 12/28/22 23:55 Counseled pt/family regarding: lab results, diagnosis, need for follow-up, rad results - Departure Departure Disposition: Home Clinical Impression: Enlarged liver, Spinal arthritis, Right renal scarring, Epigastric pain, Hy perglycemia, Glucosuria Condition: Stable Critical Care Time: No Referrals: SHERICE KNOWLES PA [Primary Care Provider] - Follow up/PCP as directed Additional Instructions: Discharge/Care Plan MERARI WOOTEN was seen on 12/28/22 in the Emergency Room. The patient was counseled regarding Diagnosis,Lab results, Imaging studies, need for follow up and when to return to the Emergency Room. Prescriptions given: Discharge Note I have spoken with the patient and/or caregivers. I have explained the patient's condition, diagnosis and treatment plan based on the information available to me at this time. I have answered the patient's and/or caregiver's questions and a ddressed any concerns. The patient and/or caregivers have as good understanding of the patient's diagnosis, condition and treatment plan as can be expected at this point. The vital signs have been stable. The patient's condition is stable and appropriate for discharge from the emergency department. The patient will pursue further outpatient evaluation with the primary care physician or other designated or consulting physician as outlined in the discharge instructions. The patient and/or caregivers are agreeable to this plan of care and follow-up instructions have been explained in detail. The patient and/or caregivers have received these instruction. The patient/and or caregivers are aware that any significant change in condition or worsening of symptoms should prompt an immediate return to this or the closest emergency department or call 911.
[2022-12-28] MEDS ORDERED: Zofran 4 MG/2 ML VIAL ONE (22:05)
[2022-12-28] MEDS ORDERED: TORAdol 30 mg Injection ONE (22:05)
[2022-12-28] MEDS ORDERED: Sodium Chloride 0.9% 1000 ML 1,000 ML ONE (22:05)
[2022-12-28] MEDS: Sodium Chloride 0.9% 1000 ML 1,000 ML IV STA (22:13)
[2022-12-28] MEDS: Zofran 4 MG/2 ML VIAL IV ONE (22:15)
[2022-12-28] MEDS: TORAdol 30 mg Injection IV ONE (22:16)
[2022-12-28 22:17] LABS: BASOPHIL % 0.5 % (0.0-0.4); Basophil (Absolute #) 0.04 x10^3/uL (0-0.4); Eosinophil % 0.9 % (0.00-5.0); Eosinophil (Absolute #) 0.07 x10^3/uL (0-0.5); Hematocrit 41.7 % (35-47); Hemoglobin 12.8 g/dL (12.0-16.0); IMMATURE GRAN # 0.03 x10^3u/L (0.00-0.03); IMMATURE GRAN % 0.4 % (0.00-0.4); Lymphocyte (Absolute #) 2.37 x10^3/uL (1.0-4.6); Lymphocytes % 29.6 % (24.0-44.0); Mean Cell Volume 94.3 fL (78-100); Mean Corpuscular Hgb Concent. 30.7 g/dL (32-36); Mean Platelet Volume 10.3 fL (7.5-11.0); Monocyte (Absolute #) 0.61 x10^3/uL (0.0-1.3); Monocytes % 7.6 % (0.0-12.0); Platelet Count 238 x10^3/uL (150-450); Red Blood Count 4.42 x10^6/uL (4.1-5.4); Red Cell Distribution Width 13.2 % (11.5-14.0)
[2022-12-28 22:31] LABS: Appearance Clear (Clear); Bacteria Rare /HPF (None Seen); Bilirubin Negative (Negative); Blood Negative (Negative); Epithelial Cells Few /HPF (None Seen); Glucose, Urine 100 mg/dL (Negative); Hyaline Casts NONE SEEN /LPF (0-2); Ketones Negative (Negative); Leukocyte Esterase Negative (Negative); Nitrite Negative (Negative); Protein,Urine Dip Negative (Negative); RBC 0-2 /HPF (0-5); Urobilinogen 0.2 mg/dL (0.2); WBC 0-2 /HPF (0-5)
[2022-12-28 22:32] LABS: ADD URINE CULTURE? NO (NO)
[2022-12-28 23:02] LABS: ALBUMIN 3.6 g/dL (3.5-5.0); ALKALINE PHOSPHATASE 97 U/L (38-126); ANION GAP 10.9 MEQ/L (5-15); BLOOD UREA NITROGEN 17 mg/dL (7-17); CHLORIDE 108 mmol/L (98-107); Calcium 8.4 mg/dL (8.4-10.2); Carbon Dioxide 29 mmol/L (22-30); Creatinine 1 0.87 mg/dL (0.52-1.04); EST GLOMERULAR FILTRATION RATE > 60.0 ML/MIN; LIPASE 127 U/L (23-300); Potassium 4.8 mmol/L (3.5-5.1); SGOT/AST 26 U/L (14-36); SGPT/ALT 21 U/L (0-35); SODIUM 144 mmol/L (137-145); Total Protein 6.2 g/dL (6.3-8.2)
[2022-12-28 23:04] LABS: Glucose 221 mg/dL (74-106)
--- NOTE | 2022-12-28 23:26 | XRAY ---
CLINICAL HISTORY:Pain COMPARISON:CT dated 01/30/2022. TECHNIQUE:CT of the abdomen and pelvis was performed in axila plane with sagittal and coronal reconstructed images without intravenous contrast administration. FINDINGS: Basal thoracic cuts: Clear lung bases. Liver and biliary tree: Enlarged liver (liver span 18.3 cm). No liver lesion is seen. GB is surgically removed. Spleen: Unremarkable. Adrenal glands: Unremarkable. Pancreas: Unremarkable. Kidneys and ureters: Unremarkable left kideny and ureters. Right renal scarring is still seen with lower pole parenchymal calcified nodule. No renal stone, cysts, or hydronephrosis are detected. Stomach and bowel: Relative gastric distension, however, no evident abnormality detected. Retroperitoneum: Unremarkable. Lymph nodes: No evidence of lymphadenopathy. Skeletal system: No suspicious bony lesion detected. Degenerative changes are seen in the spine. Still seen L5 spinolaminectomy. Bladder: No definite focal lesion detected. The uterus and both adnexa are unremarkable. IMPRESSION: 1. No acute intra-abdominal and pelvis abnormality. 2. Right renal scarring is still seen with stable lower pole parenchymal calcified nodule. 3. Mild hepatomegaly. Electronically Signed by: Sergio Osullivan MD. (12/28/2022 22:24:34 AUT[employer]ATION ARCHITECT)
[2022-12-28 23:44] VITALS: O2SAT 97
[2022-12-28] MEDS ORDERED: PROTONIX 40 MG IV IV ONE (23:54)
[2022-12-28] MEDS ORDERED: XYLOCAINE HCl Viscous ONE (23:55)
[2022-12-28] MEDS ORDERED: MAALOX ES 30 ML UNIT DOSE ONE (23:55)
[2022-12-28] MEDS: PROTONIX 40 MG IV IV ONE (23:57)
[2022-12-28] MEDS: GI COCKTAIL 45 ML (Maalox/Lidocaine) PO ONE (23:57)
[2022-12-29 00:02] VITALS: BP 99/59; PULSE 90; RESP 20
== END 2022-12-29 00:16 | disposition home or self-care (01) ==
LOC: ED 21:35
DX: R16.0 Hepatomegaly, not elsewhere classified (principal); M47.9 Spondylosis, unspecified; N28.89 Other specified disorders of kidney and ureter; R10.13 Epigastric pain; E11.65 Type 2 diabetes mellitus with hyperglycemia; R81 Glycosuria; E11.42 Type 2 diabetes mellitus with diabetic polyneuropathy; E78.5 Hyperlipidemia, unspecified; I10 Essential (primary) hypertension; Z79.4 Long term (current) use of insulin; Z79.899 Other long term (current) drug therapy
CPT/HCPCS: 36000; 36415; 74176; 80053; 81001; 83605; 83690; 84484; 85025; 96374; 96375; 99284; J1885; J2405; A9270-GY

== ENCOUNTER 2023-04-15 22:16 | Emergency (ER) | payer MEDICAID ==
[2023-04-15 22:29] VITALS: TEMP 96.8
--- NOTE | 2023-04-15 22:46 | ERPHSYRPT ---
- History of Present Illness Time Seen by Provider: 04/15/23 22:20 Historian: patient Exam Limitations: no limitations Patient Subjective Stated Complaint: pt states that she has had chest pain for the past 2 days Triage Nursing Assessment: pt came into the er via wheelchair; pt transferred self to cot; c/o chest pain; pt states 10/10 pain to chest that radiates to rt side; no respiratory distress present; skin PDW; vitals wnl Physician History: The patient describes sharp chest pain. It is not pleuritic. It is constant for the past 2 days. It is substernal and right-sided. Aspirin Treatment Today: no aspirin today Allergies/Adverse Reactions: buspirone [From BuSpar] Allergy (Verified 04/15/23 22:18) guaifenesin [From CodiCLEAR DH] Allergy (Verified 04/15/23 22:18) hydrocodone bitartrate [From CodiCLEAR DH] Allergy (Verified 04/15/23 22:18) hydromorphone HCl [From Dilaudid] Allergy (Verified 04/15/23 22:18) Iodinated Contrast Media [Iodinated Contrast- Oral and IV Dye] Allergy (Verified 04/15/23 22:18) Penicillins Allergy (Verified 04/15/23 22:18) potassium guaiacolsulfonate [From CodiCLEAR DH] Allergy (Verified 04/15/23 22:18) melatonin Adverse Reaction (Verified 04/15/23 22:18) Home Medications: PANTOPRAZOLE 40 mg Tablet [Protonix 40MG Tablet] 40 mg PO DAILY 08/25/16 [History] Nitroglycerin 0.4 mg (Ed) [Nitrostat 0.4 MG (ED)] 0.4 mg SL UD PRN 12/01/17 [History] Furosemide 20 mg [Lasix 20 mg] 40 mg PO DAILY 12/19/19 [History] Levothyroxine Sodium [Unithroid] 125 mcg PO DAILY 12/19/19 [History] Dicyclomine HCl 20 mg [Bentyl 20 mg] 20 mg PO QID 09/03/20 [History] Ezetimibe 10 mg [Zetia 10 MG] 10 mg PO DAILY 09/03/20 [History] Potassium Chloride Tab* [Klor Con] 10 meq PO DAILY 09/03/20 [History] Albuterol Sulfate [Albuterol Sulfate Hfa] 8.5 gm IH Q4H PRN PRN 09/05/20 [History] Atorvastatin Calcium [Lipitor 40Mg] 40 mg PO HS 09/05/20 [History] Doxepin HCl 50 mg PO HS 09/05/20 [History] Estradiol [Estrace] 0.5 mg PO DAILY 09/05/20 [History] Insulin Lispro [Humalog] 0 unit SQ UD 09/06/20 [History] Cyanocobalamin/Cobamamide [Sv B-12 5,000 Mcg Microlozenge] 2,500 mcg SL DAILY 12/28/22 [History] Diclofenac Submicronized [Diclofenac] 75 mg PO BID 12/28/22 [History] Ergocalciferol (Vitamin D2) [Vitamin D2] 1 cap PO WEEKLY 12/28/22 [History] Insulin Aspart [NovoLOG Insulin] 5 unit SQ PC 12/28/22 [History] Lurasidone HCl 20 mg PO HS 12/28/22 [History] Lurasidone HCl 80 mg PO DAILY 12/28/22 [History] Magnesium Oxide 400 mg [Mag-Ox 400] 400 mg PO DAILY 12/28/22 [History] Medroxyprogesterone 2.5 mg [Provera 2.5 MG] 5 mg PO DAILY 12/28/22 [Histor y] OXcarbazepine [Trileptal] 150 mg PO BID 12/28/22 [History] Ondansetron ODT 4 MG [Zofran Odt 4 mg] 1 ea PO BIDPRN PRN 12/28/22 [History] Topiramate 100 mg [Topamax 100 MG] 1 tab PO BID 12/28/22 [History] Hx Tetanus, Diphtheria Vaccination/Date Given: Yes Hx Influenza Vaccination/Date Given: No Hx Pneumococcal Vaccination/Date Given: No Travel Risk - International Travel Have you traveled outside of the country in past 3 weeks: No - Coronavirus Screening Are you exhibiting any of the following symptoms?: No Close contact with a COVID-19 positive Pt in past 14-21 Days: No - Vaccine Status Have you recieved a Covid-19 vaccination: No Web Application Dev Specialist: Moderna - Vaccination Dates Date of 2cond Vaccination (if applicable): 2020 - Review of Systems Constitutional: No Fever, No Chills Eyes: No Symptoms Ears, Nose, & Throat: No Symptoms Respiratory: No Cough, No Dyspnea Cardiac: Chest Pain, No Edema, No Syncope Abdominal/Gastrointestinal: No Abdominal Pain, No Nausea, No Vomiting, No Diarrhea Genitourinary Symptoms: No Dysuria Musculoskeletal: No Back Pain, No Neck Pain Skin: No Rash Neurological: No Dizziness, No Focal Weakness, No Sensory Changes Psychological: No Symptoms Endocrine: No Symptoms All Other Systems: Reviewed and Negative - Past Medical History Pertinent Past Medical History: Yes Neurological History: Migraines, Peripheral Neuropathy ENT History: No Pertinent History Cardiac History: Angina, High Cholesterol, Hypertension Respiratory History: Asthma Endocrine Medical History: Diabetes Type II Musculoskeletal History: Arthritis GI Medical History: Crohns Disease, Diverticulitis, Hernia, Irritable Bowel, Other History: No Pertinent History Psycho-Social History: Anxiety, Depression Female Reproductive Disorders: No Pertinent History Other Medical History: CHRONIC CONSTIPATION - Past Surgical History Past Surgical History: Yes Neuro Surgical History: No Pertinent History Cardiac: No Pertinent History Respiratory: No Pertinent History Gastrointestinal: Appendectomy, Cholecystectomy, Exploratory Laparoscopy Genitourinary: No Pertinent History Musculoskeletal: No Pertinent History, Other Female Surgical History: No Pertinent History Other Surgical History: back surgery, thyroidectomy - Social History Smoking Status: Never smoker Exposure to second hand smoke: No Drug Use: none Patient Lives Alone: Yes Significant Family History: no pertinent family hx - Nursing Vital Signs Nursing Vital Signs: Initial Vital Signs Temperature 96.8 F 04/15/23 22:17 Pulse Rate 86 04/15/23 22:17 Respiratory Rate 16 04/15/23 22:17 Blood Pressure 120/102 04/15/23 22:17 O2 Sat by Pulse Oximetry 97 04/15/23 22:17 Pain Scale Pain Intensity 8 - Physical Exam General Appearance: no apparent distress, alert Eye Exam: PERRL/EOMI, eyes nml inspection Ears, Nose, Throat Exam: normal ENT inspection, moist mucous membranes Neck Exam: normal inspection, non-tender, supple, full range of motion Respiratory Exam: normal breath sounds, lungs clear, No respiratory distress Cardiovascular Exam: regular rate/rhythm, normal heart sounds Gastrointestinal/Abdomen Exam: soft, No tenderness, No mass Back Exam: normal inspection, No CVA tenderness, No vertebral tenderness Extremity Exam: normal inspection, normal range of motion Neurologic Exam: alert, oriented x 3, cooperative, normal mood/affect, sensation nml, No motor deficits Skin Exam: normal color, warm, dry SpO2 Interpretation: normal SpO2: 97 O2 Delivery: Room Air - Course Nursing assessment & vital signs reviewed: Yes EKG Interpreted by Me: RATE, NORMAL AXIS, NORMAL INTERVALS, NORMAL QRS, Non-spe cific ST Changes, Other (EKG interpreted by myself contemporaneously. Normal sinus rhythm rate of 81 low voltage QRS nonspecific ST wave changes.) Ordered Tests: Active Orders 24 hr Category Date Time Status EKG-ER Only STAT Care 04/15/23 22:30 Active IV Insertion STAT Care 04/15/23 22:30 Active CHEST 1 VIEW (PORTABLE) Stat Exams 04/15/23 22:30 Taken CBC W DIFF Stat Lab 04/15/23 22:44 Completed CMP Stat Lab 04/15/23 22:44 Completed TROPONIN Q4H Lab 04/15/23 22:44 Completed Medication Summary Discontinued Medications Generic Name Dose Route Start Last Admin Trade Name Freq PRN Reason Stop Dose Admin Diphenhydramine HCl Confirm 04/16/23 01:25 Diphenhydramine Hcl 50 Mg/Ml Vial Administered 04/16/23 01:26 Dose 50 mg .ROUTE .STK-MED ONE Diphenhydramine HCl 25 mg 04/16/23 01:25 04/16/23 01:26 Diphenhydramine Hcl 50 Mg/Ml Vial IV 04/16/23 01:26 25 mg STAT ONE Administration Hydroxyzine HCl 25 mg 04/16/23 01:50 04/16/23 01:54 Hydroxyzine Hcl 25 Mg Tablet PO 04/16/23 01:51 25 mg STAT ONE Administration Hydroxyzine HCl Confirm 04/16/23 01:53 Hydroxyzine Hcl 25 Mg Tablet Administered 04/16/23 01:54 Dose 25 mg .ROUTE .STK-MED ONE Ketorolac Tromethamine 15 mg 04/16/23 00:25 04/16/23 00:47 Ketorolac Tromethamine 30 Mg/Ml Inj IV 04/16/23 00:26 15 mg STAT ONE Administration Ketorolac Tromethamine Confirm 01/27/24 00:47 Ketorolac Tromethamine 30 Mg/Ml Inj Administered 04/16/23 00:48 Dose 30 mg .ROUTE .K-MED ONE Lab/Rad Data: Laboratory Result Diagrams 04/15/23 22:44 04/15/23 22:44 Laboratory Results 04/15/23 04/15/23 Range/Units 22:44 22:44 WBC 8.4 (4.0-10.5) x10^3/uL RBC 5.04 (4.1-5.4) x10^6/uL Hgb 14.7 (12.0-16.0) g/dL Hct 47.1 H (35-47) % MCV 93.5 (78-100) fL MCH 29.2 (26-32) pg MCHC 31.2 L (32-36) g/dL RDW 15.8 H (11.5-14.0) % Plt Count 236 (150-450) x10^3/uL MPV 10.7 (7.5-11.0) fL Gran % 55.1 (36.0-66.0) % Immature Gran % (Auto) 0.1 (0.00-0.4) % Nucleat RBC Rel Count 0.0 (0.00-0.1) % Eos # (Auto) 0.06 (0-0.5) x10^3/uL Immature Gran # (Auto) 0.01 (0.00-0.03) x10^3u/L Absolute Lymphs (auto) 3.27 (1.0-4.6) x10^3/uL Absolute Monos (auto) 0.40 (0.0-1.3) x10^3/uL Absolute Nucleated RBC 0.00 (0.00-0.01) x10^3u/L Lymphocytes % 38.7 (24.0-44.0) % Monocytes % 4.7 (0.0-12.0) % Eosinophils % 0.7 (0.00-5.0) % Basophils % 0.7 (0.0-0.4) % Absolute Granulocytes 4.64 (1.4-6.9) x10^3/uL Basophils # 0.06 (0-0.4) x10^3/uL Sodium 138 (137-145) mmol/L Potassium 4.5 (3.5-5.1) mmol/L Chloride 103 (98-107) mmol/L Carbon Dioxide 29 (22-30) mmol/L Anion Gap 10.6 (5-15) MEQ/L BUN 17 (7-17) mg/dL Creatinine 1.44 H (0.52-1.04) mg/dL Estimated GFR 43.8 ML/MIN Glucose 74 (74-106) mg/dL Calcium 8.9 (8.4-10.2) mg/dL Total Bilirubin 1.00 (0.2-1.3) mg/dL AST 41 H (14-36) U/L ALT 32 (0-35) U/L Alkaline Phosphatase 66 (38-126) U/L Troponin I < 0.012 (0.000-0.034) ng/mL Serum Total Protein 7.3 (6.3-8.2) g/dL Albumin 4.5 (3.5-5.0) g/dL Chest x-ray interpreted by myself showed no acute cardiopulmonary process. - Progress Progress: improved Progress Note: Medical Decision Making: Differential Diagnosis: Acute myocardial infarction, Aneurysm of thoracic aorta, Bronchitis, CAD, Chest wall pain, Coronary artery disease, Costochondritis, [place] - Myocardial infarction, Myocarditis, Myofascial pain, Pulmonary embolism; Diagnostic Evaluation: History AND physical examination, Xrays, 12 lead ECG, Blood work, breast trimmer; Amount and complexity of data: The EM Physician performed a face to face evaluation in this patient, Current EKG reviewed, Current labs reviewed, Current x-rays reviewed, Medical Records reviewed; Impressions: This patient has had this pain for quite some time and would expect some CE changes if ACS. I feel this story is low risk for ACS. If the diagnostic evaluation is satisfactory, then I will discharge the patient with close follow-up and further testing, such as a timely stress test. The patient understands this diagnostic plan.; Nursing Orders: Classification Officer and Pulse Ox, Oxygen, Start IV 04/15/23 22:45 The patient does not show signs of DVT or PE. The patient is not tachycardic or hypoxic. The patient has had the symptoms before. 04/15/23 22:48 04/16/23 00:21 The patient's workup does not reveal any acute life-threatening cause of chest pain. 01/27/24 02:03 The patient had a mild allergic reaction to Toradol. She was given Benadryl and Atarax. The patient at this point does not show any signs of anaphylaxis. - Departure Departure Disposition: Home Clinical Impression: Chest pain in adult, Chronic stable angina, Chronic chest pain, Atypical chest pain, Type 2 diabetes mellitus Condition: Stable Critical Care Time: No Referrals: SHERICE KNOWLES PA [Primary Care Provider] - Follow up/PCP as directed Instructions: Chest Pain That Is Not Caused by the Heart (DC), Chest Pain (DC) Additional Instructions: Thank you for choosing our Emergency Department for your healthcare! Please take your medicines prescribed as directed and be assured that you follow up with the physician provided or your PCP in the next 1-2 days to assure you are improving. All medical problems cannot be reasonably diagnosed in your ED visit today. Return for any changes or concerns, including if your condition does not improve or you are unable to obtain follow-up. Some final results, including radiology reports, do not return the same day, but are available on the patient portal or can be obtained through your PCP. Use Tylenol Motrin for pain. Follow-up with your primary care doctor. Get an outpatient stress test and cardiology consult. Prescriptions: Hydroxyzine HCl 25 mg [Atarax 25 mg] 25 mg PO Q6H PRN #15 tablet PRN Reason: Itching
[2023-04-15 22:47] LABS: Absolute Neutrophil Ct (ANC) 4.64 x10^3/uL (1.4-6.9); BASOPHIL % 0.7 % (0.0-0.4); Basophil (Absolute #) 0.06 x10^3/uL (0-0.4); Eosinophil % 0.7 % (0.00-5.0); Eosinophil (Absolute #) 0.06 x10^3/uL (0-0.5); Hematocrit 47.1 % (35-47); Hemoglobin 14.7 g/dL (12.0-16.0); IMMATURE GRAN # 0.01 x10^3u/L (0.00-0.03); IMMATURE GRAN % 0.1 % (0.00-0.4); Lymphocyte (Absolute #) 3.27 x10^3/uL (1.0-4.6); Lymphocytes % 38.7 % (24.0-44.0); Mean Cell Volume 93.5 fL (78-100); Mean Corpuscular Hemoglobin 29.2 pg (26-32); Mean Corpuscular Hgb Concent. 31.2 g/dL (32-36); Mean Platelet Volume 10.7 fL (7.5-11.0); Monocytes % 4.7 % (0.0-12.0); Neutrophil % 55.1 % (36.0-66.0); Platelet Count 236 x10^3/uL (150-450); Red Blood Count 5.04 x10^6/uL (4.1-5.4); Red Cell Distribution Width 15.8 % (11.5-14.0); White Blood Count 8.4 x10^3/uL (4.0-10.5)
[2023-04-15 23:04] LABS: ALBUMIN 4.5 g/dL (3.5-5.0); ALKALINE PHOSPHATASE 66 U/L (38-126); ANION GAP 10.6 MEQ/L (5-15); BLOOD UREA NITROGEN 17 mg/dL (7-17); CHLORIDE 103 mmol/L (98-107); Calcium 8.9 mg/dL (8.4-10.2); Carbon Dioxide 29 mmol/L (22-30); Creatinine 1 1.44 mg/dL (0.52-1.04); EST GLOMERULAR FILTRATION RATE 43.8 ML/MIN; Glucose 74 mg/dL (74-106); Potassium 4.5 mmol/L (3.5-5.1); SGOT/AST 41 U/L (14-36); SGPT/ALT 32 U/L (0-35); SODIUM 138 mmol/L (137-145); TROPONIN < 0.012 ng/mL (0.000-0.034); Total Protein 7.3 g/dL (6.3-8.2)
[2023-04-16] MEDS ORDERED: TORAdol 30 mg Injection IV ONE (00:25)
[2023-04-16] MEDS ORDERED: TORAdol 30 mg Injection ONE (00:47)
[2023-04-16] MEDS ORDERED: BENADRYL 50 MG/ML IV ONE (01:25)
[2023-04-16] MEDS ORDERED: BENADRYL 50 MG/ML ONE (01:25)
[2023-04-16] MEDS ORDERED: ATARAX 25 MG PO ONE (01:50)
[2023-04-16] MEDS ORDERED: ATARAX 25 MG ONE (01:53)
[2023-04-16 02:03] VITALS: O2SAT 97
[2023-04-16 02:13] VITALS: BP 128/78; PULSE 64; RESP 15
--- NOTE | 2023-04-16 08:46 | XRAY ---
Indication: Chest pain. Comparison: July 17, 2021 Portable chest inflated and now clear. Heart not enlarged. Bony thorax intact with stable mild degenerative changes and proximal left humerus bone island. No new/acute findings.
== END 2023-04-16 02:36 | disposition home or self-care (01) ==
LOC: ED 22:16
DX: I20.89 Other forms of angina pectoris (principal); R07.89 Other chest pain; E11.42 Type 2 diabetes mellitus with diabetic polyneuropathy; E78.5 Hyperlipidemia, unspecified; I10 Essential (primary) hypertension; Z79.4 Long term (current) use of insulin; Z79.899 Other long term (current) drug therapy
CPT/HCPCS: 36000; 36415; 71045; 80053; 84484; 85025; 93005; 96374; 99284; J1200; J1885; A9270-GY

== ENCOUNTER 2023-08-28 19:22 | Emergency (ER) | payer MEDICAID ==
[2023-08-28 21:09] VITALS: TEMP 97.1
[2023-08-28] MEDS ORDERED: MORPHINE SULFATE 2 MG INJ ONE ×2 (21:18→23:16)
[2023-08-28] MEDS ORDERED: Zofran 4 MG/2 ML VIAL ONE (21:18)
[2023-08-28] MEDS ORDERED: Sodium Chloride 0.9% 1000 ML 1,000 ML ONE (21:18)
[2023-08-28] MEDS: Sodium Chloride 0.9% 1000 ML 1,000 ML IV STA (21:20)
[2023-08-28] MEDS: Zofran 4 MG/2 ML VIAL IV ONE (21:21)
[2023-08-28] MEDS: MORPHINE SULFATE 2 MG INJ IV ONE ×2 (21:31→23:17)
[2023-08-28 21:36] LABS: Absolute Neutrophil Ct (ANC) 4.44 x10^3/uL (1.56-6.13); Basophil (Absolute #) 0.07 x10^3/uL (0.01-0.08); Eosinophil % 1.3 % (0.7-5.8); Eosinophil (Absolute #) 0.09 x10^3/uL (0.04-0.36); Hematocrit 45.8 % (34.1-44.9); Hemoglobin 14.2 g/dL (11.2-15.7); IMMATURE GRAN # 0.02 x10^3u/L (0.001-0.031); IMMATURE GRAN % 0.3 % (0.001-0.429); Lymphocyte (Absolute #) 2.09 x10^3/uL (1.18-3.74); Lymphocytes % 29.6 % (19.3-51.7); Mean Cell Volume 93.1 fL (79.4-94.8); Mean Corpuscular Hemoglobin 28.9 pg (25.6-32.2); Mean Platelet Volume 10.9 fL (9.4-12.3); Monocyte (Absolute #) 0.36 x10^3/uL (0.24-0.86); Monocytes % 5.1 % (4.7-12.5); Neutrophil % 62.7 % (34.0-71.1); Platelet Count 205 x10^3/uL (182-369); Red Blood Count 4.92 x10^6/uL (3.93-5.22); Red Cell Distribution Width 13.6 % (11.7-14.4); White Blood Count 7.1 x10^3/uL (3.98-10.04)
[2023-08-28 21:49] LABS: ALBUMIN 3.9 g/dL (3.5-5.0); BILIRUBIN,TOTAL 0.3 mg/dL (0.2-1.3); Calcium 8.5 mg/dL (8.4-10.2); Creatinine 1 1.33 mg/dL (0.52-1.04); EST GLOMERULAR FILTRATION RATE 48.1 ML/MIN; Potassium 3.2 mmol/L (3.5-5.1); Total Protein 6.5 g/dL (6.3-8.2)
--- NOTE | 2023-08-28 22:51 | XRAY ---
CLINICAL HISTORY: epigastric, LUQ pain COMPARISON: 12/28/2022. TECHNIQUE: A CT scan of the abdomen and pelvis was performed without IV contrast. Images were reformatted into sagittal and coronal planes. One of the following dose reduction techniques was utilized for this exam: Automated exposure control, adjustment of the mA and/or kV according to patient size, and use of iterative reconstruction. FINDINGS: The liver is normal in size and shape with regular margins and normal parenchymal attenuation. No focal or diffuse parenchymal abnormality. No hepatic mass is identified. The portal vein, intrahepatic biliary radicals, and the bile ducts are normal. The gallbladder is surgically removed. Pancreas appears normal. No peripancreatic fat stranding, pancreatic pseudocyst, or peripancreatic fluid collection. Spleen normal in size, no mass seen. Both adrenal glands are unremarkable. Both kidneys are normal in size without calculi, cyst mass, or hydronephrosis on either side. Redemonstration of lobulated right kidney with renal cortical scarring and subtle parenchymal calcification. Both ureters and urinary bladder appear normal. Stomach and small bowel loops are unremarkable. The caecum and ileocecal junction appear normal. The appendix is surgically removed. Moderate colonic fecal loading is identified. Large bowel loops appear normal without evidence of bowel obstruction. The sigmoid and rectum appear normal. The uterus and ovaries appear grossly unremarkable. No evidence of ascites. No evidence of significant enlargement of the mesenteric or retroperitoneal lymph nodes. Visualized lung bases are clear. Redemonstration of degenerative changes in the visualized spine. Redemonstration of a spinal laminectomy at L5 level with associated right-sided L5 pars interarticularis defect without significant spondylolisthesis. IMPRESSION: 1. No acute abdominopelvic abnormality was identified. 2. Moderate colonic fecal loading. 3. The rest of the findings are stable and as stated above. Electronically Signed by: Sergio Osullivan MD. (08/28/2023 22:46:57 EDT)
--- NOTE | 2023-08-28 23:15 | ERPHSYRPT ---
- History of Present Illness Time Seen by Provider: 08/28/23 21:00 Historian: patient Exam Limitations: no limitations Patient Subjective Stated Complaint: C/O abdominal pain with N/V since 08/27/23 Triage Nursing Assessment: Patient ambulated back to ER with a rolling walker. Patient noted to be holding left side of abdomen when transferring to the bed. She is alert and oriented. No current/active vomiting during assessment. RAMSEY WNL. Skin tone normal. Abdomen is soft. Physician History: 53yo f presents via private vehicle for epigastric and LLQ abdominal pain. Pt reports the pain has been ongoing x 2d, states it does not radiate, describes it as dull and crampy. Pt reports some constipation in the past few days, is not sure when her last BM was. 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 Pt currently denies cp, soa, does endorse some nausea but denies any vomiting or diarrhea. Pt has not taken any medications for her sx today. Timing/Duration: yesterday Activities at Onset: none Quality: cramping Abdominal Pain Onset Location: LLQ, epigastric Pain Radiation: no radiation Severity of Pain-Max: moderate Severity of Pain-Current: mild Modifying Factors: Improves With: nothing Associated Symptoms: nausea, No back, No chest pain, No diaphoresis, No diarrhea, No fever/chills, No vomiting Allergies/Adverse Reactions: buspirone [From BuSpar] Allergy (Verified 08/28/23 20:59) guaifenesin [From [employer] ] Allergy (Verified 08/28/23 20:59) hydrocodone bitartrate [From [employer] ] Allergy (Verified 08/28/23 20:59) hydromorphone HCl [From Dilaudid] Allergy (Verified 08/28/23 20:59) Iodinated Contrast Media [Iodinated Contrast- Oral and IV Dye] Allergy (Verified 08/28/23 20:59) Penicillins Allergy (Verified 08/28/23 20:59) potassium guaiacolsulfonate [From [employer] ] Allergy (Verified 08/28/23 20:59) melatonin Adverse Reaction (Verified 08/28/23 20:59) Home Medications: PANTOPRAZOLE 40 mg Tablet [Protonix 40MG Tablet] 40 mg PO DAILY 08/25/16 [History] Nitroglycerin 0.4 mg (Ed) [Nitrostat 0.4 MG (ED)] 0.4 mg SL UD PRN 12/01/17 [History] Furosemide 20 mg [Lasix 20 mg] 40 mg PO DAILY 12/19/19 [History] Dicyclomine HCl 20 mg [Bentyl 20 mg] 20 mg PO QID 09/03/20 [History] Ezetimibe 10 mg [Zetia 10 MG] 10 mg PO DAILY 09/03/20 [History] Potassium Chloride Tab* [Klor Con] 10 meq PO DAILY 09/03/20 [History] Albuterol Sulfate [Albuterol Sulfate Hfa] 8.5 gm IH Q4H PRN PRN 09/05/20 [History] Atorvastatin Calcium [Lipitor 40Mg] 40 mg PO HS 09/05/20 [History] Doxepin HCl 50 mg PO HS 09/05/20 [History] Estradiol [Estrace] 0.5 mg PO DAILY 09/05/20 [History] Insulin Lispro [Humalog] 0 unit SQ UD 09/06/20 [History] Cyanocobalamin/Cobamamide [Sv B-12 5,000 Mcg Microlozenge] 2,500 mcg SL DAILY 12/28/22 [History] Diclofenac Submicronized [Diclofenac] 75 mg PO BID 12/28/22 [History] Ergocalciferol (Vitamin D2) [Vitamin D2] 1 cap PO WEEKLY 12/28/22 [History] Insulin Aspart [NovoLOG Insulin] 5 unit SQ PC 12/28/22 [History] Lurasidone HCl 20 mg PO HS 12/28/22 [History] Lurasidone HCl 80 mg PO DAILY 12/28/22 [History] Magnesium Oxide 400 mg [Mag-Ox 400] 400 mg PO DAILY 12/28/22 [History] Medroxyprogesterone 2.5 mg [Provera 2.5 MG] 5 mg PO DAILY 12/28/22 [History] OXcarbazepine [Trileptal] 150 mg PO BID 12/28/22 [History] Ondansetron ODT 4 MG [Zofran Odt 4 mg] 1 ea PO BIDPRN PRN 12/28/22 [History] Topiramate 100 mg [Topamax 100 MG] 1 tab PO BID 12/28/22 [History] Levothyroxine Sodium 150 Mcg [Synthroid 150 Mcg] 150 mcg PO DAILY 08/28/23 [History] Hx Tetanus, Diphtheria Vaccination/Date Given: Yes Hx Influenza Vaccination/Date Given: No Hx Pneumococcal Vaccination/Date Given: No Immunizations Up to Date: Yes Travel Risk - International Travel Have you traveled outside of the country in past 3 weeks: No - Emerging Infectious Disease Are you exhibiting symptoms associated with any current EIDs: Yes Symptoms: Abdominal Pain, Vomitting - Review of Systems Constitutional: No Symptoms Respiratory: No Symptoms Cardiac: No Symptoms Abdominal/Gastrointestinal: Abdominal Pain, Nausea, Constipation, No Vomiting, No Diarrhea, No Hematemesis, No Hematochezia, No Melena Genitourinary Symptoms: No Symptoms - Past Medical History Pertinent Past Medical History: Yes Neurological History: Migraines, Peripheral Neuropathy ENT History: No Pertinent History Cardiac History: Angina, High Cholesterol, Hypertension Respiratory History: Asthma Endocrine Medical History: Diabetes Type II Musculoskeletal History: Arthritis GI Medical History: Crohns Disease, Diverticulitis, GERD, Gallbladder Disease, Hernia, Irritable Bowel, Pancreatitis, Other History: No Pertinent History Psycho-Social History: Anxiety, Depression Female Reproductive Disorders: No Pertinent History Other Medical History: CHRONIC CONSTIPATION - Past Surgical History Past Surgical History: Yes Neuro Surgical History: No Pertinent History Cardiac: No Pertinent History Respiratory: No Pertinent History Gastrointestinal: Appendectomy, Cholecystectomy, Exploratory Laparoscopy Genitourinary: No Pertinent History Musculoskeletal: No Pertinent History, Other Female Surgical History: No Pertinent History Other Surgical History: back surgery, thyroidectomy Significant Family History: no pertinent family hx - Female History Hx Last Menstrual Period: No longer has them Hx Now: No - Social History Smoking Status: Never smoker Exposure to second hand smoke: No Drug Use: none Patient Lives Alone: Yes - Social Determinants of Health Will the patient participate in the screening: Yes Do you worry about a steady place to live?: No Do you have any problems with any of the following?: No known problems In the past 12 months,have you had to go without utilities?: No Transportation Issues: No Has anyone in your support network made you feel unsafe?: No Have you or anyone in your house had to go without enough: No - Nursing Vital Signs Nursing Vital Signs: Initial Vital Signs Temperature 97.1 F 08/28/23 20:50 Pulse Rate 72 08/28/23 20:50 Respiratory Rate 18 08/28/23 20:50 Blood Pressure 131/98 08/28/23 20:50 O2 Sat by Pulse Oximetry 98 08/28/23 20:50 Pain Scale Pain Intensity 6 - Physical Exam General Appearance: no apparent distress, alert Respiratory Exam: normal breath sounds, lungs clear, airway intact, No chest tenderness, No respiratory distress Cardiovascular Exam: regular rate/rhythm, normal heart sounds, No edema Gastrointestinal/Abdomen Exam: soft, normal bowel sounds, tenderness (mild TTP LLQ), No distention, No guarding, No rebound Skin Exam: normal color, warm, dry SpO2 Interpretation: normal SpO2: 95 O2 Delivery: Room Air Ordered Tests: Active Orders 24 hr Category Date Time Status ABDOMEN AND PELVIS W/0 CONTRAS [CT] Stat Exams 08/28/23 21:15 Completed CBC W DIFF Stat Lab 08/28/23 21:33 Completed CMP Stat Lab 08/28/23 21:33 Completed CULTURE,URINE Stat Lab 08/28/23 23:13 Received LIPASE Stat Lab 08/28/23 21:33 Completed UA W/RFX UR CULTURE Stat Lab 08/28/23 23:13 Completed Medication Summary Discontinued Medications Generic Name Dose Route Start Last Admin Trade Name Freq PRN Reason Stop Dose Admin Sodium Chloride 1,000 mls @ 999 mls/hr 08/28/23 21:14 08/28/23 23:05 Sodium Chloride 0.9% 1000 Ml IV 08/28/23 22:14 Infused .Q1H1M STA Infusion Sodium Chloride Confirm 08/28/23 21:18 Sodium Chloride 0.9% 1000 Ml Administered 08/28/23 21:19 Dose 1,000 mls @ ud .ROUTE .STK-MED ONE Ceftriaxone Sodium 1 gm in 100 mls @ 200 mls/hr 08/29/23 00:52 08/29/23 01:38 Rocephin 1 Gm / 100 Ml Nacl IV 08/29/23 01:21 Infused STAT ONE Infusion Ceftriaxone Sodium Confirm 08/29/23 00:55 Rocephin 1 Gm / 100 Ml Nacl Administered 08/29/23 00:56 Dose 1 gm in 100 mls @ ud IV .STK-MED ONE Morphine Sulfate 2 mg 08/28/23 21:14 08/28/23 21:31 Morphine Sulfate 2 Mg/Ml Inj IV 08/28/23 21:15 2 mg STAT ONE Administration Morphine Sulfate Confirm 08/28/23 21:18 Morphine Sulfate 2 Mg/Ml Inj Administered 08/28/23 21:19 Dose 2 mg .ROUTE .STK-MED ONE Morphine Sulfate 2 mg 08/28/23 23:14 08/28/23 23:17 Morphine Sulfate 2 Mg/Ml Inj IV 08/28/23 23:15 2 mg STAT ONE Administration Morphine Sulfate Confirm 08/28/23 23:16 Morphine Sulfate 2 Mg/Ml Inj Administered 08/28/23 23:17 Dose 2 mg .ROUTE .STK-MED ONE Morphine Sulfate 2 mg 08/29/23 00:53 08/29/23 00:58 Morphine Sulfate 2 Mg/Ml Inj IV 08/29/23 00:54 2 mg STAT ONE Administration Morphine Sulfate Confirm 08/29/23 00:55 Morphine Sulfate 2 Mg/Ml Inj Administered 08/29/23 00:56 Dose 2 mg .ROUTE .STK-MED ONE Morphine Sulfate Confirm 08/29/23 01:01 Morphine Sulfate 2 Mg/Ml Inj Administered 08/29/23 01:02 Dose 2 mg .ROUTE .STK-MED ONE Ondansetron HCl 4 mg 08/28/23 21:14 08/28/23 21:21 Ondansetron Hcl 4 Mg/2 Ml Vial IV 08/28/23 21:15 4 mg STAT ONE Administration Ondansetron HCl Confirm 08/28/23 21:18 Ondansetron Hcl 4 Mg/2 Ml Vial Administered 08/28/23 21:19 Dose 4 mg .ROUTE .STK-MED ONE Lab/Rad Data: Laboratory Result Diagrams 08/28/23 21:33 08/28/23 21:33 Laboratory Results 08/28/23 08/28/23 08/28/23 Range/Units 23:13 21:33 21:33 WBC 7.1 (3.98-10.04) x10^3/uL RBC 4.92 (3.93-5.22) x10^6/uL Hgb 14.2 (11.2-15.7) g/dL Hct 45.8 H (34.1-44.9) % MCV 93.1 (79.4-94.8) fL MCH 28.9 (25.6-32.2) pg MCHC 31.0 L (32.2-35.5) g/dL RDW 13.6 (11.7-14.4) % Plt Count 205 (182-369) x10^3/uL MPV 10.9 (9.4-12.3) fL Gran % 62.7 (34.0-71.1) % Immature Gran % (Auto) 0.3 (0.001-0.429) % Nucleat RBC Rel Count 0.0 (0.00-0.2) % Eos # (Auto) 0.09 (0.04-0.36) x10^3/uL Immature Gran # (Auto) 0.02 (0.001-0.031) x10^3u/L Absolute Lymphs (auto) 2.09 (1.18-3.74) x10^3/uL Absolute Monos (auto) 0.36 (0.24-0.86) x10^3/uL Absolute Nucleated RBC 0.00 (0.00-0.012) x10^3u/L Lymphocytes % 29.6 (19.3-51.7) % Monocytes % 5.1 (4.7-12.5) % Eosinophils % 1.3 (0.7-5.8) % Basophils % 1.0 (0.1-1.2) % Absolute Granulocytes 4.44 (1.56-6.13) x10^3/uL Basophils # 0.07 (0.01-0.08) x10^3/uL Sodium 142 (135-145) mmol/L Potassium 3.2 L (3.5-5.1) mmol/L Chloride 108 H (98-107) mmol/L Carbon Dioxide 28 (22-30) mmol/L Anion Gap 9.0 (5-15) MEQ/L BUN 11 (7-17) mg/dL Creatinine 1.33 H (0.52-1.04) mg/dL Estimated GFR 48.1 ML/MIN Glucose 120 H (74-106) mg/dL Calcium 8.5 (8.4-10.2) mg/dL Total Bilirubin 0.30 (0.2-1.3) mg/dL AST 17 (14-36) U/L ALT 14 (0-35) U/L Alkaline Phosphatase 107 (38-126) U/L Serum Total Protein 6.5 (6.3-8.2) g/dL Albumin 3.9 (3.5-5.0) g/dL Lipase 101 (23-300) U/L Urine Color Yellow (Yellow) Urine Appearance Cloudy A (Clear) Urine pH 5.5 (4.6-8.0) Ur Specific [place] >=1.030 A (1.005-1.030) Urine Protein Trace A (Negative) Urine Glucose (UA) Negative (Negative) mg/dL Urine Ketones Trace A (Negative) Urine Blood Trace (Negative) Urine Nitrite Positive A (Negative) Urine Bilirubin Negative (Negative) Urine Urobilinogen 1.0 A (0.2) mg/dL Ur Leukocyte Esterase Moderate A (Negative) U Hyaline Cast (Auto) NONE SEEN (0-2) /LPF Urine Microscopic RBC 0-2 (0-5) /HPF Urine Microscopic WBC >100 A (0-5) /HPF Ur Epithelial Cells None Seen (None Seen) /HPF Urine Bacteria Many A (None Seen) /HPF Urine Culture Reflexed YES (NO) - Progress Progress: improved Progress Note: 08/29/23 01:56 CT abd/pel w/o (contrast allergy) IMPRESSION: 1. No acute abdominopelvic abnormality was identified. 2. Moderate colonic fecal loading. 08/29/23 02:02 UTI - will send home w/ 7 day course of cefdinir recommend OTC miralax first thing each day w/ 8oz water for constipation recommend ibuprofen/tylenol for abdominal discomfort, avoid opioid pain medicines that will worsen constipation return to ED if: develop fevers that do not resolve w/ tylenol/ibuprofen, develop unbearable pain, develop bloody stools or bloody vomiting Counseled pt/family regarding: lab results, diagnosis, need for follow-up, rad results Medical Desision Making - Diagnostic Testing Diagnostic test were ordered, analyzed, and reviewed by me: Yes Radiological Interpretation: Reviewed by me, Teleradiologist Report - Risk of complications Minimal Risk: Minimal risk of morbidity - Departure Departure Disposition: Home Clinical Impression: UTI (urinary tract infection) Qualifiers: Urinary tract infection type: acute cystitis Hematuria presence: without hematuria Qualified Code(s): N30.00 - Acute cystitis without hematuria Abdominal pain Qualifiers: Abdominal location: left lower quadrant Qualified Code(s): R10.32 - Left lower quadrant pain Condition: Stable Critical Care Time: No Referrals: SHERICE KNOWLES PA [Primary Care Provider] - Follow up/PCP as directed Instructions: Abdominal Pain, Adult ED, Urinary Tract Infection, Adult ED Additional Instructions: UTI - will send home w/ 7 day course of cefdinir recommend OTC miralax first thing each day w/ 8oz water for constipation recommend ibuprofen/tylenol for abdominal discomfort, avoid opioid pain medicines that will worsen constipation return to ED if: develop fevers that do not resolve w/ tylenol/ibuprofen, develop unbearable pain, develop bloody stools or bloody vomiting Prescriptions: Cefdinir 300 mg PO BID 7 Days #14 cap
[2023-08-28 23:37] LABS: Appearance Cloudy (Clear); Bacteria Many /HPF (None Seen); Bilirubin Negative (Negative); Blood Trace (Negative); Epithelial Cells None Seen /HPF (None Seen); Glucose, Urine Negative (Negative); Hyaline Casts NONE SEEN /LPF (0-2); Ketones Trace (Negative); Leukocyte Esterase Moderate (Negative); Nitrite Positive (Negative); Ph 5.5 (4.6-8.0); Protein,Urine Dip Trace (Negative); RBC 0-2 /HPF (0-5); Specific Gravity >=1.030 (1.005-1.030); WBC >100 /HPF (0-5)
[2023-08-28 23:38] LABS: ADD URINE CULTURE? YES (NO)
[2023-08-29] MEDS ORDERED: ROCEPHIN 1 GM / 100 ML NaCl 1 GM/100 ML IVPB IV ONE (00:55)
[2023-08-29] MEDS ORDERED: MORPHINE SULFATE 2 MG INJ ONE ×2 (00:55→01:01)
[2023-08-29] MEDS: MORPHINE SULFATE 2 MG INJ IV ONE (00:58)
[2023-08-29] MEDS: ROCEPHIN 1 GM / 100 ML NaCl 1 GM/100 ML IVPB IV ONE (01:00)
[2023-08-29 02:27] VITALS: BP 120/84; PULSE 69; RESP 16
[2023-08-29 02:39] VITALS: O2SAT 95
== END 2023-08-29 02:35 | disposition home or self-care (01) ==
LOC: ED 19:22
DX: N30.00 Acute cystitis without hematuria (principal); R10.32 Left lower quadrant pain; R10.13 Epigastric pain; E78.5 Hyperlipidemia, unspecified; I10 Essential (primary) hypertension; E11.42 Type 2 diabetes mellitus with diabetic polyneuropathy; Z79.4 Long term (current) use of insulin; Z79.899 Other long term (current) drug therapy
CPT/HCPCS: 36000; 36415; 74176; 80053; 81001; 83690; 85025; 87077; 87086; 87186; 96360; 96374; 96375; 96376; 99284; J0696; J2270; J2405

== ENCOUNTER 2023-09-09 00:20 | Emergency (ER) | payer MEDICAID ==
[2023-09-09] MEDS ORDERED: BABY ASPIRIN 81 MG CHEW ONE (00:48)
[2023-09-09] MEDS: BABY ASPIRIN 81 MG CHEW PO ONE (00:49)
--- NOTE | 2023-09-09 00:51 | ERPHSYRPT ---
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 The EKG was normal, patient was sent home. Patient reports her pain started again at 4 PM and since then having continuous pain dull aching to sharp all over the chest, shoulders and some radiation to the left arm with some aggravation with movements of shoulder and no significant relieving factors. Denies associated palpitations or shortness of breath. No fever or chills reported. No history of coronary artery disease in the past. Patient is scheduled to have outpatient stress test done October 04. Allergies/Adverse Reactions: buspirone [From BuSpar] Allergy (Verified 09/09/23 00:29) guaifenesin [From CodiCLEAR DH] Allergy (Verified 09/09/23 00:29) hydrocodone bitartrate [From CodiCLE[employer] DH] Allergy (Verified 09/09/23 00:29) hydromorphone HCl [From Dilaudid] Allergy (Verified 09/09/23 00:29) Iodinated Contrast Media [Iodinated Contrast- Oral and IV Dye] Allergy (Verified 09/09/23 00:29) Penicillins Allergy (Verified 09/09/23 00:29) potassium guaiacolsulfonate [From [employer]odi[employer] DH] Allergy (Verified 09/09/23 00:29) melatonin Adverse Reaction (Verified 09/09/23 00:29) Home Medications: PANTOPRAZOLE 40 mg Tablet [Protonix 40MG Tablet] 40 mg PO DAILY 08/25/16 [History] Nitroglycerin 0.4 mg (Ed) [Nitrostat 0.4 MG (ED)] 0.4 mg SL UD PRN 12/01/17 [History] Furosemide 20 mg [Lasix 20 mg] 40 mg PO DAILY 12/19/19 [History] Dicyclomine HCl 20 mg [Bentyl 20 mg] 20 mg PO QID 09/03/20 [History] Ezetimibe 10 mg [Zetia 10 MG] 10 mg PO DAILY 09/03/20 [History] Potassium Chloride Tab* [Klor Con] 10 meq PO DAILY 09/03/20 [History] Albuterol Sulfate [Albuterol Sulfate Hfa] 8.5 gm IH Q4H PRN PRN 09/05/20 [History] Atorvastatin Calcium [Lipitor 40Mg] 40 mg PO HS 09/05/20 [History] Doxepin HCl 50 mg PO HS 09/05/20 [History] Estradiol [Estrace] 0.5 mg PO DAILY 09/05/20 [History] Insulin Lispro [Humalog] 0 unit SQ UD 09/06/20 [History] Cyanocobalamin/Cobamamide [Sv B-12 5,000 Mcg Microlozenge] 2,500 mcg SL DAILY 12/28/22 [History] Diclofenac Submicronized [Diclofenac] 75 mg PO BID 12/28/22 [History] Ergocalciferol (Vitamin D2) [Vitamin D2] 1 cap PO WEEKLY 12/28/22 [History] Insulin Aspart [NovoLOG Insulin] 5 unit SQ PC 12/28/22 [History] Lurasidone HCl 20 mg PO HS 12/28/22 [History] Lurasidone HCl 80 mg PO DAILY 12/28/22 [History] Magnesium Oxide 400 mg [Mag-Ox 400] 400 mg PO DAILY 12/28/22 [History] Medroxyprogesterone 2.5 mg [Provera 2.5 MG] 5 mg PO DAILY 12/28/22 [History] OXcarbazepine [Trileptal] 150 mg PO BID 12/28/22 [History] Ondansetron ODT 4 MG [Zofran Odt 4 mg] 1 ea PO BIDPRN PRN 12/28/22 [History] Topiramate 100 mg [Topamax 100 MG] 1 tab PO BID 12/28/22 [History] Levothyroxine Sodium 150 Mcg [Synthroid 150 Mcg] 150 mcg PO DAILY 08/28/23 [History] Hx Tetanus, Diphtheria Vaccination/Date Given: Yes Hx Influenza Vaccination/Date Given: No Hx Pneumococcal Vaccination/Date Given: No Travel Risk - Emerging Infectious Disease Are you exhibiting symptoms associated with any current EIDs: Yes Symptoms: Abdominal Pain, Vomitting - Review of Systems Constitutional: No Symptoms Eyes: No Symptoms Ears, Nose, & Throat: No Symptoms Respiratory: No Symptoms Cardiac: Chest Pain Abdominal/Gastrointestinal: No Symptoms Genitourinary Symptoms: No Symptoms Musculoskeletal: No Symptoms Skin: No Symptoms Neurological: No Symptoms Psychological: No Symptoms Endocrine: No Symptoms Hematologic/Lymphatic: No Symptoms Immunological/Allergic: No Symptoms - Past Medical History Pertinent Past Medical History: Yes Neurological History: Migraines, Peripheral Neuropathy ENT History: No Pertinent History Cardiac History: Angina, High Cholesterol, Hypertension Respiratory History: Asthma Endocrine Medical History: Diabetes Type II Musculoskeletal History: Arthritis GI Medical History: Crohns Disease, Diverticulitis, GERD, Gallbladder Disease, Hernia, Irritable Bowel, Pancreatitis, Other History: No Pertinent History Psycho-Social History: Anxiety, Depression Female Reproductive Disorders: No Pertinent History Other Medical History: CHRONIC CONSTIPATION - Past Surgical History Past Surgical History: Yes Neuro Surgical History: No Pertinent History Cardiac: No Pertinent History Respiratory: No Pertinent History Gastrointestinal: Appendectomy, Cholecystectomy, Exploratory Laparoscopy Genitourinary: No Pertinent History Musculoskeletal: No Pertinent History, Other Female Surgical History: No Pertinent History Other Surgical History: back surgery, thyroidectomy Significant Family History: no pertinent family hx - Social History Smoking Status: Never smoker Exposure to second hand smoke: No Drug Use: none Patient Lives Alone: Yes - Social Determinants of Health Will the patient participate in the screening: Yes Do you worry about a steady place to live?: No In the past 12 months,have you had to go without utilities?: No Transportation Issues: No Has anyone in your support network made you feel unsafe?: No Have you or anyone in your house had to go without enough: No - Nursing Vital Signs Nursing Vital Signs: Initial Vital Signs Temperature 97.8 F 09/09/23 00:21 Pulse Rate 90 09/09/23 00:21 Respiratory Rate 16 09/09/23 00:21 Blood Pressure 125/89 09/09/23 00:21 O2 Sat by Pulse Oximetry 98 09/09/23 00:21 Pain Scale Pain Intensity 6 - Physical Exam General Appearance: no apparent distress, alert Ears, Nose, Throat Exam: normal ENT inspection Neck Exam: normal inspection, supple, full range of motion Respiratory Exam: normal breath sounds, lungs clear, No chest tenderness Cardiovascular Exam: regular rate/rhythm, normal heart sounds Gastrointestinal/Abdomen Exam: soft, normal bowel sounds, No tenderness Back Exam: normal inspection Extremity Exam: normal inspection, normal range of motion Neurologic Exam: alert, oriented x 3, cooperative Skin Exam: normal color SpO2 Interpretation: normal SpO2: 99 O2 Delivery: Room Air - Course EKG Interpreted by Me: RATE, Sinus Rhythm, NORMAL AXIS, NORMAL INTERVALS, NORMAL QRS Ordered Tests: Active Orders 24 hr Category Date Time Status Terrazzo Grinder STAT Care 09/09/23 00:45 Active EKG-ER Only STAT Care 09/09/23 00:44 Active IV Insertion STAT Care 09/09/23 00:44 Active CHEST 1 VIEW (PORTABLE) Stat Exams 09/09/23 00:59 Taken CBC W DIFF Stat Lab 09/09/23 00:45 Completed CMP Stat Lab 09/09/23 00:45 Completed NT PRO BNPII Stat Lab 09/09/23 00:45 Completed TROPONIN Q4H Lab 09/09/23 00:45 Completed TROPONIN Q4H Lab 09/09/23 04:45 Ordered TROPONIN Q4H Lab 09/09/23 08:45 Ordered Medication Summary Discontinued Medications Generic Name Dose Route Start Last Admin Trade Name Shermanq PRN Reason Stop Dose Admin Aspirin 324 mg 09/09/23 00:44 09/09/23 00:49 Aspirin 81 Mg Tab.Chew PO 09/09/23 00:45 324 mg STAT ONE Administration Aspirin Confirm 09/09/23 00:48 Aspirin 81 Mg Tab.Chew Administered 09/09/23 00:49 Dose 324 mg .ROUTE .STK-MED ONE Morphine Sulfate 4 mg 09/09/23 01:34 09/09/23 01:37 Morphine Sulfate 4 Mg/Ml Injection IV 09/09/23 01:35 4 mg STAT ONE Administration Morphine Sulfate Confirm 09/09/23 01:36 Morphine Sulfate 4 Mg/Ml Injection Administered 09/09/23 01:37 Dose 4 mg .ROUTE .STK-MED ONE Ondansetron HCl 4 mg 09/09/23 01:34 09/09/23 01:36 Ondansetron Hcl 4 Mg/2 Ml Vial IV 09/09/23 01:35 4 mg STAT ONE Administration Ondansetron HCl Confirm 09/09/23 01:35 Ondansetron Hcl 4 Mg/2 Ml Vial Administered 09/09/23 01:36 Dose 4 mg .ROUTE .STK-MED ONE Lab/Rad Data: Laboratory Result Diagrams 09/09/23 00:45 09/09/23 00:45 Laboratory Results 09/09/23 09/09/23 09/09/23 Range/Units 00:45 00:45 00:45 WBC (3.98-10.04) x10^3/uL RBC (3.93-5.22) x10^6/uL Hgb (11.2-15.7) g/dL Hct (34.1-44.9) % MCV (79.4-94.8) fL MCH (25.6-32.2) pg MCHC (32.2-35.5) g/dL RDW (11.7-14.4) % Plt Count (182-369) x10^3/uL MPV (9.4-12.3) fL Gran % (34.0-71.1) % Immature Gran % (Auto) (0.001-0.429) % Nucleat RBC Rel Count (0.00-0.2) % Eos # (Auto) (0.04-0.36) x10^3/uL Immature Gran # (Auto) (0.001-0.031) x10^3u/L Absolute Lymphs (auto) (1.18-3.74) x10^3/uL Absolute Monos (auto) (0.24-0.86) x10^3/uL Absolute Nucleated RBC (0.00-0.012) x10^3u/L Lymphocytes % (19.3-51.7) % Monocytes % (4.7-12.5) % Eosinophils % (0.7-5.8) % Basophils % (0.1-1.2) % Absolute Granulocytes (1.56-6.13) x10^3/uL Basophils # (0.01-0.08) x10^3/uL Sodium 139 (135-145) mmol/L Potassium 4.4 (3.5-5.1) mmol/L Chloride 107 (98-107) mmol/L Carbon Dioxide 25 (22-30) mmol/L Anion Gap 11.2 (5-15) MEQ/L BUN 20 H (7-17) mg/dL Creatinine 1.06 H (0.52-1.04) mg/dL Estimated GFR 63.2 ML/MIN Glucose 143 H (74-106) mg/dL Calcium 8.7 (8.4-10.2) mg/dL Total Bilirubin 0.40 (0.2-1.3) mg/dL AST 39 H (14-36) U/L ALT 35 (0-35) U/L Alkaline Phosphatase 120 (38-126) U/L Troponin I < 0.012 (0.000-0.033) ng/mL NT-Pro-B Natriuret Pep 42.6 (<300) pg/mL Serum Total Protein 6.3 (6.3-8.2) g/dL Albumin 3.8 (3.5-5.0) g/dL 09/09/23 Range/Units 00:45 WBC 9.9 (3.98-10.04) x10^3/uL RBC 4.66 (3.93-5.22) x10^6/uL Hgb 13.5 (11.2-15.7) g/dL Hct 42.9 (34.1-44.9) % MCV 92.1 (79.4-94.8) fL MCH 29.0 (25.6-32.2) pg MCHC 31.5 L (32.2-35.5) g/dL RDW 14.2 (11.7-14.4) % Plt Count 249 (182-369) x10^3/uL MPV 10.9 (9.4-12.3) fL Gran % 64.0 (34.0-71.1) % Immature Gran % (Auto) 0.3 (0.001-0.429) % Nucleat RBC Rel Count 0.0 (0.00-0.2) % Eos # (Auto) 0.12 (0.04-0.36) x10^3/uL Immature Gran # (Auto) 0.03 (0.001-0.031) x10^3u/L Absolute Lymphs (auto) 2.72 (1.18-3.74) x10^3/uL Absolute Monos (auto) 0.62 (0.24-0.86) x10^3/uL Absolute Nucleated RBC 0.00 (0.00-0.012) x10^3u/L Lymphocytes % 27.5 (19.3-51.7) % Monocytes % 6.3 (4.7-12.5) % Eosinophils % 1.2 (0.7-5.8) % Basophils % 0.7 (0.1-1.2) % Absolute Granulocytes 6.32 H (1.56-6.13) x10^3/uL Basophils # 0.07 (0.01-0.08) x10^3/uL Sodium (135-145) mmol/L Potassium (3.5-5.1) mmol/L Chloride (98-107) mmol/L Carbon Dioxide (22-30) mmol/L Anion Gap (5-15) MEQ/L BUN (7-17) mg/dL Creatinine (0.52-1.04) mg/dL Estimated GFR ML/MIN Glucose (74-106) mg/dL Calcium (8.4-10.2) mg/dL Total Bilirubin (0.2-1.3) mg/dL AST (14-36) U/L ALT (0-35) U/L Alkaline Phosphatase (38-126) U/L Troponin I (0.000-0.033) ng/mL NT-Pro-B Natriuret Pep (<300) pg/mL Serum Total Protein (6.3-8.2) g/dL Albumin (3.5-5.0) g/dL - Progress Progress: improved, re-examined Air Movement: good Progress Note: 09/09/23 04:34 53-year-old is evaluated in the ER for chest pain all over since yesterday. Patient has continuous pain. Has some element of musculoskeletal, reproducible with movements of the shoulders. EKG is normal sinus rhythm with no acute ischemic changes. Negative initial troponin. Chest x-ray negative for any acute cardiopulmonary findings. She is given aspirin and morphine, on reevaluation she is still having pain. Second troponin is pending. P Blood Culture(s) Obtained: No Antibiotics given: No Counseled pt/family regarding: lab results, diagnosis, need for follow-up, rad results Medical Desision Making - Discussion of managment Care discussed with:: hospitalist Reviewed:: Test results Agreed on:: Treatment plan, need for follow-up - Diagnostic Testing Diagnostic test were ordered, analyzed, and reviewed by me: Yes Radiological Interpretation: Interpreted by me, Reviewed by me - Risk of complications The pt has a mod risk of morbidity or mortality based on: Need for prescription drug management - Departure Clinical Impression: Atypical chest pain Condition: Stable Critical Care Time: No Referrals: SHERICE KNOWLES PA [Primary Care Provider] - Follow up with PCP 1 day Instructions: Angina (DC), Chest Pain (DC) Additional Instructions: Take Tylenol as needed. Follow-up with your primary care and cardiology for reevaluation. Return to ER for intractable chest pain, palpitations, shortness of breath etc. Continue with your current medications.
[2023-09-09 00:58] VITALS: TEMP 97.8
[2023-09-09 01:04] LABS: Absolute Neutrophil Ct (ANC) 6.32 x10^3/uL (1.56-6.13); BASOPHIL % 0.7 % (0.1-1.2); Basophil (Absolute #) 0.07 x10^3/uL (0.01-0.08); Eosinophil % 1.2 % (0.7-5.8); Eosinophil (Absolute #) 0.12 x10^3/uL (0.04-0.36); Hematocrit 42.9 % (34.1-44.9); Hemoglobin 13.5 g/dL (11.2-15.7); IMMATURE GRAN # 0.03 x10^3u/L (0.001-0.031); IMMATURE GRAN % 0.3 % (0.001-0.429); Lymphocyte (Absolute #) 2.72 x10^3/uL (1.18-3.74); Lymphocytes % 27.5 % (19.3-51.7); Mean Cell Volume 92.1 fL (79.4-94.8); Mean Corpuscular Hgb Concent. 31.5 g/dL (32.2-35.5); Mean Platelet Volume 10.9 fL (9.4-12.3); Monocyte (Absolute #) 0.62 x10^3/uL (0.24-0.86); Monocytes % 6.3 % (4.7-12.5); Platelet Count 249 x10^3/uL (182-369); Red Blood Count 4.66 x10^6/uL (3.93-5.22); Red Cell Distribution Width 14.2 % (11.7-14.4); White Blood Count 9.9 x10^3/uL (3.98-10.04)
[2023-09-09 01:18] LABS: ALBUMIN 3.8 g/dL (3.5-5.0); ANION GAP 11.2 MEQ/L (5-15); BILIRUBIN,TOTAL 0.4 mg/dL (0.2-1.3); Calcium 8.7 mg/dL (8.4-10.2); Creatinine 1 1.06 mg/dL (0.52-1.04); EST GLOMERULAR FILTRATION RATE 63.2 ML/MIN; Potassium 4.4 mmol/L (3.5-5.1); Total Protein 6.3 g/dL (6.3-8.2)
[2023-09-09] MEDS ORDERED: Zofran 4 MG/2 ML VIAL ONE (01:35)
[2023-09-09] MEDS: Zofran 4 MG/2 ML VIAL IV ONE (01:36)
[2023-09-09] MEDS ORDERED: MORPHINE SULFATE 4 MG INJ ONE (01:36)
[2023-09-09] MEDS: MORPHINE SULFATE 4 MG INJ IV ONE (01:37)
[2023-09-09 04:35] VITALS: RESP 21
[2023-09-09 05:06] VITALS: BP 164/101; PULSE 81; O2SAT 98
--- NOTE | 2023-09-09 07:37 | XRAY ---
Indication: Chest pain. Comparison: April 15, 2023 Portable chest again demonstrates normal heart and lungs. Bony thorax intact with stable benign proximal left humerus bone island. No new/acute findings.
== END 2023-09-09 05:06 | disposition home or self-care (01) ==
LOC: ED 00:20
DX: R07.89 Other chest pain (principal); I10 Essential (primary) hypertension; E11.42 Type 2 diabetes mellitus with diabetic polyneuropathy; E78.5 Hyperlipidemia, unspecified; Z79.4 Long term (current) use of insulin; Z79.899 Other long term (current) drug therapy
CPT/HCPCS: 36000; 36415; 71045; 80053; 83880; 84484; 85025; 93005; 93041; 96374; 96375; 99284; J2270; J2405; A9270-GY

== ENCOUNTER 2024-07-13 19:16 | Emergency (ER) | payer MEDICAID ==
[2024-07-13 19:29] VITALS: TEMP 97.9
[2024-07-13 19:55] LABS: Absolute Neutrophil Ct (ANC) 3.74 x10^3/uL (1.56-6.13); BASOPHIL % 0.7 % (0.1-1.2); Basophil (Absolute #) 0.04 x10^3/uL (0.01-0.08); Eosinophil % 1.3 % (0.7-5.8); Eosinophil (Absolute #) 0.08 x10^3/uL (0.04-0.36); Hematocrit 38.1 % (34.1-44.9); Hemoglobin 12.1 g/dL (11.2-15.7); IMMATURE GRAN # 0.02 x10^3u/L (0.001-0.031); IMMATURE GRAN % 0.3 % (0.001-0.429); Lymphocyte (Absolute #) 1.72 x10^3/uL (1.18-3.74); Lymphocytes % 28.2 % (19.3-51.7); Mean Cell Volume 89.2 fL (79.4-94.8); Mean Corpuscular Hemoglobin 28.3 pg (25.6-32.2); Mean Corpuscular Hgb Concent. 31.8 g/dL (32.2-35.5); Mean Platelet Volume 10.9 fL (9.4-12.3); Monocyte (Absolute #) 0.49 x10^3/uL (0.24-0.86); Neutrophil % 61.5 % (34.0-71.1); Platelet Count 204 x10^3/uL (182-369); Red Blood Count 4.27 x10^6/uL (3.93-5.22); Red Cell Distribution Width 13.9 % (11.7-14.4); White Blood Count 6.1 x10^3/uL (3.98-10.04)
--- NOTE | 2024-07-13 20:01 | ERPHSYRPT ---
- History of Present Illness Historian: patient Exam Limitations: no limitations Patient Subjective Stated Complaint: chest pain in center of chest to back, to rt jaw and both arms Triage Nursing Assessment: Pt brought in by EMS c/o midsternal chest pain radiating to her back, rt jaw and bilat arms. Pt was sitting at her friends house talking on the phone when this occured. Pt describes pain as sharp and pressure. Pt c/o nausea, denies any vomiting. Lungs clear, heart tones reg, no edema noted. Pt was given aspirin 324mg by ems. Pt's sumatra opener is Dr. Whitaker. Physician History: Patient has chest pain. It started around 630. She was on the phone. She said it was in her chest and then radiated to her back and then up into her jaws bilaterally and then into her shoulders. She said it was painful and stabbing. It still present. She has a history of vascular disease. She had a three- vessel stent done about 7 years ago. She is still having some chest pain. She did not take any nitro because she had a headache. She did have nitro at home but did not take it. She got aspirin in the ambulance. The patient called the ambulance and they brought her in.She does not have any shortness of breath. She has no abdominal pain. She said she did have some nausea. She denies any diaphoresis. Activities at Onset: none Allergies/Adverse Reactions: buspirone [From BuSpar] Allergy (Verified 07/13/24 19:39) guaifenesin [From CodiCLEAR ] Allergy (Verified 07/13/24 19:39) hydrocodone bitartrate [From CodiCLEAR DH] Allergy (Verified 07/13/24 19:39) hydromorphone HCl [From Dilaudid] Allergy (Verified 07/13/24 19:39) Iodinated Contrast Media [Iodinated Contrast- Oral and IV Dye] Allergy (Verified 07/13/24 19:39) Penicillins Allergy (Verified 07/13/24 19:39) potassium guaiacolsulfonate [From [employer] ] Allergy (Verified 07/13/24 19:39) melatonin Adverse Reaction (Verified 07/13/24 19:39) Home Medications: Nitroglycerin 0.4 mg (Ed) [Nitrostat 0.4 MG (ED)] 0.4 mg SL UD PRN 12/01/17 [History] Furosemide 20 mg [Lasix 20 mg] 40 mg PO DAILY 12/19/19 [History] Ezetimibe 10 mg [Zetia 10 MG] 10 mg PO HS 09/03/20 [History] Potassium Chloride Tab* [Klor Con] 10 meq PO DAILY 09/03/20 [History] Albuterol Sulfate [Albuterol Sulfate Hfa] 8.5 gm IH Q4H PRN PRN 09/05/20 [History] Atorvastatin Calcium [Lipitor 40Mg] 40 mg PO HS 09/05/20 [History] Estradiol [Estrace] 0.5 mg PO DAILY 09/05/20 [History] Insulin Lispro [Humalog] 5 unit SQ TIDWMEALS 09/06/20 [History] Cyanocobalamin/Cobamamide [Sv B-12 5,000 Mcg Microlozenge] 2,500 mcg SL DAILY 12/28/22 [History] Ergocalciferol (Vitamin D2) [Vitamin D2] 1 cap PO CLARIFY 12/28/22 [History] Insulin Aspart [NovoLOG Insulin] 5 unit SQ TIDWMEALS 12/28/22 [History] Magnesium Oxide 400 mg [Mag-Ox 400] 400 mg PO DAILY 12/28/22 [History] Medroxyprogesterone 2.5 mg [Provera 2.5 MG] 5 mg PO DAILY 12/28/22 [History] Topiramate 100 mg [Topamax 100 MG] 1 tab PO BID 12/28/22 [History] Levothyroxine Sodium 150 Mcg [Synthroid 150 Mcg] 125 mcg PO DAILY 08/28/23 [History] Aripiprazole 10 mg [Abilify 10 MG] 1 tab PO BID 07/13/24 [History] Fluoxetine HCl [Prozac] 20 mg PO DAILY 07/13/24 [History] Hx Tetanus, Diphtheria Vaccination/Date Given: Yes Hx Influenza Vaccination/Date Given: No Hx Pneumococcal Vaccination/Date Given: No Travel Risk - International Travel Have you traveled outside of the country in past 3 weeks: No - Emerging Infectious Disease Are you exhibiting symptoms associated with any current EIDs: No Symptoms: Abdominal Pain, Vomitting - Review of Systems Constitutional: No Symptoms Eyes: No Symptoms Respiratory: No Symptoms Cardiac: Chest Pain Abdominal/Gastrointestinal: No Symptoms Genitourinary Symptoms: No Symptoms Musculoskeletal: No Symptoms All Other Systems: Reviewed and Negative - Past Medical History Pertinent Past Medical History: Yes Neurological History: Migraines, Peripheral Neuropathy ENT History: No Pertinent History Cardiac History: Angina, High Cholesterol, Hypertension Respiratory History: Asthma Endocrine Medical History: Diabetes Type II Musculoskeletal History: Arthritis GI Medical History: Crohns Disease, Diverticulitis, GERD, Gallbladder Disease, Hernia, Irritable Bowel, Pancreatitis, Other History: No Pertinent History Psycho-Social History: Anxiety, Depression Female Reproductive Disorders: No Pertinent History Other Medical History: CHRONIC CONSTIPATION - Past Surgical History Past Surgical History: Yes Neuro Surgical History: No Pertinent History Cardiac: No Pertinent History Respiratory: No Pertinent History Gastrointestinal: Appendectomy, Cholecystectomy, Exploratory Laparoscopy Genitourinary: No Pertinent History Musculoskeletal: No Pertinent History, Other Female Surgical History: No Pertinent History Other Surgical History: back surgery, thyroidectomy Significant Family History: no pertinent family hx - Female History Hx Now: No - Social History Smoking Status: Former smoker Exposure to second hand smoke: Yes Drug Use: none - Social Determinants of Health Will the patient participate in the screening: Yes Do you worry about a steady place to live?: No Do you have any problems with any of the following?: No known problems In the past 12 months,have you had to go without utilities?: No Transportation Issues: Yes Has anyone in your support network made you feel unsafe?: Yes Have you or anyone in your house had to go w/o enough food: No - Nursing Vital Signs Nursing Vital Signs: Initial Vital Signs Pulse Rate 88 07/13/24 19:21 Respiratory Rate 19 07/13/24 19:21 Blood Pressure 110/91 07/13/24 19:21 O2 Sat by Pulse Oximetry 98 07/13/24 19:21 Pain Scale Pain Intensity 7 - Physical Exam General Appearance: no apparent distress Eye Exam: PERRL/EOMI Ears, Nose, Throat Exam: normal ENT inspection Neck Exam: normal inspection Respiratory Exam: normal breath sounds Cardiovascular Exam: regular rate/rhythm Gastrointestinal/Abdomen Exam: soft, normal bowel sounds, tenderness Pelvic Exam: not done Rectal Exam: deferred Back Exam: normal inspection Extremity Exam: normal inspection, normal range of motion Neurologic Exam: alert, oriented x 3 Skin Exam: normal color, warm, dry SpO2: 98 - Course Nursing assessment & vital signs reviewed: Yes EKG Interpreted by Me: RATE, NORMAL AXIS, NORMAL INTERVALS, NORMAL QRS, Q-wave Ordered Tests: Active Orders 24 hr Category Date Time Status EKG-ER Only STAT Care 07/13/24 19:51 Active ACO SDOH Referral ONCE Cons 07/13/24 19:38 Active CHEST 1 VIEW (PORTABLE) Stat Exams 07/13/24 19:51 Completed CBC W DIFF Stat Lab 07/13/24 19:35 Completed CMP Stat Lab 07/13/24 19:35 Completed MAG [MAGNESIUM] Stat Lab 07/13/24 19:35 Completed TROPONIN Q4H Lab 07/13/24 19:35 Completed TROPONIN Q4H Lab 07/13/24 23:10 Completed TROPONIN Q4H Lab 07/14/24 04:00 Ordered Medication Summary Discontinued Medications Generic Name Dose Route Start Last Admin Trade Name Fabby PRN Reason Stop Dose Admin Al Hydrox/Mg Hydrox/Simethicone Confirm 07/14/24 00:13 Mag Hydrox/Al Hydrox/Simeth 30 Ml Udcup Administered 07/14/24 00:14 Dose 30 ml .ROUTE .STK-MED ONE Ketorolac Tromethamine 15 mg 07/13/24 23:15 07/13/24 23:20 Ketorolac Tromethamine 30 Mg/Ml Inj IV 07/13/24 23:16 15 mg STAT ONE Administration Ketorolac Tromethamine Confirm 07/13/24 23:18 Ketorolac Tromethamine 30 Mg/Ml Inj Administered 07/13/24 23:19 Dose 30 mg .ROUTE .STK-MED ONE Lidocaine HCl Confirm 07/14/24 00:13 Lidocaine Hcl 2% Viscous 15 Ml Udcup Administered 07/14/24 00:14 Dose 15 ml .ROUTE .STK-MED ONE Magnesium Hydroxide 45 ml 07/14/24 00:06 07/14/24 00:14 Mag Hydrx/Alum Hyd/Simeth/Lido 45 Ml Bottle PO 07/14/24 00:07 45 ml STAT ONE Administration Lab/Rad Data: Laboratory Result Diagrams 07/13/24 19:35 07/13/24 19:35 Laboratory Results 0407/13/24 07/13/24 Range/Units 23:10 19:35 19:35 WBC (3.98-10.04) x10^3/uL RBC (3.93-5.22) x10^6/uL Hgb (11.2-15.7) g/dL Hct (34.1-44.9) % MCV (79.4-94.8) fL MCH (25.6-32.2) pg MCHC (32.2-35.5) g/dL RDW (11.7-14.4) % Plt Count (182-369) x10^3/uL MPV (9.4-12.3) fL Gran % (34.0-71.1) % Immature Gran % (Auto) (0.001-0.429) % Nucleat RBC Rel Count (0.00-0.2) % Eos # (Auto) (0.04-0.36) x10^3/uL Immature Gran # (Auto) (0.001-0.031) x10^3u/L Absolute Lymphs (auto) (1.18-3.74) x10^3/uL Absolute Monos (auto) (0.24-0.86) x10^3/uL Absolute Nucleated RBC (0.00-0.012) x10^3u/L Lymphocytes % (19.3-51.7) % Monocytes % (4.7-12.5) % Eosinophils % (0.7-5.8) % Basophils % (0.1-1.2) % Absolute Granulocytes (1.56-6.13) x10^3/uL Basophils # (0.01-0.08) x10^3/uL Sodium 141 (135-145) mmol/L Potassium 4.0 (3.5-5.1) mmol/L Chloride 106 (98-107) mmol/L Carbon Dioxide 25 (22-30) mmol/L Anion Gap 13.7 (5-15) MEQ/L BUN 10 (7-17) mg/dL Creatinine 0.75 (0.52-1.04) mg/dL Estimated GFR 95.1 ML/MIN Glucose 190 H (74-106) mg/dL Calcium 8.1 L (8.4-10.2) mg/dL Magnesium 2.0 (1.6-2.3) mg/dL Total Bilirubin 0.40 (0.2-1.3) mg/dL AST 22 (14-36) U/L ALT 19 (0-35) U/L Alkaline Phosphatase 90 (38-126) U/L Troponin I < 0.012 < 0.012 (0.000-0.033) ng/mL Serum Total Protein 5.5 L (6.3-8.2) g/dL Albumin 3.3 L (3.5-5.0) g/dL 07/13/ Range/Units 19:35 WBC 6.1 (3.98-10.04) x10^3/uL RBC 4.27 (3.93-5.22) x10^6/uL Hgb 12.1 (11.2-15.7) g/dL Hct 38.1 (34.1-44.9) % MCV 89.2 (79.4-94.8) fL MCH 28.3 (25.6-32.2) pg MCHC 31.8 L (32.2-35.5) g/dL RDW 13.9 (11.7-14.4) % Plt Count 204 (182-369) x10^3/uL MPV 10.9 (9.4-12.3) fL Gran % 61.5 (34.0-71.1) % Immature Gran % (Auto) 0.3 (0.001-0.429) % Nucleat RBC Rel Count 0.0 (0.00-0.2) % Eos # (Auto) 0.08 (0.04-0.36) x10^3/uL Immature Gran # (Auto) 0.02 (0.001-0.031) x10^3u/L Absolute Lymphs (auto) 1.72 (1.18-3.74) x10^3/uL Absolute Monos (auto) 0.49 (0.24-0.86) x10^3/uL Absolute Nucleated RBC 0.00 (0.00-0.012) x10^3u/L Lymphocytes % 28.2 (19.3-51.7) % Monocytes % 8.0 (4.7-12.5) % Eosinophils % 1.3 (0.7-5.8) % Basophils % 0.7 (0.1-1.2) % Absolute Granulocytes 3.74 (1.56-6.13) x10^3/uL Basophils # 0.04 (0.01-0.08) x10^3/uL Sodium (135-145) mmol/L Potassium (3.5-5.1) mmol/L Chloride (98-107) mmol/L Carbon Dioxide (22-30) mmol/L Anion Gap (5-15) MEQ/L BUN (7-17) mg/dL Creatinine (0.52-1.04) mg/dL Estimated GFR ML/MIN Glucose (74-106) mg/dL Calcium (8.4-10.2) mg/dL Magnesium (1.6-2.3) mg/dL Total Bilirubin (0.2-1.3) mg/dL AST (14-36) U/L ALT (0-35) U/L Alkaline Phosphatase (38-126) U/L Troponin I (0.000-0.033) ng/mL Serum Total Protein (6.3-8.2) g/dL Albumin (3.5-5.0) g/dL - Progress Progress: re-examined, unchanged Air Movement: good Progress Note: Patient was stable throughout stay. Her EKG showed no acute changes. We got repeat troponins on her at 1 and 4 hours. It was not elevated. Her pain did not get much better with Toradol. She thinks it may be GI now. Will try a GI cocktail that does not work we will try something else. In any event I think she stable to go home. On the differential was a coronary vascular event reflux musculoskeletal chest pain, And reflux. I think it may be musculoskeletal pain. 07/13/24 23:52 07/13/24 23:53 07/14/24 00:26 Blood Culture(s) Obtained: No Antibiotics given: No Medical Desision Making - Diagnostic Testing Diagnostic test were ordered, analyzed, and reviewed by me: Yes - Risk of complications Low Risk: Low risk of morbidity from additional dx testing or treatment - Departure Departure Disposition: Home Clinical Impression: Chest pain Condition: Stable Critical Care Time: No Referrals: SHERICE KNOWLES PA [Primary Care Provider, UNKNOWN] - Follow up/PCP as directed Instructions: Atypical Chest Pain
[2024-07-13 20:08] LABS: ALBUMIN 3.3 g/dL (3.5-5.0); ANION GAP 13.7 MEQ/L (5-15); BILIRUBIN,TOTAL 0.4 mg/dL (0.2-1.3); Calcium 8.1 mg/dL (8.4-10.2); Creatinine 1 0.75 mg/dL (0.52-1.04); EST GLOMERULAR FILTRATION RATE 95.1 ML/MIN; Total Protein 5.5 g/dL (6.3-8.2)
--- NOTE | 2024-07-13 21:40 | XRAY ---
Indication: Chest pain. Comparison: September 09, 2023 Portable chest again demonstrates normal heart and lungs. Bony thorax intact again with benign proximal left humerus bone island. No new/acute findings.
[2024-07-13] MEDS ORDERED: TORAdol 30 mg Injection ONE (23:18)
[2024-07-13] MEDS: TORAdol 30 mg Injection IV ONE (23:20)
[2024-07-14] MEDS ORDERED: XYLOCAINE VISCOUS 2% 15 ML CUP ONE (00:13)
[2024-07-14] MEDS ORDERED: MAALOX ES 30 ML UNIT DOSE ONE (00:13)
[2024-07-14] MEDS: GI COCKTAIL 45 ML (Maalox/Lidocaine) PO ONE (00:14)
[2024-07-14] MEDS ORDERED: Hydromorphone 1 mg/ml Injection ONE (00:30)
[2024-07-14] MEDS: Hydromorphone 1 mg/ml Injection IV ONE (00:32)
[2024-07-14 01:00] VITALS: RESP 17
[2024-07-14 01:02] VITALS: BP 108/64; PULSE 71; O2SAT 99
== END 2024-07-14 01:05 | disposition home or self-care (01) ==
LOC: ED 19:16
DX: R07.9 Chest pain, unspecified (principal); E78.5 Hyperlipidemia, unspecified; I10 Essential (primary) hypertension; E11.42 Type 2 diabetes mellitus with diabetic polyneuropathy; Z79.4 Long term (current) use of insulin; Z79.899 Other long term (current) drug therapy; Z59.82 Transportation insecurity; Z60.8 Other problems related to social environment
CPT/HCPCS: 36415; 71045; 80053; 83735; 84484; 85025; 93005; 96374; 96375; 99284; 99285; J1171; J1885; A9270-GY

== ENCOUNTER 2025-01-03 20:07 | Emergency (ER) | payer MEDICAID ==
[2025-01-03 20:19] VITALS: TEMP 97.8; O2SAT 99
[2025-01-03 20:56] VITALS: BP 127/85; PULSE 80; RESP 16
--- NOTE | 2025-01-03 20:56 | ERPHSYRPT ---
- History of Present Illness Time Seen by Provider: 01/03/25 20:40 Source: patient, family Patient Subjective Stated Complaint: PT STATES HER BLOOD SUGAR IS HIGH Triage Nursing Assessment: PT PRESENTS TO THE ER VIA PRIVATE VEHICLE, WITH FAMILY. PT AMBULATES INTO THE ER USING A WALKER LO HOME. PT IS ALERT AND ORIENTED X4. PT STATES SHE WAS JUST RELEASED THIS TUESDAY FROM BEING IN THE HOSPITAL FOR THE SAME THING. PT STATES HER BLOOD SUGAR IS HIGH, SHE HAS TAKEN 6 UNITS ON INSULIN LISPRO EARLIER IN THE DAY BUT IT DID NOT BRING IT DOWN. PT STATES THAT SHE WAS SUPPOSED TO BE STARTED ON AN INSULIN PUMP ON TUESDAY BUT SHE WAS STILL IN THE HOSPITAL. PTS BLOOD GLUCOSE ON ARRIVAL TO THE ER WAS 231. PT STATES SHE HAS BEEN ON INSULIN FOR 5 YEARS. PT STATES SHE GAVE HERSELF 6 UNITS ON INSULIN LISPRO AT [facility] TODAY WITH HER MEAL, BUT IT DID NOT BRING HER SUGAR DOWN MUCH. Physician History: Patient has started new regular insulin with meals and 6 units. She took 2 doses today but not take the evening dose. Her last blood sugar reading earlier today was 280. She is in the 220s here. She is asymptomatic. 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 She states that she has not discussed starting a sliding scale of insulin with him is not taking a long-acting insulin. She is asymptomatic Allergies/Adverse Reactions: buspirone [From BuSpar] Allergy (Verified 01/03/25 20:20) guaifenesin [From Codi[facility]AR [facility]] Allergy (Verified 01/03/25 20:20) hydrocodone bitartrate [From CodiCLEAR ] Allergy (Verified 01/03/25 20:20) hydromorphone HCl [From Dilaudid] Allergy (Verified 01/03/25 20:20) Iodinated Contrast Media [Iodinated Contrast- Oral and IV Dye] Allergy (Verified 01/03/25 20:20) Penicillins Allergy (Verified 01/03/25 20:20) potassium [facility]ulfonate [facility] Allergy (Verified 01/03/25 20:20) melatonin Adverse Reaction (Verified 01/03/25 20:20) Home Medications: Nitroglycerin 0.4 mg (Ed) [Nitrostat 0.4 MG (ED)] 0.4 mg SL UD PRN 12/01/17 [History] Ezetimibe 10 mg [Zetia 10 MG] 10 mg PO HS 09/03/20 [History] Potassium Chloride Tab* [Klor Con] 10 meq PO DAILY 09/03/20 [History] Albuterol Sulfate [Albuterol Sulfate Hfa] 8.5 gm IH Q4H PRN PRN 09/05/20 [History] Atorvastatin Calcium [Lipitor 40Mg] 40 mg PO HS 09/05/20 [History] estradioL [Estrace] 0.5 mg PO DAILY 09/05/20 [History] Insulin Lispro [Humalog] 6 unit SQ TIDWMEALS 09/06/20 [History] Ergocalciferol (Vitamin D2) [Vitamin D2] 1.25 mg PO DIRECTIONS UNKNOWN 12/28/22 [History] Magnesium Oxide 400 mg [Mag-Ox 400] 400 mg PO HS 12/28/22 [History] Medroxyprogesterone 2.5 mg [Provera 2.5 MG] 5 mg PO DAILY 12/28/22 [History] Topiramate 100 mg [Topamax 100 MG] 1 tab PO BID 12/28/22 [History] Eszopiclone 1 mg PO HS 12/29/24 [History] Levothyroxine Sodium 100 Mcg [Synthroid 100 Mcg] 100 mcg PO DAILY 12/29/24 [History] Linagliptin [Tradjenta] 5 mg PO DAILY 12/29/24 [History] Montelukast Sodium 10 mg [Singulair 10 MG] 10 mg PO DAILY 12/29/24 [History] Ubrogepant [Ubrelvy] 100 mg PO DAILY PRN PRN 12/29/24 [History] Hx Tetanus, Diphtheria Vaccination/Date Given: Yes Hx Influenza Vaccination/Date Given: No Hx Pneumococcal Vaccination/Date Given: No Immunizations Up to Date: Yes Travel Risk - International Travel Have you traveled outside of the country in past 3 weeks: No - Emerging Infectious Disease Are you exhibiting symptoms associated with any current EIDs: No Symptoms: Abdominal Pain - Review of Systems Constitutional: No Fever, No Chills Eyes: No Symptoms Ears, Nose, & Throat: No Symptoms Respiratory: No Cough, No Dyspnea Cardiac: No Chest Pain, No Edema, No Syncope Abdominal/Gastrointestinal: No Abdominal Pain, No Nausea, No Vomiting, No Diarrhea Genitourinary Symptoms: No Dysuria Musculoskeletal: No Back Pain, No Neck Pain Skin: No Rash Neurological: No Dizziness, No Focal Weakness, No Sensory Changes Psychological: No Symptoms Endocrine: No Symptoms All Other Systems: Reviewed and Negative - Past Medical History Pertinent Past Medical History: Yes Neurological History: Migraines, Peripheral Neuropathy, Other ENT History: No Pertinent History Cardiac History: Angina, High Cholesterol, Hypertension Respiratory History: Asthma Endocrine Medical History: Diabetes Type II Musculoskeletal History: Arthritis GI Medical History: Crohns Disease, Diverticulitis, GERD, Gallbladder Disease, Hernia, Irritable Bowel, Pancreatitis, Other History: No Pertinent History Psycho-Social History: Anxiety, Depression Female Reproductive Disorders: No Pertinent History Other Medical History: CHRONIC CONSTIPATION - Past Surgical History Past Surgical History: Yes Neuro Surgical History: No Pertinent History Cardiac: No Pertinent History Respiratory: No Pertinent History Gastrointestinal: Appendectomy, Cholecystectomy, Exploratory Laparoscopy Genitourinary: No Pertinent History Musculoskeletal: No Pertinent History, Other Female Surgical History: No Pertinent History Other Surgical History: back surgery, thyroidectomy Significant Family History: no pertinent family hx - Female History Hx Last Menstrual Period: PT DENIES Hx Now: No - Social History Smoking Status: Never smoker Exposure to second hand smoke: No Drug Use: none - Social Determinants of Health Will the patient participate in the screening: Yes Do you worry about a steady place to live?: No Do you have any problems with any of the following?: No known problems In the past 12 months,have you had to go without utilities?: No Transportation Issues: No Has anyone in your support network made you feel unsafe?: No Have you or anyone in your house had to go w/o enough food: No - Nursing Vital Signs Nursing Vital Signs: Initial Vital Signs Temperature 97.8 F 01/03/25 20:16 Pulse Rate 88 01/03/25 20:16 Respiratory Rate 15 01/03/25 20:16 Blood Pressure 154/111 01/03/25 20:16 O2 Sat by Pulse Oximetry 99 01/03/25 20:16 Pain Scale Pain Intensity 10 - Physical Exam General Appearance: no apparent distress, alert Eye Exam: PERRL/EOMI, eyes nml inspection Ears, Nose, Throat Exam: normal ENT inspection, TMs normal, pharynx normal, moist mucous membranes Neck Exam: normal inspection, non-tender, supple, full range of motion Respiratory Exam: normal breath sounds, lungs clear, No respiratory distress Cardiovascular Exam: regular rate/rhythm, normal heart sounds, normal peripheral pulses Gastrointestinal/Abdomen Exam: soft, normal bowel sounds, No tenderness, No mass Back Exam: normal inspection, normal range of motion, No CVA tenderness, No vertebral tenderness Extremity Exam: normal inspection, normal range of motion, pelvis stable Neurologic Exam: alert, oriented x 3, cooperative, normal mood/affect, nml cerebellar function, nml station & gait, sensation nml, No motor deficits Skin Exam: normal color, warm, dry, No rash Lymphatic Exam: No adenopathy SpO2: 99 Ordered Tests: Active Orders 24 hr Category Date Time Status POCT GLUCOSE Stat Lab 01/03/25 20:14 Completed Lab/Rad Data: Laboratory Results 01/03/25 Range/Units 20:14 POC Glucometer 231 H (74 to 106) mg/dL - Progress Progress Note: 01/03/25 20:53 The patient was evaluated. She has not taken her insulin since noon today. Her blood sugar was 220. I discussed with her that if she has elevated blood glucoses despite taking her regular insulin with meals she needs to start an adjustment scale in conjunction with her economic development director. She is asymptomatic. She has not taken her evening dose. Discussed with her that she may need to take a single dose of 8 units in conjunction with her meals and glucose monitoring and close communication with herHer building carpenter helper. She voiced understanding of plan - Departure Clinical Impression: Hyperglycemia due to type 2 diabetes mellitus Condition: Stable Critical Care Time: No Referrals: SHERICE KNOWLES PA [Primary Care Provider, UNKNOWN] - Follow up/PCP as directed Additional Instructions: Drink plenty of water. Eat regular meals low in carbohydrates. Take your regular doses of insulin. If you have elevated blood sugars your regular doctor may need to discuss increasing your insulin adjustment with meals. Return for any symptoms or concerns
== END 2025-01-03 21:03 | disposition home or self-care (01) ==
LOC: ED 20:07
DX: E11.65 Type 2 diabetes mellitus with hyperglycemia (principal); E11.42 Type 2 diabetes mellitus with diabetic polyneuropathy; I10 Essential (primary) hypertension; Z79.4 Long term (current) use of insulin; Z79.899 Other long term (current) drug therapy